=== PATIENT | female | born 1955 | race Caucasian/White ===

== ENCOUNTER → 2019-12-02 15:44 | Outpatient (BNVA) | payer MEDICARE, BC, SELFPAY | PROVIDERS: Family Provider Electrodiagnostic Medicine; PCP Electrodiagnostic Medicine; Visit Provider Urology | DX: Z87.440 Personal history of urinary (tract) infections (principal); N30.80 Other cystitis without hematuria; N20.0 Calculus of kidney | CPT/HCPCS: 81001 ==

== ENCOUNTER 2019-12-31 08:21 | Outpatient (CLI) | payer MEDICARE, BC, SELFPAY ==
--- NOTE | 2019-12-31 08:39 | MM_ITS ---
WS: [id number] BILATERAL DIAGNOSTIC DIGITAL MAMMOGRAM WITH CAD HISTORY: HX malignant NEOPLASM RT BREST COMPARISON: 01/10/2019 and 01/09/2018 Bilateral CC and MLO views submitted. Computer aided detection analyzed. Breast composition: There are scattered areas of fibroglandular density. Postsurgical changes at 12:0 0 RIGHT breast. Dystrophic calcification and RIGHT breast distortion are stable. Additional benign ca lcifications in each breast. Surgical clip in the anterior LEFT breast. MM/[id number] IMPRESSION: BI-RADS: 2-Benign FOLLOW UP: 1 Year Follow-up
== END 2019-12-31 08:22 | disposition home or self-care (01) ==
LOC: ONCMED 08:22
PROVIDERS: Family Provider Electrodiagnostic Medicine; PCP Electrodiagnostic Medicine; Visit Provider Internal Medicine Medical Oncology
DX: Z85.3 Personal history of malignant neoplasm of breast (principal)
CPT/HCPCS: 77066

== ENCOUNTER 2020-03-23 15:17 | Inpatient (IN) | payer MEDICARE, BC, SELFPAY ==
[2020-03-23] VITALS (9 sets, daily range): BP systolic 91–124; BP diastolic 46–73; PULSE 75–106; RESP 14–18; TEMP 36.6–38.2; O2SAT 90–100; BMI 31.6
--- NOTE | 2020-03-23 15:44 | XRR_ITS ---
PROCEDURE INFORMATION: Exam: XR Chest, 2 Views Exam date and time: 03/23/2020 4:01 PM Age: 64 years old Clinical indication: Shortness of breath TECHNIQUE: Imaging protocol: XR of the chest Views: 2 views. COMPARISON: No relevant prior studies available. FINDINGS: Lungs: Unremarkable. No consolidation. Pleural space: Unremarkable. No pleural effusion. No pneumothorax. Heart/Mediastinum: Unremarkable. No cardiomegaly. Bones/joints: Unremarkable. XR/XR chest 2V* [id number] IMPRESSION: No acute findings.
--- NOTE | 2020-03-23 16:41 | W.ED.SOB ---
Documented by User: Ricardo Ferrer DO 03/24/20 06:32 HPI - SOB/Dyspnea General: Chief Complaint: Shortness of Breath/Dyspnea Stated Complaint: weak, duong, fever Time Seen by Provider: 03/23/20 16:35 History of Present Illness: HPI Narrative: 64 yo female comes in complaining of headache and fever for the last 10 days. She was tested at an outside clinic by COVID-19 for COVID-19 and it came back negative today after a week. 2 days ago she began to feel short of breath she has temps intermittently up to 104. She has not noticed any new rashes no mouth sores. She has not had any sick contacts known else at home is been sick she denies nausea vomiting diarrhea denies any GI or symptoms she has not had a productive cough or shortness of breath only been for the last 2 days she denies chest pain. She does complain about a headache and some stiff neck and fever however that is been 1 persistent thing throughout this. She has not been evaluated for meningitis. MD elicited complaint: shortness of breath and cough Onset (ago): week(s) (1) Context: recent illness and occurred during exertion Timing: constant Severity: moderate Exacerbating factors: nothing Relieving factors: nothing Associated symptoms: Reports fever(s), lightheadedness, nausea and other (Headache and stiff neck) Treatment prior to arrival: none Review of Systems Const: Reports: fever(s) ENMT: Denies: throat pain, ear or mastoid pain, nasal discharge or nasal congestion Card: Reports: lightheadedness Resp: Denies: dyspnea, productive cough or non-productive cough GI: Reports: nausea : Denies: flank pain, difficulty voiding, dysuria, urinary frequency or urinary urgency Skin/Breast: Denies: rash or pruritus PFS ED PFSH: Medical History (Updated 03/23/20 @ 22:21 by Juan Luis Story MD) Breast cancer, right Infiltrating ductal carcinoma ER positive SC positive HER-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 Status post right breast lumpectomy and sentinel lymph node biopsy, Status post chemo radiotherapy Chronic cystitis Ciprofloxacin 500 mg twice daily Cystocele with rectocele BOTH REPAIRED Trans-obturator sub-urethral sling in April 2005 Anterior vaginal repair Nocturia Reflex sympathetic dystrophy of right leg Nifedipine Renal calculus, left Surgical History (Updated 03/23/20 @ 22:21 by Juan Luis Story MD) H/O bilateral salpingo-oophorectomy History of hysterectomy Vaginal hysterectomy History of lumpectomy of right breast Family History Mother Dementia Other Diabetes Social History Smoking and tobacco status: former smoker Alcohol intake: current Alcohol intake frequency: holidays/special occasions only Adopted: No Caregiver/support person: No Lives independently: No Household members: spouse Marital status: Current occupational status: retired History of recent travel: No Current gender identity: Male Physical Exam Const: COMMON NORMALS: no acute distress GENERAL APPEARANCE: cooperative and comfortable ORIENTATION/CONSCIOUSNESS: Yes awake, Yes oriented to person, Yes oriented to place and Yes oriented to time HENMT: COMMON NORMALS: normocephalic, atraumatic, hearing grossly normal bilaterally, external ears normal, EAC's normal, TM's normal bilaterally, Normal nasal mucous membranes and turbinates present, moist oral mucous membranes and oropharynx normal HEAD & SCALP: normocephalic and atraumatic NOSE: Normal nasal mucous membranes and turbinates present EXTERNAL EAR: Yes external ears normal EXTERNAL AUDITORY CANAL: EAC's normal TYMPANIC MEMBRANE: TM's normal bilaterally Eye: COMMON NORMALS: Equal, round and reactive pupils present, EOMs intact bilaterally, conjunctivae normal and no scleral icterus CONJUNCTIVA: Yes conjunctivae normal PUPIL: Yes Equal, round and reactive pupils present Neck/C-Spine: COMMON NORMALS: full ROM, no lymphadenopathy, supple and no JVD Lymph: LYMPHATIC: no lymphadenopathy noted and no lymphedema noted Resp: COMMON NORMALS: normal respiratory effort, No retractions, No use of accessory muscles and clear to auscultation bilaterally AUSCULTATION: clear to auscultation bilaterally Cardio: COMMON NORMALS: no JVD, regular rate, regular rhythm and No murmurs present (Cardio) RATE: regular rate RHYTHM: regular rhythm GI: COMMON NORMALS: Soft to palpation and No hepatosplenomegaly present AUSCULTATION: Yes normoactive bowel sounds PALPATION: Yes Soft to palpation, No Tenderness to palpation present (GI), No Guarding due to palpation present (GI) and Yes No hepatosplenomegaly present Extremity: COMMON NORMALS: normal to inspection, capillary refill normal, no clubbing, cyanosis or edema, no calf tenderness and no pedal edema Neuro: SENSORIUM/ORIENTATION: Yes oriented to person, Yes oriented to place and Yes oriented to time Skin: COMMON NORMALS: no rashes or lesions noted GENERAL SKIN EXAM: no rashes or lesions noted Procedures Lumbar Puncture Time Out Performed: Yes Patient Position: right lateral decubitus Skin Prep: Povidone-Iodine 1% and 0.5% Chlorhexidine/Alcohol Local Anesthetic: lidocaine 1% Amount of anesthesia used (mL): 3 Spinal Needle Gauge: 22G Interspace Used: L3-L4 Complications: Need to have other Practitioner Attempt and unable to obtain CSF Additional Comments: Difficult time identifying landmarks was able to get into the intervertebral space but was not able to isolate cerebrospinal fluid hubbed out the needle. After second attempt the LP was abandoned and anesthesia was called to assist. Course Vital Signs: Vital signs: Vital Signs Temperature 98.0 F 03/24/20 04:00 Pulse Rate 81 03/24/20 04:00 Respiratory Rate 18 03/24/20 04:00 Blood Pressure 92/56 03/24/20 04:00 Pulse Oximetry 91 03/24/20 04:00 MDM - SOB/Dyspnea MDM Narrative: Medical decision making narrative: Discussed with Dr. Palencia care turned over at change of shift. Also discussed anesthesia they have kindly at agreed to come in and attempt a lumbar tap. Anticipating admission due to complicated course and the fact that at this point patient still has not had a identified source of infection. We have also added a tick panel. Lab Data: Labs: Lab Results 03/23/20 03/23/20 03/23/20 Range/Units 16:45 16:45 16:45 WBC 7.7 (4.0-10.0) 10^3/ uL RBC 4.01 L (4.1-5.3) 10^6/u L Hgb 11.7 (11.5-15.3) g/dL Hct 34.8 L (37.0-47.0) % MCV 86.8 (81-99) fL MCH 29.2 (28.0-34.0) pg MCHC 33.6 (30.0-36.0) g/dL RDW 14.6 (12.1-15.1) % Plt Count 177 (130-400) 10^3/c mm MPV 10.7 H (7.4-10.4) fL Neut % (Auto) 82.4 % Lymph % (Auto) 5.7 % [place] % (Auto) 7.9 % Eos % (Auto) 0.1 % Baso % (Auto) 0.3 % Neut # (Auto) 6.3 (1.8-7.7) 10^3/u L Lymph # (Auto) 0.4 L (0.8-4.8) 10^3/u L [place] # (Auto) 0.6 (0.2-0.9) 10^3/u L Eos # (Auto) 0.0 (0.0-0.8) 10^3/u L Baso # (Auto) 0.0 (0.0-0.1) 10^3/u L Nucleated RBC % (a uto) 0 % Nucleated RBCs # 0.0 /100WBC PT (10.5-13.3) SECO NDS INR (0.8-1.2) APTT (23.9-36.7) SECO NDS Specimen Type Sample Site ABG pH (7.35-7.45) ABG pCO2 (35-45) mmHg ABG pO2 (80.0-100.0) mmH g ABG HCO3 (22-26) mmol/L ABG O2 Saturation ABG Base Excess (-2.0-2.0) mmol/ L Félix Test A-a O2 Gradient (5-10) mmHg Hematocrit (37-47) % Hgb O2 Saturation (95-100) % Carboxyhemoglobin (0.4-20.1) %THgb Methemoglobin (0.4-1.5) % Total Hemoglobin (12-16) g/dL Ionized Calcium (1.1-1.4) mmol/L O2 Delivery Device O2 Liters/Min % FiO2 % Ecg Technician ID Sodium Cancelled Potassium Cancelled Chloride Cancelled Carbon Dioxide Cancelled Anion Gap Cancelled BUN Cancelled Creatinine Cancelled GFR Calculation Cancelled Glucose Cancelled Calculated Osmolal ity Cancelled Lactate (0.5-2.2) mmol/L Calcium Cancelled Total Bilirubin Cancelled AST Cancelled ALT Cancelled Alkaline Phosphata se Cancelled Troponin T Baselin e 12 H (0-10) ng/L Troponin T 120 Min [place] (0-10) ng/L Delta Troponin T (0-10) ABS# Total Protein Cancelled Albumin Cancelled Globulin Cancelled Urine Color (Yellow) Urine Appearance (CLEAR) Urine pH (5-7) Ur Specific Gravit y (1.005-1.030) Urine Protein (Negative) Urine Glucose (UA) (Normal) Urine Ketones (Negative) Urine Blood (Negative) Urine Nitrate (Negative) Urine Bilirubin (NEGATIVE) Urine Urobilinogen (Negative) mg/dL Ur Leukocyte Consuelo ase (Negative) Urine RBC (0-2) /hpf Urine WBC (0-5) /hpf Ur Squamous Epith Cells (0-5) Amorphous Sediment Urine Bacteria (NONE) CSF Appearance (CLEAR) CSF Color (COLORLESS) CSF WBC (0-5) /uL CSF RBC (0-0) 10^3/uL CSF Mononuclear # Auto (50-90) 10^3/uL CSF Mononuclear WB Cs % (50-90) % CSF Polynuclear WB Cs # (0-10) 10^3/uL CSF Polynuclear WB Cs % (0-10) % CSF Diff Comment CSF Glucose (40-70) mg/dL 03/23/20 03/23/20 03/23/20 Range/Units 16:45 16:48 17:40 WBC (4.0-10.0) 10^3/ uL RBC (4.1-5.3) 10^6/u L Hgb (11.5-15.3) g/dL Hct (37.0-47.0) % MCV (81-99) fL MCH (28.0-34.0) pg MCHC (30.0-36.0) g/dL RDW (12.1-15.1) % Plt Count (130-400) 10^3/c mm MPV (7.4-10.4) fL Neut % (Auto) % Lymph % (Auto) % [place] % (Auto) % Eos % (Auto) % Baso % (Auto) % Neut # (Auto) (1.8-7.7) 10^3/u L Lymph # (Auto) (0.8-4.8) 10^3/u L [place] # (Auto) (0.2-0.9) 10^3/u L Eos # (Auto) (0.0-0.8) 10^3/u L Baso # (Auto) (0.0-0.1) 10^3/u L Nucleated RBC % (a uto) % Nucleated RBCs # /100WBC PT 14.10 H (10.5-13.3) SECO NDS INR 1.06 (0.8-1.2) APTT 37.6 H (23.9-36.7) SECO NDS Specimen Type Sample Site ABG pH (7.35-7.45) ABG pCO2 (35-45) mmHg ABG pO2 (80.0-100.0) mmH g ABG HCO3 (22-26) mmol/L ABG O2 Saturation ABG Base Excess (-2.0-2.0) mmol/ L Félix Test A-a O2 Gradient (5-10) mmHg Hematocrit (37-47) % Hgb O2 Saturation (95-100) % Carboxyhemoglobin (0.4-20.1) %THgb Methemoglobin (0.4-1.5) % Total Hemoglobin (12-16) g/dL Ionized Calcium (1.1-1.4) mmol/L O2 Delivery Device O2 Liters/Min % FiO2 % Ecg Technician ID Sodium Potassium Chloride Carbon Dioxide Anion Gap BUN Creatinine GFR Calculation Glucose Calculated Osmolal ity Lactate 1.9 (0.5-2.2) mmol/L Calcium Total Bilirubin AST ALT Alkaline Phosphata se Troponin T Baselin e (0-10) ng/L Troponin T 120 Min [place] (0-10) ng/L Delta Troponin T (0-10) ABS# Total Protein Albumin Globulin Urine Color Yellow (Yellow) Urine Appearance Clear (CLEAR) Urine pH 5 (5-7) Ur Specific Gravit y 1.010 (1.005-1.030) Urine Protein Neg (Negative) Urine Glucose (UA) Norm (Normal) Urine Ketones Negative (Negative) Urine Blood 3+ H (Negative) Urine Nitrate Negative (Negative) Urine Bilirubin 1+ H (NEGATIVE) Urine Urobilinogen 1 H (Negative) mg/dL Ur Leukocyte Consuelo ase Trace H (Negative) Urine RBC 5-10 H (0-2) /hpf Urine WBC 5-10 H (0-5) /hpf Ur Squamous Epith Cells 0-4 H (0-5) Amorphous Sediment Not Reportable Urine Bacteria 1+ H (NONE) CSF Appearance (CLEAR) CSF Color (COLORLESS) CSF WBC (0-5) /uL CSF RBC (0-0) 10^3/uL CSF Mononuclear # Auto (50-90) 10^3/uL CSF Mononuclear WB Cs % (50-90) % CSF Polynuclear WB Cs # (0-10) 10^3/uL CSF Polynuclear WB Cs % (0-10) % CSF Diff Comment CSF Glucose (40-70) mg/dL 03/23/20 03/23/20 03/23/20 Range/Units 18:24 19:12 19:12 WBC (4.0-10.0) 10^3/ uL RBC (4.1-5.3) 10^6/u L Hgb (11.5-15.3) g/dL Hct (37.0-47.0) % MCV (81-99) fL MCH (28.0-34.0) pg MCHC (30.0-36.0) g/dL RDW (12.1-15.1) % Plt Count (130-400) 10^3/c mm MPV (7.4-10.4) fL Neut % (Auto) % Lymph % (Auto) % [place] % (Auto) % Eos % (Auto) % Baso % (Auto) % Neut # (Auto) (1.8-7.7) 10^3/u L Lymph # (Auto) (0.8-4.8) 10^3/u L [place] # (Auto) (0.2-0.9) 10^3/u L Eos # (Auto) (0.0-0.8) 10^3/u L Baso # (Auto) (0.0-0.1) 10^3/u L Nucleated RBC % (a uto) % Nucleated RBCs # /100WBC PT (10.5-13.3) SECO NDS INR (0.8-1.2) APTT (23.9-36.7) SECO NDS Specimen Type Arterial Sample Site Brachial, left ABG pH 7.46 H (7.35-7.45) ABG pCO2 27.4 L (35-45) mmHg ABG pO2 115.0 H (80.0-100.0) mmH g ABG HCO3 19.5 L (22-26) mmol/L ABG O2 Saturation 98.9 ABG Base Excess -3.2 L (-2.0-2.0) mmol/ L Félix Test N/a A-a O2 Gradient 46.0 H (5-10) mmHg Hematocrit 34.3 L (37-47) % Hgb O2 Saturation 97.5 (95-100) % Carboxyhemoglobin 0.7 (0.4-20.1) %THgb Methemoglobin 0.8 (0.4-1.5) % Total Hemoglobin 11.2 L (12-16) g/dL Ionized Calcium 1.1 (1.1-1.4) mmol/L O2 Delivery Device Nc O2 Liters/Min 2.0 % FiO2 28.0 % Ecg Technician ID amh Sodium 129.0 L Potassium 4.2 Chloride Carbon Dioxide Anion Gap BUN Creatinine GFR Calculation Glucose 121.0 H Calculated Osmolal ity Lactate (0.5-2.2) mmol/L Calcium Total Bilirubin AST ALT Alkaline Phosphata se Troponin T Baselin e (0-10) ng/L Troponin T 120 Min [place] (0-10) ng/L Delta Troponin T (0-10) ABS# Total Protein Albumin Globulin Urine Color (Yellow) Urine Appearance (CLEAR) Urine pH (5-7) Ur Specific Gravit y (1.005-1.030) Urine Protein (Negative) Urine Glucose (UA) (Normal) Urine Ketones (Negative) Urine Blood (Negative) Urine Nitrate (Negative) Urine Bilirubin (NEGATIVE) Urine Urobilinogen (Negative) mg/dL Ur Leukocyte Consuelo ase (Negative) Urine RBC (0-2) /hpf Urine WBC (0-5) /hpf Ur Squamous Epith Cells (0-5) Amorphous Sediment Urine Bacteria (NONE) CSF Appearance Clear (CLEAR) CSF Color Colorless (COLORLESS) CSF WBC 2 (0-5) /uL CSF RBC 0 (0-0) 10^3/uL CSF Mononuclear # Auto 0.000 L (50-90) 10^3/uL CSF Mononuclear WB Cs % 0 L (50-90) % CSF Polynuclear WB Cs # 0.002 (0-10) 10^3/uL CSF Polynuclear WB Cs % 100 H (0-10) % CSF Diff Comment Yes CSF Glucose 69 (40-70) mg/dL 03/23/20 03/23/20 Range/Units 19:25 19:25 WBC (4.0-10.0) 10^3/ uL RBC (4.1-5.3) 10^6/u L Hgb (11.5-15.3) g/dL Hct (37.0-47.0) % MCV (81-99) fL MCH (28.0-34.0) pg MCHC (30.0-36.0) g/dL RDW (12.1-15.1) % Plt Count (130-400) 10^3/c mm MPV (7.4-10.4) fL Neut % (Auto) % Lymph % (Auto) % [place] % (Auto) % Eos % (Auto) % Baso % (Auto) % Neut # (Auto) (1.8-7.7) 10^3/u L Lymph # (Auto) (0.8-4.8) 10^3/u L [place] # (Auto) (0.2-0.9) 10^3/u L Eos # (Auto) (0.0-0.8) 10^3/u L Baso # (Auto) (0.0-0.1) 10^3/u L Nucleated RBC % (a uto) % Nucleated RBCs # /100WBC PT (10.5-13.3) SECO NDS INR (0.8-1.2) APTT (23.9-36.7) SECO NDS Specimen Type Sample Site ABG pH (7.35-7.45) ABG pCO2 (35-45) mmHg ABG pO2 (80.0-100.0) mmH g ABG HCO3 (22-26) mmol/L ABG O2 Saturation ABG Base Excess (-2.0-2.0) mmol/ L Félix Test A-a O2 Gradient (5-10) mmHg Hematocrit (37-47) % Hgb O2 Saturation (95-100) % Carboxyhemoglobin (0.4-20.1) %THgb Methemoglobin (0.4-1.5) % Total Hemoglobin (12-16) g/dL Ionized Calcium (1.1-1.4) mmol/L O2 Delivery Device O2 Liters/Min % FiO2 % Ecg Technician ID Sodium 130 L Potassium 4.3 Chloride 95 L Carbon Dioxide 21 L Anion Gap 18.3 BUN 18 Creatinine 0.9 GFR Calculation 62.8 L Glucose 121 H Calculated Osmolal ity 268 L Lactate (0.5-2.2) mmol/L Calcium 8.4 L Total Bilirubin 1.3 H AST 80 H ALT 74 H Alkaline Phosphata se 215 H Troponin T Baselin e (0-10) ng/L Troponin T 120 Min [place] 11.03 H (0-10) ng/L Delta Troponin T -0.97 L (0-10) ABS# Total Protein 6.4 L Albumin 3.5 Globulin 2.9 Urine Color (Yellow) Urine Appearance (CLEAR) Urine pH (5-7) Ur Specific Gravit y (1.005-1.030) Urine Protein (Negative) Urine Glucose (UA) (Normal) Urine Ketones (Negative) Urine Blood (Negative) Urine Nitrate (Negative) Urine Bilirubin (NEGATIVE) Urine Urobilinogen (Negative) mg/dL Ur Leukocyte Consuelo ase (Negative) Urine RBC (0-2) /hpf Urine WBC (0-5) /hpf Ur Squamous Epith Cells (0-5) Amorphous Sediment Urine Bacteria (NONE) CSF Appearance (CLEAR) CSF Color (COLORLESS) CSF WBC (0-5) /uL CSF RBC (0-0) 10^3/uL CSF Mononuclear # Auto (50-90) 10^3/uL CSF Mononuclear WB Cs % (50-90) % CSF Polynuclear WB Cs # (0-10) 10^3/uL CSF Polynuclear WB Cs % (0-10) % CSF Diff Comment CSF Glucose (40-70) mg/dL Discharge Plan Discharge Patient Disposition: Admitted As Inpatient Admit Provider: Juan Luis Story Clinical Impression: Fever Qualifiers: Fever type: unspecified Qualified Code(s): R50.9 - Fever, unspecified Headache Qualifiers: Headache type: unspecified Condition: Stable Referrals: Melecio Bardales DO [Primary Care Provider] - Discharge Date/Time: 03/23/20 21:54 Coding Level of Care Code ED Bench Boring Machine Operator for Chg Fwd Exam Comprehensive Documented by User: Eliezer Palencia MD 03/23/20 20:50 HPI - SOB/Dyspnea General: Chief Complaint: Shortness of Breath/Dyspnea Stated Complaint: weak, duong, fever Time Seen by Provider: 03/23/20 16:35 PFSH ED PFSH: Medical History (Updated 03/23/20 @ 22:21 by Juan Luis Story MD) Breast cancer, right Infiltrating ductal carcinoma ER positive SC positive HER-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 Status post right breast lumpectomy and sentinel lymph node biopsy, Status post chemo radiotherapy Chronic cystitis Ciprofloxacin 500 mg twice daily Cystocele with rectocele BOTH REPAIRED Trans-obturator sub-urethral sling in April 2005 Anterior vaginal repair Nocturia Reflex sympathetic dystrophy of right leg Nifedipine Renal calculus, left Surgical History (Updated 03/23/20 @ 22:21 by Juan Luis Story MD) H/O bilateral salpingo-oophorectomy History of hysterectomy Vaginal hysterectomy History of lumpectomy of right breast Family History Mother Dementia Other Diabetes Social History Smoking and tobacco status: former smoker Alcohol intake: current Alcohol intake frequency: holidays/special occasions only Adopted: No Caregiver/support person: No Lives independently: No Household members: spouse Marital status: Current occupational status: retired History of recent travel: No Current gender identity: Male Course Vital Signs: Vital signs: Vital Signs Temperature 98.0 F 03/24/20 04:00 Pulse Rate 81 03/24/20 04:00 Respiratory Rate 18 03/24/20 04:00 Blood Pressure 92/56 03/24/20 04:00 Pulse Oximetry 91 03/24/20 04:00 MDM - SOB/Dyspnea MDM Narrative: Medical decision making narrative: Patient presents here with severe headache along with fever. Initial results from LP are normal. Patient started on IV antibiotics and has had high-grade fevers here. I spoke to hospitalist Dr. Story and will admit. Patient's lactate is normal here is no signs of septic shock. Lab Data: Labs: Lab Results 0603/23/20 03/23/20 Range/Units 16:45 16:45 16:45 WBC 7.7 (4.0-10.0) 10^3/ uL RBC 4.01 L (4.1-5.3) 10^6/u L Hgb 11.7 (11.5-15.3) g/dL Hct 34.8 L (37.0-47.0) % MCV 86.8 (81-99) fL MCH 29.2 (28.0-34.0) pg MCHC 33.6 (30.0-36.0) g/dL RDW 14.6 (12.1-15.1) % Plt Count 177 (130-400) 10^3/c mm MPV 10.7 H (7.4-10.4) fL Neut % (Auto) 82.4 % Lymph % (Auto) 5.7 % [place] % (Auto) 7.9 % Eos % (Auto) 0.1 % Baso % (Auto) 0.3 % Neut # (Auto) 6.3 (1.8-7.7) 10^3/u L Lymph # (Auto) 0.4 L (0.8-4.8) 10^3/u L [place] # (Auto) 0.6 (0.2-0.9) 10^3/u L Eos # (Auto) 0.0 (0.0-0.8) 10^3/u L Baso # (Auto) 0.0 (0.0-0.1) 10^3/u L Nucleated RBC % (a uto) 0 % Nucleated RBCs # 0.0 /100WBC PT (10.5-13.3) SECO NDS INR (0.8-1.2) APTT (23.9-36.7) SECO NDS Specimen Type Sample Site ABG pH (7.35-7.45) ABG pCO2 (35-45) mmHg ABG pO2 (80.0-100.0) mmH g ABG HCO3 (22-26) mmol/L ABG O2 Saturation ABG Base Excess (-2.0-2.0) mmol/ L Félix Test A-a O2 Gradient (5-10) mmHg Hematocrit (37-47) % Hgb O2 Saturation (95-100) % Carboxyhemoglobin (0.4-20.1) %THgb Methemoglobin (0.4-1.5) % Total Hemoglobin (12-16) g/dL Ionized Calcium (1.1-1.4) mmol/L O2 Delivery Device O2 Liters/Min % FiO2 % Ecg Technician ID Sodium Cancelled Potassium Cancelled Chloride Cancelled Carbon Dioxide Cancelled Anion Gap Cancelled BUN Cancelled Creatinine Cancelled GFR Calculation Cancelled Glucose Cancelled Calculated Osmolal ity Cancelled Lactate (0.5-2.2) mmol/L Calcium Cancelled Total Bilirubin Cancelled AST Cancelled ALT Cancelled Alkaline Phosphata se Cancelled Troponin T Baselin e 12 H (0-10) ng/L Troponin T 120 Min [place] (0-10) ng/L Delta Troponin T (0-10) ABS# Total Protein Cancelled Albumin Cancelled Globulin Cancelled Urine Color (Yellow) Urine Appearance (CLEAR) Urine pH (5-7) Ur Specific Gravit y (1.005-1.030) Urine Protein (Negative) Urine Glucose (UA) (Normal) Urine Ketones (Negative) Urine Blood (Negative) Urine Nitrate (Negative) Urine Bilirubin (NEGATIVE) Urine Urobilinogen (Negative) mg/dL Ur Leukocyte Consuelo ase (Negative) Urine RBC (0-2) /hpf Urine WBC (0-5) /hpf Ur Squamous Epith Cells (0-5) Amorphous Sediment Urine Bacteria (NONE) CSF Appearance (CLEAR) CSF Color (COLORLESS) CSF WBC (0-5) /uL CSF RBC (0-0) 10^3/uL CSF Mononuclear # Auto (50-90) 10^3/uL CSF Mononuclear WB Cs % (50-90) % CSF Polynuclear WB Cs # (0-10) 10^3/uL CSF Polynuclear WB Cs % (0-10) % CSF Diff Comment CSF Glucose (40-70) mg/dL 03/23/20 03/23/20 03/23/20 Range/Units 16:45 16:48 17:40 WBC (4.0-10.0) 10^3/ uL RBC (4.1-5.3) 10^6/u L Hgb (11.5-15.3) g/dL Hct (37.0-47.0) % MCV (81-99) fL MCH (28.0-34.0) pg MCHC (30.0-36.0) g/dL RDW (12.1-15.1) % Plt Count (130-400) 10^3/c mm MPV (7.4-10.4) fL Neut % (Auto) % Lymph % (Auto) % [place] % (Auto) % Eos % (Auto) % Baso % (Auto) % Neut # (Auto) (1.8-7.7) 10^3/u L Lymph # (Auto) (0.8-4.8) 10^3/u L [place] # (Auto) (0.2-0.9) 10^3/u L Eos # (Auto) (0.0-0.8) 10^3/u L Baso # (Auto) (0.0-0.1) 10^3/u L Nucleated RBC % (a uto) % Nucleated RBCs # /100WBC PT 14.10 H (10.5-13.3) SECO NDS INR 1.06 (0.8-1.2) APTT 37.6 H (23.9-36.7) SECO NDS Specimen Type Sample Site ABG pH (7.35-7.45) ABG pCO2 (35-45) mmHg ABG pO2 (80.0-100.0) mmH g ABG HCO3 (22-26) mmol/L ABG O2 Saturation ABG Base Excess (-2.0-2.0) mmol/ L Félix Test A-a O2 Gradient (5-10) mmHg Hematocrit (37-47) % Hgb O2 Saturation (95-100) % Carboxyhemoglobin (0.4-20.1) %THgb Methemoglobin (0.4-1.5) % Total Hemoglobin (12-16) g/dL Ionized Calcium (1.1-1.4) mmol/L O2 Delivery Device O2 Liters/Min % FiO2 % Ecg Technician ID Sodium Potassium Chloride Carbon Dioxide Anion Gap BUN Creatinine GFR Calculation Glucose Calculated Osmolal ity Lactate 1.9 (0.5-2.2) mmol/L Calcium Total Bilirubin AST ALT Alkaline Phosphata se Troponin T Baselin e (0-10) ng/L Troponin T 120 Min [place] (0-10) ng/L Delta Troponin T (0-10) ABS# Total Protein Albumin Globulin Urine Color Yellow (Yellow) Urine Appearance Clear (CLEAR) Urine pH 5 (5-7) Ur Specific Gravit y 1.010 (1.005-1.030) Urine Protein Neg (Negative) Urine Glucose (UA) Norm (Normal) Urine Ketones Negative (Negative) Urine Blood 3+ H (Negative) Urine Nitrate Negative (Negative) Urine Bilirubin 1+ H (NEGATIVE) Urine Urobilinogen 1 H (Negative) mg/dL Ur Leukocyte Consuelo ase Trace H (Negative) Urine RBC 5-10 H (0-2) /hpf Urine WBC 5-10 H (0-5) /hpf Ur Squamous Epith Cells 0-4 H (0-5) Amorphous Sediment Not Reportable Urine Bacteria 1+ H (NONE) CSF Appearance (CLEAR) CSF Color (COLORLESS) CSF WBC (0-5) /uL CSF RBC (0-0) 10^3/uL CSF Mononuclear # Auto (50-90) 10^3/uL CSF Mononuclear WB Cs % (50-90) % CSF Polynuclear WB Cs # (0-10) 10^3/uL CSF Polynuclear WB Cs % (0-10) % CSF Diff Comment CSF Glucose (40-70) mg/dL 03/23/20 03/23/20 03/23/20 Range/Units 18:24 19:12 19:12 WBC (4.0-10.0) 10^3/ uL RBC (4.1-5.3) 10^6/u L Hgb (11.5-15.3) g/dL Hct (37.0-47.0) % MCV (81-99) fL MCH (28.0-34.0) pg MCHC (30.0-36.0) g/dL RDW (12.1-15.1) % Plt Count (130-400) 10^3/c mm MPV (7.4-10.4) fL Neut % (Auto) % Lymph % (Auto) % [place] % (Auto) % Eos % (Auto) % Baso % (Auto) % Neut # (Auto) (1.8-7.7) 10^3/u L Lymph # (Auto) (0.8-4.8) 10^3/u L [place] # (Auto) (0.2-0.9) 10^3/u L Eos # (Auto) (0.0-0.8) 10^3/u L Baso # (Auto) (0.0-0.1) 10^3/u L Nucleated RBC % (a uto) % Nucleated RBCs # /100WBC PT (10.5-13.3) SECO NDS INR (0.8-1.2) APTT (23.9-36.7) SECO NDS Specimen Type Arterial Sample Site Brachial, left ABG pH 7.46 H (7.35-7.45) ABG pCO2 27.4 L (35-45) mmHg ABG pO2 115.0 H (80.0-100.0) mmH g ABG HCO3 19.5 L (22-26) mmol/L ABG O2 Saturation 98.9 ABG Base Excess -3.2 L (-2.0-2.0) mmol/ L Félix Test N/a A-a O2 Gradient 46.0 H (5-10) mmHg Hematocrit 34.3 L (37-47) % Hgb O2 Saturation 97.5 (95-100) % Carboxyhemoglobin 0.7 (0.4-20.1) %THgb Methemoglobin 0.8 (0.4-1.5) % Total Hemoglobin 11.2 L (12-16) g/dL Ionized Calcium 1.1 (1.1-1.4) mmol/L O2 Delivery Device Nc O2 Liters/Min 2.0 % FiO2 28.0 % Ecg Technician ID amh Sodium 129.0 L Potassium 4.2 Chloride Carbon Dioxide Anion Gap BUN Creatinine GFR Calculation Glucose 121.0 H Calculated Osmolal ity Lactate (0.5-2.2) mmol/L Calcium Total Bilirubin AST ALT Alkaline Phosphata se Troponin T Baselin e (0-10) ng/L Troponin T 120 Min [place] (0-10) ng/L Delta Troponin T (0-10) ABS# Total Protein Albumin Globulin Urine Color (Yellow) Urine Appearance (CLEAR) Urine pH (5-7) Ur Specific Gravit y (1.005-1.030) Urine Protein (Negative) Urine Glucose (UA) (Normal) Urine Ketones (Negative) Urine Blood (Negative) Urine Nitrate (Negative) Urine Bilirubin (NEGATIVE) Urine Urobilinogen (Negative) mg/dL Ur Leukocyte Consuelo ase (Negative) Urine RBC (0-2) /hpf Urine WBC (0-5) /hpf Ur Squamous Epith Cells (0-5) Amorphous Sediment Urine Bacteria (NONE) CSF Appearance Clear (CLEAR) CSF Color Colorless (COLORLESS) CSF WBC 2 (0-5) /uL CSF RBC 0 (0-0) 10^3/uL CSF Mononuclear # Auto 0.000 L (50-90) 10^3/uL CSF Mononuclear WB Cs % 0 L (50-90) % CSF Polynuclear WB Cs # 0.002 (0-10) 10^3/uL CSF Polynuclear WB Cs % 100 H (0-10) % CSF Diff Comment Yes CSF Glucose 69 (40-70) mg/dL 03/23/20 03/23/20 Range/Units 19:25 19:25 WBC (4.0-10.0) 10^3/ uL RBC (4.1-5.3) 10^6/u L Hgb (11.5-15.3) g/dL Hct (37.0-47.0) % MCV (81-99) fL MCH (28.0-34.0) pg MCHC (30.0-36.0) g/dL RDW (12.1-15.1) % Plt Count (130-400) 10^3/c mm MPV (7.4-10.4) fL Neut % (Auto) % Lymph % (Auto) % [place] % (Auto) % Eos % (Auto) % Baso % (Auto) % Neut # (Auto) (1.8-7.7) 10^3/u L Lymph # (Auto) (0.8-4.8) 10^3/u L [place] # (Auto) (0.2-0.9) 10^3/u L Eos # (Auto) (0.0-0.8) 10^3/u L Baso # (Auto) (0.0-0.1) 10^3/u L Nucleated RBC % (a uto) % Nucleated RBCs # /100WBC PT (10.5-13.3) SECO NDS INR (0.8-1.2) APTT (23.9-36.7) SECO NDS Specimen Type Sample Site ABG pH (7.35-7.45) ABG pCO2 (35-45) mmHg ABG pO2 (80.0-100.0) mmH g ABG HCO3 (22-26) mmol/L ABG O2 Saturation ABG Base Excess (-2.0-2.0) mmol/ L Félix Test A-a O2 Gradient (5-10) mmHg Hematocrit (37-47) % Hgb O2 Saturation (95-100) % Carboxyhemoglobin (0.4-20.1) %THgb Methemoglobin (0.4-1.5) % Total Hemoglobin (12-16) g/dL Ionized Calcium (1.1-1.4) mmol/L O2 Delivery Device O2 Liters/Min % FiO2 % Ecg Technician ID Sodium 130 L Potassium 4.3 Chloride 95 L Carbon Dioxide 21 L Anion Gap 18.3 BUN 18 Creatinine 0.9 GFR Calculation 62.8 L Glucose 121 H Calculated Osmolal ity 268 L Lactate (0.5-2.2) mmol/L Calcium 8.4 L Total Bilirubin 1.3 H AST 80 H ALT 74 H Alkaline Phosphata se 215 H Troponin T Baselin e (0-10) ng/L Troponin T 120 Min [place] 11.03 H (0-10) ng/L Delta Troponin T -0.97 L (0-10) ABS# Total Protein 6.4 L Albumin 3.5 Globulin 2.9 Urine Color (Yellow) Urine Appearance (CLEAR) Urine pH (5-7) Ur Specific Gravit y (1.005-1.030) Urine Protein (Negative) Urine Glucose (UA) (Normal) Urine Ketones (Negative) Urine Blood (Negative) Urine Nitrate (Negative) Urine Bilirubin (NEGATIVE) Urine Urobilinogen (Negative) mg/dL Ur Leukocyte Consuelo ase (Negative) Urine RBC (0-2) /hpf Urine WBC (0-5) /hpf Ur Squamous Epith Cells (0-5) Amorphous Sediment Urine Bacteria (NONE) CSF Appearance (CLEAR) CSF Color (COLORLESS) CSF WBC (0-5) /uL CSF RBC (0-0) 10^3/uL CSF Mononuclear # Auto (50-90) 10^3/uL CSF Mononuclear WB Cs % (50-90) % CSF Polynuclear WB Cs # (0-10) 10^3/uL CSF Polynuclear WB Cs % (0-10) % CSF Diff Comment CSF Glucose (40-70) mg/dL Discharge Plan Discharge Patient Disposition: Admitted As Inpatient Admit Provider: Juan Luis Story Clinical Impression: Fever Qualifiers: Fever type: unspecified Qualified Code(s): R50.9 - Fever, unspecified Headache Qualifiers: Headache type: unspecified Condition: Stable Referrals: Melecio Bardales DO [Primary Care Provider] - Discharge Date/Time: 03/23/20 21:54 Coding Level of Care Code ED Bench Boring Machine Operator for Chg Fwd Exam Comprehensive
--- NOTE | 2020-03-23 16:43 | ECG_ITS ---
[facility] Test Date: 2020-03-23 Pat Name: Marybel Rosado Department: Room: Gender: Female Agency Legal Counsel: : 1955 Requested By: Ricardo Rodriguez Order Number: [id number] Mini MD: Juan Luis Christina M.D. Measurements Intervals [place] Rate: 89 P: 26 [place]: 136 QRS: 34 QRSD: 90 T: 22 QT: 341 QTc: 415 Interpretive Statements SINUS RHYTHM No previous ECG available for comparison Electronically Signed On 03-23-2020 19:33:34 CDT by Juan Luis Christina M.D. [id number]
[2020-03-23 16:54] LABS: Basophils % 0.3 %; Eosinophils % 0.1 %; Hematocrit 34.8 % (37.0-47.0); Hemoglobin 11.7 g/dL (11.5-15.3); Lymphocytes # 0.4 10^3/uL (0.8-4.8); Lymphocytes % 5.7 %; Mean Corpuscular HGB Conc 33.6 g/dL (30.0-36.0); Mean Corpuscular Hemoglobin 29.2 pg (28.0-34.0); Mean Corpuscular Volume 86.8 fL (81-99); Mean Platelet Volume 10.7 fL (7.4-10.4); Monocytes # 0.6 10^3/uL (0.2-0.9); Monocytes % 7.9 %; Neutrophils # 6.3 10^3/uL (1.8-7.7); Neutrophils % 82.4 %; Nucleated Red Blood Cells % 0 %; Platelet Count 177 10^3/cmm (130-400); Red Blood Count 4.01 10^6/uL (4.1-5.3); Red Cell Distribution Width 14.6 % (12.1-15.1); White Blood Count 7.7 10^3/uL (4.0-10.0)
[2020-03-23 17:13] LABS: Lactate (Lactic Acid level) 1.9 mmol/L (0.5-2.2)
[2020-03-23 17:14] LABS: Troponin(5th) Baseline 12 ng/L (0-10)
[2020-03-23 18:31] LABS: INR 1.06 (0.8-1.2); Partial Thromboplastin Time 37.6 SECONDS (23.9-36.7)
[2020-03-23 18:36] LABS: ABG PCO2 27.4 mmHg (35-45); ABG PH Result 7.46 (7.35-7.45); Arterial Blood Gas Hematocrit 34.3 % (37-47); Base Excess ABG -3.2 mmol/L (-2.0-2.0); Blood Gas Operator Identificat amh; Blood Gas Sample Site Brachial, left; Blood Gas Sample Type Arterial; Carboxyhemoglobin 0.7 %THgb (0.4-20.1); HCO3 ABG 19.5 mmol/L (22-26); HGB O2 Sat 97.5 % (95-100); Ionized Calcium Level - ABG 1.1 mmol/L (1.1-1.4); Methemoglobin 0.8 % (0.4-1.5); Oxygen Device NC; Oxygen Saturation ABG 98.9; Potassium Level - ABG 4.2 mmol/L (3.5-5.0); Total Hemoglobin 11.2 g/dL (12-16)
--- NOTE | 2020-03-23 18:43 | ECG_ITS ---
[facility] Test Date: 2020-03-23 Pat Name: Marybel Rosado Department: Room: Gender: Female Patient Office Rep: : 1955 Requested By: Ricardo Rodriguez Order Number: [id number] Mini MD: Juan Luis Christina M.D. Measurements Intervals [place] Rate: 85 P: 48 [place]: 143 QRS: 38 QRSD: 94 T: 32 QT: 357 QTc: 427 Interpretive Statements SINUS RHYTHM Compared to ECG 03/23/2020 17:30:25 No significant changes Electronically Signed On 03-23-2020 19:34:26 CDT by Juan Luis Christina M.D. [id number]
[2020-03-23 19:00] LABS: Add Urine Microscopic? YES; Bilirubin Urine 1+ (NEGATIVE); Blood Urine 3+ (Negative); Glucose Urine UA Norm (Normal); Ketones Urine Negative (Negative); Leukocyte Esterase Urine Trace (Negative); Nitrate Urine Negative (Negative); Protein Urine Neg (Negative); Urine Appearance Clear (CLEAR); Urine Color Yellow (Yellow); Urobilinogen Urine 1 mg/dL (Negative); pH Urine 5 (5-7)
[2020-03-23 19:01] LABS: Add Urine Culture? No; Bacteria Urine 1+; Squamous Epithelial Cell Urine 0-4 (0-5)
--- NOTE | 2020-03-23 19:13 | P.ANES_ITS ---
Anesthesia Procedures Procedure/Date: 03/23/20 Lumbar puncture Procedure Narrative: patient was placed in sitting position, L3-4 palpated, 3 mL of 1 % lidocaine local placed, lumbar needle placed, 3 mL of CSF collected in tubes for testing. patient tolerated well. no bleeding or swelling noted post procedure. report to LOCKER ATTENDANT
[2020-03-23] MEDS: acetaminophen 500 mg Tablet 1000 MG PO (19:31)
[2020-03-23] MEDS: sodium chloride 0.9% 1,000 ML 999 ML IV (19:31)
[2020-03-23] MEDS: piperacillin-tazobactam 3.375 GM in sodium chloride 0.9% (plus) 50 ML IV (19:38)
[2020-03-23 20:03] LABS: Mononuclear WBC CSF % 0 % (50-90); Polynuclear Cells ,CSF # 0.002 10^3/uL (0-10); Polynuclear WBC CSF % 100 % (0-10); Red Blood Cell CSF 0 10^3/uL (0-0); White Blood Cell CSF 2 /uL (0-5)
[2020-03-23 20:04] LABS: Troponin 5 2HR 11.03 ng/L (0-10)
[2020-03-23 20:04] LABS: Appearance CSF CLEAR (CLEAR); Color CSF COLORLESS (COLORLESS)
[2020-03-23 20:05] LABS: Pathology Referral Yes
[2020-03-23 20:05] LABS: Alanine Aminotransferase 74 U/L (0-33); Albumin Level 3.5 g/dL (3.5-5.2); Alkaline Phosphatase 215 IU/L (35-105); Anion Gap 18.3 (5-19); Aspartate Amino Transferase 80 U/L (0-32); Blood Urea Nitrogen 18 mg/dL (8-23); Calcium 8.4 mg/dL (8.5-10.5); Carbon Dioxide 21 mmol/L (22-29); Chloride 95 mmol/L (98-107); Globulin 2.9 g/dL (1.3-4.6); Glomerular Filtration Rate 62.8 mL/min (90-130); Glucose 121 mg/dL (65-115); Osmolality Calculated 268 mOsm/kg (285-295); Potassium 4.3 mmol/L (3.5-5.1); Sodium 130 mmol/L (136-145); Total Bilirubin 1.3 mg/dL (0.15-1.2); Total Protein 6.4 g/dL (6.6-8.7)
[2020-03-23] MEDS: vancomycin 1,000 MG in sodium chloride 0.9% 250 ML 250 MG IV (20:06)
[2020-03-23 20:16] LABS: Troponin 5 2HR Delta -0.97 ABS# (0-10)
[2020-03-23] MEDS: morphine 4 mg/mL SDV 1 mL IVP (20:19)
--- NOTE | 2020-03-23 20:24 | CTR_ITS ---
PROCEDURE INFORMATION: Exam: CT Head Without Contrast Exam date and time: 03/23/2020 8:26 PM Age: 64 years old Clinical indication: Pain; Dizziness; Headache; Additional info: [place] TECHNIQUE: Imaging protocol: Computed tomography of the head without contrast. Radiation optimization: All CT scans at this facility use at least one of these dose optimization techniques: automated exposure control; mA and/or kV adjustment per patient size (includes targeted exams where dose is matched to clinical indication); or iterative reconstruction. COMPARISON: No relevant prior studies available. RADIATION DOSE METRICS: Total DLP (mGy-cm): 768.09 FINDINGS: Brain: Mild volume loss and white matter disease are identified. There is no acute infarct or edema. No hemorrhage. Ventricles: Normal. No ventriculomegaly. Bones/joints: Unremarkable. No acute fracture. Sinuses: Visualized sinuses are unremarkable. No fluid levels. Mastoid air cells: Visualized mastoid air cells are well aerated. Soft tissues: Unremarkable. CT/CT head wo con* [id number] IMPRESSION: There are no acute concerning abnormalities. Radiation Dose CTDIVOL = (mGy): DLP = 768.09 (mGy-cm)
--- NOTE | 2020-03-23 20:33 | P.HP_ITS ---
Providers/Chief Complaint Primary Care Provider: Melecio Bardales DO Chief Complaint: weak, duong, fever History of Present Illness Marybel Rosado is a 64 year old female who carries a history of right breast cancer, chronic cystitis came in with chief complaint of headache and fever. Patient is stating that her headache started about 10 to 12 days ago, she did not notice any sinus infection or runny nose, her headache is consistently around her orbital area bilaterally, it gets worse on leaning forward or bending, this headache has woken her up from sleep multiple times, she has been taking Tylenol with codeine, she denies any previous history of cluster headaches or migraines. She is describing this headache as achy, pressure-like sensation behind her eyes which does not radiate towards her occipital area. She has not noticed any association with sneezing or coughing. She has not noticed any numbness tingling of lower extremities. Her has removed some ticks from her about 2 weeks ago, one tick was engorged with blood. She has been experiencing night sweats as well and recently noticed sore throat about 3 to 4 days ago. She is denying recent diarrhea, flulike symptoms, runny nose but is endorsing clear discharge from her eyes with her headache. He was tested for COVID because she traveled to [place] about 2 weeks ago, COVID came back today as negative. She has been feeling more fatigued and lethargic with dyspnea on exertion. She is denying chest pain, orthopnea, PND. She has been on prolonged course of ciprofloxacin for chronic cystitis, urine culture from October did not reveal bacteriuria. Diagnosis in the ER revealed 1 febrile episode 100.7, lumbar puncture is showing 2 white count which are neutrophils, I have requested CSF glucose level At the time of my evaluation she is complaining of headache, she is denying any aggravating factors such as bright lights or noise. No neurological deficit Kernig's and Brudzinski sign negative I have counseled her COVID because it was recently done which was negative. She has received vancomycin and Zosyn in the ER I would treat her empirically for viral meningitis CT head was requested which did not reveal acute pathology, Patient is complaining of dysuria and frequency which she is stating that these changes are chronic which might be getting worse, she has been on ciprofloxacin 500 mg twice daily Review of Systems Const: Reports: fever(s), chills, body aches, change in appetite, fatigue and night sweats Eyes: Reports: change in vision, eye discomfort and eye redness; Denies: blurry vision or photophobia ENMT: Reports: throat pain Card: Reports: dyspnea on exertion; Denies: chest pain, irregular heart rhythm, swelling of feet/ankles or orthopnea Resp: Reports: dyspnea; Denies: productive cough or non-productive cough GI: Denies: abdominal pain, nausea, vomiting, diarrhea or constipation : Reports: dysuria and urinary frequency; Denies: flank pain Musc: Denies: neck pain, extremity pain or joint redness Skin/Breast: Denies: rash or pruritus Neuro: Reports: headache(s); Denies: sensory changes, frequent falls, behavioral changes or Slurred speech present Psych: Reports: anxiety Endo: Denies: polyuria Pawel/Lymph: Denies: easy bruising All/Imm: Denies: urticaria Medications/Allergies Home Medications Medication Instructions Recorded Confirmed Last Taken Type acetaminophen 300 mg-codeine 30 mg 1 tab PO Q8H PRN 12/02/19 03/23/20 03/23/20 History tablet atorvastatin 10 mg tablet 40 mg PO DAILY 12/02/19 03/23/20 03/23/20 History calcium carbonate 600 mg (1,500 1 cap PO DAILY 12/02/19 03/23/20 03/23/20 History mg)-vitamin D3 500 unit capsule ciprofloxacin HCl 500 mg tablet 500 mg PO BID #42 tab 12/02/19 03/23/20 Unknown Rx fluoxetine 20 mg capsule 20 mg PO TID cap 12/02/19 03/23/20 03/23/20 History hydroxyzine HCl 10 mg tablet 10 mg PO TID PRN 12/02/19 03/23/20 03/23/20 History magnesium 250 mg tablet 250 mg PO DAILY 12/02/19 03/23/20 03/23/20 History nifedipine 30 mg tablet,extended 30 mg PO DAILY 12/02/19 03/23/20 03/23/20 History release pantoprazole 40 mg tablet,delayed 40 mg PO DAILY 12/02/19 03/23/20 03/23/20 History release tizanidine 2 mg capsule 2 mg PO Q8H PRN 12/02/19 03/23/20 03/23/20 History trazodone 50 mg tablet 50 mg PO DAILY PRN 12/02/19 03/23/20 03/23/20 History triamcinolone acetonide 0.1 % 1 applic TOPICAL BID PRN 12/02/19 03/23/20 Unknown History topical cream vitamin B complex 1 tab PO DAILY 12/02/19 03/23/20 03/23/20 History Allergies Allergy/AdvReac Type Severity Reaction Status Date / Time No Known Allergies Allergy Verified 03/23/20 16:57 PFSH Acute PFSH: Medical History (Updated 03/23/20 @ 22:21 by Juan Luis Story MD) Breast cancer, right 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 Status post right breast lumpectomy and sentinel lymph node biopsy, Status post chemo radiotherapy Chronic cystitis Ciprofloxacin 500 mg twice daily Cystocele with rectocele BOTH REPAIRED Trans-obturator sub-urethral sling in April 2005 Anterior vaginal repair Nocturia Reflex sympathetic dystrophy of right leg Nifedipine Renal calculus, left Surgical History (Updated 03/23/20 @ 22:21 by Juan Luis Story MD) H/O bilateral salpingo-oophorectomy History of hysterectomy Vaginal hysterectomy History of lumpectomy of right breast Family History Mother Dementia Other Diabetes Social History Smoking and tobacco status: former smoker Alcohol intake: current Alcohol intake frequency: holidays/special occasions only Adopted: No Caregiver/support person: No Lives independently: No Household members: spouse Marital status: Current occupational status: retired History of recent travel: No Current gender identity: Male Vitals/I&O/Wt Last Vital Signs Temp 100.7 F H 03/23/20 15:37 Pulse 94 03/23/20 19:51 Resp 18 03/23/20 20:19 BP 107/57 03/23/20 19:51 Pulse Ox 98 03/23/20 20:19 03/23/20 03/23/20 03/23/20 06:59 14:59 22:59 Intake Total 50 / 50 Balance 50 / 50 Weight last 48 hrs Weight 86.183 kg Physical Exam Narrative: EXAM NARRATIVE: Head to toe examination Patient resting comfortably on room air saturating well No active restaurant distress Complaining of pressure-like sensation behind her eyes Neurologically nonfocal exam Brudzinski and Kernig sign negative S1, S2 no tachycardia Blood pressure ranging between 100-112mmhg Abdomen soft nontender nondistended bowel sound present Lungs are clear to auscultation without adventitious sounds Hyperemic conjunctivo-bilaterally Signs of tick bite around her lower extremities however no erythema migrans noted EOMI, PERRLA Appropriate mood and affect Awake alert oriented x3 GCS 15 Data : 03/23/20 16:45 03/23/20 19:25 Micro: Microbiology 03/23/20 16:45 Blood Culture - Preliminary Blood SPECIMEN COLLECTED 03/23/20 16:48 Blood Culture - Preliminary Blood SPECIMEN COLLECTED A&P Assessment and plan (1) Fever: Status: Acute Qualifiers: Fever type: unspecified Qualified Code(s): R50.9 - Fever, unspecified (2) Headache: Status: Acute Qualifiers: Headache type: unspecified Additional A&P Information Fever associated with headache Lumbar puncture obtained which is showing 2 white count with neutrophils, no lymphocytes, 0 RBCs, I have requested CSF glucose level and CT head Patient was complaining of severe headache which wakes her up from sleep, carries history of breast cancer, would like to rule out intracranial mass which could present with similar symptoms I would cover her empirically for viral meningitis with acyclovir She might benefit from another lumbar puncture if her symptoms are not improving to see if there is a change in her white count , I have requested tick panel and viral PCR on her CSF She does have history of chronic cystitis, I am holding ciprofloxacin as she is adequately covered with antiviral and antibiotics at this point Request urine culture along with blood culture Tick panel sent from the ER Avoid DVT prophylaxis for at least next 24 hours after lumbar puncture COVID was ruled out(test was done at [facility]) Headache Retro-orbital pressure-like sensation without any signs of sepsis Presentation is consistent with sinus inflammation She is also complaining of runny eyes Cluster headache versus migraine would also be my differentials, would give her abortive therapy with sumatriptan 25 mg for now to see the response Abnormal transaminases fever and headache Tick panel sent, currently on doxycycline Would request hepatitis panel as well DVT prophylaxis: Avoid for next any 24 hours after lumbar puncture Cardiac diet Full code Attestations Medical Necessity Statement*: Anticipating stay in the hospital cross more than 2 midnights currently will need to rule out meningeal infection to be the source of her fever Time Spent in Patient Care: (>than 50% of time spent in counselling and/or direct pt care on unit) . 60min Coding Level of Care Code Acute Community Support Specialist for Tahirag Rigod Diagnoses Fever R50.9 Fever type: unspecified Headache R51 Headache type: unspecified
[2020-03-23] MEDS: ondansetron 2 mg/ML SDV 2 mL 4 MG IVP (21:21)
[2020-03-23] MEDS: sodium chloride 0.9% 1,000 ML 100 ML IV (22:01)
[2020-03-23] MEDS: doxycycline 100 MG in sodium chloride 0.9% (plus) 100 ML IV (22:27)
[2020-03-23] MEDS: SUMAtriptan 25 mg Tablet PO (22:33)
[2020-03-23] MEDS: diphenhydrAMINE 25 mg Capsule PO (22:39)
--- NOTE | 2020-03-23 22:43 | ECG_ITS ---
[facility] ED Test Date: 2020-03-24 Pat Name: Marybel Rosado Department: Room: 275 Gender: Female Director Physical: : 1955 Requested By: Ricardo Rodriguez Order Number: [id number] Mini MD: Prudencio Rizzo M.D. Measurements Intervals [place] Rate: 86 P: 62 [place]: 154 QRS: 45 QRSD: 94 T: 43 QT: 382 QTc: 457 Interpretive Statements SINUS RHYTHM Compared to ECG 03/23/2020 19:31:51 No significant changes Electronically Signed On 03-24-2020 17:46:37 CDT by Prudencio Rizzo M.D. [email or web address] [id number]
[2020-03-23 23:01] LABS: Troponin 5 6HR 11.55 ng/L (0-10)
[2020-03-23 23:04] LABS: Troponin 5 6HR Delta -0.45 ng/L (0-12)
[2020-03-23] MEDS: ampicillin 2,000 MG in sodium chloride 0.9% (plus) 50 ML 100 MG IV (23:43)
[2020-03-24] VITALS (8 sets, daily range): BP systolic 92–114; BP diastolic 44–65; PULSE 81–102; RESP 16–22; TEMP 36.4–38.4; O2SAT 90–96
[2020-03-24 00:02] LABS: Glucose CSF 69 mg/dL (40-70)
[2020-03-24] MEDS: acyclovir 1,000 MG in sodium chloride 0.9% (100 ml) 100 ML 120 MG IV ×3 (00:40→16:51)
[2020-03-24 05:16] LABS: Basophils % 0.4 %; Eosinophils % 0.1 %; Hematocrit 31.9 % (37.0-47.0); Hemoglobin 10.5 g/dL (11.5-15.3); Lymphocytes # 0.8 10^3/uL (0.8-4.8); Lymphocytes % 11.5 %; Mean Corpuscular HGB Conc 32.9 g/dL (30.0-36.0); Mean Corpuscular Hemoglobin 28.9 pg (28.0-34.0); Mean Corpuscular Volume 87.9 fL (81-99); Mean Platelet Volume 11.2 fL (7.4-10.4); Monocytes # 0.8 10^3/uL (0.2-0.9); Monocytes % 11.3 %; Neutrophils # 5.2 10^3/uL (1.8-7.7); Neutrophils % 72.8 %; Nucleated Red Blood Cells % 0 %; Platelet Count 149 10^3/cmm (130-400); Red Blood Count 3.63 10^6/uL (4.1-5.3); Red Cell Distribution Width 14.8 % (12.1-15.1); White Blood Count 7.2 10^3/uL (4.0-10.0)
[2020-03-24 05:27] LABS: Alanine Aminotransferase 70 U/L (0-33); Albumin Level 3.4 g/dL (3.5-5.2); Alkaline Phosphatase 196 IU/L (35-105); Anion Gap 15.1 (5-19); Aspartate Amino Transferase 77 U/L (0-32); Blood Urea Nitrogen 14 mg/dL (8-23); Calcium 8.3 mg/dL (8.5-10.5); Carbon Dioxide 23 mmol/L (22-29); Chloride 103 mmol/L (98-107); Globulin 2.6 g/dL (1.3-4.6); Glucose 135 mg/dL (65-115); Osmolality Calculated 282 mOsm/kg (285-295); Potassium 4.1 mmol/L (3.5-5.1); Sodium 137 mmol/L (136-145); Total Bilirubin 1.1 mg/dL (0.15-1.2)
[2020-03-24 06:23] LABS: Slide Review Slide Review Perform
[2020-03-24] MEDS: ampicillin 2,000 MG in sodium chloride 0.9% (plus) 50 ML 100 MG IV ×2 (07:24→15:49)
[2020-03-24] MEDS: atorvastatin 40 mg Tablet PO (07:25)
[2020-03-24] MEDS: fluoxetine 20 mg Capsule PO (07:26)
[2020-03-24] MEDS: pantoprazole DR 40 mg Tablet PO (07:26)
[2020-03-24] MEDS: acetaminophen 325 mg Tablet 650 MG PO ×2 (07:39→16:00)
[2020-03-24] MEDS: sodium chloride 0.9% 1,000 ML 100 ML IV (07:41)
--- NOTE | 2020-03-24 09:50 | PC.CHAP ---
Pastoral Care Encounter/Spiritual Assessment Type of Contact [] Declined wholesale buyer visit [] Patient/Family/Request visit [] Outpatient visit [] Follow-up visit [] Physician referral [] Code/Alert [] Routine visit [] Staff referral [] Actively dying [] Patient sleeping [] Family support [] [] Out of room [] Palliative care [] [x] Receiving care in room [] Pre-surgical visit [] Trauma [] Long length of stay [] ICU visit [] Other: Relational/Emotional Strength [] Patient feels connected with others/family/visitors/staff [] Distress [] Loneliness/isolation [] Abandonment Spirituality of Patient [] Person of Kiesha [] Attends Mosque of their Kiesha [] Believes in Prayer [] Reads Bible or Presybeterian materials [] There are Spiritual issues to be addressed Rotary Drier Interventions [] Prayer [] Active listening [] Non-anxious presence [] Spiritual/emotional support [] Crisis/trauma care [] Spiritual counseling [] Bereavement support [] Provided bereavement packet [] Provided Bible/devotional materials [] Provided toy/stuffed animal, coloring book to patient or family member [] Provided Communion [] Anointing/[place] [] Salvation [x] Completed spiritual assessment [] Other: Impact on Illness or Injury [] Angry [] Fearful [] Anxious [] Often cries [] Exhaustion [] Unable to work [] Unable to attend catholic [] Unable to walk/stand [] Unable to read [] Unable to drive [] Unable to eat/drink [] Unable to sleep [] Unable to be with family [] Patient intubated [] Other: Summary Time spent with patient
[2020-03-24] MEDS: cefTRIAXone 2,000 MG in sodium chloride 0.9% (plus) 50 ML 100 MG IV (10:02)
[2020-03-24] MEDS: morphine 4 mg/mL SDV 1 mL 2 MG IVP (10:13)
[2020-03-24] MEDS: doxycycline 100 MG in sodium chloride 0.9% (plus) 100 ML IV ×2 (10:59→21:06)
[2020-03-24] MEDS: ALPRAZolam 0.25 mg Tablet PO ×2 (15:49→21:07)
[2020-03-24 17:16] LABS: Glucose Point of Care 155 mg/dL (70-110)
--- NOTE | 2020-03-24 17:32 | P.PN_ITS ---
Subjective Subjective: Interval history: Overnight labs and H&P reviewed. Continues to be febrile to 101 today. States that symptom had originally started around 2 weeks prior to onset, really worsened last Sunday. She was COVID tested on March 16. [facility]. Lumbar puncture grossly unremarkable. CT head was negative. Medications: Reviewed: Yes Vitals/I&O/Wt Last Vital Signs Temp 99.8 F H 03/24/20 17:00 Pulse 100 03/24/20 16:00 Resp 22 H 03/24/20 16:00 BP 114/65 03/24/20 16:00 Pulse Ox 93 03/24/20 16:00 03/24/20 03/24/20 03/24/20 06:59 14:59 22:59 Intake Total 270 / 1570 1826.667 / 1826.667 Output Total 1050 / 1050 Balance -780 / 520 1826.667 / 1826.667 Weight last 48 hrs Weight 86.183 kg Physical Exam Narrative: EXAM NARRATIVE: GEN: Awake, alert and oriented, no acute distress , anxious CVS: S1S2 N RS: CTA B/L Abd: Soft, nt/nd , bs+ SEISMOGRAPH SHOOTER: no focal neuro deficits Data : 03/24/20 04:46 03/24/20 04:46 Micro: Microbiology 03/23/20 16:45 Blood Culture - Preliminary Blood NEGATIVE TO DATE 03/23/20 16:48 Blood Culture - Preliminary Blood NEGATIVE TO DATE 03/23/20 19:12 Gram Stain - Final Cerebrospinal Fluid A&P Assessment and plan (1) Fever: Status: Acute Qualifiers: Fever type: unspecified Qualified Code(s): R50.9 - Fever, unspecified (2) Headache: Status: Acute Qualifiers: Headache type: unspecified Additional A&P Information # Fever Fever associated with headache and photophobia, raising concerns for meningoencephalitis initially. Underwent lumbar puncture yesterday which showed 2 white count with neutrophils, no lymphocytes, 0 RBCs, normal CSF glucose 69 ([id number]). Add on serum protein. Not enough specimen left over to add on CSF Lyme antibody. CT head is negative for any cancer recurrence. Does not specifically complain of any urinary symptoms at this present time, however given that patient continues to be persistently febrile in spite of being on levofloxacin as an outpatient, will go ahead and order a CT of the abdomen and pelvis to evaluate for any obstructive causes that may exist within the urinary tract. Note also made of transaminitis, which appears to be more chronic. Patient states she has undergone an evaluation including SELVIN screen and autoimmune disorders in 2019 for chronically elevated LFTs. Hepatitis panel is negative. I am only able to see the SELVIN screen which is negative. Compared to previously her alkaline phosphatase is slowly increasing. The CT abdomen and pelvis given evaluate for any biliary obstruction. Right upper quadrant ultrasound is also been added. Tick panel sent from the ER, remains pending at this time COVID was ruled out by negative PCR testing performed at [facility] on March 16. Headache, Cluster headache versus migraine vs sinusitis, no relief with abortive therapy with sumatriptan 25 mg which she received yesterday. Complaining of severe anxiety related to her symptoms. Xanax as needed has been ordered. DVT prophylaxis: Avoid for next any 24 hours after lumbar puncture Cardiac diet Full code Attestations Medical Necessity Statement*: Undergoing fever evaluation at this present time, source remains unclear. Coding Level of Care Code Acute Vehicle Fuel Systems Converter for Sebastian Delgado Diagnoses Fever R50.9 Fever type: unspecified Headache R51 Headache type: unspecified
--- NOTE | 2020-03-24 17:35 | CTR_ITS ---
PROCEDURE INFORMATION: Exam: CT Abdomen And Pelvis Without Contrast Exam date and time: 03/24/2020 8:19 PM Age: 64 years old Clinical indication: Nausea; Prior surgery; Surgery type: Hyst; Additional info: Evaluate for obstruction and urinary tract. TECHNIQUE: Imaging protocol: Computed tomography of the abdomen and pelvis without contrast. Radiation optimization: All CT scans at this facility use at least one of these dose optimization techniques: automated exposure control; mA and/or kV adjustment per patient size (includes targeted exams where dose is matched to clinical indication); or iterative reconstruction. COMPARISON: CT abdomen pelvis w con* [id number] 07/30/2018 1:55 PM RADIATION DOSE METRICS: Total DLP (mGy-cm): 1457.8 FINDINGS: Lungs: Interval slight haziness and stranding in the posterior lower lungs. Pleural space: Interval appearance of the small bilateral pleural effusions. Liver: No suggestion of interval liver disease. Gallbladder and bile ducts: Interval appearance of a small amount of fluid between the gallbladder and liver and possible gallbladder wall thickening. Still no calcified gallstones or biliary ductal dilatation. Pancreas: Continued slight fatty infiltration of the pancreatic head. Still no pancreatic ductal dilatation. Spleen: Still no splenomegaly. Adrenals: Still no adrenal mass. Kidneys and ureters: Still no hydronephrosis. Stomach and bowel: Interval mild oral contrast mixed with the feces in the middle and distal colon. Still no obstruction. Nondistended stomach. Appendix: Still no appendicitis. Intraperitoneal space: Still no free air. Vasculature: Continued atherosclerosis. Still no aortic aneurysm. Two renal arteries bilaterally more evident previously. Lymph nodes: No suggestion of interval enlarged nodes. Bladder: Apparent interval slight thickening of the left wall of the bladder. No haziness in the fat along the bladder. No stones. Reproductive: Hysterectomy again evident. Bones/joints: Old compression fractures again evident. No acute fracture. Soft tissues: Interval minimal body wall edema. CT/CT abdomen pelvis wo con [id number] IMPRESSION: 1. Interval appearance of the pleural effusions and possible slight pulmonary edema in addition to atelectasis in the lung bases. 2. Interval small amount of fluid along the gallbladder and possible thickening of its wall such that cholecystitis not excluded. Still no calcified gallstones or biliary ductal dilatation. 3. Apparent interval slight left bladder wall thickening, significance unclear. Other findings detailed above. Radiation Dose CTDIVOL = (mGy): DLP = 1457.8 (mGy-cm)
[2020-03-24 18:56] LABS: Total Protein CSF 19 mg/dL (15-45)
[2020-03-24 20:52] LABS: Glucose Point of Care 111 mg/dL (70-110)
[2020-03-24] MEDS: tizanidine 4 mg Tablet 2 MG PO (21:08)
[2020-03-25] VITALS (10 sets, daily range): BP systolic 87–132; BP diastolic 38–79; PULSE 73–101; RESP 16–22; TEMP 36.3–37.1; O2SAT 90–98
[2020-03-25] MEDS: acetaminophen 325 mg Tablet 650 MG PO ×3 (02:29→21:24)
--- NOTE | 2020-03-25 03:15 | XR_ITS ---
WS: [id number] CHEST XRAY TECHNIQUE: Portable chest. CLINICAL INFORMATION: hypoxia COMPARISON: March 23, 2020 FINDINGS: Heart: Cardiomegaly. Lungs: Chronic emphysematous changes. Interstitial infiltrates in the right greater than left lower l obes. Slight patchy infiltrate in the right lower lobe laterally. Small right greater than left pleural eff usions. Bones: Normal visualized bony structures. XR/XR chest 1V portable [id number] IMPRESSION: 1. Interstitial infiltrates in the right greater than left lower lobes with a small amount of patchy infiltrate in right lower lobe laterally. Recommend pk elation for CHF with superimposed right lower lobe pneumonia 2. Small right pleural effusion. 3. Stable cardiomegaly.
[2020-03-25] MEDS: sodium chloride 0.9% 500 ML 999 ML IV (03:55)
[2020-03-25] MEDS: sodium chloride 0.9% 1,000 ML 100 ML IV ×2 (03:56→19:17)
[2020-03-25 06:11] LABS: Basophils % 0.4 %; Hematocrit 33.4 % (37.0-47.0); Hemoglobin 10.6 g/dL (11.5-15.3); Lymphocytes # 0.9 10^3/uL (0.8-4.8); Lymphocytes % 11.3 %; Mean Corpuscular HGB Conc 31.7 g/dL (30.0-36.0); Mean Corpuscular Hemoglobin 29.6 pg (28.0-34.0); Mean Corpuscular Volume 93.3 fL (81-99); Mean Platelet Volume 10.4 fL (7.4-10.4); Monocytes % 12.4 %; Neutrophils # 6.1 10^3/uL (1.8-7.7); Neutrophils % 73.7 %; Nucleated Red Blood Cells % 0 %; Platelet Count 174 10^3/cmm (130-400); Red Blood Count 3.58 10^6/uL (4.1-5.3); Red Cell Distribution Width 15.6 % (12.1-15.1); White Blood Count 8.3 10^3/uL (4.0-10.0)
[2020-03-25 06:36] LABS: NT Pro B Type Natriuretic Pept 7471 pg/mL (0-125)
[2020-03-25 06:38] LABS: Glucose Point of Care 85 mg/dL (70-110)
--- NOTE | 2020-03-25 06:39 | USCV_ITS ---
Marybel Rosado Age: 64 Gender: F : 1955 Exam Date: 03/25/2020 07:23 Ordering Phys: Juan Luis Story MD Technologist: Krissy Andres [place] [facility] [place]: CHF BP: 97 / 59 HR: 79 Rhythm: Sinus Technical Quality: Fair MEASUREMENTS (Male / Female) Normal Values 2D ECHO LV Diastolic Diameter PLAX 4.8 cm 4.2 - 5.9 / 3.9 - 5.3 cm LV Systolic Diameter PLAX 3.1 cm LV Chamber Size 4.7 cm IVS Diastolic Thickness 1.0 cm 0.6 - 1.0 / 0.6 - 0.9 cm IVS Systolic Thickness 1.5 cm LVPW Diastolic Thickness 0.7 cm 0.6 - 1.0 / 0.6 - 0.9 cm LVPW Systolic Thickness 1.3 cm RV Chamber Size 3.1 cm LVOT Diameter 2.0 cm LV Ejection Fraction 2D Teich 64.9 % LA Diameter 4.2 cm LA Width 3.7 cm LA Height 4.4 cm RA Width 4.0 cm RA Height 3.5 cm Aorta at Sinotubular Diameter 2.8 cm M-MODE LV Diastolic Diameter MM 5.5 cm 4.2 - 5.9 / 3.9 - 5.3 cm LV Systolic Diameter MM 3.5 cm LV Ejection Fraction MM Teich 65.7 % IVS Diastolic Thickness MM 0.7 cm 0.6 - 1.0 / 0.6 - 0.9 cm IVS Systolic Thickness MM 1.2 cm LVPW Diastolic Thickness MM 0.7 cm 0.6 - 1.0 / 0.6 - 0.9 cm LVPW Systolic Thickness MM 1.0 cm RV Diastolic Diameter MM 1.4 cm Aortic Annulus Diameter 3.2 cm LA Ao Ratio MM 1.3 MV E Point Septal Separation 0.3 cm DOPPLER AV Peak Velocity 137.0 cm/s LVOT Peak Velocity 83.0 cm/s AV Area Cont Eq vti 2.3 cm squared AV Area Cont Eq pk 1.9 cm squared MV Area PHT 3.0 cm squared Mitral E to A Ratio 2.1 MV E' Velocity 12.0 cm/s Mitral E to MV E' Ratio 13.3 Mitral E to LV E' Lateral Ratio 12.4 Mitral E to LV E' Septal Ratio 14.3 TV Peak E Velocity 50.0 cm/s PV Peak Velocity 78.0 cm/s FINDINGS Left Ventricle Normal left ventricular size and systolic function, EF 65% . No regional wall motion abnormalities. Right Ventricle Normal right ventricular size and systolic function. Right Atrium Normal right atrial size. Left Atrium Upper limit of normal size Mitral Valve Thickened mitral valve. Mild mitral annular calcification. Trace mitral valve regurgitation. Aortic Valve Thickened aortic valve. Tricuspid Valve Leaflet morphology could not be dilated well. No gross abnormalities noted Pulmonic Valve Pulmonic valve not well visualized. Pericardium No pericardial effusion. Aorta Normal aortic annulus size. CONCLUSIONS Normal left ventricular size and systolic function, EF 65% . No gross wall motion normalities Thickened mitral valve. Mild mitral annular calcification. Trace mitral valve regurgitation. Thickened aortic valve. There is no pericardial effusion. There are no intracardiac masses. Compared to the previous study from 12/05/2016, there may not be a significant change Dr Jacek Rincon MD [facility] (Electronically Signed) Final Date: 25 March 2020 18:44 S
[2020-03-25 06:41] LABS: Estmated Average Glucose 131; Hemoglobin A1C 6.2 % (4.0-6.0)
--- NOTE | 2020-03-25 07:00 | US_ITS ---
WS: [id number] ULTRASOUND ABDOMEN LIMITED CLINICAL INFORMATION: Right upper quadrant ultrasound COMPARISON: None. FINDINGS: Liver Size: Normal. Craniocaudal length: 15.1 cm. Echogenicity: Normal. Surface nodularity: None. Mass (size and location): None. Bile ducts Intrahepatic ducts: Normal. Common bile duct diameter: 0.4 cm. Gallbladder Normal. Gallstones: None. Gallbladder sludge: None. Gallbladder wall thickening: None. Pericholecystic fluid: None. Sonographic Mccauley sign: Absent. Pancreas Normal as visualized. Right kidney: Normal. Hydronephrosis: None. Size: 13.5 cm x 6.8 cm x 5.1 cm. Abdominal aorta and IVC Visualized portions are normal. Ascites: None. US/US abdomen limited [id number] IMPRESSION: 1. Normal liver. Normal gallbladder. 2. No hydronephrosis in right kidney. 3. Normal common bile duct. 4. Small right pleural effusion.
[2020-03-25 07:05] LABS: Alanine Aminotransferase 71 U/L (0-33); Albumin Level 2.5 g/dL (3.5-5.2); Alkaline Phosphatase 223 IU/L (35-105); Anion Gap 19.4 (5-19); Aspartate Amino Transferase 88 U/L (0-32); Blood Urea Nitrogen 25 mg/dL (8-23); Calcium 7.6 mg/dL (8.5-10.5); Carbon Dioxide 12 mmol/L (22-29); Chloride 104 mmol/L (98-107); Globulin 2.7 g/dL (1.3-4.6); Glomerular Filtration Rate 15.7 mL/min (90-130); Glucose 86 mg/dL (65-115); Osmolality Calculated 268 mOsm/kg (285-295); Potassium 4.4 mmol/L (3.5-5.1); Sodium 131 mmol/L (136-145); Total Bilirubin 0.6 mg/dL (0.15-1.2); Total Protein 5.2 g/dL (6.6-8.7)
[2020-03-25 07:17] LABS: D Dimer 5.54 ug/mIFEU (0-0.59)
[2020-03-25] MEDS: cefTRIAXone 2,000 MG in sodium chloride 0.9% (plus) 50 ML 100 MG IV (07:47)
[2020-03-25] MEDS: atorvastatin 40 mg Tablet PO (07:47)
[2020-03-25] MEDS: fluoxetine 20 mg Capsule PO (07:48)
[2020-03-25] MEDS: pantoprazole DR 40 mg Tablet PO (07:48)
[2020-03-25] MEDS: ALPRAZolam 0.25 mg Tablet PO ×2 (08:04→16:30)
--- NOTE | 2020-03-25 11:59 | NM_ITS ---
WS: [id number] NUCLEAR MEDICINE LUNG VENTILATION AND PERFUSION CLINICAL INFORMATION: evaluate for PE TECHNIQUE: Ventilation/perfusion lung scan with 32.4 mCi technetium 99m DTPA. 5.3 mCi technetium 99m MAA COMPARISON: None. FINDINGS: Normal bilateral symmetric perfusion. Mild patchy ventilatory uptake consistent with chronic emphysem atous change. Mild deposition along the central bronchi. No mismatched ventilation/perfusion defects or lobar defects to indicate pulmonary embolus. Exam interpreted using the PIOPED II criteria 2008: 1. Normal 2. High probability (> 80%) 3. Intermediate probability (20-79%) 4. Low probability (10-19%) 5. Very low probability (<10%) [facility] 2006 6. Indeterminate NM/NM pul vent and perfus* [id number] IMPRESSION: 1. Low probability for pulmonary embolus.
[2020-03-25 13:02] LABS: Lactate (Lactic Acid level) 0.7 mmol/L (0.5-2.2)
[2020-03-25] MEDS: doxycycline 100 MG in sodium chloride 0.9% (plus) 100 ML IV ×2 (13:04→21:23)
[2020-03-25 13:05] LABS: Troponin(5th) Baseline 24 ng/L (0-10)
[2020-03-25 13:11] LABS: Lyme AB Screen <0.90 index
--- NOTE | 2020-03-25 13:33 | ECG_ITS ---
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 Measurements Intervals [place] Rate: 89 P: 58 WA: 142 QRS: 25 QRSD: 91 T: 19 QT: 373 QTc: 454 Interpretive Statements SINUS RHYTHM Compared to ECG 03/24/2020 05:00:43 No significant changes Electronically Signed On 03-25-2020 20:55:04 CDT by Nati Gallegos M.D. [id number]
[2020-03-25 14:17] LABS: Glucose Point of Care 92 mg/dL (70-110)
[2020-03-25] MEDS: morphine 4 mg/mL SDV 1 mL 2 MG IVP ×2 (14:30→17:20)
[2020-03-25 14:53] LABS: Troponin 5 2HR 23.15 ng/L (0-10)
[2020-03-25 15:17] LABS: Troponin 5 2HR Delta -0.85 ABS# (0-10)
--- NOTE | 2020-03-25 17:11 | PC.NURSE ---
To bedside to assist Dr. Smith with LP. Patient assisted to side of bed. Time out performed at 16:38. Patient tolerated well. Samples obtained. 2mg morphine IV given X1 per instructions from Dr. Smith. Patient now resting in bed. Laying flat.
[2020-03-25 17:17] LABS: Glucose Point of Care 95 mg/dL (70-110)
--- NOTE | 2020-03-25 17:24 | PM.ACPR ---
Procedure/Consent Time out: Time Out Performed: Yes Consent: Consent for Procedure: Consent obtained from patient Procedure Narrative: Name of the procedure: Lumbar puncture Indication: Suspected meningitis Medications: 1% lidocaine 10 mL Intravenous medications: Morphine 2 mg IV Description: The patient was placed in a sitting position. Using the iliac crests as a landmark, space between L3 and L4 vertebrae were identified. The site was marked. The site was cleaned using sterile technique. Sterile technique was followed throughout the procedure. The skin, subcutaneous tissue and deeper tissue were anesthetized with 1% lidocaine. A lumbar puncture needle was advanced in between the spinous processes of L3 and L4 vertebrae. The needle was advanced until a pop and loss of resistance was felt. CSF was noted to be draining through the spinal needle. CSF was clear. A total of 15 mL of CSF was drained. The CSF will be sent for studies as per the primary team. Complications: No immediate complication was noted. The plan is to hold off on subcu heparin for 24 hours post procedure. Acute Procedures Epistaxis Control: Time out performed: Yes
--- NOTE | 2020-03-25 17:33 | ECG_ITS ---
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 Measurements Intervals [place] Rate: 92 P: 58 FL: 133 QRS: 35 QRSD: 94 T: 16 QT: 363 QTc: 450 Interpretive Statements SINUS RHYTHM Compared to ECG 03/25/2020 13:43:10 No significant changes Electronically Signed On 03-25-2020 20:52:40 CDT by Nati Gallegos M.D. [id number]
[2020-03-25 17:48] LABS: CSF Mononuclear # 0.004 10^3/uL (50-90); Mononuclear WBC CSF % 50 % (50-90); Polynuclear Cells ,CSF # 0.004 10^3/uL (0-10); Polynuclear WBC CSF % 50 % (0-10); Red Blood Cell CSF 0 10^3/uL (0-0); White Blood Cell CSF 8 /uL (0-5)
[2020-03-25 17:52] LABS: Appearance CSF CLEAR (CLEAR); Color CSF COLORLESS (COLORLESS); Pathology Referral Yes
[2020-03-25 18:10] LABS: Glucose CSF 54 mg/dL (40-70); Total Protein CSF 32 mg/dL (15-45)
--- NOTE | 2020-03-25 18:21 | PM.PN ---
Subjective Subjective: Interval history: Last fever at 4 PM yesterday. Since then she has been afebrile. However continues to have intense headache and photophobia. States she does not feel much improved over yesterday. Overnight she had a significant event where she was noted to be tachypneic. D-dimer was elevated. As was noted to be elevated BNP. Creatinine in addition went up to 3 from 0.8. 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 Data : 03/25/20 05:45 03/25/20 05:45 Micro: Microbiology 03/25/20 16:45 Cryptococcal Antigen - Final Cerebrospinal Fluid 03/23/20 19:12 Gram Stain - Final Cerebrospinal Fluid CSF Culture - Preliminary 03/23/20 17:40 Urine Culture - Preliminary Urine,Clean Catch 03/25/20 08:05 Legionella Urinary Antigen - Final Urine,Clean Catch Bacterial Antigens - Final 03/25/20 05:45 Blood Culture - Preliminary Blood SPECIMEN COLLECTED 03/25/20 05:45 Blood Culture - Preliminary Blood SPECIMEN COLLECTED 03/23/20 16:45 Blood Culture - Preliminary Blood NEGATIVE TO DATE 03/23/20 16:48 Blood Culture - Preliminary Blood NEGATIVE TO DATE A&P Assessment and plan (1) Fever: Status: Acute Qualifiers: Fever type: unspecified Qualified Code(s): R50.9 - Fever, unspecified (2) Headache: Status: Acute Qualifiers: Headache type: unspecified Additional A&P Information # Fever Fever associated with headache and photophobia, raising concerns for meningoencephalitis initially. Underwent lumbar puncture on admission which showed 2 white count with neutrophils, no lymphocytes, 0 RBCs, normal CSF glucose 69 ([id number]). normal serum protein. Not enough specimen left over to add on CSF Lyme antibody. Today patient noted to have acute renal failure. Urine antigen bacterial panel was added due to concerns for developing pneumonia however this ended up showing a positive antigen for and meningitis/E. coli K1 antigen. Significance of this positive test is unclear in the setting. Her urine culture does show some E. coli so I wonder if the positive antigen may just represent E. coli antigen. However given that she does have clinical signs and symptoms of meningitis, would prefer to repeat an LP to look for repeat CSF analysis Gram stain and culture and also bacterial antigen panel directly from the CSF to see if this meningitis antigen is seen even there. We will also add on CSF Lyme antibodies serum Leptospira panel. Of note patient was taking Bactrim prior to admission, wonder if CSF Gram stain may be clouded by that. CT head is negative for any cancer recurrence. CT abdomen pelvis and right upper quadrant ultrasound not indicative of any acute processes within the gallbladder or biliary system. Tick panel sent from the ER, remains pending at this time for Ehrlichia and RMSF. COVID was ruled out by negative PCR testing performed at [facility] on March 16. Continue CTX and doxycycline. ACV, ampicillin, vancomycin discontinued Headache, Cluster headache versus migraine vs sinusitis, no relief with abortive therapy with sumatriptan 25 mg which she received yesterday. Specifically concerning today is development of acute kidney injury with creatinine rising up to 3. This may be related to vancomycin and acyclovir. Both of these antibiotics have been discontinued as CSF culture remains negative for MRSA and CSF analysis not concerning for HSV encephalitis. Last night patient also had a brief hypotensive episode with blood pressure down to 87 systolic. Wondering if ATN has resolved as a result of that. Renal artery doppler ordered to r/o thrombosis Episode of tachypnea and respiratory discomfort overnight for which patient received Lasix 20 mg IV push. Troponin series has been added this morning and the baseline troponin is only mildly elevated with 2-hour nonsignificant delta. Echocardiogram has been ordered and awaited. D-dimer was also noted to be elevated and a VQ scan has been ordered to evaluate for PE. LE doppler for elevated D quin. DVT prophylaxis: Avoid for next any 24 hours after lumbar puncture Cardiac diet Full code Attestations Medical Necessity Statement*: Development of KRAIG, further evaluation of ongoing symptoms concerning for meningitis. Coding Level of Care Code Acute Cash Control Specialist for Chg Fwd Diagnoses Fever R50.9 Fever type: unspecified Headache R51 Headache type: unspecified
[2020-03-25] MEDS: lidocaine 1% INJ 20 mL SUBCUT (19:17)
--- NOTE | 2020-03-25 19:31 | PC.NURSE ---
during LP pt received lidocaine and after dr ordered morphine that SARAH Monteiro gave,
[2020-03-25 20:24] LABS: Alanine Aminotransferase 69 U/L (0-33); Alkaline Phosphatase 251 IU/L (35-105); Anion Gap 19.7 (5-19); Aspartate Amino Transferase 78 U/L (0-32); Blood Urea Nitrogen 31 mg/dL (8-23); Calcium 7.6 mg/dL (8.5-10.5); Carbon Dioxide 15 mmol/L (22-29); Chloride 102 mmol/L (98-107); Glomerular Filtration Rate 10.3 mL/min (90-130); Glucose 93 mg/dL (65-115); Osmolality Calculated 271 mOsm/kg (285-295); Potassium 4.7 mmol/L (3.5-5.1); Sodium 132 mmol/L (136-145); Total Bilirubin 0.7 mg/dL (0.15-1.2)
[2020-03-25 20:26] LABS: Troponin 5 6HR 22.76 ng/L (0-10)
[2020-03-25 20:35] LABS: Troponin 5 6HR Delta -1.24 ng/L (0-12)
[2020-03-25] MEDS: tizanidine 4 mg Tablet 2 MG PO (21:24)
[2020-03-25 21:52] LABS: Glucose Point of Care 92 mg/dL (70-110)
[2020-03-26 00:19] LABS: Glucose Point of Care 113 mg/dL (70-110)
[2020-03-26 01:20] VITALS: BP 116/69; PULSE 88; RESP 20; TEMP 36.7; O2SAT 97
--- NOTE | 2020-03-26 05:30 | PC.NURSE ---
Bladder Scanned >900mls
--- NOTE | 2020-03-26 06:00 | USCV_ITS ---
Alonzo Marybel Age: 64 Gender: F : 1955 Exam Date: 03/26/2020 07:12 Ordering Phys: Ashley Strong MD Technologist: Santana Amos Exam Location: [facility] [place] Indication: CHECK RENAL FLOW Aortic Velocity @ SMA (cm/s) 98 RIGHT KIDNEY LEFT KIDNEY Velocity (cm/s) Velocity (cm/s) Sys/Barron Sys/Barron Resistive Index Resistive Index 101.0 / 19.3 0.81 Proximal Renal Artery 51.2 / 9.6 0.81 94.5 / 22.6 0.76 Mid Renal Artery 67.9 / 13.4 0.80 99.9 / 16.1 0.84 Distal Renal Artery 64.7 / 12.8 0.80 77.3 / 15.0 0.81 Hilar 52.5 / 32.6 0.41 80.5 / 17.8 0.78 Upper Pole 28.1 / 6.6 0.77 73.0 / 73.0 0.00 Mid Pole 28.1 / 6.3 0.78 84.9 / 18.3 0.78 Lower Pole 35.0 / 7.8 0.78 1.00 Renal Aortic Ratio 0.69 Accleration Index (cm/sec2) 951.00 Hilar 1033.0 0 1515.0 Upper Pole 855.00 0 1113.0 Mid Pole 461.00 0 1405.0 Lower Pole 545.00 0 143.9 Kidney Length (mm) 146.9 FINDINGS Normal Doppler flow velocities and velocity ratios Normal acceleration indicis Slightly elevated resistive indicis Normal kidney dimensions bilaterally Normal aortic Doppler velocity CONCLUSIONS Features may suggest medical renal disease with no evidence of any significant renal artery stenosis Dr Jacek Rincon MD [facility] (Electronically Signed) Final Date: 26 March 2020 12:08 S
--- NOTE | 2020-03-26 06:00 | USCV_ITS ---
Marybel Rosado Age: 64 Gender: F : 1955 Exam Date: 03/26/2020 07:32 Ordering Phys: Ashley Strong MD Technologist: Santana Amos Exam Location: [facility] [place] Indication: BILAT EDEMA HISTORY: Lower extremity swelling. PROCEDURES: The venous duplex Doppler examination of both lower extremities was performed in the standard fashion. The following venous structures were evaluated: common femoral vein, profunda vein, proximal portion of the greater saphenous vein, superficial femoral vein, and the popliteal vein. Bilaterally, the common femoral, superficial femoral, profunda femoral, popliteal, posterior tibial, greater saphenous veins, and the peroneal trunk were identified and interrogated in the standard fashion. These veins were found to be easily compressible with spontaneous blood flow. No evidence of insufficiency or thrombus noted. FINDINGS: Normal 2-D Doppler and augmentation and compressibility throughout the lower extremity venous structures. Additional imaging through the proximal calf veins also reveals no thrombus. Limited evaluation of the greater saphenous vein is patent with no thrombus.. The veins were found to be easily compressible with spontaneous blood flow. Non pulsatile flow pattern. CONCLUSIONS No evidence of DVT in the above-mentioned identifiable veins. Dr Jacek Rincon MD [facility] (Electronically Signed) Final Date: 26 March 2020 12:05 S
[2020-03-26 06:10] LABS: Basophils % 0.3 %; Eosinophils % 0.1 %; Hematocrit 36.9 % (37.0-47.0); Hemoglobin 12.2 g/dL (11.5-15.3); Lymphocytes % 8.7 %; Mean Corpuscular HGB Conc 33.1 g/dL (30.0-36.0); Mean Corpuscular Hemoglobin 28.6 pg (28.0-34.0); Mean Corpuscular Volume 86.4 fL (81-99); Mean Platelet Volume 10.7 fL (7.4-10.4); Monocytes % 8.2 %; Neutrophils # 9.7 10^3/uL (1.8-7.7); Neutrophils % 81.5 %; Nucleated Red Blood Cells % 0 %; Platelet Count 156 10^3/cmm (130-400); Red Blood Count 4.27 10^6/uL (4.1-5.3); Red Cell Distribution Width 15.5 % (12.1-15.1); White Blood Count 11.9 10^3/uL (4.0-10.0)
[2020-03-26 06:13] LABS: Alanine Aminotransferase 60 U/L (0-33); Albumin Level 2.8 g/dL (3.5-5.2); Alkaline Phosphatase 229 IU/L (35-105); Anion Gap 19.9 (5-19); Aspartate Amino Transferase 66 U/L (0-32); Blood Urea Nitrogen 34 mg/dL (8-23); Calcium 7.4 mg/dL (8.5-10.5); Carbon Dioxide 16 mmol/L (22-29); Chloride 103 mmol/L (98-107); Globulin 2.1 g/dL (1.3-4.6); Glomerular Filtration Rate 9.1 mL/min (90-130); Glucose 109 mg/dL (65-115); Osmolality Calculated 276 mOsm/kg (285-295); Potassium 4.9 mmol/L (3.5-5.1); Sodium 134 mmol/L (136-145); Total Bilirubin 0.6 mg/dL (0.15-1.2); Total Protein 4.9 g/dL (6.6-8.7)
[2020-03-26 06:36] LABS: Add Urine Culture? No; Bacteria Urine TRACE; Bilirubin Urine Neg (NEGATIVE); Blood Urine Neg (Negative); Glucose Urine UA Norm (Normal); Ketones Urine Negative (Negative); Leukocyte Esterase Urine Negative (Negative); Nitrate Urine Negative (Negative); Protein Urine Trace (Negative); Urine Appearance Clear (CLEAR); Urine Color Yellow (Yellow); Urobilinogen Urine Norm (Negative); WBC Urine 0-4 /hpf (0-5); pH Urine 5 (5-7)
[2020-03-26 06:44] LABS: Potassium, Radom Urine 8 mmol/L; Urine Creatinine 31 mg/dL (28-217); Urine Random Chloride 35 mmol/L; Urine Random Sodium 51 mmol/L
[2020-03-26 07:23] LABS: Glucose Point of Care 91 mg/dL (70-110)
[2020-03-26] MEDS: sodium chloride 0.9% 1,000 ML 100 ML IV ×2 (07:52→18:15)
[2020-03-26] MEDS: cefTRIAXone 2,000 MG in sodium chloride 0.9% (plus) 50 ML 100 MG IV (07:53)
[2020-03-26] MEDS: pantoprazole DR 40 mg Tablet PO (07:53)
[2020-03-26] MEDS: atorvastatin 40 mg Tablet PO (07:53)
[2020-03-26] MEDS: fluoxetine 20 mg Capsule PO (07:53)
[2020-03-26 08:00] VITALS: BP 127/77; PULSE 86; RESP 16; TEMP 536.5; TEMP 997.7; O2SAT 97
[2020-03-26 09:05] VITALS: RESP 16
[2020-03-26] MEDS: ondansetron 2 mg/ML SDV 2 mL 4 MG IVP ×2 (09:05→14:00)
[2020-03-26] MEDS: morphine 4 mg/mL SDV 1 mL 2 MG IVP (09:05)
--- NOTE | 2020-03-26 10:29 | PM.CONSULT ---
Providers/Reason For Consult Consulting Physican/Specialty*: Nephrology Reason for Consult*: KRAIG Attending Physician: Ashley Strong MD Primary Care Provider: Melecio Bardales DO History of Present Illness History of Present Illness Thank you for consultation. Today I reviewed this pleasant 64-year-old female who presented with 10 days of headache, and periorbital pain worse on bending forward. She denied any other specific symptoms, however, she does have recurrent episodes of cystitis. She has recently completed a long course of ciprofloxacin for chronic cystitis, and it is noted that a urine culture from October did not reveal bacteria. She has now completed 2 lumbar punctures, which were relatively unremarkable, however, urine antigen for Neisseria was positive (although this does cross-react with E. coli). She has an extensive history with Dr. Graves as her primary urologist. Historically she had a rectocele and a cystocele. She previously underwent sling placement which was subsequently removed. Early this morning she did have retention of urine of 900 mL which required straight catheterization and she has now had a Gibbons catheter placed. She is received antibiotics including acyclovir, vancomycin and is now on ceftriaxone. Today she had a leukocytosis although previously she did not. Since admission she has had pyuria although it seems to be improving. She also had some hematuria. On March 24 serum creatinine was 0.8, yesterday it increased to 3 and today is up to 4.8. No known history of acute or chronic kidney disease and she has never seen a kidney specialist. A CT scan performed on March 24 demonstrates no evidence of hydronephrosis, and interval thickening of the left wall of the bladder. Fractional excretion of sodium has been completed at 5.9% She denies uremic symptoms, denies extremity edema and has no other volume associated symptoms as well. Her recently had a tick, she is now being worked up for tickborne diseases. It is noted that she has chronic mild transaminitis. Review of Systems General: Reports: 10 or more systems reviewed and unremarkable except in HPI and below and Other Narrative: ROS - 12 point review of systems completed per HPI and subjective assessment, this includes Constitutional: Weakness, fatigue Respiratory: No SOB on exertion, comfortable at rest CardioVasc: No chest pain, palpitations Gastrointestinal: No nausea, no vomiting Neurological: No seizures, no AMS Derm: No new rashes, lesions or wounds Immunological: No seasonal and no food allergies Meds/Allergies Home Medications and Allergies Home Medications Medication Instructions Recorded Confirmed Last Taken Type acetaminophen 300 mg-codeine 30 mg 1 tab PO Q8H PRN 12/02/19 03/23/20 03/23/20 History tablet atorvastatin 10 mg tablet 40 mg PO DAILY 12/02/19 03/23/20 03/23/20 History calcium carbonate 600 mg (1,500 1 cap PO DAILY 12/02/19 03/23/20 03/23/20 History mg)-vitamin D3 500 unit capsule ciprofloxacin HCl 500 mg tablet 500 mg PO BID #42 tab 12/02/19 03/23/20 Unknown Rx fluoxetine 20 mg capsule 20 mg PO TID cap 12/02/19 03/23/20 03/23/20 History hydroxyzine HCl 10 mg tablet 10 mg PO TID PRN 12/02/19 03/23/20 03/23/20 History magnesium 250 mg tablet 250 mg PO DAILY 12/02/19 03/23/20 03/23/20 History nifedipine 30 mg tablet,extended 30 mg PO DAILY 12/02/19 03/23/20 03/23/20 History release pantoprazole 40 mg tablet,delayed 40 mg PO DAILY 12/02/19 03/23/20 03/23/20 History release tizanidine 2 mg capsule 2 mg PO Q8H PRN 12/02/19 03/23/20 03/23/20 History trazodone 50 mg tablet 50 mg PO DAILY PRN 12/02/19 03/23/20 03/23/20 History triamcinolone acetonide 0.1 % 1 applic TOPICAL BID PRN 12/02/19 03/23/20 Unknown History topical cream vitamin B complex 1 tab PO DAILY 12/02/19 03/23/20 03/23/20 History Allergies Allergy/AdvReac Type Severity Reaction Status Date / Time No Known Allergies Allergy Verified 03/23/20 16:57 Current Medications Current Medications Generic Name Dose Route Start Last Admin Trade Name Freq PRN Reason Stop Dose Admin Acetaminophen 650 mg 03/24/20 22:00 03/25/20 21:24 Tylenol PO 650 mg Q6H PRN Administration Fever Alprazolam 0.25 mg 03/24/20 14:34 03/25/20 16:30 Xanax PO 0.25 mg TID PRN Administration ANXIETY Atorvastatin Calcium 40 mg 03/24/20 09:00 03/26/20 07:53 Lipitor PO 40 mg DAILY HUMBERTO Administration Fluoxetine HCl 20 mg 03/24/20 09:00 03/26/20 07:53 Prozac PO 20 mg DAILY HUMBERTO Administration Sodium Chloride 1,000 mls @ 100 mls/hr 03/23/20 21:48 03/26/20 07:52 Sodium Chloride 0.9% IV 100 mls/hr .Q10H HUMBERTO Administration Ceftriaxone Sodium 2,000 mg/ 50 mls @ 100 mls/hr 03/24/20 09:00 03/26/20 07:53 Sodium Chloride IV 100 mls/hr DAILY HUMBERTO Administration Protocol Doxycycline Hyclate 100 mg/ 100 mls @ 100 mls/hr 03/23/20 22:00 03/25/20 21:23 Sodium Chloride IV 100 mls/hr Q12H HUMBERTO Administration Protocol Insulin Aspart 0 unit 03/24/20 18:00 03/26/20 07:50 Novolog SUBCUT Not Given TIDWM [facility] Protocol Morphine Sulfate 2 mg 03/24/20 09:57 03/26/20 09:05 Morphine IVP 2 mg Q6H PRN Administration SEVERE PAIN Nifedipine 30 mg 03/25/20 09:00 03/25/20 08:48 Procardia Xl PO Not Given DAILY [facility] Ondansetron HCl 4 mg 03/26/20 08:45 03/26/20 09:05 Zofran IVP 4 mg Q8H PRN Administration NAUSEA AND VOMITING Pantoprazole Sodium 40 mg 03/24/20 09:00 03/26/20 07:53 Protonix PO 40 mg DAILY HUMBERTO Administration Tizanidine HCl 2 mg 03/24/20 18:15 03/25/20 21:24 Zanaflex PO 2 mg Q8H PRN Administration Pain PFSH Acute PFSH: Medical History (Updated 03/23/20 @ 22:21 by Juan Luis Story MD) Breast cancer, right Infiltrating ductal carcinoma ER positive [place] positive HER-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 Status post right breast lumpectomy and sentinel lymph node biopsy, Status post chemo radiotherapy Chronic cystitis Ciprofloxacin 500 mg twice daily Cystocele with rectocele BOTH REPAIRED Trans-obturator sub-urethral sling in April 2005 Anterior vaginal repair Nocturia Reflex sympathetic dystrophy of right leg Nifedipine Renal calculus, left Surgical History (Updated 03/23/20 @ 22:21 by Juan Luis Story MD) H/O bilateral salpingo-oophorectomy History of hysterectomy Vaginal hysterectomy History of lumpectomy of right breast Family History Mother Dementia Other Diabetes Social History Smoking and tobacco status: former smoker Alcohol intake: current Alcohol intake frequency: holidays/special occasions only Adopted: No Caregiver/support person: No Lives independently: No Household members: spouse Marital status: Current occupational status: retired History of recent travel: No Current gender identity: Male Vitals/I&O/Wt Last Vital Signs Temp 997.7 F H 03/26/20 08:00 Pulse 86 03/26/20 08:00 Resp 16 03/26/20 09:05 BP 127/77 03/26/20 08:00 Pulse Ox 97 03/26/20 08:00 03/25/20 03/26/20 03/26/20 22:59 06:59 14:59 Intake Total 480 / 1630 1480 / 3110 Output Total 350 / 450 Balance 130 / 1180 1480 / 2660 Physical Exam Narrative: EXAM NARRATIVE: Constitutional: Awake, a little sleepy after pain meds HEENT: Wet mucosa, no jvp, non icteric Lungs: Bilaterally clear without discernible wheeze, rales in all lung zones CVS: S1 S2, no murmurs Abdo: Soft, BS ok Ext 4: Minimal edema, peripheral perfusion with no cyanosis Neurological: Grossly non-focal Data Micro: Micro: Microbiology 03/23/20 17:40 Urine Culture - Fi nal Urine,Clean Catch 03/25/20 05:45 Blood Culture - Pr eliminary Blood NEGATIVE TO MARCELINO E 03/25/20 05:45 Blood Culture - Pr eliminary Blood NEGATIVE TO MARCELINO E 03/25/20 16:45 Gram Stain - Final Cerebrospinal Flu id Bacterial Antigens - Final 03/25/20 16:45 Cryptococcal Antig en - Final Cerebrospinal Flu id 03/23/20 19:12 Gram Stain - Final Cerebrospinal Flu id CSF Culture - Prel iminary 03/25/20 08:05 Legionella Urinary Antigen - Final Urine,Clean Catch Bacterial Antigens - Final A&P Additional A&P Information 1. KRAIG -The high fractional excretion of sodium of 5.9%, low BUN/creatinine ratio is consistent with intrarenal/post renal obstruction, which is the likely culprits include the urinary retention she had this morning and possibly antibiotics. Given the relatively short timeframe this would have to be vancomycin associated acute tubular injury as opposed to acute interstitial nephritis. -Gibbons catheter has now been placed to relieve any potential obstruction, vancomycin and acyclovir has now been stopped. -She is receiving supplemental intravenous fluid at 100 mL/hour -Work-up largely complete, will send CPK, uric acid -No indication for renal replacement therapy and hopefully this can be avoided. -Avoid usual nephrotoxic agents. -Dose medications for GFR less than 15. 2. Headache, nausea. -Being worked up by Dr. Strong, and receiving analgesics. 3. Recurrent cystitis -This is a dominant main recurrent outpatient problem, under close follow-up by Dr. Graves. Currently on Rocephin. Urine cultures are noted. Long-term, she may need to do daily intermittent straight catheterization. 4. Electrolytes. He has developed an anion gap metabolic acidosis likely secondary to renal failure, lactic acid is noted to be normal, and no ketones were seen on the urinalysis. 5. Transaminitis. Would consider holding statin therapy. Hepatitis panel is negative. Other work-up with Dr. Strong As always it is a pleasure for myself and [facility] renal services to follow these patients with you. Interview and examination was performed via telemedicine, with the assistance of the bedside nursing staff. Bret Lay MD [facility] renal services, telemedicine [phone] Consult Attestations Medical Necessity Statement: eval for KRAIG Coding Level of Care Code Acute Main Line Station Engineer for Sebastian Delgado
[2020-03-26] MEDS: doxycycline 100 MG in sodium chloride 0.9% (plus) 100 ML IV ×2 (10:36→22:04)
[2020-03-26 11:06] LABS: Glucose Point of Care 111 mg/dL (70-110)
[2020-03-26 11:23] LABS: Creatine Phosphokinase 194 U/L (26-192); Uric Acid 4.9 mg/dL (2.4-5.7)
--- NOTE | 2020-03-26 11:42 | PC.NURSE ---
pt is having confusion today she said she is having trouble remembering anything. she also stated she is seeing things when she closes her eyes automobile and property underwriter asked if she thought they were dreams she said she is not sure, she cant tell a difference any more.
--- NOTE | 2020-03-26 11:49 | DCPLANNER ---
Pg 2 of IM updated and reviewed with pt. No questions or comments. Copy provided.
[2020-03-26 12:00] VITALS: BP 126/68; PULSE 93; RESP 16; TEMP 36.6; O2SAT 94
[2020-03-26] MEDS: ALPRAZolam 0.25 mg Tablet PO (13:53)
[2020-03-26] MEDS: acetaminophen 325 mg Tablet 650 MG PO (13:55)
[2020-03-26 16:00] VITALS: BP 140/70; PULSE 96; RESP 16; TEMP 36.9; O2SAT 99
[2020-03-26 17:46] LABS: Glucose Point of Care 120 mg/dL (70-110)
--- NOTE | 2020-03-26 18:30 | CTR_ITS ---
PROCEDURE INFORMATION: Exam: CT Maxillofacial Without Contrast Exam date and time: 03/26/2020 6:57 PM Age: 64 years old Clinical indication: Eye pain and face pain and maxilla pain; Bilateral; Patient HX: Positional frontal [place]; Additional info: Evaluate for sinus abscess TECHNIQUE: Imaging protocol: Computed tomography images of the face without contrast. Radiation optimization: All CT scans at this facility use at least one of these dose optimization techniques: automated exposure control; mA and/or kV adjustment per patient size (includes targeted exams where dose is matched to clinical indication); or iterative reconstruction. COMPARISON: No relevant prior studies available. RADIATION DOSE METRICS: Total DLP (mGy-cm): 763.45 FINDINGS: Orbits: Orbits are normal. Globes are unremarkable. Bones/joints: No acute fracture. Sinuses: Mild bilateral anterior ethmoid sinus disease. Dental: Examination is limited secondary to metallic artifact from dental fillings and/or dental hardware. Soft tissues: Unremarkable. CT/CT facial bones wo con* [id number] IMPRESSION: Mild bilateral anterior ethmoid sinus disease. Radiation Dose CTDIVOL = (mGy): DLP = 763.45 (mGy-cm)
--- NOTE | 2020-03-26 18:33 | P.PN_ITS ---
Subjective Subjective: Interval history: Afebrile today. Overnight was noted to have urinary retention, Gibbons catheter placed after which 900 cc of urine output was noted. Patient states her headache is better today, however it is still persisting. She is off of oxygen and maintaining 99% O2 sats on room air. Creatinine today has worsened to 4.8. Renal consult was placed, appreciate recommendations. Thought to be related to intrinsic renal versus post renal causes. Urine output today currently is up to 1.5 L. Neisseria meningitidis antigen negative from the CSF. Medications: Reviewed: Yes Vitals/I&O/Wt Last Vital Signs Temp 98.4 F 03/26/20 16:00 Pulse 96 03/26/20 16:00 Resp 16 03/26/20 16:00 BP 140/70 03/26/20 16:00 Pulse Ox 99 03/26/20 16:00 03/26/20 03/26/20 03/26/20 06:59 14:59 22:59 Intake Total 1480 / 3210 200 / 200 1000 / 1200 Balance 1480 / 2760 200 / 200 1000 / 1200 Physical Exam Narrative: EXAM NARRATIVE: GEN: Awake, alert and oriented, no acute distress , anxious CVS: S1S2 N RS: CTA B/L Abd: Soft, nt/nd , bs+ DOUGH MIXER HELPER: no focal neuro deficits Urinary Catheter Management^: Gibbons: Cath Placed During This Visit: yes Reason for Continuing Indwelling Catheter: Acute Urinary Retention or Obstruction Urinary Catheter Date of Insertion: 03/26/20 Urinary Catheter Time of Insertion: 10:38 Data : 03/26/20 04:30 03/26/20 04:30 Micro: Microbiology 03/23/20 19:12 Gram Stain - Final Cerebrospinal Fluid CSF Culture - Preliminary 03/23/20 17:40 Urine Culture - Final Urine,Clean Catch 03/25/20 05:45 Blood Culture - Preliminary Blood NEGATIVE TO DATE 03/25/20 05:45 Blood Culture - Preliminary Blood NEGATIVE TO DATE 03/25/20 16:45 Gram Stain - Final Cerebrospinal Fluid Bacterial Antigens - Final 03/25/20 16:45 Cryptococcal Antigen - Final Cerebrospinal Fluid A&P Assessment and plan (1) Fever: Status: Acute Qualifiers: Fever type: unspecified Qualified Code(s): R50.9 - Fever, unspecified (2) Headache: Status: Acute Qualifiers: Headache type: unspecified Additional A&P Information # Fever Fever associated with headache and photophobia, raising concerns for meningoencephalitis initially. Underwent lumbar puncture on admission which showed 2 white count with neutrophils, no lymphocytes, 0 RBCs, normal CSF glucose 69 ([id number]). normal serum protein. Second lumbar puncture on 2. Mildly elevated white blood cell count up to 8 now however may be related to prior LP. CSF glucose and CSF protein along with Gram stain thus far negative. Neisseria antigen negative Pending CSF Lyme antibodies serum Leptospira panel. Of note patient was taking Bactrim prior to admission, wonder if CSF Gram stain may be clouded by that. CT head is negative for any cancer recurrence. CT abdomen pelvis and right upper quadrant ultrasound not indicative of any acute processes within the gallbladder or biliary system. Tick panel sent from the ER, remains pending at this time for Ehrlichia and RMSF. COVID was ruled out by negative PCR testing performed at [facility] on March 16. Continue CTX and doxycycline. ACV, ampicillin, vancomycin discontinued Headache, continues though somehwat improved KRAIG cr 4.8 now, making urine ~1.5L. This may be related to vancomycin and acyclovir. Both of these antibiotics have been discontinued as CSF culture remains negative for MRSA and CSF analysis not concerning for HSV encephalitis. Last night patient also had a brief hypotensive episode with blood pressure down to 87 systolic. Wondering if ATN has resulted Renal artery doppler normal. Continue IIVF 100cc/hr. Avoid nephrotoxins Respiratory distress resolved. Troponin series has been added this morning and the baseline troponin is only mildly elevated with 2-hour nonsignificant delta. Echocardiogram ANL. D-dimer was also noted to be elevated VQ scan low probability PE, LE doppler negative DVT prophylaxis: start with heparin Cardiac diet Full code Attestations Medical Necessity Statement*: worsening kidney function Coding Level of Care Code Acute Building Code Administrator for [facility] Diagnoses Fever R50.9 Fever type: unspecified Headache R51 Headache type: unspecified
[2020-03-26 20:00] VITALS: BP 142/74; PULSE 65; RESP 18; TEMP 36.9; O2SAT 98
[2020-03-26] MEDS: heparin 5,000 unit/mL INJ 1 mL 5000 UNIT SUBCUT (20:04)
[2020-03-26] MEDS: metoclopramide 5 mg/mL SDV 2 mL IVP (20:06)
[2020-03-26 20:50] LABS: Glucose Point of Care 113 mg/dL (70-110)
[2020-03-26] MEDS: trazodone 50 mg Tablet PO (22:02)
[2020-03-27] VITALS: BP 138/74; PULSE 62; RESP 17; TEMP 36.8; O2SAT 97
[2020-03-27 04:00] VITALS: BP 140/70; PULSE 97; RESP 17; TEMP 36.4; O2SAT 99
[2020-03-27] MEDS: sodium chloride 0.9% 1,000 ML 100 ML IV ×2 (04:38→19:40)
[2020-03-27] MEDS: ondansetron 2 mg/ML SDV 2 mL 4 MG IVP (05:20)
[2020-03-27 06:14] LABS: Lactate (Lactic Acid level) 0.8 mmol/L (0.5-2.2)
[2020-03-27 06:46] LABS: Basophils % 0.4 %; Eosinophils % 0.3 %; Hematocrit 32.7 % (37.0-47.0); Hemoglobin 10.8 g/dL (11.5-15.3); Lymphocytes % 8.8 %; Mean Corpuscular Hemoglobin 29.5 pg (28.0-34.0); Mean Corpuscular Volume 89.3 fL (81-99); Mean Platelet Volume 10.4 fL (7.4-10.4); Monocytes # 0.8 10^3/uL (0.2-0.9); Neutrophils # 9.3 10^3/uL (1.8-7.7); Neutrophils % 83.1 %; Nucleated Red Blood Cells % 0 %; Platelet Count 235 10^3/cmm (130-400); Red Blood Count 3.66 10^6/uL (4.1-5.3); Red Cell Distribution Width 15.9 % (12.1-15.1); White Blood Count 11.2 10^3/uL (4.0-10.0)
[2020-03-27 07:01] LABS: Alanine Aminotransferase 52 U/L (0-33); Albumin Level 2.8 g/dL (3.5-5.2); Alkaline Phosphatase 253 IU/L (35-105); Anion Gap 20.4 (5-19); Blood Urea Nitrogen 37 mg/dL (8-23); Calcium 7.9 mg/dL (8.5-10.5); Carbon Dioxide 16 mmol/L (22-29); Chloride 106 mmol/L (98-107); Glomerular Filtration Rate 9.3 mL/min (90-130); Glucose 73 mg/dL (65-115); Osmolality Calculated 282 mOsm/kg (285-295); Potassium 4.4 mmol/L (3.5-5.1); Sodium 138 mmol/L (136-145); Total Bilirubin 0.6 mg/dL (0.15-1.2); Total Protein 5.8 g/dL (6.6-8.7)
[2020-03-27 07:35] LABS: Glucose Point of Care 93 mg/dL (70-110)
[2020-03-27 08:00] VITALS: BP 171/68; PULSE 99; RESP 18; TEMP 36.9; O2SAT 97
[2020-03-27 08:17] LABS: Aspartate Amino Transferase 53 U/L (0-32)
[2020-03-27] MEDS: cefTRIAXone 1,000 MG in sodium chloride 0.9% (plus) 50 ML 100 MG IV (08:42)
[2020-03-27] MEDS: metoclopramide 5 mg/mL SDV 2 mL IVP (08:42)
[2020-03-27] MEDS: pantoprazole DR 40 mg Tablet PO (08:42)
[2020-03-27] MEDS: fluoxetine 20 mg Capsule PO (08:42)
[2020-03-27] MEDS: heparin 5,000 unit/mL INJ 1 mL 5000 UNIT SUBCUT ×2 (08:43→19:07)
[2020-03-27] MEDS: doxycycline 100 MG in sodium chloride 0.9% (plus) 100 ML IV (10:06)
--- NOTE | 2020-03-27 10:38 | P.PN_ITS ---
Subjective Subjective: Interval history: Slight headache is improving. Some nausea this morning, vomiting, remain on ivf. Good urine output. No edema and no other symptoms of high volume. Bps good yesterday although high this morning Medications: Reviewed: Yes Vitals/I&O/Wt Last Vital Signs Temp 98.5 F 03/27/20 08:00 Pulse 99 03/27/20 08:00 Resp 18 03/27/20 08:00 BP 171/68 03/27/20 08:00 Pulse Ox 97 03/27/20 08:00 03/26/20 03/27/20 03/27/20 22:59 06:59 14:59 Intake Total 1480 / 1780 2060 / 3840 200 / 200 Output Total 1200 / 1200 800 / 2000 1050 / 1050 Balance 280 / 580 1260 / 1840 -850 / -850 Physical Exam Narrative: EXAM NARRATIVE: Constitutional: Awake, a little sleepy after pain meds HEENT: Wet mucosa, no jvp, non icteric Lungs: Bilaterally clear without discernible wheeze, rales in all lung zones CVS: S1 S2, no murmurs Abdo: Soft, BS ok Ext 4: Minimal edema, peripheral perfusion with no cyanosis Neurological: Grossly non-focal Urinary Catheter Management^: Wright: Cath Placed During This Visit: yes Reason for Continuing Indwelling Catheter: Acute Urinary Retention or Obstruction Urinary Catheter Date of Insertion: 03/26/20 Urinary Catheter Time of Insertion: 10:38 Data : 03/27/20 04:40 03/27/20 04:40 Micro: Microbiology 03/23/20 19:12 Gram Stain - Final Cerebrospinal Fluid CSF Culture - Preliminary 03/23/20 17:40 Urine Culture - Final Urine,Clean Catch 03/25/20 05:45 Blood Culture - Preliminary Blood NEGATIVE TO DATE 03/25/20 05:45 Blood Culture - Preliminary Blood NEGATIVE TO DATE A&P Additional A&P Information 1. KRAIG - Creatinine has stabilized and UO excellent; no dialysis needed -The high fractional excretion of sodium of 5.9%, low BUN/creatinine ratio is consistent with intrarenal/post renal obstruction, which is the likely culprits include the urinary retention she had this morning and possibly antibiotics. Given the relatively short timeframe this would have to be vancomycin associated acute tubular injury as opposed to acute interstitial nephritis. -Wright catheter has now been placed to relieve any potential obstruction, vancomycin and acyclovir has now been stopped. -She is receiving supplemental intravenous fluid at 100 mL/hour -Avoid usual nephrotoxic agents. -Dose medications for GFR less than 15. 2. Headache, nausea. -Being worked up by Dr. Strong, and receiving analgesics. 3. Recurrent cystitis -This is a dominant main recurrent outpatient problem, under close follow-up by Dr. Graves. Currently on Rocephin. Urine cultures are noted. Long-term, she may need to do daily intermittent straight catheterization. - DC wright tomorrow and Q12 straight cath 4. Electrolytes. She has developed an anion gap metabolic acidosis likely secondary to renal failure, lactic acid is noted to be normal, and no ketones were seen on the urinalysis. Non critical; monitor for now, as renal function recovers so will this, no need for alkalinization 5. Transaminitis. Would consider holding statin therapy. Hepatitis panel is negative. Other work-up with Dr. Strong As always it is a pleasure for myself and [facility] renal services to follow these patients with you. Interview and examination was performed via telemedicine, with the assistance of the bedside nursing staff. Bret Lay MD [facility] renal services, telemedicine [phone] Attestations Medical Necessity Statement*: Eval for KRAIG Coding Level of Care Code Acute Carbide Die Maker for Sebastian Delgado
--- NOTE | 2020-03-27 11:46 | XRR_ITS ---
PROCEDURE INFORMATION: Exam: XR Chest, 1 View Exam date and time: 03/27/2020 3:04 PM Age: 64 years old Clinical indication: Other: Follow up infiltrates TECHNIQUE: Imaging protocol: XR of the chest Views: 1 view. COMPARISON: CR XR chest 1V portable [id number] 03/25/2020 4:25 AM FINDINGS: Lungs: There is improving airspace opacities/infiltrates in the lower lobes. The previously visualized infiltrates have a essentially resolved. There is still some diffuse reticular density compatible probable underlying fibrosis. Pleural space: Unremarkable. No pleural effusion. No pneumothorax. Heart/Mediastinum: Unremarkable. No cardiomegaly. Bones/joints: No acute abnormality. Other findings: The vascularity is within normal limits. XR/XR chest 1V portable [id number] IMPRESSION: Marked interval improvement in the airspace infiltrates compared to the prior exam.
[2020-03-27 11:53] LABS: Glucose Point of Care 86 mg/dL (70-110)
[2020-03-27 12:00] VITALS: BP 147/76; PULSE 92; RESP 18; TEMP 36.9; O2SAT 98
[2020-03-27 16:00] VITALS: BP 148/73; PULSE 91; RESP 18; TEMP 37.3; O2SAT 97
[2020-03-27 18:01] LABS: Glucose Point of Care 105 mg/dL (70-110)
[2020-03-27 20:00] VITALS: BP 136/72; PULSE 89; RESP 20; TEMP 37.2; O2SAT 98
[2020-03-27 20:40] LABS: Glucose Point of Care 86 mg/dL (70-110)
--- NOTE | 2020-03-27 22:37 | P.PN_ITS ---
Subjective Subjective: Interval history: headache improved today, nausea resolving, overall feels she is improving , good urine output Medications: Reviewed: Yes Vitals/I&O/Wt Last Vital Signs Temp 99.0 F 03/27/20 20:00 Pulse 89 03/27/20 20:00 Resp 20 H 03/27/20 20:00 BP 136/72 03/27/20 20:00 Pulse Ox 98 03/27/20 20:00 03/27/20 03/27/20 03/27/20 06:59 14:59 22:59 Intake Total 2060 / 3840 1860 / 1860 1100 / 2960 Output Total 800 / 2000 1650 / 1650 1100 / 2750 Balance 1260 / 1840 210 / 210 0 / 210 Physical Exam Narrative: EXAM NARRATIVE: GEN: Awake, alert and oriented, no acute distress CVS: S1S2 N RS: CTA B/L Abd: Soft, nt/nd , bs+ 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: no focal neuro deficits Urinary Catheter Management^: Gibbons: Cath Placed During This Visit: yes Reason for Continuing Indwelling Catheter: Acute Urinary Retention or Obstruction Urinary Catheter Date of Insertion: 03/26/20 Urinary Catheter Time of Insertion: 10:38 Data : 03/27/20 04:40 03/27/20 04:40 Micro: Microbiology 03/25/20 16:45 Gram Stain - Final Cerebrospinal Fluid CSF Culture - Preliminary Bacterial Antigens - Final 03/23/20 19:12 Gram Stain - Final Cerebrospinal Fluid CSF Culture - Final A&P Assessment and plan (1) Fever: Status: Acute Qualifiers: Fever type: unspecified Qualified Code(s): R50.9 - Fever, unspecified (2) Headache: Status: Acute Qualifiers: Headache type: unspecified Additional A&P Information # Fever Fever associated with headache and photophobia, raising concerns for meningoencephalitis initially. Underwent lumbar puncture on admission which showed 2 white count with neutrophils, no lymphocytes, 0 RBCs, normal CSF glucose 69 ([id number]). normal serum protein. Second lumbar puncture on 7 2. Mildly elevated white blood cell count up to 8 now however may be related to prior LP. CSF glucose and CSF protein along with Gram stain thus far negative. Neisseria antigen negative Pending CSF Lyme antibodies serum Leptospira panel. Of note patient was taking Bactrim prior to admission, wonder if CSF Gram stain may be clouded by that. CT head is negative for any cancer recurrence. CT abdomen pelvis and right upper quadrant ultrasound not indicative of any acute processes within the gallbladder or biliary system. Tick panel sent from the ER, remains pending at this time for Ehrlichia and RMSF. COVID was ruled out by negative PCR testing performed at [facility] on March 16. Continue CTX and doxycycline. ACV, ampicillin, vancomycin discontinued Headache, continues though somehwat improved KRAIG cr 4.8 now, making urine ~1.5L. This may be related to vancomycin and acyclovir. Both of these antibiotics have been discontinued as CSF culture remains negative for MRSA and CSF analysis not concerning for HSV encephalitis. Last night patient also had a brief hypotensive episode with blood pressure down to 87 systolic. Wondering if ATN has resulted Renal artery doppler normal. Continue IIVF 100cc/hr. Avoid nephrotoxins Respiratory distress resolved. Troponin series has been added this morning and the baseline troponin is only mildly elevated with 2-hour nonsignificant delta. Echocardiogram ANL. D-dimer was also noted to be elevated VQ scan low probability PE, LE doppler negative DVT prophylaxis: start with heparin Cardiac diet Full code Attestations Medical Necessity Statement*: monitor renal function Coding Level of Care Code Acute Warning Coordination Meteorologist for [facility] Diagnoses Fever R50.9 Fever type: unspecified Headache R51 Headache type: unspecified
[2020-03-27] MEDS: doxycycline 100 mg Tablet PO (22:39)
[2020-03-28] VITALS: BP 127/69; PULSE 89; RESP 18; TEMP 37.2; O2SAT 95
[2020-03-28] MEDS: trazodone 50 mg Tablet PO ×2 (01:20→21:24)
--- NOTE | 2020-03-28 03:55 | PC.NURSE ---
THE PATIENT HAS HAD AN IMPROVEMENT FROM PREVIOUS DAY. SHE HAS LESS COMPLAINTS OF NAUSEA AND VOMITING. URINE OUTPUT HAS BEEN VERY GOOD. THE PATIENT IS HAVING LOOSE STOOLS. ORAL INTAKE IS WNL WELL. NO COMPLAINTS OF ABDOMINAL PAIN.
[2020-03-28 04:00] VITALS: BP 129/70; PULSE 85; RESP 18; TEMP 36.3; O2SAT 97
[2020-03-28 05:20] LABS: Basophils % 0.1 %; Eosinophils % 0.2 %; Hematocrit 29.3 % (37.0-47.0); Hemoglobin 9.8 g/dL (11.5-15.3); Lymphocytes # 0.9 10^3/uL (0.8-4.8); Lymphocytes % 8.4 %; Mean Corpuscular HGB Conc 33.4 g/dL (30.0-36.0); Mean Corpuscular Hemoglobin 28.5 pg (28.0-34.0); Mean Corpuscular Volume 85.2 fL (81-99); Mean Platelet Volume 10.1 fL (7.4-10.4); Monocytes # 0.9 10^3/uL (0.2-0.9); Monocytes % 8.2 %; Neutrophils # 9.3 10^3/uL (1.8-7.7); Neutrophils % 82.6 %; Nucleated Red Blood Cells % 0 %; Platelet Count 272 10^3/cmm (130-400); Red Blood Count 3.44 10^6/uL (4.1-5.3); Red Cell Distribution Width 15.6 % (12.1-15.1); White Blood Count 11.2 10^3/uL (4.0-10.0)
[2020-03-28] MEDS: sodium chloride 0.9% 1,000 ML 100 ML IV ×2 (05:23→18:13)
[2020-03-28 06:08] LABS: Alanine Aminotransferase 48 U/L (0-33); Albumin Level 2.9 g/dL (3.5-5.2); Alkaline Phosphatase 323 IU/L (35-105); Anion Gap 19.6 (5-19); Aspartate Amino Transferase 49 U/L (0-32); Blood Urea Nitrogen 28 mg/dL (8-23); Carbon Dioxide 17 mmol/L (22-29); Chloride 106 mmol/L (98-107); Globulin 2.7 g/dL (1.3-4.6); Glomerular Filtration Rate 15.1 mL/min (90-130); Glucose 86 mg/dL (65-115); Osmolality Calculated 284 mOsm/kg (285-295); Potassium 3.6 mmol/L (3.5-5.1); Sodium 139 mmol/L (136-145); Total Bilirubin 0.6 mg/dL (0.15-1.2); Total Protein 5.6 g/dL (6.6-8.7)
[2020-03-28 06:26] LABS: Glucose Point of Care 82 mg/dL (70-110)
[2020-03-28] MEDS: acetaminophen 325 mg Tablet 650 MG PO (07:39)
[2020-03-28] MEDS: heparin 5,000 unit/mL INJ 1 mL 5000 UNIT SUBCUT ×2 (07:39→21:24)
[2020-03-28 07:47] VITALS: BP 137/75; PULSE 89; RESP 20; TEMP 37; O2SAT 97
[2020-03-28 08:39] LABS: HIV 1 & 2 Antigen Non-Reactive (Non-Reactiv)
[2020-03-28 08:40] LABS: HIV 1 & 2 Antibody Non-Reactive (Non-Reactiv)
[2020-03-28] MEDS: cefTRIAXone 1,000 MG in sodium chloride 0.9% (plus) 50 ML 100 MG IV (09:40)
[2020-03-28] MEDS: NIFEdipine ER (24 hr) 30 mg Tablet PO (09:41)
[2020-03-28] MEDS: fluoxetine 20 mg Capsule PO (09:41)
[2020-03-28] MEDS: pantoprazole DR 40 mg Tablet PO (09:41)
--- NOTE | 2020-03-28 10:24 | P.PN_ITS ---
Subjective Subjective: Interval history: Headache intermittent, now severe again when I discussed with her at bedside. Developing diarrhea also. Good urine output, no uremic Sx No edema and no other volume related Sx. Medications: Reviewed: Yes Vitals/I&O/Wt Last Vital Signs Temp 98.6 F 03/28/20 07:47 Pulse 89 03/28/20 07:47 Resp 20 H 03/28/20 07:47 BP 137/75 03/28/20 07:47 Pulse Ox 97 03/28/20 07:47 03/27/20 03/28/20 03/28/20 22:59 06:59 14:59 Intake Total 1100 / 2960 1891.667 / 4851.667 480 / 480 Output Total 1100 / 2750 1300 / 4050 Balance 0 / 210 591.667 / 801.667 480 / 480 Physical Exam Narrative: EXAM NARRATIVE: Constitutional: Awake, a little sleepy after pain meds HEENT: Wet mucosa, no jvp, non icteric Lungs: Bilaterally clear without discernible wheeze, rales in all lung zones CVS: S1 S2, no murmurs Abdo: Soft, BS ok Ext 4: Minimal edema, peripheral perfusion with no cyanosis Neurological: Grossly non-focal Urinary Catheter Management^: Wright: Cath Placed During This Visit: yes Reason for Continuing Indwelling Catheter: Acute Urinary Retention or Obstruction Urinary Catheter Date of Insertion: 03/26/20 Urinary Catheter Time of Insertion: 10:38 Data : 03/28/20 04:15 03/28/20 04:15 Micro: Microbiology 03/25/20 16:45 Gram Stain - Final Cerebrospinal Fluid CSF Culture - Preliminary Bacterial Antigens - Final 03/23/20 19:12 Gram Stain - Final Cerebrospinal Fluid CSF Culture - Final A&P Additional A&P Information 1. 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 Historically she did straight cath for ~ 6 weeks and did not have cystitis at that time - no need for ivf - Avoid usual nephrotoxic agents. - Dose medications for GFR less than 15. 2. Headache, nausea. - Being worked up by Dr. Strong, and receiving analgesics. - will take liberty of giving some Sumatriptan 100mg po once today 3. Recurrent cystitis -This is a dominant main recurrent outpatient problem, under close follow-up by Dr. Graves. Currently on Rocephin. Urine cultures are noted. Long-term, she will need to do twice daily intermittent straight catheterization. - DC wright today and Q12 straight cath 4. Electrolytes. She has developed an anion gap metabolic acidosis likely secondary to renal failure, lactic acid is noted to be normal, and no ketones were seen on the urinalysis. Non critical; monitor for now, as renal function recovers so will this, no need for alkalinization and this is improving by itself 5. Transaminitis. Would consider holding statin therapy and there is improvement since this was held. Hepatitis panel is negative. As always it is a pleasure for myself and [facility] renal services to follow these patients with you. Interview and examination was performed via telemedicine, with the assistance of the bedside nursing staff. 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
[2020-03-28] MEDS: doxycycline 100 mg Tablet PO ×2 (11:25→21:24)
[2020-03-28 11:35] LABS: HSV 1 DNA NOT DETECTED; HSV 2 DNA NOT DETECTED; HSV Source csf
[2020-03-28 11:37] VITALS: BP 144/77; PULSE 72; RESP 18; TEMP 36.6; O2SAT 97
[2020-03-28 12:10] LABS: Glucose Point of Care 99 mg/dL (70-110)
[2020-03-28] MEDS: SUMAtriptan 25 mg Tablet 100 MG PO (12:51)
--- NOTE | 2020-03-28 12:57 | PC.SOCIAL ---
IMM Updated Updated pt on Pg 2 IMM. No questions voiced. Provided pt a copy & left on pt's bedside table. Signed, dated, & timed copy in chart.
[2020-03-28 15:33] VITALS: BP 124/73; PULSE 80; RESP 18; TEMP 36.4; O2SAT 96
[2020-03-28 16:35] LABS: Glucose Point of Care 96 mg/dL (70-110)
[2020-03-28 20:00] VITALS: BP 137/74; PULSE 83; RESP 18; TEMP 36.4; O2SAT 98
[2020-03-28 21:07] LABS: Glucose Point of Care 138 mg/dL (70-110)
[2020-03-28] MEDS: loperamide 2 mg Capsule PO (21:24)
--- NOTE | 2020-03-28 21:57 | PM.PN ---
Subjective Subjective: Interval history: Seen and examined earlier this morning.Headcahe much improved today. Cr now improving, diuresing well. Developed 3-4 episodes of diarrhea now. Overall feels clinically improved. Medications: Reviewed: Yes Vitals/I&O/Wt Last Vital Signs Temp 97.6 F 03/28/20 20:00 Pulse 83 03/28/20 20:00 Resp 18 03/28/20 20:00 BP 137/74 03/28/20 20:00 Pulse Ox 98 03/28/20 20:00 03/28/20 03/28/20 03/28/20 06:59 14:59 22:59 Intake Total 1891.667 / 4851.667 480 / 480 1000 / 1480 Output Total 1300 / 4050 1150 / 1150 400 / 1550 Balance 591.667 / 801.667 -670 / -670 600 / -70 Physical Exam Narrative: EXAM NARRATIVE: GEN: Awake, alert and oriented, no acute distress CVS: S1S2 N RS: CTA B/L Abd: Soft, nt/nd , bs+ SUPERVISOR LATHING: no focal neuro deficits Urinary Catheter Management^: Wright: Cath Placed During This Visit: yes, but has since been removed by the nurse Reason for Continuing Indwelling Catheter: Decision to DC Catheter Urinary Catheter Date of Insertion: 03/26/20 Urinary Catheter Time of Insertion: 10:38 Date Urinary Catheter Removed: 03/28/20 Time Urinary Catheter Discontinued: 10:00 Data : 03/28/20 04:15 03/28/20 04:15 Micro: Microbiology 03/23/20 16:45 Blood Culture - Final Blood NO GROWTH AFTER 5 DAYS 03/23/20 16:48 Blood Culture - Final Blood NO GROWTH AFTER 5 DAYS 03/28/20 11:15 C.difficile Toxin B Gene (PCR) - Final Stool Routine Collection 03/25/20 16:45 Gram Stain - Final Cerebrospinal Fluid CSF Culture - Preliminary Bacterial Antigens - Final A&P Assessment and plan (1) Fever: Status: Acute Qualifiers: Fever type: unspecified Qualified Code(s): R50.9 - Fever, unspecified (2) Headache: Status: Acute Qualifiers: Headache type: unspecified Additional A&P Information # Fever Fever associated with headache and photophobia, raising concerns for meningoencephalitis initially. Underwent lumbar puncture on admission which showed 2 white count with neutrophils, no lymphocytes, 0 RBCs, normal CSF glucose 69 ([id number]). normal serum protein. Second lumbar puncture on 03 25. Mildly elevated white blood cell count up to 8 now however may be related to prior LP. CSF glucose and CSF protein along with Gram stain thus far negative. Neisseria antigen negative Pending CSF Lyme antibodies serum Leptospira panel. CT head is negative for any cancer recurrence. CT abdomen pelvis and right upper quadrant ultrasound not indicative of any acute processes within the gallbladder or biliary system. Tick panel negtaive for Lyme, ehrlichia and RMSF COVID was ruled out by negative PCR testing performed at [facility] on March 16. CXR improving significantly yesterday, patient remains off supplemental 02. Overall clinically imrpoved today No clear source identified, may have been viral vs tick borne illness- stop CTX today and monitor. Continue doxycycline day 6 today. # Headache, reports that this is much improved today CT head WNL. Ct facial bons with ethmoid sinusitis # KRAIG cr 4.8--> 3.1, improving. Good urine output. D/c Wright and IVF today as patient able to take po intake. This may be related to vancomycin and acyclovir. Both of these antibiotics have been discontinued as CSF culture remains negative for MRSA and CSF analysis not concerning for HSV/VZV encephalitis. Renal artery doppler normal. She was retaining ~900cc urine, perhaps additional component of post renal.has h/o cytocoele. Bladder scan qshift after removing Wright, intermittent self cath upon discharge # Respiratory distress as noted on 03/25 now resolved. Troponin negative. Echocardiogram WNL. D-dimer was also noted to be elevated VQ scan low probability PE, LE doppler negative. CXR with significant improvement, appears to have been related to pulm edema related to KRAIG. # diarrhea: check Cdiff stool PCR DVT prophylaxis: heparin Cardiac diet Full code Attestations Medical Necessity Statement*: renal functiom improving now, monitoring off IVF, d/c wright and d/c ceftriaxone Coding Level of Care Code Acute Metal Fabricating Inspector for Chg Fwd Diagnoses Fever R50.9 Fever type: unspecified Headache R51 Headache type: unspecified
[2020-03-29] VITALS: BP 130/67; PULSE 77; RESP 18; TEMP 37.2; O2SAT 95
[2020-03-29] MEDS: acetaminophen 325 mg Tablet 650 MG PO ×3 (03:54→17:33)
[2020-03-29 04:00] VITALS: BP 125/69; PULSE 74; RESP 18; TEMP 37.2; O2SAT 92
[2020-03-29 05:55] LABS: Basophils % 0.1 %; Eosinophils % 0.4 %; Hemoglobin 9.3 g/dL (11.5-15.3); Lymphocytes % 12.6 %; Mean Corpuscular HGB Conc 33.2 g/dL (30.0-36.0); Mean Corpuscular Hemoglobin 29.1 pg (28.0-34.0); Mean Corpuscular Volume 87.5 fL (81-99); Mean Platelet Volume 9.5 fL (7.4-10.4); Monocytes # 0.9 10^3/uL (0.2-0.9); Monocytes % 10.8 %; Neutrophils % 75.6 %; Nucleated Red Blood Cells % 0 %; Platelet Count 254 10^3/cmm (130-400); Red Cell Distribution Width 15.6 % (12.1-15.1); White Blood Count 7.9 10^3/uL (4.0-10.0)
[2020-03-29 06:07] LABS: Alanine Aminotransferase 42 U/L (0-33); Albumin Level 2.6 g/dL (3.5-5.2); Alkaline Phosphatase 269 IU/L (35-105); Anion Gap 17.4 (5-19); Aspartate Amino Transferase 41 U/L (0-32); Blood Urea Nitrogen 17 mg/dL (8-23); Calcium 7.9 mg/dL (8.5-10.5); Carbon Dioxide 18 mmol/L (22-29); Chloride 104 mmol/L (98-107); Glomerular Filtration Rate 30.2 mL/min (90-130); Glucose 95 mg/dL (65-115); Osmolality Calculated 278 mOsm/kg (285-295); Potassium 3.4 mmol/L (3.5-5.1); Sodium 136 mmol/L (136-145); Total Bilirubin 0.8 mg/dL (0.15-1.2); Total Protein 5.6 g/dL (6.6-8.7)
[2020-03-29] MEDS: potassium chloride ER 10 mEq Tablet 40 MEQ PO (06:32)
[2020-03-29 06:35] LABS: Glucose Point of Care 88 mg/dL (70-110)
--- NOTE | 2020-03-29 06:35 | PM.PN ---
Subjective Subjective: Interval history: diarrhea improved w/ imodium. c/o sinus pain and H/A. urinating on her own w/ PVR <200 Medications: Reviewed: Yes Medication Review Details: Current Medications Acetaminophen (Tylenol) 650 mg PO Q6H PRN PRN Reason: Fever Last Admin: 03/29/20 03:54 Dose: 650 mg Documented by: Alprazolam (Xanax) 0.25 mg PO BID PRN PRN Reason: ANXIETY Dextrose (D50w) 25 ml IVP ONCE PRN; Protocol PRN Reason: hypoglycemia protocol Dextrose (D50w) 50 ml IVP PRN PRN; Protocol PRN Reason: hypoglycemia protocol Doxycycline Monohydrate (Vibramycin) 100 mg PO Q12H [facility] Last Admin: 03/28/20 21:24 Dose: 100 mg Documented by: Fluoxetine HCl (Prozac) 20 mg PO DAILY [facility] Last Admin: 03/28/20 09:41 Dose: 20 mg Documented by: Glucagon (Glucagen) 1 mg IM ONCE PRN; Protocol PRN Reason: Adult Acute Hypoglycemia Prot. Heparin Sodium (Beef Lung) (Heparin) 5,000 unit SUBCUT Q12H [facility] Last Admin: 03/28/20 21:24 Dose: 5,000 unit Documented by: Sodium Chloride (Sodium Chloride 0.9%) 1,000 mls @ 100 mls/hr IV .Q10H [facility] Last Admin: 03/29/20 03:50 Dose: Not Given Documented by: Dextrose (D5w) 500 mls @ 100 mls/hr IV ONCE PRN; Protocol PRN Reason: Adult Acute Hypoglycemia Prot Ceftriaxone Sodium 1,000 mg/ (Sodium Chloride) 50 mls @ 100 mls/hr IV DAILY [facility]; Protocol Last Admin: 03/28/20 09:40 Dose: 100 mls/hr Documented by: Loperamide HCl (Imodium Capsule) 2 mg PO QID PRN PRN Reason: DIARRHEA Last Admin: 03/28/20 21:24 Dose: 2 mg Documented by: Metoclopramide HCl (Reglan) 5 mg IVP Q8H PRN PRN Reason: NAUSEA AND VOMITING Last Admin: 03/27/20 08:42 Dose: 5 mg Documented by: Nifedipine (Procardia Xl) 30 mg PO DAILY [facility] Last Admin: 03/28/20 09:41 Dose: 30 mg Documented by: Ondansetron HCl (Zofran) 4 mg IVP Q8H PRN PRN Reason: NAUSEA AND VOMITING Last Admin: 03/27/20 05:20 Dose: 4 mg Documented by: Pantoprazole Sodium (Protonix) 40 mg PO DAILY [facility] Last Admin: 03/28/20 09:41 Dose: 40 mg Documented by: Potassium Chloride (Klor-Con 10) 40 meq PO ONCE ONE Stop: 03/29/20 06:46 Last Admin: 03/29/20 06:32 Dose: 40 meq Documented by: Tizanidine HCl (Zanaflex) 2 mg PO Q8H PRN PRN Reason: Pain Last Admin: 03/25/20 21:24 Dose: 2 mg Documented by: Trazodone HCl (Desyrel) 50 mg PO BEDTIME PRN PRN Reason: SLEEP Last Admin: 03/28/20 21:24 Dose: 50 mg Documented by: Vitals/I&O/Wt Last Vital Signs Temp 98.9 F 03/29/20 04:00 Pulse 74 03/29/20 04:00 Resp 18 03/29/20 04:00 BP 125/69 03/29/20 04:00 Pulse Ox 92 03/29/20 04:00 03/28/20 03/28/20 03/29/20 14:59 22:59 06:59 Intake Total 480 / 480 1000 / 1480 Output Total 1150 / 1150 400 / 1550 1000 / 2550 Balance -670 / -670 600 / -70 -1000 / -1070 Physical Exam Narrative: EXAM NARRATIVE: comfortable, NARD VSS heent- nc/at, eomi, anicteric neck -supple, no jvp lung cta b/l heart reg, no rub, +JIMMY abd-soft, nt, nd, +BS no wright ext no edema neuro- a,a, o x 3 Urinary Catheter Management^: Wright: Cath Placed During This Visit: yes, but has since been removed by the nurse Reason for Continuing Indwelling Catheter: Decision to DC Catheter Urinary Catheter Date of Insertion: 03/26/20 Urinary Catheter Time of Insertion: 10:38 Date Urinary Catheter Removed: 03/28/20 Time Urinary Catheter Discontinued: 10:00 Data : 03/29/20 05:19 03/29/20 05:19 Micro: Microbiology 03/23/20 16:45 Blood Culture - Final Blood NO GROWTH AFTER 5 DAYS 03/23/20 16:48 Blood Culture - Final Blood NO GROWTH AFTER 5 DAYS 03/28/20 11:15 C.difficile Toxin B Gene (PCR) - Final Stool Routine Collection 03/25/20 16:45 Gram Stain - Final Cerebrospinal Fluid CSF Culture - Preliminary Bacterial Antigens - Final A&P Additional A&P Information 1. KRAIG- most likely obstructive uropathy- h/o rectocele/ cystocele, suspension sling and removal surgery. W/ h/o chronic cystitis. -renal fxn improved -wright out -monitor PVR -no nsaid's 2. replete k- low from diarrhea and from post-obstructive uropathy diuresis monitor mag, replete as neded 3. recurrent cystitis- f/u cx and sensitivity- dose abx per hospitalist 4. BP okay will see PRN. please call if we can help seen w/ RN Attestations Medical Necessity Statement*: KRAIG improving and urinating on own Time Spent in Patient Care: 16 - 35 minutes Coding Level of Care Code Acute Medical Assistant Float for Sebastian Delgado
[2020-03-29 07:30] VITALS: BP 132/75; PULSE 65; RESP 16; TEMP 36.3; O2SAT 99
[2020-03-29] MEDS: heparin 5,000 unit/mL INJ 1 mL 5000 UNIT SUBCUT ×2 (08:45→20:31)
[2020-03-29] MEDS: pantoprazole DR 40 mg Tablet PO (08:46)
[2020-03-29] MEDS: fluoxetine 20 mg Capsule PO (08:46)
[2020-03-29] MEDS: NIFEdipine ER (24 hr) 30 mg Tablet PO (08:46)
[2020-03-29] MEDS: loperamide 2 mg Capsule PO ×2 (09:00→15:06)
[2020-03-29 11:41] LABS: Glucose Point of Care 101 mg/dL (70-110)
[2020-03-29 12:00] VITALS: BP 137/80; PULSE 71; RESP 18; TEMP 36.6; O2SAT 100
[2020-03-29] MEDS: doxycycline 100 mg Tablet PO ×2 (13:15→20:31)
[2020-03-29] MEDS: SUMAtriptan 25 mg Tablet 50 MG PO (13:16)
[2020-03-29 16:00] VITALS: BP 125/66; PULSE 77; RESP 14; TEMP 37; O2SAT 98
[2020-03-29 17:14] LABS: Glucose Point of Care 93 mg/dL (70-110)
--- NOTE | 2020-03-29 17:48 | PC.NURSE ---
CLARIFIED WITH DR. JOHNSON THAT PATIENT DOES NOT HAVE AN IV.
--- NOTE | 2020-03-29 17:52 | PM.PN ---
Subjective Subjective: Interval history: Marybel reports that she still had a headache this morning. She asked for some Imitrex. Overall was doing better prior to this. Still some loose stool. C. difficile was checked yesterday and negative. History and physical reviewed. Medications: Reviewed: Yes Vitals/I&O/Wt Last Vital Signs Temp 98.6 F 03/29/20 16:00 Pulse 77 03/29/20 16:00 Resp 14 03/29/20 16:00 BP 125/66 03/29/20 16:00 Pulse Ox 98 03/29/20 16:00 03/29/20 03/29/20 03/29/20 06:59 14:59 22:59 Intake Total 120 / 120 Output Total 1000 / 2550 1000 / 1000 Balance -1000 / -1070 -1000 / -1000 120 / -880 Physical Exam Narrative: EXAM NARRATIVE: General exam no apparent distress Cardiovascular regular in rhythm without murmur, no S3 or S4 Lungs clear Abdomen is soft with positive bowel sounds Extremities no cyanosis clubbing or edema Urinary Catheter Management^: Gibbons: Cath Placed During This Visit: yes, but has since been removed by the nurse Reason for Continuing Indwelling Catheter: Decision to DC Catheter Urinary Catheter Date of Insertion: 03/26/20 Urinary Catheter Time of Insertion: 10:38 Date Urinary Catheter Removed: 03/28/20 Time Urinary Catheter Discontinued: 10:00 Data : 03/29/20 05:19 03/29/20 05:19 Micro: Microbiology 03/25/20 16:45 Gram Stain - Final Cerebrospinal Fluid CSF Culture - Final Bacterial Antigens - Final 03/23/20 16:45 Blood Culture - Final Blood NO GROWTH AFTER 5 DAYS 03/23/20 16:48 Blood Culture - Final Blood NO GROWTH AFTER 5 DAYS 03/28/20 11:15 C.difficile Toxin B Gene (PCR) - Final Stool Routine Collection A&P Assessment and plan (1) Fever: She has now been afebrile in the hospital. Tick panel pending CSF studies negative for growth currently. Doubt meningitis. COVID negative Status: Acute Qualifiers: Fever type: unspecified Qualified Code(s): R50.9 - Fever, unspecified (2) Headache: Still present. Imitrex will be given. CT head negative for mass Status: Acute Qualifiers: Headache type: unspecified Additional A&P Information Improving significantly. Creatinine 1.7 today. Concern of some urinary retention. Consider self cath if needed. Diarrhea. C. difficile negative. Respiratory distress. Resolved. On room air oxygen. VQ scan low probability. Lower extremity Dopplers negative. Echo normal. Likely related to pulmonary edema associated with acute kidney injury. Mild hypokalemia, supplement Full code Heparin for DVT prophylaxis. Attestations Medical Necessity Statement*: Needs continued hospitalization, for close monitoring following discontinuation of IV antibiotics as well as treatment of severe headache. 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
[2020-03-29] MEDS: ondansetron 4 MG Tablet PO (17:58)
[2020-03-29 20:00] VITALS: BP 111/64; PULSE 73; RESP 18; TEMP 36.8; O2SAT 93
[2020-03-29] MEDS: topiramate 25 mg Tablet PO (20:31)
[2020-03-29] MEDS: cyclobenzaprine 10 mg Tablet PO (20:31)
[2020-03-29 22:18] LABS: Glucose Point of Care 84 mg/dL (70-110)
[2020-03-30] VITALS: BP 114/66; PULSE 72; RESP 18; TEMP 37; O2SAT 94
[2020-03-30 04:00] VITALS: BP 120/71; PULSE 74; RESP 18; TEMP 37.1; O2SAT 97
[2020-03-30 05:05] LABS: Alanine Aminotransferase 44 U/L (0-33); Alkaline Phosphatase 287 IU/L (35-105); Anion Gap 16.9 (5-19); Aspartate Amino Transferase 45 U/L (0-32); Blood Urea Nitrogen 13 mg/dL (8-23); Calcium 8.2 mg/dL (8.5-10.5); Carbon Dioxide 21 mmol/L (22-29); Chloride 108 mmol/L (98-107); Globulin 2.5 g/dL (1.3-4.6); Glomerular Filtration Rate 41.1 mL/min (90-130); Glucose 80 mg/dL (65-115); Osmolality Calculated 289 mOsm/kg (285-295); Phosphorus 4.4 mg/dL (2.5-4.5); Potassium 3.9 mmol/L (3.5-5.1); Sodium 142 mmol/L (136-145); Total Bilirubin 0.7 mg/dL (0.15-1.2); Total Protein 5.5 g/dL (6.6-8.7)
[2020-03-30 05:10] LABS: Magnesium 0.9 mg/dL (1.7-2.3)
[2020-03-30 05:12] LABS: Basophils % 0.4 %; Eosinophils % 0.5 %; Hematocrit 32.3 % (37.0-47.0); Hemoglobin 10.7 g/dL (11.5-15.3); Mean Corpuscular HGB Conc 33.1 g/dL (30.0-36.0); Mean Corpuscular Hemoglobin 28.5 pg (28.0-34.0); Mean Corpuscular Volume 85.9 fL (81-99); Mean Platelet Volume 10.3 fL (7.4-10.4); Monocytes # 0.7 10^3/uL (0.2-0.9); Monocytes % 12.9 %; Neutrophils # 3.9 10^3/uL (1.8-7.7); Neutrophils % 68.8 %; Nucleated Red Blood Cells % 0 %; Platelet Count 291 10^3/cmm (130-400); Red Blood Count 3.76 10^6/uL (4.1-5.3); Red Cell Distribution Width 15.4 % (12.1-15.1); White Blood Count 5.7 10^3/uL (4.0-10.0)
[2020-03-30] MEDS: acetaminophen 325 mg Tablet 650 MG PO (06:21)
[2020-03-30] MEDS: magnesium sulfate premix 2 GM/50 ML PIGGYBACK IV (06:21)
[2020-03-30 06:54] LABS: Glucose Point of Care 83 mg/dL (70-110)
[2020-03-30 07:11] VITALS: BP 111/67; PULSE 85; RESP 16; TEMP 36.8; O2SAT 97
[2020-03-30] MEDS: heparin 5,000 unit/mL INJ 1 mL 5000 UNIT SUBCUT (07:54)
[2020-03-30] MEDS: NIFEdipine ER (24 hr) 30 mg Tablet PO (09:42)
[2020-03-30] MEDS: pantoprazole DR 40 mg Tablet PO (09:42)
[2020-03-30] MEDS: fluoxetine 20 mg Capsule PO (09:42)
[2020-03-30] MEDS: doxycycline 100 mg Tablet PO (09:42)
[2020-03-30] MEDS: magnesium lactate 84 mg Tablet PO (09:42)
--- NOTE | 2020-03-30 10:38 | PC.SOCIAL ---
IM follow up explained dated timed and initialed pt has no questions.
--- NOTE | 2020-03-30 10:38 | PM.DCS ---
Discharge Providers Date of Admission: 03/23/20 20:26 Date of Discharge: March 30, 2020 Attending Provider at Admission: Juan Luis Story MD Attending Provider at Discharge: [place] MD Primary Care Provider: Melecio Bardales DO Diagnoses at Discharge Discharge Diagnosis (1) Fever: Status: Acute Problem details: Resolved Qualifiers: Fever type: unspecified Qualified Code(s): R50.9 - Fever, unspecified (2) Headache: Status: Acute Problem details: Improved Qualifiers: Headache type: unspecified Reason for Visit Reason for Visit: weak, duong, fever Hospital Course Hospital Course: Marybel is a 64-year-old white female who presented to the hospital with headache and fever. She had also had a history of a tick bite. Initial spinal fluid demonstrated 0 red blood cells, 2 white blood cells. However there was still concern for infection, even tickborne illness so she was placed on vancomycin, Zosyn, acyclovir, and doxycycline. Renal failure presented during her hospital stay and there was concern this may's be secondary to urinary retention. Gibbons was placed and 900 cc of urine output was obtained. Fever went away. Renal function improved with placement of Gibbons and patient general improvement. Vancomycin and acyclovir were discontinued as CSF culture remained negative. Doxycycline was continued as tick panel is still pending. Diarrhea did develop in the hospital and C. difficile was negative. Urinary catheter was removed, and she urinated well on her own with postvoid residuals less than 200 cc. She continued to have headaches. I initiated a dose of Imitrex the day prior to discharge which helped, initiated Topamax at night 25 mg along with a muscle relaxer and after sleeping well the next day she was up and around without significant headache. She gave me a history of significant chronic headaches worsening over the last month. Topamax will be continued, with consideration for increase to twice daily in 1 week after seeing her primary care provider. Prescription for Imitrex as needed was also given. She will finish up 7 more days of doxycycline. She will follow-up with urology. Urine and CSF cultures were all pending at discharge. Tick panel was pending. Multiple other studies were done during the hospital stay including a CT head, echocardiogram, CT abdomen and pelvis none of which determined any focus of infection. A VQ scan was also performed which was low probability. This was done secondary to dyspnea attributed to fluid overload ultimately. Physical Exam Narrative: EXAM NARRATIVE: General exam no apparent distress Cardiovascular regular in rhythm without murmur Lungs clear Abdomen is soft with positive bowel sounds Extremities no cyanosis clubbing or edema Neuro no focal deficits Urinary Catheter Management^: Gibbons: Cath Placed During This Visit: yes, but has since been removed by the nurse Reason for Continuing Indwelling Catheter: Decision to DC Catheter Urinary Catheter Date of Insertion: 03/26/20 Urinary Catheter Time of Insertion: 10:38 Date Urinary Catheter Removed: 03/28/20 Time Urinary Catheter Discontinued: 10:00 Discharge Data Data Completed and Pending: Completed Studies During Hospitalization Category Date Time Status CT abdomen pelvis wo con [id number] Rout ine Cat Scan 03/24/20 17:[address] facial bones w o con* [id number] Routi ne Cat Scan 03/26/20 18:[address] head wo con* 7 0450 Urgent Cat Scan 03/23/20 20:24 Completed XR chest 1V vincenzo ble [id number] Routine Exams 03/27/20 11:46 Completed XR chest 1V vincenzo ble [id number] Stat Exams 03/25/20 03:15 Completed XR chest 2V* 7104 6 Stat Exams 03/23/20 15:44 Completed NM pul vent and p erfus* [id number] Stat Nuc Med 03/25/20 11:59 Completed CV echo complete* [id number] Routine Ultrasound 03/25/20 06:39 Completed CV renal doppler [id number] Routine Ultrasound 03/26/20 06:00 [place] [id number] Routin e Ultrasound 03/26/20 06:00 Completed US abdomen limite d [id number] Routine Ultrasound 03/25/20 07:00 Completed Pending at discharge Category Date Time Status SELVIN Profile Rheum atology AM LABS Lab 03/28/20 04:15 Received Clostridioides Di fficile PCR Stat Lab 03/28/20 11:15 Received Comprehensive Met abolic Panel AM LA BS Lab 03/31/20 04:00 Ordered Comprehensive Met abolic Panel AM LA BS Lab 04/01/20 04:00 Ordered Lymes Disease Ant ibodies CSF Routin e Lab 03/25/20 16:45 Received Magnesium AM LABS Lab 03/31/20 04:00 Ordered Magnesium AM LABS Lab 04/01/20 04:00 Ordered Miscellaneous Ana t Routine Lab 03/25/20 12:37 Received Phosphorus AM LAB S Lab 03/31/20 04:00 Ordered Phosphorus AM LAB S Lab 04/01/20 04:00 Ordered Tick Panel Stat Lab 03/23/20 16:45 Results Labs from last 24 hours 03/30/20 03/30/20 03/30/20 06:47 03:26 03:26 WBC 5.7 RBC 3.76 L Hgb 10.7 L Hct 32.3 L MCV 85.9 MCH 28.5 MCHC 33.1 RDW 15.4 H Plt Count 291 MPV 10.3 Neut % (Auto) 68.8 Lymph % (Auto) 17.0 [place] % (Auto) 12.9 Eos % (Auto) 0.5 Baso % (Auto) 0.4 Neut # (Auto) 3.9 Lymph # (Auto) 1.0 [place] # (Auto) 0.7 Eos # (Auto) 0.0 Baso # (Auto) 0.0 Nucleated RBC % (a uto) 0 Nucleated RBCs # 0.0 Sodium 142 Potassium 3.9 Chloride 108 H Carbon Dioxide 21 L Anion Gap 16.9 BUN 13 Creatinine 1.3 H GFR Calculation 41.1 L Glucose 80 POC Glucose 83 Calculated Osmolal ity 289 Calcium 8.2 L Phosphorus 4.4 Magnesium 0.9 L Total Bilirubin 0.7 AST 45 H ALT 44 H Alkaline Phosphata se 287 H Total Protein 5.5 L Albumin 3.0 L Globulin 2.5 03/29/20 03/29/20 03/29/20 21:50 17:10 11:33 WBC RBC Hgb Hct MCV MCH MCHC RDW Plt Count MPV Neut % (Auto) Lymph % (Auto) [place] % (Auto) Eos % (Auto) Baso % (Auto) Neut # (Auto) Lymph # (Auto) [place] # (Auto) Eos # (Auto) Baso # (Auto) Nucleated RBC % (a uto) Nucleated RBCs # Sodium Potassium Chloride Carbon Dioxide Anion Gap BUN Creatinine GFR Calculation Glucose POC Glucose 84 93 101 Calculated Osmolal ity Calcium Phosphorus Magnesium Total Bilirubin AST ALT Alkaline Phosphata se Total Protein Albumin Globulin Vitals: Last Vital Signs Temp 98.2 F 03/30/20 07:11 Pulse 85 03/30/20 07:11 Resp 16 03/30/20 07:11 BP 111/67 03/30/20 07:11 Pulse Ox 97 03/30/20 07:11 Discharge Plan Discharge Patient Disposition: Home, Self-Care Condition: Stable Prescriptions: New doxycycline monohydrate 100 mg Tablet 100 mg PO Q12H Qty: 14 RF: 0 topiramate 25 mg Tablet 25 mg PO BEDTIME Qty: 30 RF: 0 sumatriptan succinate [Imitrex] 50 mg tablet 50 mg PO Q2H PRN (Reason: migraine headache) Qty: 10 RF: 0 Continued nifedipine 30 mg tablet extended release 30 mg PO DAILY RF: 0 fluoxetine 20 mg capsule 20 mg PO TID RF: 0 pantoprazole 40 mg tablet,delayed release (DR/EC) 40 mg PO DAILY RF: 0 triamcinolone acetonide 0.1 % cream 1 applic TOPICAL BID PRN (Reason: unknown) RF: 0 hydroxyzine HCl 10 mg tablet 10 mg PO TID PRN (Reason: Itching) RF: 0 tizanidine 2 mg capsule 2 mg PO Q8H PRN (Reason: Pain) RF: 0 trazodone 50 mg tablet 50 mg PO DAILY PRN (Reason: Sleep) RF: 0 calcium carbonate-vitamin D3 [Calcium 600 with Vitamin D3] 600 mg(1,500mg) -500 unit capsule 1 cap PO DAILY RF: 0 vitamin B complex [B Complex-Vitamin B12] Tablet 1 tab PO DAILY RF: 0 magnesium 250 mg tablet 250 mg PO DAILY RF: 0 atorvastatin 10 mg tablet 40 mg PO DAILY RF: 0 Discontinued acetaminophen-codeine [Tylenol-Codeine #3] 300-30 mg tablet 1 tab PO Q8H PRN (Reason: Pain) RF: 0 ciprofloxacin HCl 500 mg tablet 500 mg PO BID Qty: 42 RF: 3 Discharge Orders: Discharge Order (Routine); Ordered 03/30/20 Ordered By: [place] Referrals: Melecio Bardales DO [Primary Care Provider] - 4-7 days Bakari Graves MD [Physician] - 1 week Discharge Diet: Cardiac Discharge Activity: Increase activity as tolerated Activity Restrictions/Additional Instructions: Take all medicine as prescribed Discharge Attestations Time Spent in Discharge Care*: greater than 30 min Quality Metrics Clinical Quality Measures During this hospital stay, did patient experience: None Coding Level of Care Code Acute Media Aid for Chg Fwd Diagnoses Fever R50.9 Fever type: unspecified Headache R51 Headache type: unspecified
[2020-03-30 11:10] VITALS: BP 96/58; PULSE 71; RESP 16; O2SAT 98
[2020-03-30 11:36] LABS: Glucose Point of Care 137 mg/dL (70-110)
--- NOTE | 2020-03-30 14:40 | PC.NURSE ---
All discharge instruction gone over and questions answered. Taken to personal vehicle where her was waiting to take her home. Pt wore mask from the time she left room until outside by her own car.
[2020-03-30 17:24] LABS: E. Chaffeensis AB IGG <1:64; E. Chaffeensis AB IGM <1:20; RMSF IGG NOT DETECTED; RMSF IGM NOT DETECTED
[2020-03-31 10:00] LABS: COMPLEMENT COMPONENT C3C 139 mg/dL (83-193); COMPLEMENT COMPONENT C4C 23 mg/dL (15-57)
[2020-03-31 13:46] LABS: COMPLEMENT, TOTAL (CH50) 30 U/mL (31-60)
[2020-04-01 16:45] LABS: THYROID PEROXIDASE ANTIBODIES 1 IU/mL (<9)
[2020-04-02 11:45] LABS: ANA SCREEN, IFA POSITIVE (NEGATIVE); ANA TITER 1:40 titer
[2020-04-02 18:46] LABS: CENTROMERE B ANTIBODY <1.0 NEG AI (<1.0 NEG); JO-1 ANTIBODY <1.0 NEG AI (<1.0 NEG); RNP ANTIBODY <1.0 NEG AI (<1.0 NEG); SCL-70 ANTIBODY <1.0 NEG AI (<1.0 NEG); SJOGREN'S ANTIBODY (SS-A) <1.0 NEG AI (<1.0 NEG); SM ANTIBODY <1.0 NEG AI (<1.0 NEG)
[2020-04-03 01:20] LABS: DNA AB (DS) CRITHIDIA,IFA NEGATIVE (NEGATIVE)
== END 2020-03-30 14:44 | disposition home or self-care (01) | DRG 865 ==
LOC: ER 20:47 → MEDSURG 21:04
PROVIDERS: Emergency Medicine; Family Medicine; Internal Medicine Nephrology; Student in an Organized Health Care Education/Training Program; Admitting Provider Internal Medicine; PCP Electrodiagnostic Medicine; Visit Provider Internal Medicine
DX: A93.8 Other specified arthropod-borne viral fevers (principal); G04.90 Encephalitis and encephalomyelitis, unspecified; N30.01 Acute cystitis with hematuria; E87.2 Acidosis; R33.9 Retention of urine, unspecified; Z85.3 Personal history of malignant neoplasm of breast; Z20.828 Contact with and (suspected) exposure to other viral communicable diseases; Z87.891 Personal history of nicotine dependence; B96.20 Unspecified Escherichia coli [E. coli] as the cause of diseases classified elsewhere; R82.81 Pyuria; R51 Headache; I95.9 Hypotension, unspecified; R06.03 Acute respiratory distress; R19.7 Diarrhea, unspecified; N13.9 Obstructive and reflux uropathy, unspecified; E87.6 Hypokalemia; F41.9 Anxiety disorder, unspecified; T36.8X5A Adverse effect of other systemic antibiotics, initial encounter; Y92.230 Patient room in hospital as the place of occurrence of the external cause
CPT/HCPCS: 12345; 36415; 36416; 36600; 51702; 51798; 62270; 70450; 70486; 71045; 71046; 74176; 76705; 78014; 80051; 80053; 80202; 80500; 81001; 82436; 82550; 82570; 82810; 82945; 82962; 83036; 83605; 83735; 83880; 83986; 84100; 84133; 84157; 84300; 84443; 84484; 84550; 85025; 85378; 85610; 85730; 86403; 86617; 86618; 86666; 86757; 87040; 87070; 87075; 87086; 87205; 87327; 87449; 87493; 87530; 87798; 87806; 89050; 93005; 93306; 93970; 93975; 96372; 96375; 97161; 97530; 99284; A9540; A9567; J0133; J0290; J0696; J1644; J2001; J2270; J2405; J2543; J2765; J3370; J3475; J3490; J7030; J7040; J7050; Q0162; Q3014

== ENCOUNTER 2020-04-06 14:56 | Outpatient (CLI) | payer MEDICARE, BC, SELFPAY ==
[2020-04-06 16:45] LABS: Basophils # 0.1 10^3/uL (0.0-0.1); Basophils % 1.1 %; Eosinophils % 0.3 %; Hematocrit 35.7 % (37.0-47.0); Hemoglobin 11.2 g/dL (11.5-15.3); Lymphocytes # 1.7 10^3/uL (0.8-4.8); Lymphocytes % 27.8 %; Mean Corpuscular HGB Conc 31.4 g/dL (30.0-36.0); Mean Corpuscular Hemoglobin 28.2 pg (28.0-34.0); Mean Corpuscular Volume 89.9 fL (81-99); Mean Platelet Volume 9.7 fL (7.4-10.4); Monocytes # 0.6 10^3/uL (0.2-0.9); Monocytes % 9.8 %; Neutrophils # 3.78 10^3/uL (1.8-7.7); Neutrophils % 60.8 %; Nucleated Red Blood Cells % 0 %; Platelet Count 417 10^3/cmm (130-400); Red Blood Count 3.97 10^6/uL (4.1-5.3); Red Cell Distribution Width 15.7 % (12.1-15.1); White Blood Count 6.2 10^3/uL (4.0-10.0)
[2020-04-06 17:06] LABS: Alanine Aminotransferase 58 U/L (0-33); Albumin Level 4.2 g/dL (3.5-5.2); Alkaline Phosphatase 262 IU/L (35-105); Anion Gap 13.6 (5-19); Aspartate Amino Transferase 52 U/L (0-32); Blood Urea Nitrogen 9 mg/dL (8-23); Calcium 9.4 mg/dL (8.5-10.5); Carbon Dioxide 24 mmol/L (22-29); Chloride 104 mmol/L (98-107); Globulin 3.3 g/dL (1.3-4.6); Glucose 130 mg/dL (65-115); Iron 58 ug/dL (37-145); Lactate Dehydrogenase 242 U/L (135-214); Magnesium 1.6 mg/dL (1.7-2.3); Osmolality Calculated 284 mOsm/kg (285-295); Potassium 3.6 mmol/L (3.5-5.1); Sodium 138 mmol/L (136-145); Total Bilirubin 0.6 mg/dL (0.15-1.2); Total Iron Binding Capacity 321 mcg/dl; Total Protein 7.5 g/dL (6.6-8.7); Unsaturated Iron Binding 263 ug/dL (112-347)
[2020-04-06 17:07] LABS: C Reactive Protein 4.2 mg/L (0.0-4.9)
[2020-04-06 17:22] LABS: Vitamin B12 1194 pg/mL (232-1245)
[2020-04-06 17:45] LABS: Erythrocyte Sedimentation Rate 48 mm/hr (0-15)
--- NOTE | 2020-04-06 19:50 | ONC FU_ITS ---
Dr. Story Patient Follow-Up Note Patient: Marybel Rosado Unit #: [id number]: 1955 Dicatated By: Geovani Story M.D.Date of Visit:Apr 06, 2020 Onc Med Follow-up/Prog Note Chief Complaint: Breast cancer. History of Present Illness: This is a 64 year-old woman with grade 3 invasive ductal carcinoma of the right breast, stage IIB (T2, pN1a, M0), ER/[place] positive and HER-2/te nonamplified. In April of 2014 she palpated a new mass in the right breast. Her mammogram on 06/03/2014 revealed concerning right breast 3.4 cm mass at 12:00 position 5 cm from the nipple and a concerning left breast architectural distortion at 3:00 position. On 06/24/2014 the right breast biopsy of mass at 12:00 position revealed microscopic foci of infiltrating ductal carcinoma. The left breast biopsy was benign. On 07/02/2014 she underwent right breast lumpectomy and axillary sentinel lymph node biopsy. Her surgical pathology showed 3.8 cm invasive ductal carcinoma in the background of DCIS, grade 3, negative margins. One out of 2 lymph nodes harvested was positive for metastatic disease with extranodal extension. Prognostic profile showed ER 99%, [place] 14%, HER-2/te 2+ by IHC, FISH 0.9. She was first seen by Dr. Guido on 07/16/2014. She had excellent performance status without clinical concerns for metastatic involvement. MUGA scan showed EF 70%. She received 4 cycles of dose dense AC regimen from 07/27/2014 -09/07/2014, complicated with Aloxi associated headaches and Neulasta induced bone pain, managed with supportive care. 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 She completed radiation to the right breast on 01/20/2015 to a total dose of 6640 cGy. Adjuvant hormonal therapy with anastrozole 1 mg daily began on 11/16/2014. Her baseline bone density study did show evidence of osteopenia, T score -2.2 in the lumbar spine. I had seen her for a follow-up visit on 01/03/2017. At that time she was having some musculoskeletal pain. I had her stop the anastrozole temporarily, but she subsequently restarted it, as there was no significant change in her symptoms. Her repeat DEXA scan on 01/15/2017 again showed evidence of osteopenia with T score -2.5 in the lumbar spine. She continued anastrozole 1 mg daily. As of her follow-up visit on 07/22/2018 the anastrozole was put on hold due to an increase in her liver enzymes. Her CT abdomen/pelvis on 07/30/2018 showed mild diffuse fatty infiltration of the liver. There was no evidence of metastatic disease. At her follow-up visit on 10/31/2018 the liver enzymes had come down, but not completely to normal. She had worsening of a generalized skin eruption. She subsequently was seen by Dr. Tello. A skin biopsy from the left arm on 11/05/2018 was consistent with lichen planus. She was treated with topical steroid. At her follow-up visit in July 2019 her liver enzymes remain just mildly elevated. At that point she began further adjuvant hormonal therapy with exemestane 25 mg daily. Her other medical illnesses include chronic cystitis and anxiety/depression. She has history of smoking 1/2 pack of cigarettes daily for 20 years. She quit smoking in 2014. INTERIM HISTORY: On 03/23/2020 she was admitted to the hospital with a febrile illness. She has been having worsening headache over the preceding month or so. At the time of admission she had developed severe frontal headache, fever up to 104 degrees, and horrible, drenching night sweats. Her alkaline phosphatase had increased significantly along with slightly elevated total bilirubin. The SGOT and SGPT levels were mildly elevated and similar to prior studies. Spinal tap was unrevealing. Head CT showed no acute findings. CT abdomen/pelvis showed interval appearance of pleural effusions and possible slight pulmonary edema. There was a small amount of fluid along the gallbladder and possibly thickening of the gallbladder wall, cholecystitis not excluded. There was slight interval thickening of the urinary bladder wall. The liver appeared unremarkable. Chest x-ray showed no acute findings, and echocardiogram was unremarkable. Blood cultures remain negative. Urine cultures grew probable contaminants. Acute hepatitis profile and tick fever panel were negative. Overall, there was no specific cause determined for the illness. During the hospitalization she was given empiric antibiotic therapy with vancomycin, Zosyn, acyclovir, and doxycycline. She developed acute renal failure and she was then found to have urinary retention, requiring temporary Gibbons catheter. She was discharged home on oral doxycycline, and she also had started topiramate for her headaches. At that point she was mildly anemic. Liver enzymes remained elevated. Her renal function was improving. She is seen for a scheduled visit. She is been a little better since discharge from the hospital, but she still has very limited activity. Her ECOG score is 2. She says her appetite is coming back, but her weight is down 15 pounds. She has not had any more fever or night sweating. Yesterday she broke out in a fairly generalized skin eruption, presumed to be due either to doxycycline or to the topiramate. She has stopped both. She says she has been getting out of breath very easily. She has only a little bit of cough now and then. She has not been having chest pain. She has had some nausea. She had diarrhea in the hospital, but that is getting better. She occasionally has had a little red blood on the toilet tissue when she wipes. Her bladder function is better, though she is having urinary frequency and some urgency. She has a little aching in her joints. She has no other joint or bone pain. She is still having headaches, but not as severe. She occasionally has dizziness. She has some numbness/tingling in her left hand. Medications: Acetaminophen-Codeine #3 1 Tablet (of 300-30 mg) Oral PRN, Atorvastatin Calcium 1 Tablet (of 40 mg) Oral daily, Calcium 2 (600 mg) Tablet Oral daily, Cholecalciferol 2 (400 Units) Tablet Oral daily, Cipro 1 Tablet (of 500 mg) Oral b.i.d. PRN, Exemestane 1 Tablet (of 25 mg) Oral daily, FLUoxetine HCl 1 Tablet (of 20 mg) Capsule Oral daily, Imitrex 1 Tablet (of 50 mg) Oral daily, Natural Senna Laxative 1 Tablet (of 64.8-324 mg) Oral daily, Nifediac CC 1 (30 mg) Tablet SR 24 HR Oral daily, Pantoprazole Sodium 1 (40 mg) Tablet, enteric coated Oral daily, TiZANidine HCl 1 Tablet (of 2 mg) Oral PRN, TraZODone HCl 1 Tablet (of 50 mg) Oral PRN, vitamin b complex 1 Tablet daily Allergies: No Known Allergies. Review of Systems: Constitutional - She was recently hospitalized for one week for a febrile illness. She is still not feeling good, and her energy is very low. Her appetite is improving but still not great, and her weight is down 15 pounds from last visit. She was having fever and horrible, drenching night sweats. ECOG score is 2, ENMT - She has sinus congestion/drainage. Her mouth was sore in the hospital. No sore throat or difficulty swallowing, Hematologic/Lymphatic - No abnormal bruising or bleeding, Respiratory - She gets short of breath with any activity. She has a little bit of cough now and then. No pleuritic pain or hemoptysis, Cardiovascular - No angina pain. No palpitations, Gastrointestinal - She has a little nausea. No heartburn or acid reflux. She was having diarrhea, but it is getting better. She occasionally has a little red blood on her toilet tissue when she wipes, Genitourinary (F) - She had evidence of urinary retention in the hospital, requiring temporary Gibbons catheter. Bladder function now is better, she is having some urinary frequency and urgency, Musculoskeletal - She has a little generalized aching. She has no other joint or bone pain, Integumentary - She has developed a generalized rash, presumed to be due either to doxycycline or to topiramate, Neurologic - She has been having a persistent headaches for over one month. She's had a few episodes of dizziness. She has occasional numbness and tingling in her hands and feet. No other focal neurologic symptoms, Psychiatric - She has anxiety/depression. No insomnia. Vital Signs: Performed on Apr 06, 2020 15:17 Height - 65.00 in Weight - 177.8 lbs (LOW) BSA - 1.88 sq.m BMI - 29.59 Temperature - 97.8 F (LOW) Pulse - 99 /min Respiration - 18 /min BP - 131/87 mm(hg) O2 Sat - 97 % Pain - 2 Physical Examination: Constitutional - She appears somewhat weak generally, Eyes - Sclerae nonicteric. Conjunctivae clear, ENMT - No lesions noted in the oral cavity, Hematologic/Lymphatic - No cervical, clavicular, or axillary adenopathy, Respiratory - Lungs are clear with good air movement bilaterally, Cardiovascular - Heart rhythm is regular. There is no murmur, gallop, or rub noted, Abdomen - Soft. Liver is not enlarged or tender. Spleen is not palable. There is no abdominal mass or ascites noted and there is no inguinal adenopathy, Extremities - No edema. Pedal pulses are palpable bilaterally, Integumentary - She has a fairly diffuse maculopapular skin eruption which appears consistent with hypersensitivity reaction, Neurologic - No focal neurologic deficits noted. Impression: 1. Patient with grade 3 invasive ductal carcinoma of the right breast, stage IIB (T2, pN1a, M0), ER/[place] positive and HER-2/te nonamplified. 2. She underwent right breast lumpectomy with axillary sentinel lymph node biopsy on 07/02/2014. 3. She was given adjuvant chemotherapy with 4 cycles of dose dense Adriamycin/cyclophosphamide, completed in August 2014. 4. She was then given radiation to the right breast, completed in December 2014 to a total dose of 6640 cGy. 5. Adjuvant hormonal therapy with anastrozole 1 mg daily began on 11/16/2014. Her other medical illnesses include: 6. Osteopenia. 7. Anxiety/depression. In December 2016 she had stopped the anastrozole temporarily, as she had developed significant joint pain. The symptoms did not show significant improvement off the medication, and she subsequently restarted it. As of June 2018 the anastrozole was put on hold again due to a significant increase in her liver enzymes. Her CT abdomen/pelvis on 07/30/2018 showed mild diffuse fatty infiltration of the liver. There was no evidence of metastatic disease. I did opt to keep her treatment on hold. At her follow-up visit in October 2018 her liver enzymes had come down, but not to normal. She had developed worsening of his generalized skin eruption. She was then seen by Dr. Tello, and the skin biopsy from the left arm showed lichen planus. She was treated with topical steroid. As of her follow-up visit in July 2019 her liver enzymes remain just mildly elevated. She otherwise appeared stable clinically. She then began further adjuvant hormonal therapy with exemestane 25 mg daily. On 02/25/2020 she was admitted to the hospital with an acute febrile illness. A specific cause was not determined. Tick fever was suspected. She continued oral antibiotic coverage with doxycycline following discharge. However, she has now stopped taking it due to development of a generalized skin eruption. Overall, she has had a significant decline in her performance status and overall condition following that illness. Plan: Her adjuvant hormonal therapy was put on hold with the hospitalization, and for now it will remain on hold. She will have additional laboratory studies today to include CBC, comprehensive metabolic profile, sed rate and CRP level, and repeat tick fever panel. She will have further evaluation as indicated. Signed By: Geovani Story M.D. <<Signature on File>>
[2020-04-07 02:05] LABS: Folate Level > 20.0 ng/mL (4.8-37.3)
[2020-04-08 12:30] LABS: Lyme AB Screen <0.90 index
[2020-04-14 22:35] LABS: E. Chaffeensis AB IGM <1:20; Interpretation PAST INFECTION
[2020-04-15 16:35] LABS: RMSF IGG DETECTED; RMSF IGM NOT DETECTED
== END 2020-04-06 14:57 | disposition home or self-care (01) ==
LOC: ONCMED 15:00
PROVIDERS: PCP Electrodiagnostic Medicine; Visit Provider Internal Medicine Medical Oncology
DX: C50.411 Malignant neoplasm of upper-outer quadrant of right female breast (principal); Z17.0 Estrogen receptor positive status [ER+]; N30.20 Other chronic cystitis without hematuria; F41.8 Other specified anxiety disorders; D64.9 Anemia, unspecified; M85.80 Other specified disorders of bone density and structure, unspecified site; Z79.811 Long term (current) use of aromatase inhibitors; Z87.891 Personal history of nicotine dependence; Z92.21 Personal history of antineoplastic chemotherapy; Z92.3 Personal history of irradiation
CPT/HCPCS: 36415; 80053; 81001; 82607; 82746; 83540; 83550; 83615; 83735; 85025; 85651; 86140; 86618; 86666; 86757; 99214

== ENCOUNTER 2020-08-24 10:58 | Outpatient (CLI) | payer MEDICARE, BC, SELFPAY ==
[2020-08-24 11:43] LABS: Basophils # 0.1 10^3/uL (0.0-0.1); Basophils % 0.5 %; Eosinophils # 0.1 10^3/uL (0.0-0.8); Eosinophils % 0.6 %; Hematocrit 44.2 % (37.0-47.0); Hemoglobin 14.6 g/dL (11.5-15.3); Lymphocytes # 1.5 10^3/uL (0.8-4.8); Mean Corpuscular Hemoglobin 30.3 pg (28.0-34.0); Mean Corpuscular Volume 91.7 fL (81-99); Monocytes # 0.6 10^3/uL (0.2-0.9); Monocytes % 6.6 %; Neutrophils # 7.02 10^3/uL (1.8-7.7); Neutrophils % 75.9 %; Nucleated Red Blood Cells % 0 %; Platelet Count 310 10^3/cmm (130-400); Red Blood Count 4.82 10^6/uL (4.1-5.3); White Blood Count 9.3 10^3/uL (4.0-10.0)
[2020-08-24 12:35] LABS: Alanine Aminotransferase 116 U/L (0-33); Albumin Level 4.8 g/dL (3.5-5.2); Alkaline Phosphatase 199 IU/L (35-105); Anion Gap 21.2 (5-19); Aspartate Amino Transferase 62 U/L (0-32); Blood Urea Nitrogen 11 mg/dL (8-23); Carbon Dioxide 24 mmol/L (22-29); Chloride 100 mmol/L (98-107); Ferritin 201 ng/mL (15-150); Globulin 3.2 g/dL (1.3-4.6); Glucose 111 mg/dL (65-115); Iron 141 ug/dL (37-145); Osmolality Calculated 292 mOsm/kg (285-295); Percent Saturation 30.1 % (20-50); Potassium 4.2 mmol/L (3.5-5.1); Sodium 141 mmol/L (136-145); Total Bilirubin 0.6 mg/dL (0.15-1.2); Total Iron Binding Capacity 468 mcg/dl; Unsaturated Iron Binding 327 ug/dL (112-347)
[2020-08-24 13:01] LABS: Erythrocyte Sedimentation Rate 31 mm/hr (0-15)
[2020-08-24 14:53] LABS: Estmated Average Glucose 137; Hemoglobin A1C 6.4 % (4.0-6.0)
--- NOTE | 2020-08-27 14:27 | ONC FU_ITS ---
Dr. Story Patient Follow-Up Note Patient: Marybel Rosado Unit #: [id number]: 1955 Dicatated By: Geovani Story M.D.Date of Visit:Aug 24, 2020 Onc Med Follow-up/Prog Note Chief Complaint: Breast cancer. History of Present Illness: This is a 64 year-old woman with grade 3 invasive ductal carcinoma of the right breast, stage IIB (T2, pN1a, M0), ER/[place] positive and HER-2/te nonamplified. In April of 2014 she palpated a new mass in the right breast. Her mammogram on 06/03/2014 revealed concerning right breast 3.4 cm mass at 12:00 position 5 cm from the nipple and a concerning left breast architectural distortion at 3:00 position. On 06/24/2014 the right breast biopsy of mass at 12:00 position revealed microscopic foci of infiltrating ductal carcinoma. The left breast biopsy was benign. On 07/02/2014 she underwent right breast lumpectomy and axillary sentinel lymph node biopsy. Her surgical pathology showed 3.8 cm invasive ductal carcinoma in the background of DCIS, grade 3, negative margins. One out of 2 lymph nodes harvested was positive for metastatic disease with extranodal extension. Prognostic profile showed ER 99%, [place] 14%, HER-2/te 2+ by IHC, FISH 0.9. She was first seen by Dr. Guido on 07/16/2014. She had excellent performance status without clinical concerns for metastatic involvement. MUGA scan showed EF 70%. She received 4 cycles of dose dense AC regimen from 07/27/2014 -09/07/2014, complicated with Aloxi associated headaches and Neulasta induced bone pain, managed with supportive care. 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 She completed radiation to the right breast on 01/20/2015 to a total dose of 6640 cGy. Adjuvant hormonal therapy with anastrozole 1 mg daily began on 11/16/2014. Her baseline bone density study did show evidence of osteopenia, T score -2.2 in the lumbar spine. I had seen her for a follow-up visit on 01/03/2017. At that time she was having some musculoskeletal pain. I had her stop the anastrozole temporarily, but she subsequently restarted it, as there was no significant change in her symptoms. Her repeat DEXA scan on 01/15/2017 again showed evidence of osteopenia with T score -2.5 in the lumbar spine. She continued anastrozole 1 mg daily. As of her follow-up visit on 07/22/2018 the anastrozole was put on hold due to an increase in her liver enzymes. Her CT abdomen/pelvis on 07/30/2018 showed mild diffuse fatty infiltration of the liver. There was no evidence of metastatic disease. At her follow-up visit on 10/31/2018 the liver enzymes had come down, but not completely to normal. She had worsening of a generalized skin eruption. She subsequently was seen by Dr. Tello. A skin biopsy from the left arm on 11/05/2018 was consistent with lichen planus. She was treated with topical steroid. At her follow-up visit in July 2019 her liver enzymes remain just mildly elevated. At that point she began further adjuvant hormonal therapy with exemestane 25 mg daily. Her other medical illnesses include chronic cystitis and anxiety/depression. She has history of smoking 1/2 pack of cigarettes daily for 20 years. She quit smoking in 2014. INTERIM HISTORY: On 03/23/2020 she was admitted to the hospital with a febrile illness. She has been having worsening headache over the preceding month or so. At the time of admission she had developed severe frontal headache, fever up to 104 degrees, and horrible, drenching night sweats. Her alkaline phosphatase had increased significantly along with slightly elevated total bilirubin. The SGOT and SGPT levels were mildly elevated and similar to prior studies. Spinal tap was unrevealing. Head CT showed no acute findings. CT abdomen/pelvis showed interval appearance of pleural effusions and possible slight pulmonary edema. There was a small amount of fluid along the gallbladder and possibly thickening of the gallbladder wall, cholecystitis not excluded. There was slight interval thickening of the urinary bladder wall. The liver appeared unremarkable. Chest x-ray showed no acute findings, and echocardiogram was unremarkable. Blood cultures remain negative. Urine cultures grew probable contaminants. Acute hepatitis profile and tick fever panel were negative. Overall, there was no specific cause determined for the illness. During the hospitalization she was given empiric antibiotic therapy with vancomycin, Zosyn, acyclovir, and doxycycline. She developed acute renal failure and she was then found to have urinary retention, requiring temporary Gibbons catheter. She was discharged home on oral doxycycline, and she also had started topiramate for her headaches. At that point she was mildly anemic. Liver enzymes remained elevated. Her renal function was improving. During the hospitalization exemestane was put on hold, but it was restarted following discharge. She is seen for a scheduled visit. She has been feeling pretty good generally. Her energy continues to gradually improve following the illness in February. She is able to do light work. ECOG score is 1. She does complain that her hair is been thinning and falling out. She has good appetite. She has no fever, night sweats, or hot flashes. She has no shortness of breath, cough, or chest pain. She does have some nausea and she also has heartburn/acid reflux. She has constipation, but bowel function has been adequate with senna. Bladder function recently has been okay, but she is prone to have urinary tract infection. She complains that her legs have been aching more and she also has been having more aching in her back. For the past 3 to 4 weeks she has been having headaches. She says that promethazine does help with that. She has a little bit of numbness in her hands. She has no other focal neurologic symptoms. Medications: Acetaminophen-Codeine #3 1 Tablet (of 300-30 mg) Oral PRN, Atorvastatin Calcium 1 Tablet (of 40 mg) Oral daily, Calcium 2 (600 mg) Tablet Oral daily, Cholecalciferol 2 (400 Units) Tablet Oral daily, Cipro 1 Tablet (of 500 mg) Oral b.i.d. PRN, Exemestane 1 Tablet (of 25 mg) Oral daily, FLUoxetine HCl 1 Tablet (of 20 mg) Capsule Oral daily, Imitrex 1 Tablet (of 50 mg) Oral daily, Natural Senna Laxative 1 Tablet (of 64.8-324 mg) Oral daily, Nifediac CC 1 (30 mg) Tablet SR 24 HR Oral daily, Pantoprazole Sodium 1 (40 mg) Tablet, enteric coated Oral daily, TiZANidine HCl 1 Tablet (of 2 mg) Oral PRN, TraZODone HCl 1 Tablet (of 50 mg) Oral PRN, vitamin b complex 1 Tablet daily Allergies: No Known Allergies. Review of Systems: Constitutional - She still has some fatigue, but her energy is getting better. She is doing light work. She does complain that her hair is thinning and falling out. Her appetite is good. She has no fever, night sweats, or hot flashes. ECOG score is 1, ENMT - No sinus congestion/drainage. No mouth sores. No sore throat or difficulty swallowing, Hematologic/Lymphatic - She has easy bruising, Respiratory - No shortness of breath. No cough. No pleuritic pain or hemoptysis, Cardiovascular - No angina pain. No palpitations, Gastrointestinal - She has some nausea and she also reports having heartburn. She manages it with Rolaids. She has constipation, but bowel function has been adequate with senna. No blood in the stool or black stools, Genitourinary (F) - She has frequent urinary tract infections, and she does follow with a urologist. No dysuria or hematuria. No urgency or incontinence, Musculoskeletal - She complains that her legs have been aching more and she also is having more aching in her back, Integumentary - No skin rash, Neurologic - She has been having more frequent headaches the past 3 to 4 weeks. No dizziness. She has a little bit of numbness in her hands. No other focal neurologic symptoms, Psychiatric - She has anxiety and depression, and she has insomnia. Vital Signs: Performed on Aug 24, 2020 12:42 Height - 65.00 in Weight - 189.0 lbs (HIGH) BSA - 1.93 sq.m BMI - 31.45 (HIGH) Temperature - 97.9 F (LOW) Pulse - 106 /min (HIGH) Respiration - 18 /min BP - 120/70 mm(hg) O2 Sat - 97 % Pain - 0 Physical Examination: Constitutional - She looks pretty good generally, Eyes - Sclerae nonicteric. Conjunctivae clear, ENMT - No lesions noted in the oral cavity, Hematologic/Lymphatic - No cervical, clavicular, or axillary adenopathy, Respiratory - Lungs are clear with good air movement bilaterally, Cardiovascular - Heart rhythm is regular. There is no murmur, gallop, or rub noted, Abdomen - Soft. Liver is not enlarged or tender. Spleen is not palable. There is no abdominal mass or ascites noted and there is no inguinal adenopathy, Extremities - Trace edema, Integumentary - There is currently no skin eruption, Neurologic - No focal neurologic deficits noted. Lab/Imaging: Test performed on Aug 24, 2020 11:20 Ferritin 201 ng/mL Iron 141 mcg/dL Sodium 141 mmol/L Iron Binding Capacity (TIBC) 468 mcg/dl Potassium 4.2 mmol/L % Iron Saturation 30.1 % Chloride 100 mmol/L Est Avg Glucose (eAG) 137 mg/dL CO2 24 mmol/L UIBC 327 mcg/dL Anion Gap 21.2 BUN 11 mg/dL Creatinine 0.7 mg/dL Cr Clearance (Est) 108.44 mL/min eGFR 84.0 mL/min Glucose 111 mg/dL Osmolality - Calculated 292 mOsm/kg Calcium 10.0 mg/dL Protein, Total 8.0 g/dL Albumin 4.8 g/dL Globulin 3.2 g/dL Bilirubin, Total 0.6 mg/dL ALT (SGPT) 116 U/L AST (SGOT) 62 U/L Alkaline Phosphatase 199 IU/L ESR (Sed Rate) 31 mm/hr Hemoglobin A1C % 6.4 % WBC 9.3 10 3/uL RBC 4.82 10 6/uL HGB 14.6 g/dL HCT 44.2 % MCV 91.7 fL MCH 30.3 pg MCHC 33.0 g/dL RDW 13.0 % Platelet Count 310 10 3/cmm MPV 11.0 fL Neutrophils 7.02 10 3/uL Lymphocytes 1.5 10 3/uL Monocytes 0.6 10 3/uL Eosinophils 0.1 10 3/uL Basophils 0.1 10 3/uL Neutrophil % 75.9 % Lymphocyte % 16.0 % Monocyte % 6.6 % Eosinophil % 0.6 % Basophils % 0.5 % NRBC % 0 % Impression: 1. Patient with grade 3 invasive ductal carcinoma of the right breast, stage IIB (T2, pN1a, M0), ER/[place] positive and HER-2/te nonamplified. 2. She underwent right breast lumpectomy with axillary sentinel lymph node biopsy on 07/02/2014. 3. She was given adjuvant chemotherapy with 4 cycles of dose dense Adriamycin/cyclophosphamide, completed in August 2014. 4. She was then given radiation to the right breast, completed in December 2014 to a total dose of 6640 cGy. 5. Adjuvant hormonal therapy with anastrozole 1 mg daily began on 11/16/2014. Her other medical illnesses include: 6. Osteopenia. 7. Anxiety/depression. In December 2016 she had stopped the anastrozole temporarily, as she had developed significant joint pain. The symptoms did not show significant improvement off the medication, and she subsequently restarted it. As of June 2018 the anastrozole was put on hold again due to a significant increase in her liver enzymes. Her CT abdomen/pelvis on 07/30/2018 showed mild diffuse fatty infiltration of the liver. There was no evidence of metastatic disease. I did opt to keep her treatment on hold. At her follow-up visit in October 2018 her liver enzymes had come down, but not to normal. She had developed worsening of his generalized skin eruption. She was then seen by Dr. Tello, and the skin biopsy from the left arm showed lichen planus. She was treated with topical steroid. As of her follow-up visit in July 2019 her liver enzymes remain just mildly elevated. She otherwise appeared stable clinically. She then began further adjuvant hormonal therapy with exemestane 25 mg daily. On 02/25/2020 she was admitted to the hospital with an acute febrile illness. A specific cause was not determined. Tick fever was suspected. She continued oral antibiotic coverage with doxycycline following discharge. However, she has now stopped taking it due to development of a generalized skin eruption. Overall, she has had a significant decline in her performance status and overall condition following that illness. Her exemestane was temporarily put on hold, but restarted following discharge from the hospital. She has since then shown gradual improvement in her performance status, though she still has some fatigue. She is having some musculoskeletal pain with the exemestane, and she also is having some alopecia. Overall, though, she continues to tolerate it with acceptable toxicity, and thus far there has been no evidence of recurrence of the breast cancer. Plan: She continues adjuvant hormonal therapy with exemestane 25 mg daily. I will see her again in 6 months, or sooner as needed. Signed By: Geovani Story M.D. <<Signature on File>>
== END 2020-08-24 10:59 | disposition home or self-care (01) ==
LOC: ONCMED 11:01
PROVIDERS: PCP Electrodiagnostic Medicine; Visit Provider Internal Medicine Medical Oncology
DX: C50.411 Malignant neoplasm of upper-outer quadrant of right female breast (principal); Z17.0 Estrogen receptor positive status [ER+]; F41.8 Other specified anxiety disorders; M85.80 Other specified disorders of bone density and structure, unspecified site; Z79.811 Long term (current) use of aromatase inhibitors; Z87.891 Personal history of nicotine dependence; Z92.21 Personal history of antineoplastic chemotherapy; Z92.3 Personal history of irradiation; Z79.899 Other long term (current) drug therapy
CPT/HCPCS: 36415; 80053; 82728; 83036; 83540; 83550; 85025; 85651; 99214

== ENCOUNTER 2020-10-07 10:15 | Outpatient (CLI) | payer MEDICARE, BC, SELFPAY ==
--- NOTE | 2020-10-07 11:05 | MM_ITS ---
WS: [id number] BILATERAL DIGITAL DIAGNOSTIC MAMMOGRAM MAMMOGRAPHY WITH CAD CLINICAL INFORMATION: LT NIPPLE DRAINAGE / RT UPPER BREAST PAIN COMPARISON: December 31, 2019 TECHNIQUE: Bilateral CC, MLO, and ML views. FINDINGS: Scattered fibroglandular densities bilaterally. Benign dystrophic and lucent centered calcifications. Prior postoperative changes right lumpectomy with parenchymal fibrosis. Biopsy marker left breast. ULTRASOUND BREAST BILATERAL TECHNIQUE: Ultrasound bilateral breast focused area of concern. CLINICAL INFORMATION: LT NIPPLE DRAINAGE / RT UPPER BREAST PAIN COMPARISON: None. FINDINGS: Ultrasound bilateral breasts. Left nipple was evaluated. Right breast at the 10:00 position 11:00 pos ition area of patient concern. Normal underlying breast tissue. No evidence of pathologic mass or les ion. No suspicious findings. No lesions to target for biopsy MM/[id number] IMPRESSION: BI-RADS: 2-Benign FOLLOW UP: 1 Year Follow-up Recommend return to annual diagnostic mammography.
--- NOTE | 2020-10-07 11:19 | ONC FU_ITS ---
[facility] Patient Note Patient: Marybel Rosado Unit #: [id number]: 1955 Dictated By: Lana LugoDate of Visit: Oct 07, 2020 Onc MED Follow-Up/Prog Note Chief Complaint: Breast cancer. History of Present Illness: Mrs Rosado is a 65 year-old woman with grade 3 invasive ductal carcinoma of the right breast, stage IIB (T2, pN1a, M0), ER/IN positive and HER-2/te nonamplified. In April of 2014 she palpated a new mass in the right breast. Her mammogram on 06/03/2014 revealed concerning right breast 3.4 cm mass at 12:00 position 5 cm from the nipple and a concerning left breast architectural distortion at 3:00 position. On 06/24/2014 the right breast biopsy of mass at 12:00 position revealed microscopic foci of infiltrating ductal carcinoma. The left breast biopsy was benign. On 07/02/2014 she underwent right breast lumpectomy and axillary sentinel lymph node biopsy. Her surgical pathology showed 3.8 cm invasive ductal carcinoma in the background of DCIS, grade 3, negative margins. One out of 2 lymph nodes harvested was positive for metastatic disease with extranodal extension. Prognostic profile showed ER 99%, IN 14%, HER-2/te 2+ by IHC, FISH 0.9. She was first seen by Dr. Guido on 07/16/2014. She had excellent performance status without clinical concerns for metastatic involvement. MUGA scan showed EF 70%. She received 4 cycles of dose dense AC regimen from 07/27/2014 -09/07/2014, complicated with Aloxi associated headaches and Neulasta induced bone pain, managed with supportive care. 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 She completed radiation to the right breast on 01/20/2015 to a total dose of 6640 cGy. Adjuvant hormonal therapy with anastrozole 1 mg daily began on 11/16/2014. Her baseline bone density study did show evidence of osteopenia, T score -2.2 in the lumbar spine. Dr Story had seen her for a follow-up visit on 01/03/2017. At that time she was having some musculoskeletal pain. He had her stop the anastrozole temporarily, but she subsequently restarted it, as there was no significant change in her symptoms. Her repeat DEXA scan on 01/15/2017 again showed evidence of osteopenia with T score -2.5 in the lumbar spine. She continued anastrozole 1 mg daily. As of her follow-up visit on 07/22/2018 the anastrozole was put on hold due to an increase in her liver enzymes. Her CT abdomen/pelvis on 07/30/2018 showed mild diffuse fatty infiltration of the liver. There was no evidence of metastatic disease. At her follow-up visit on 10/31/2018 the liver enzymes had come down, but not completely to normal. She had worsening of a generalized skin eruption. She subsequently was seen by Dr. Tello. A skin biopsy from the left arm on 11/05/2018 was consistent with lichen planus. She was treated with topical steroid. At her follow-up visit in July 2019 her liver enzymes remain just mildly elevated. At that point she began further adjuvant hormonal therapy with exemestane 25 mg daily. Her other medical illnesses include chronic cystitis and anxiety/depression. She has history of smoking 1/2 pack of cigarettes daily for 20 years. She quit smoking in 2014. INTERIM HISTORY: On 03/23/2020 she was admitted to the hospital with a febrile illness. She has been having worsening headache over the preceding month or so. At the time of admission she had developed severe frontal headache, fever up to 104 degrees, and horrible, drenching night sweats. Her alkaline phosphatase had increased significantly along with slightly elevated total bilirubin. The SGOT and SGPT levels were mildly elevated and similar to prior studies. Spinal tap was unrevealing. Head CT showed no acute findings. CT abdomen/pelvis showed interval appearance of pleural effusions and possible slight pulmonary edema. There was a small amount of fluid along the gallbladder and possibly thickening of the gallbladder wall, cholecystitis not excluded. There was slight interval thickening of the urinary bladder wall. The liver appeared unremarkable. Chest x-ray showed no acute findings, and echocardiogram was unremarkable. Blood cultures remain negative. Urine cultures grew probable contaminants. Acute hepatitis profile and tick fever panel were negative. Overall, there was no specific cause determined for the illness. During the hospitalization she was given empiric antibiotic therapy with vancomycin, Zosyn, acyclovir, and doxycycline. She developed acute renal failure and she was then found to have urinary retention, requiring temporary Gibbons catheter. She was discharged home on oral doxycycline, and she also had started topiramate for her headaches. At that point she was mildly anemic. Liver enzymes remained elevated. Her renal function was improving. During the hospitalization exemestane was put on hold, but it was restarted following discharge. She was last seen for a scheduled visit by Dr Story in August 2020. She had no breast concerns or changes reported at that time. She presents today for problem visit. She states yesterday she had drainage from the left breast nipple area. She states the day before had been tender I really did not think much of it but yesterday it felt like there was a little cyst/knot and it drained yellow drainage with some bloody discharge. It is not draining anymore since then . She denies any recent trauma, bug bites, lacerations or any concerns with the breast other than the tenderness experienced 2 days ago. She denies any fever or chills. The breast does not feel warm nor is it red. She has chronic rash from the lichen planus on her upper chest/arms/back and slighlty on the breast but it is stable. She denies any chills or nausea/vomiting. She states she is gaining weight and feels like she is watching her diet closely. She has had some fatigue. She doees have some bone/joint pain from the exemestance but states it is the same as it has been. She denies any shortness of breath orthopnea. She denies any bowel or bladder changes. She denies any other concerns today. Her ECOG is 0. Past Medical History: Anxiety/depression Past Surgical History: Cystocele-Rectocele Repair Exc. Bartholin Cyst Hysterectomy Vaginal mesh removal in 2019 Allergies: No Known Allergies. Medications: Acetaminophen-Codeine #3 1 Tablet (of 300-30 mg) Oral PRN Atorvastatin Calcium 1 Tablet (of 40 mg) Oral daily Calcium 2 (600 mg) Tablet Oral daily Cholecalciferol 2 (400 Units) Tablet Oral daily Cipro 1 Tablet (of 500 mg) Oral b.i.d. PRN Exemestane 1 Tablet (of 25 mg) Oral daily FLUoxetine HCl 1 Tablet (of 20 mg) Capsule Oral daily Imitrex 1 Tablet (of 50 mg) Oral daily Lisinopril Tablet Oral daily Natural Senna Laxative 1 Tablet (of 64.8-324 mg) Oral daily Nifediac CC 1 (30 mg) Tablet SR 24 HR Oral daily Pantoprazole Sodium 1 (40 mg) Tablet, enteric coated Oral daily TiZANidine HCl 1 Tablet (of 2 mg) Oral PRN TraZODone HCl 1 Tablet (of 50 mg) Oral PRN vitamin b complex 1 Tablet daily Family History: Ms. Rosado's mother is alive: medical history includes diabetes. Ms. Kabas father is alive: coronary artery disease. Paternal Aunt Breast Cancer age: 40's. Has indenitifed 3 paternal aunts with breast cancer as of 07-27-14. Social History: Ms. Rosado is and she is an unknown. Ms. Rosado quit smoking 2 years ago but had smoked 0.5 packs/day for 20 years. She drinks occasionally. Ms. Rosado reports contact with hazardous material. Ms. Rosado reports the following support systems: lives with spouse, significant other, family, or friends, lives in own house, supportive family/friends willing to assist with needs, and adequate transportation available for expected visits. Her diet consists of regular meals. She indicates her activity level as: daily activities. pt has no desire to start smoking again. tr. Review Of Symptoms: Constitutional Denies lack of appetite, fever, lethargy, malaise, night sweats, rigors / chills and weight loss. Mild fatigue and mild weight gain. Allergic/Immunologic Denies allergies and adverse reactions. Eyes Denies blurred vision, double vision, lacrimation, night blindness, visual difficulties and photophobia. ENMT Denies dysphagia, ear pain, epistaxis, esophagitis, problems with hearing, mouth dryness, oral bleeding, otitis, sinusitis, sputum production, stomatitis, altered taste and tinnitus. Endocrine Denies diabetes, hot flashes, menstrual irregularities and thyroid disease. Hematologic/Lymphatic Denies easy bruising and tender or enlarged lymph nodes. Breasts see above Respiratory Denies cough, dyspnea, hemoptysis, hiccoughs, pleuritic chest pain and wheezing. Cardiovascular Denies arrhythmias, chest pain, dyspnea, edema, orthopnea and palpitations. Gastrointestinal Denies abdominal pain, change in bowel habits, constipation, diarrhea, heartburn / dyspepsia, hematemesis, hemorrhoids, melena / GI bleeding, nausea, pain / cramping and vomiting. Genitourinary (F) Denies dysuria, frequency, hematuria, incontinence, nocturia, urgency, urine color change, vaginal discharge / bleeding and vaginal spotting. Chronic UTI symptoms but not bothersome at present. Musculoskeletal bone and joint pain. back pain. Chronic and stable. Integumentary Stable lichen planus Neurologic Denies disorientation, dizziness, abnormal gait, insomnia and memory loss. Psychiatric Denies hallucinations and mood swings. Constitutional Denies lack of appetite, fever, lethargy, malaise, night sweats, rigors / chills and weight loss. Mild fatigue and mild weight gain. Allergic/Immunologic Denies allergies and adverse reactions. Hematologic/Lymphatic Denies easy bruising and tender or enlarged lymph nodes. Breasts LEFT BREAST: slight red/pink discoloration surrounding nipple approximately 1 cm around nipple. No current drainage or tenderness. Slight thickening noted under and around the nipple. No masses or lesions palpated. Persistent tenderness in RIGHT BREAST. Ropey, thickening tissue at lumpectomy site. No other masses/abnormal findings noted on exam. No axillary adenopathy either side. Respiratory Denies cough, dyspnea, hemoptysis, hiccoughs, pleuritic chest pain and wheezing. Cardiovascular Denies arrhythmias, chest pain, dyspnea, edema, orthopnea and palpitations. Gastrointestinal Denies abdominal pain, change in bowel habits, constipation, diarrhea, heartburn / dyspepsia, hematemesis, hemorrhoids, melena / GI bleeding, nausea, pain / cramping and vomiting. Genitourinary (F) Denies dysuria, frequency, hematuria, incontinence, nocturia, urgency, urine color change, vaginal discharge / bleeding and vaginal spotting. Chronic UTI symptoms but not bothersome at present. Musculoskeletal bone and joint pain. back pain. Chronic and stable. Integumentary Stable lichen planus Neurologic Denies disorientation, dizziness, abnormal gait, insomnia and memory loss. Psychiatric Denies hallucinations and mood swings. Vital Signs: Performed on Oct 07, 2020 10:30 Height - 65.00 in Weight - 193.8 lbs (HIGH) BSA - 1.95 sq.m BMI - 32.25 (HIGH) Temperature - 96.6 F (LOW) Pulse - 98 /min Respiration - 18 /min BP - 144/82 mm(hg) (HIGH) O2 Sat - 98 % Pain - 0 Fatigue - 0,0 - Fully active, able to carry on all predisease activities without restrictions. (ECOG) Physical Examination: Constitutional Alert, oriented, no acute distress. Skin pink, warm and dry. Head Normocephalic; atraumatic. Eyes Conjunctivae and sclerae are clear and without icterus. Pupils are reactive and equal. Neck Supple without masses or thyromegaly. No jugular venous distension. Hematologic/Lymphatic No petechiae or purpura. No tender or palpable lymph nodes in the cervical, supraclavicular, or axillary area. Respiratory Lungs are clear to auscultation without rhonchi or wheezing. Cardiovascular Regular rate and rhythm of heart without murmurs,clicks, gallops or rubs. Chest Chest is symmetric without chest wall deformities. Left subclavian venous access device insertion site healing well with minimal bruising. Breasts LEFT BREAST: slight red/pink discoloration surrounding nipple approximately 1 cm around nipple. No current drainage or tenderness. Slight thickening noted under and around the nipple. No masses or lesions palpated. Persistent tenderness in RIGHT BREAST. Ropey, thickening tissue at lumpectomy site. No other masses/abnormal findings noted on exam. No axillary adenopathy either side. Back/Spine Non-tender to palpation. Extremities No visible deformities, no cyanosis, clubbing or edema. Musculoskeletal No tenderness or swelling, normal range of motion without obvious weakness. Integumentary Chronic lichen planus-stable. Neurologic No sensory or motor deficits, normal cerebellar function, normal gait, Psychiatric Alert and oriented times three. Coherent speech. Verbalizes understanding of our discussions today. Laboratory:Test performed on Aug 24, 2020 11:20 Ferritin 201 ng/mL Iron 141 mcg/dL Sodium 141 mmol/L Iron Binding Capacity (TIBC) 468 mcg/dl Potassium 4.2 mmol/L % Iron Saturation 30.1 % Chloride 100 mmol/L Est Avg Glucose (eAG) 137 mg/dL CO2 24 mmol/L UIBC 327 mcg/dL Anion Gap 21.2 BUN 11 mg/dL Creatinine 0.7 mg/dL Cr Clearance (Est) 108.44 mL/min eGFR 84.0 mL/min Glucose 111 mg/dL Osmolality - Calculated 292 mOsm/kg Calcium 10.0 mg/dL Protein, Total 8.0 g/dL Albumin 4.8 g/dL Globulin 3.2 g/dL Bilirubin, Total 0.6 mg/dL ALT (SGPT) 116 U/L AST (SGOT) 62 U/L Alkaline Phosphatase 199 IU/L ESR (Sed Rate) 31 mm/hr Hemoglobin A1C % 6.4 % WBC 9.3 10 3/uL RBC 4.82 10 6/uL HGB 14.6 g/dL HCT 44.2 % MCV 91.7 fL MCH 30.3 pg MCHC 33.0 g/dL RDW 13.0 % Platelet Count 310 10 3/cmm MPV 11.0 fL Neutrophils 7.02 10 3/uL Lymphocytes 1.5 10 3/uL Monocytes 0.6 10 3/uL Eosinophils 0.1 10 3/uL Basophils 0.1 10 3/uL Neutrophil % 75.9 % Lymphocyte % 16.0 % Monocyte % 6.6 % Eosinophil % 0.6 % Basophils % 0.5 % NRBC % 0 % Impression: 1. Patient with grade 3 invasive ductal carcinoma of the right breast, stage IIB (T2, pN1a, M0), ER/IN positive and HER-2/te nonamplified. 2. She underwent right breast lumpectomy with axillary sentinel lymph node biopsy on 07/02/2014. 3. She was given adjuvant chemotherapy with 4 cycles of dose dense Adriamycin/cyclophosphamide, completed in August 2014. 4. She was then given radiation to the right breast, completed in December 2014 to a total dose of 6640 cGy. 5. Adjuvant hormonal therapy with anastrozole 1 mg daily began on 11/16/2014. Her other medical illnesses include: 6. Osteopenia. 7. Anxiety/depression. In December 2016 she had stopped the anastrozole temporarily, as she had developed significant joint pain. The symptoms did not show significant improvement off the medication, and she subsequently restarted it. As of June 2018 the anastrozole was put on hold again due to a significant increase in her liver enzymes. Her CT abdomen/pelvis on 07/30/2018 showed mild diffuse fatty infiltration of the liver. There was no evidence of metastatic disease. It was opted to keep her treatment on hold. At her follow-up visit in October 2018 her liver enzymes had come down, but not to normal. She had developed worsening of his generalized skin eruption. She was then seen by Dr. Tello, and the skin biopsy from the left arm showed lichen planus. She was treated with topical steroid. As of her follow-up visit in July 2019 her liver enzymes remain just mildly elevated. She otherwise appeared stable clinically. She then began further adjuvant hormonal therapy with exemestane 25 mg daily. On 02/25/2020 she was admitted to the hospital with an acute febrile illness. A specific cause was not determined. Tick fever was suspected. She continued oral antibiotic coverage with doxycycline following discharge. However, she has now stopped taking it due to development of a generalized skin eruption. Overall, she has had a significant decline in her performance status and overall condition following that illness. Her exemestane was temporarily put on hold, but restarted following discharge from the hospital. She has since then shown gradual improvement in her performance status, though she still has some fatigue. She is having some musculoskeletal pain with the exemestane, and she also is having some alopecia. Overall, though, she continues to tolerate it with acceptable toxicity, and as of her August 2020 followup visit, there has been no evidence of recurrence of the breast cancer. Mrs Rosado presents today with left nipple drainage and right breast tenderness. Plan: PROBLEMS ADDRESSED TODAY 1. Left breast/nipple drainage: A. Mammography with ultrasound/biopsy if indicated B. Bactrim DS 1 twice daily for 7 days (she has this on hand for chronic UTI) C. Tylenol or Tylenol with codeine as needed for pain associated with left breast nipple drainage. D. CBC CMP and TSH requested today. CBC is to evaluate for infection, CMP is follow-up for her elevated LFTs and TSH is evaluation for concerns of fatigue. 2. Right breast tenderness: A. Diagnostic mammography requested when obtain left breast mammography for follow-up. She has a history of right breast cancer. Her discomfort and abnormal exam findings are at the lumpectomy site. B. Continue with exemestane 25 mg daily. She has tolerated it well she does have chronic joint/bone pain but states is not getting any worse. 3. Fatigue/weight gain: A. We will add TSH to blood request for evaluation of fatigue and weight gain. She is really not noted any brittle nails or hair or any other findings at this point. Her last TSH here was October 2019 at which time was normal. 4. follow-up plan: A. we will plan to see her back as indicated based on mammography findings. Her original follow-up is scheduled for February 2021. Her last mammography imaging was December 2020. It was reported as BI-RADS 2???benign with follow-up plan for 1 year. B. Ms. Rosado was urged to contact us in interim should questions or problems arise. Signed By: Lana Lugo-, [facility] Geovani Story MD <<Signature on File>>
[2020-10-07 11:33] LABS: Basophils # 0.1 10^3/uL (0.0-0.1); Basophils % 0.7 %; Eosinophils # 0.1 10^3/uL (0.0-0.8); Eosinophils % 1.1 %; Hematocrit 41.2 % (37.0-47.0); Hemoglobin 13.4 g/dL (11.5-15.3); Lymphocytes # 1.3 10^3/uL (0.8-4.8); Lymphocytes % 15.6 %; Mean Corpuscular HGB Conc 32.5 g/dL (30.0-36.0); Mean Corpuscular Volume 92.2 fL (81-99); Mean Platelet Volume 10.7 fL (7.4-10.4); Monocytes # 0.6 10^3/uL (0.2-0.9); Monocytes % 7.3 %; Neutrophils # 6.23 10^3/uL (1.8-7.7); Neutrophils % 74.8 %; Nucleated Red Blood Cells % 0 %; Platelet Count 304 10^3/cmm (130-400); Red Blood Count 4.47 10^6/uL (4.1-5.3); Red Cell Distribution Width 13.2 % (12.1-15.1); White Blood Count 8.3 10^3/uL (4.0-10.0)
[2020-10-07 12:08] LABS: Alanine Aminotransferase 122 U/L (0-33); Albumin Level 4.5 g/dL (3.5-5.2); Alkaline Phosphatase 202 IU/L (35-105); Anion Gap 15.1 (5-19); Aspartate Amino Transferase 88 U/L (0-32); Blood Urea Nitrogen 9 mg/dL (8-23); Calcium 9.5 mg/dL (8.5-10.5); Carbon Dioxide 28 mmol/L (22-29); Chloride 98 mmol/L (98-107); Globulin 3.1 g/dL (1.3-4.6); Glomerular Filtration Rate 83.7 mL/min (90-130); Glucose 122 mg/dL (65-115); Osmolality Calculated 284 mOsm/kg (285-295); Potassium 4.1 mmol/L (3.5-5.1); Sodium 137 mmol/L (136-145); Thyroid Stimulating Hormone 1.27 uIU/mL (0.27-4.20); Total Bilirubin 0.5 mg/dL (0.15-1.2); Total Protein 7.6 g/dL (6.6-8.7)
== END 2020-10-07 10:16 | disposition home or self-care (01) ==
PROVIDERS: PCP Electrodiagnostic Medicine; Visit Provider Nurse Practitioner
DX: N64.52 Nipple discharge (principal); N64.4 Mastodynia; C50.411 Malignant neoplasm of upper-outer quadrant of right female breast; N39.0 Urinary tract infection, site not specified; R53.83 Other fatigue; R94.6 Abnormal results of thyroid function studies; G89.29 Other chronic pain; M25.50 Pain in unspecified joint; T45.1X5A Adverse effect of antineoplastic and immunosuppressive drugs, initial encounter; Z79.811 Long term (current) use of aromatase inhibitors; Z17.0 Estrogen receptor positive status [ER+]
CPT/HCPCS: 36415; 76642; 77066; 80053; 84443; 85025; 99214

== ENCOUNTER 2020-10-21 05:54 | Outpatient (CLI) | payer MEDICARE, BC, SELFPAY ==
--- NOTE | 2020-10-29 21:01 | ONC FU_ITS ---
[facility] Patient Note Patient: Marybel Rosado Unit #: [id number]: 1955 Dictated By: Lana LugoDate of Visit: Oct 21, 2020 Onc MED Follow-Up/Prog Note Chief Complaint: Breast cancer. History of Present Illness: Mrs Rosado is a 65 year-old woman with grade 3 invasive ductal carcinoma of the right breast, stage IIB (T2, pN1a, M0), ER/MN positive and HER-2/te nonamplified. In April of 2014 she palpated a new mass in the right breast. Her mammogram on 06/03/2014 revealed concerning right breast 3.4 cm mass at 12:00 position 5 cm from the nipple and a concerning left breast architectural distortion at 3:00 position. On 06/24/2014 the right breast biopsy of mass at 12:00 position revealed microscopic foci of infiltrating ductal carcinoma. The left breast biopsy was benign. On 07/02/2014 she underwent right breast lumpectomy and axillary sentinel lymph node biopsy. Her surgical pathology showed 3.8 cm invasive ductal carcinoma in the background of DCIS, grade 3, negative margins. One out of 2 lymph nodes harvested was positive for metastatic disease with extranodal extension. Prognostic profile showed ER 99%, MN 14%, HER-2/te 2+ by IHC, FISH 0.9. She was first seen by Dr. Guido on 07/16/2014. She had excellent performance status without clinical concerns for metastatic involvement. MUGA scan showed EF 70%. She received 4 cycles of dose dense AC regimen from 07/27/2014 -09/07/2014, complicated with Aloxi associated headaches and Neulasta induced bone pain, managed with supportive care. 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 She completed radiation to the right breast on 01/20/2015 to a total dose of 6640 cGy. Adjuvant hormonal therapy with anastrozole 1 mg daily began on 11/16/2014. Her baseline bone density study did show evidence of osteopenia, T score -2.2 in the lumbar spine. Dr Story had seen her for a follow-up visit on 01/03/2017. At that time she was having some musculoskeletal pain. He had her stop the anastrozole temporarily, but she subsequently restarted it, as there was no significant change in her symptoms. Her repeat DEXA scan on 01/15/2017 again showed evidence of osteopenia with T score -2.5 in the lumbar spine. She continued anastrozole 1 mg daily. As of her follow-up visit on 07/22/2018 the anastrozole was put on hold due to an increase in her liver enzymes. Her CT abdomen/pelvis on 07/30/2018 showed mild diffuse fatty infiltration of the liver. There was no evidence of metastatic disease. At her follow-up visit on 10/31/2018 the liver enzymes had come down, but not completely to normal. She had worsening of a generalized skin eruption. She subsequently was seen by Dr. Tello. A skin biopsy from the left arm on 11/05/2018 was consistent with lichen planus. She was treated with topical steroid. At her follow-up visit in July 2019 her liver enzymes remain just mildly elevated. At that point she began further adjuvant hormonal therapy with exemestane 25 mg daily. Her other medical illnesses include chronic cystitis and anxiety/depression. She has history of smoking 1/2 pack of cigarettes daily for 20 years. She quit smoking in 2014. INTERIM HISTORY: On 03/23/2020 she was admitted to the hospital with a febrile illness. She has been having worsening headache over the preceding month or so. At the time of admission she had developed severe frontal headache, fever up to 104 degrees, and horrible, drenching night sweats. Her alkaline phosphatase had increased significantly along with slightly elevated total bilirubin. The SGOT and SGPT levels were mildly elevated and similar to prior studies. Spinal tap was unrevealing. Head CT showed no acute findings. CT abdomen/pelvis showed interval appearance of pleural effusions and possible slight pulmonary edema. There was a small amount of fluid along the gallbladder and possibly thickening of the gallbladder wall, cholecystitis not excluded. There was slight interval thickening of the urinary bladder wall. The liver appeared unremarkable. Chest x-ray showed no acute findings, and echocardiogram was unremarkable. Blood cultures remain negative. Urine cultures grew probable contaminants. Acute hepatitis profile and tick fever panel were negative. Overall, there was no specific cause determined for the illness. During the hospitalization she was given empiric antibiotic therapy with vancomycin, Zosyn, acyclovir, and doxycycline. She developed acute renal failure and she was then found to have urinary retention, requiring temporary Gibbons catheter. She was discharged home on oral doxycycline, and she also had started topiramate for her headaches. At that point she was mildly anemic. Liver enzymes remained elevated. Her renal function was improving. During the hospitalization exemestane was put on hold, but it was restarted following discharge. She was last seen for a scheduled visit by Dr Story in August 2020. She had no breast concerns or changes reported at that time. She presented on 2020 with drainage from the left breast nipple area. She states the day before had been tender I really did not think much of it but yesterday it felt like there was a little cyst/knot and it drained yellow drainage with some bloody discharge. It is not draining anymore since then . She denied any recent trauma, bug bites, lacerations or any concerns with the breast other than the tenderness. She was referred for mammography and ultrasound imaging which was reported as benign. She was given antibiotics and is here today for followup. She states she has had no more drainage although the breast is back tender fourdrinier at times. She denies any fever or chills. She states she does have fatigue but it has not gotten any worse since her last visit. She states since the pandemic, she has had limited activity and the fatigue has gotten worse since she has not been walking or exercising as she has in the past. She denies any new shortness of breath and denies orthopnea. She denies chest pain or palpitations. Her ECOG is 1. She states she is drinking 1 cocktail at bedtime but states it is around 4-6 ounce drink. Past Medical History: Anxiety/depression Past Surgical History: Cystocele-Rectocele Repair Exc. Bartholin Cyst Hysterectomy Vaginal mesh removal in 2019 Allergies: No Known Allergies. Medications: Acetaminophen-Codeine #3 1 Tablet (of 300-30 mg) Oral PRN Atorvastatin Calcium 1 Tablet (of 40 mg) Oral daily Calcium 2 (600 mg) Tablet Oral daily Cholecalciferol 2 (400 Units) Tablet Oral daily Cipro 1 Tablet (of 500 mg) Oral b.i.d. PRN Exemestane 1 Tablet (of 25 mg) Oral daily FLUoxetine HCl 1 Tablet (of 20 mg) Capsule Oral daily Imitrex 1 Tablet (of 50 mg) Oral daily Lisinopril Tablet Oral daily Natural Senna Laxative 1 Tablet (of 64.8-324 mg) Oral daily Nifediac CC 1 (30 mg) Tablet SR 24 HR Oral daily Pantoprazole Sodium 1 (40 mg) Tablet, enteric coated Oral daily TiZANidine HCl 1 Tablet (of 2 mg) Oral PRN TraZODone HCl 1 Tablet (of 50 mg) Oral PRN vitamin b complex 1 Tablet daily Family History: Ms. Kabas mother is alive: medical history includes diabetes. Ms. Kabas father is alive: coronary artery disease. Paternal Aunt Breast Cancer age: 40's. Has indenitifed 3 paternal aunts with breast cancer as of 07-27-14. Social History: Ms. Rosado is and she is an unknown. Ms. Rosado quit smoking 2 years ago but had smoked 0.5 packs/day for 20 years. She drinks occasionally. Ms. Rosado reports contact with hazardous material. Ms. Rosado reports the following support systems: lives with spouse, significant other, family, or friends, lives in own house, supportive family/friends willing to assist with needs, and adequate transportation available for expected visits. Her diet consists of regular meals. She indicates her activity level as: daily activities. pt has no desire to start smoking again. tr. Review Of Symptoms: Constitutional Denies lack of appetite, fever, lethargy, malaise, night sweats, rigors / chills and weight loss. Mild fatigue. Allergic/Immunologic Denies allergies and adverse reactions. Eyes Denies blurred vision, double vision, lacrimation, night blindness, visual difficulties and photophobia. ENMT Denies dysphagia, ear pain, epistaxis, esophagitis, problems with hearing, mouth dryness, oral bleeding, otitis, sinusitis, sputum production, stomatitis, altered taste and tinnitus. Hematologic/Lymphatic Denies easy bruising and tender or enlarged lymph nodes. Breasts no concerns, nipple discharge has resolved. Respiratory Denies cough, dyspnea, hemoptysis, hiccoughs, pleuritic chest pain and wheezing. Cardiovascular Denies arrhythmias, chest pain, dyspnea, edema, orthopnea and palpitations. Gastrointestinal Denies abdominal pain, change in bowel habits, constipation, diarrhea, heartburn / dyspepsia, hematemesis, hemorrhoids, melena / GI bleeding, nausea, pain / cramping and vomiting. Genitourinary (F) Denies dysuria, frequency, hematuria, incontinence, nocturia, urgency, urine color change, vaginal discharge / bleeding and vaginal spotting. Chronic UTI symptoms but not bothersome at present. Musculoskeletal bone and joint pain. back pain. Chronic and stable. Integumentary Stable lichen planus Neurologic Denies disorientation, dizziness, abnormal gait, insomnia and memory loss. Psychiatric Denies hallucinations and mood swings. Vital Signs: Performed on Oct 21, 2020 09:05 Height - 65.00 in Weight - 194.4 lbs (HIGH) BSA - 1.95 sq.m BMI - 32.35 (HIGH) Temperature - 97.5 F (LOW) Pulse - 98 /min Respiration - 15 /min BP - 127/67 mm(hg) O2 Sat - 95 % (LOW) Pain - 0 Fatigue - 6,1 - No physically strenuous activity, but ambulatory and able to carry out light or sedentary work (e.g. office work, light house work). (ECOG) Physical Examination: Constitutional Alert, oriented, no acute distress. Skin pink, warm and dry. Head Normocephalic; atraumatic. Eyes Conjunctivae and sclerae are clear and without icterus. Pupils are reactive and equal. Back/Spine Non-tender to palpation. Extremities No visible deformities, no cyanosis, clubbing or edema. Musculoskeletal No tenderness or swelling, normal range of motion without obvious weakness. Integumentary Chronic lichen planus-stable. Neurologic No sensory or motor deficits, normal cerebellar function, normal gait, Psychiatric Alert and oriented times three. Coherent speech. Verbalizes understanding of our discussions today. Laboratory:Test performed on Aug 24, 2020 11:20 Ferritin 201 ng/mL Iron 141 mcg/dL Sodium 141 mmol/L Iron Binding Capacity (TIBC) 468 mcg/dl Potassium 4.2 mmol/L % Iron Saturation 30.1 % Chloride 100 mmol/L Est Avg Glucose (eAG) 137 mg/dL CO2 24 mmol/L UIBC 327 mcg/dL Anion Gap 21.2 BUN 11 mg/dL Creatinine 0.7 mg/dL Cr Clearance (Est) 108.44 mL/min eGFR 84.0 mL/min Glucose 111 mg/dL Osmolality - Calculated 292 mOsm/kg Calcium 10.0 mg/dL Protein, Total 8.0 g/dL Albumin 4.8 g/dL Globulin 3.2 g/dL Bilirubin, Total 0.6 mg/dL ALT (SGPT) 116 U/L AST (SGOT) 62 U/L Alkaline Phosphatase 199 IU/L ESR (Sed Rate) 31 mm/hr Hemoglobin A1C % 6.4 % WBC 9.3 10 3/uL RBC 4.82 10 6/uL HGB 14.6 g/dL HCT 44.2 % MCV 91.7 fL MCH 30.3 pg MCHC 33.0 g/dL RDW 13.0 % Platelet Count 310 10 3/cmm MPV 11.0 fL Neutrophils 7.02 10 3/uL Lymphocytes 1.5 10 3/uL Monocytes 0.6 10 3/uL Eosinophils 0.1 10 3/uL Basophils 0.1 10 3/uL Neutrophil % 75.9 % Lymphocyte % 16.0 % Monocyte % 6.6 % Eosinophil % 0.6 % Basophils % 0.5 % NRBC % 0 % Impression: 1. Patient with grade 3 invasive ductal carcinoma of the right breast, stage IIB (T2, pN1a, M0), ER/MN positive and HER-2/te nonamplified. 2. She underwent right breast lumpectomy with axillary sentinel lymph node biopsy on 07/02/2014. 3. She was given adjuvant chemotherapy with 4 cycles of dose dense Adriamycin/cyclophosphamide, completed in August 2014. 4. She was then given radiation to the right breast, completed in December 2014 to a total dose of 6640 cGy. 5. Adjuvant hormonal therapy with anastrozole 1 mg daily began on 11/16/2014. Her other medical illnesses include: 6. Osteopenia. 7. Anxiety/depression. In December 2016 she had stopped the anastrozole temporarily, as she had developed significant joint pain. The symptoms did not show significant improvement off the medication, and she subsequently restarted it. As of June 2018 the anastrozole was put on hold again due to a significant increase in her liver enzymes. Her CT abdomen/pelvis on 07/30/2018 showed mild diffuse fatty infiltration of the liver. There was no evidence of metastatic disease. It was opted to keep her treatment on hold. At her follow-up visit in October 2018 her liver enzymes had come down, but not to normal. She had developed worsening of his generalized skin eruption. She was then seen by Dr. Tello, and the skin biopsy from the left arm showed lichen planus. She was treated with topical steroid. As of her follow-up visit in July 2019 her liver enzymes remain just mildly elevated. She otherwise appeared stable clinically. She then began further adjuvant hormonal therapy with exemestane 25 mg daily. On 02/25/2020 she was admitted to the hospital with an acute febrile illness. A specific cause was not determined. Tick fever was suspected. She continued oral antibiotic coverage with doxycycline following discharge. However, she has now stopped taking it due to development of a generalized skin eruption. Overall, she has had a significant decline in her performance status and overall condition following that illness. Her exemestane was temporarily put on hold, but restarted following discharge from the hospital. She has since then shown gradual improvement in her performance status, though she still has some fatigue. She is having some musculoskeletal pain with the exemestane, and she also is having some alopecia. Overall, though, she continues to tolerate it with acceptable toxicity, and as of her August 2020 followup visit, there has been no evidence of recurrence of the breast cancer. Mrs Rosado presents today for followup of left nipple drainage and right breast tenderness. She has had mammogram and ultrasound that was reported as benign. She is noted to have elevated LFTs on her labs from 10/07/2020. Plan: PROBLEMS ADDRESSED TODAY 1. Left breast/nipple drainage: A. Mammography with ultrasound/biopsy obtained on 10/07/2020: BI-RADS: 2-Benign followup in 1 year. B. Nipple drainage has resolved after Bactrim DS. 2. Right breast tenderness: A. Stop exemestane 25 mg for possible cause of breast tenderness and elevated LFTs. 3. Elevated ALT (122)/AST (88)/ALK Phos (202) from 10/07/2020. A. Stop Milk Thistle-she states she has been taking 100 mg daily for about 1 month to help clean my liver . B. On 08/24/2020 was 116 AST was 62 and alk phos was 199. Her LFTs in April 06, 2020 were also slightly elevated with an ALT of 58 AST of 52 and her alk phos at that time was 262. Her LDH was 242. 4. Fatigue/weight gain: A. Her TSH from October 07, 2020 is noted to be 1.27. B. We discussed at length slowly implementing her previous exercise routine of just walking. She has exercise, in the home and states that she would like to walk outside when the weather is good as well. 5. follow-up plan: A. We will recheck her labs to include CMP and CBC in 2 weeks. If her LFTs continue to be abnormal, she may need further work-up. She did have a CT of the abdomen pelvis with contrast on July 30, 2018 which reported mild diffuse fatty infiltration of the liver, normal gallbladder and no acute abdominal findings. She did have ultrasound of the abdomen/right upper quadrant on 03/25/2020 which reported normal liver, normal gallbladder. No hydronephrosis in the right kidney normal common bile duct and small right pleural effusion. She had been admitted to [facility] on March 23, 2020 with weakness and fever. She had had a history of a tick bite at that time as well. She had renal failure that presented during her hospital stay but that was felt due to urinary retention. Gibbons was placed and 900 cc of urine output was obtained. Her fever went away and the renal function improved with placement of the Gibbons and she improved overall. Her CFS culture was negative. However the doxycycline was continued as tick panel was pending. She was also given Imitrex for persistent headaches and Topamax 25 mg at night along with a muscle relaxer and after implementing that regimen she slept well in was up the next day without significant headache. VQ scan was performed which reported low probability. She had the VQ scan done secondary to dyspnea attributed to fluid overload ultimately. Since that hospitalization she has had no further significant health changes. She does follow with Dr. Graves for recurrent UTIs and pelvic floor prolapse nocturia. She states her last visit with him was in July 2020. Her primary care continues to be Dr. Bardales. Carly. Her scheduled follow-up in regards to her breast cancer as far as our clinic is concerned is scheduled for February 2021. However we will call her with the labs in 2 weeks and determine any further follow-up at that time. C. Ms. Rosado was urged to contact us in interim should questions or problems arise. D. We have discussed Covid vaccination. She is advised that we are informing patients of the opportunity to obtain the Covid vaccine via the [facility] Covid hotline. We discussed that for patients on current treatment with chemotherapy immunotherapy or immunosuppressant agents we are unsure of the actual benefit and if they will react any more severely with side effects than the general public. However the general consensus in the medical oncology community has been as long as patients have no known contraindications to the Covid vaccines or are not neutropenic, they are eligible for vaccination. It is discussed that what ever immunity they may obtain it from receiving the Covid vaccines is better than nothing at this point. She was again instructed that we are unaware of whether or not side effects would be worse or not for patients on current chemotherapy, immunotherapy or other immunosuppressant agents. She is currently not on any active chemotherapy. She states that she is uncertain whether she wants to proceed with the Covid vaccine or not. She is encouraged to call us if she has questions. She is also referred to the [facility] website as well as the [facility] Covid phone line. Signed By: Lana Lugo-, AOCNP Geovani Story MD <<Signature on File>>
== END 2020-10-21 05:55 | disposition home or self-care (01) ==
LOC: ONCMED 05:57
PROVIDERS: PCP Electrodiagnostic Medicine; Visit Provider Nurse Practitioner
DX: Z08 Encounter for follow-up examination after completed treatment for malignant neoplasm (principal); Z85.3 Personal history of malignant neoplasm of breast; N64.4 Mastodynia; R53.83 Other fatigue; R63.5 Abnormal weight gain; R94.5 Abnormal results of liver function studies; M85.80 Other specified disorders of bone density and structure, unspecified site; F41.8 Other specified anxiety disorders; Z79.899 Other long term (current) drug therapy; Z17.0 Estrogen receptor positive status [ER+]; Z92.21 Personal history of antineoplastic chemotherapy; Z92.3 Personal history of irradiation; Z92.23 Personal history of estrogen therapy
CPT/HCPCS: 99214

== ENCOUNTER 2020-11-15 09:53 | Outpatient (CLI) | payer MEDICARE, BC, SELFPAY ==
[2020-11-15 10:12] LABS: Basophils % 0.5 %; Eosinophils # 0.1 10^3/uL (0.0-0.8); Hematocrit 42.7 % (37.0-47.0); Hemoglobin 13.9 g/dL (11.5-15.3); Lymphocytes # 1.5 10^3/uL (0.8-4.8); Mean Corpuscular HGB Conc 32.6 g/dL (30.0-36.0); Mean Corpuscular Volume 92.2 fL (81-99); Mean Platelet Volume 10.2 fL (7.4-10.4); Monocytes # 0.5 10^3/uL (0.2-0.9); Monocytes % 6.6 %; Neutrophils # 6.01 10^3/uL (1.8-7.7); Neutrophils % 73.7 %; Nucleated Red Blood Cells % 0 %; Platelet Count 330 10^3/cmm (130-400); Red Blood Count 4.63 10^6/uL (4.1-5.3); Red Cell Distribution Width 12.7 % (12.1-15.1); White Blood Count 8.2 10^3/uL (4.0-10.0)
[2020-11-15 10:30] LABS: Alanine Aminotransferase 73 U/L (0-33); Albumin Level 4.3 g/dL (3.5-5.2); Alkaline Phosphatase 185 IU/L (35-105); Anion Gap 17.2 (5-19); Aspartate Amino Transferase 48 U/L (0-32); Blood Urea Nitrogen 15 mg/dL (8-23); Calcium 9.5 mg/dL (8.5-10.5); Carbon Dioxide 25 mmol/L (22-29); Chloride 100 mmol/L (98-107); Globulin 3.4 g/dL (1.3-4.6); Glomerular Filtration Rate 71.8 mL/min (90-130); Glucose 113 mg/dL (65-115); Osmolality Calculated 288 mOsm/kg (285-295); Potassium 4.2 mmol/L (3.5-5.1); Sodium 138 mmol/L (136-145); Total Bilirubin 0.5 mg/dL (0.15-1.2); Total Protein 7.7 g/dL (6.6-8.7)
== END 2020-11-15 09:54 | disposition home or self-care (01) ==
LOC: ONCMED 09:54
PROVIDERS: PCP Electrodiagnostic Medicine; Visit Provider Nurse Practitioner
DX: C50.411 Malignant neoplasm of upper-outer quadrant of right female breast (principal); Z17.0 Estrogen receptor positive status [ER+]; R94.5 Abnormal results of liver function studies
CPT/HCPCS: 80053; 85025

== ENCOUNTER 2021-01-25 11:47 | Outpatient (CLI) | payer MEDICARE, BC, SELFPAY ==
[2021-01-25 12:43] LABS: Basophils # 0.1 10^3/uL (0.0-0.1); Basophils % 0.7 %; Eosinophils # 0.1 10^3/uL (0.0-0.8); Eosinophils % 0.7 %; Hematocrit 47.6 % (37.0-47.0); Hemoglobin 15.4 g/dL (11.5-15.3); Lymphocytes # 1.6 10^3/uL (0.8-4.8); Lymphocytes % 18.3 %; Mean Corpuscular HGB Conc 32.4 g/dL (30.0-36.0); Mean Corpuscular Hemoglobin 30.4 pg (28.0-34.0); Mean Corpuscular Volume 94.1 fL (81-99); Mean Platelet Volume 10.7 fL (7.4-10.4); Monocytes # 0.7 10^3/uL (0.2-0.9); Monocytes % 7.4 %; Neutrophils # 6.41 10^3/uL (1.8-7.7); Neutrophils % 72.6 %; Nucleated Red Blood Cells % 0 %; Platelet Count 317 10^3/cmm (130-400); Red Blood Count 5.06 10^6/uL (4.1-5.3); Red Cell Distribution Width 13.4 % (12.1-15.1); White Blood Count 8.8 10^3/uL (4.0-10.0)
[2021-01-25 13:05] LABS: Alanine Aminotransferase 91 U/L (0-33); Albumin Level 4.3 g/dL (3.5-5.2); Alkaline Phosphatase 174 IU/L (35-105); Anion Gap 16.4 (5-19); Aspartate Amino Transferase 66 U/L (0-32); Blood Urea Nitrogen 10 mg/dL (8-23); Carbon Dioxide 23 mmol/L (22-29); Chloride 102 mmol/L (98-107); Glucose 109 mg/dL (65-115); Osmolality Calculated 284 mOsm/kg (285-295); Potassium 4.4 mmol/L (3.5-5.1); Sodium 137 mmol/L (136-145); Total Bilirubin 0.6 mg/dL (0.15-1.2); Total Protein 7.3 g/dL (6.6-8.7)
[2021-01-25 14:09] LABS: Estmated Average Glucose 140; Hemoglobin A1C 6.5 % (4.0-6.0)
--- NOTE | 2021-01-29 10:26 | ONC FU_ITS ---
Dr. Story Patient Follow-Up Note Patient: Marybel Rosado Unit #: [id number]: [id number] Dicatated By: Geovani Story M.D.Date of Visit:January 25, 2021 Onc Med Follow-up/Prog Note Chief Complaint: Breast cancer. History of Present Illness: This is a 64 year-old woman with grade 3 invasive ductal carcinoma of the right breast, stage IIB (T2, pN1a, M0), ER/GA positive and HER-2/te nonamplified. In April of 2014 she palpated a new mass in the right breast. Her mammogram on 06/03/2014 revealed concerning right breast 3.4 cm mass at 12:00 position 5 cm from the nipple and a concerning left breast architectural distortion at 3:00 position. On 06/24/2014 the right breast biopsy of mass at 12:00 position revealed microscopic foci of infiltrating ductal carcinoma. The left breast biopsy was benign. On 07/02/2014 she underwent right breast lumpectomy and axillary sentinel lymph node biopsy. Her surgical pathology showed 3.8 cm invasive ductal carcinoma in the background of DCIS, grade 3, negative margins. One out of 2 lymph nodes harvested was positive for metastatic disease with extranodal extension. Prognostic profile showed ER 99%, GA 14%, HER-2/te 2+ by IHC, FISH 0.9. She was first seen by Dr. Guido on 07/16/2014. She had excellent performance status without clinical concerns for metastatic involvement. MUGA scan showed EF 70%. She received 4 cycles of dose dense AC regimen from 07/27/2014 -09/07/2014, complicated with Aloxi associated headaches and Neulasta induced bone pain, managed with supportive care. 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 She completed radiation to the right breast on 01/20/2015 to a total dose of 6640 cGy. Adjuvant hormonal therapy with anastrozole 1 mg daily began on 11/16/2014. Her baseline bone density study did show evidence of osteopenia, T score -2.2 in the lumbar spine. I had seen her for a follow-up visit on 01/03/2017. At that time she was having some musculoskeletal pain. I had her stop the anastrozole temporarily, but she subsequently restarted it, as there was no significant change in her symptoms. Her repeat DEXA scan on 01/15/2017 again showed evidence of osteopenia with T score -2.5 in the lumbar spine. She continued anastrozole 1 mg daily. As of her follow-up visit on 07/22/2018 the anastrozole was put on hold due to an increase in her liver enzymes. Her CT abdomen/pelvis on 07/30/2018 showed mild diffuse fatty infiltration of the liver. There was no evidence of metastatic disease. At her follow-up visit on 10/31/2018 the liver enzymes had come down, but not completely to normal. She had worsening of a generalized skin eruption. She subsequently was seen by Dr. Tello. A skin biopsy from the left arm on 11/05/2018 was consistent with lichen planus. She was treated with topical steroid. At her follow-up visit in July 2019 her liver enzymes remain just mildly elevated. At that point she began further adjuvant hormonal therapy with exemestane 25 mg daily. Her other medical illnesses include chronic cystitis and anxiety/depression. She has history of smoking 1/2 pack of cigarettes daily for 20 years. She quit smoking in 2014. INTERIM HISTORY: On 03/23/2020 she was admitted to the hospital with a febrile illness. She has been having worsening headache over the preceding month or so. At the time of admission she had developed severe frontal headache, fever up to 104 degrees, and horrible, drenching night sweats. Her alkaline phosphatase had increased significantly along with slightly elevated total bilirubin. The SGOT and SGPT levels were mildly elevated and similar to prior studies. Spinal tap was unrevealing. Head CT showed no acute findings. CT abdomen/pelvis showed interval appearance of pleural effusions and possible slight pulmonary edema. There was a small amount of fluid along the gallbladder and possibly thickening of the gallbladder wall, cholecystitis not excluded. There was slight interval thickening of the urinary bladder wall. The liver appeared unremarkable. Chest x-ray showed no acute findings, and echocardiogram was unremarkable. Blood cultures remain negative. Urine cultures grew probable contaminants. Acute hepatitis profile and tick fever panel were negative. Overall, there was no specific cause determined for the illness. During the hospitalization she was given empiric antibiotic therapy with vancomycin, Zosyn, acyclovir, and doxycycline. She developed acute renal failure and she was then found to have urinary retention, requiring temporary Gibbons catheter. She was discharged home on oral doxycycline, and she also had started topiramate for her headaches. At that point she was mildly anemic. Liver enzymes remained elevated. Her renal function was improving. During the hospitalization exemestane was put on hold, but it was restarted following discharge. I had seen her for a follow-up visit on 08/24/2020. At that point she was showing gradual improvement in her performance status. She was still having some musculoskeletal pain, but it was tolerable, and she continued adjuvant hormonal therapy with exemestane. During subsequent follow-up, she had developed bloody discharge from the left breast. Diagnostic mammogram and ultrasound on 10/07/2020 were unrevealing. She did stop the exemestane. She is seen for a follow-up visit. She continues to have some fatigue, but she is able to do light work. ECOG score is 1. She has good appetite. She does not have fever, night sweats, or hot flashes. She sometimes has cough at night. She does not complain of shortness of breath or chest pain. She has had a lot of heartburn, which she manages with pantoprazole and or Rolaids as needed. Bowel function remains adequate with senna. She has no complaints. She has not had as much joint aching since she stopped the exemestane. She does complain that she has headaches all the time, though seem to be getting worse. She has tried taking promethazine for it, but with no benefit. It is causing some sedation, though. She has had some dizziness and she reports having some numbness/tingling in her hands. Medications: Acetaminophen-Codeine #3 1 Tablet (of 300-30 mg) Oral PRN, Atorvastatin Calcium 1 Tablet (of 40 mg) Oral daily, Calcium 2 (600 mg) Tablet Oral daily, Cholecalciferol 2 (400 Units) Tablet Oral daily, Cipro 1 Tablet (of 500 mg) Oral b.i.d. PRN, FLUoxetine HCl 1 Tablet (of 20 mg) Capsule Oral daily, Lisinopril 1 (20 mg) Tablet Oral daily, Natural Senna Laxative 1 Tablet (of 64.8-324 mg) Oral daily, Pantoprazole Sodium 1 (40 mg) Tablet, enteric coated Oral daily, TiZANidine HCl 1 Tablet (of 2 mg) Oral PRN, vitamin b complex 1 Tablet daily Allergies: No Known Allergies. Vital Signs: Performed on January 25, 2021 16:11 Height - 65.00 in Weight - 198 lbs (HIGH) BSA - 1.97 sq.m BMI - 32.95 (HIGH) Temperature - 97.3 F (LOW) Pulse - 102 /min (HIGH) Respiration - 18 /min BP - 103/65 mm(hg) O2 Sat - 97 % Pain - 0 Fatigue - 5 Physical Examination: Constitutional - She looks good generally, Eyes - Sclerae nonicteric. Conjunctivae clear, ENMT - No lesions noted in the oral cavity, Hematologic/Lymphatic - No cervical or clavicular adenopathy, Respiratory - Lungs are clear with good air movement bilaterally, Cardiovascular - Heart rhythm is regular. There is no murmur, gallop, or rub noted, Breasts - There is mild induration in the right breast. There are no breast masses noted. There is no axillary adenopathy, Abdomen - Soft. Liver is not enlarged. Spleen is not palable. There is no abdominal mass or ascites noted and there is no inguinal adenopathy, Extremities - No edema. Dorsalis pedis pulses are palpable bilaterally, Integumentary - No skin eruption, Neurologic - No focal neurologic deficits noted. Lab/Imaging: Test performed on January 25, 2021 12:14 Sodium 137 mmol/L Potassium 4.4 mmol/L Chloride 102 mmol/L Est Avg Glucose (eAG) 140 mg/dL CO2 23 mmol/L Anion Gap 16.4 BUN 10 mg/dL Creatinine 0.6 mg/dL Cr Clearance (Est) 130.77 mL/min eGFR 100.0 mL/min Glucose 109 mg/dL Osmolality - Calculated 284 mOsm/kg Calcium 9.0 mg/dL Protein, Total 7.3 g/dL Albumin 4.3 g/dL Globulin 3.0 g/dL Bilirubin, Total 0.6 mg/dL ALT (SGPT) 91 U/L AST (SGOT) 66 U/L Alkaline Phosphatase 174 IU/L Hemoglobin A1C % 6.5 % WBC 8.8 10 3/uL RBC 5.06 10 6/uL HGB 15.4 g/dL HCT 47.6 % MCV 94.1 fL MCH 30.4 pg MCHC 32.4 g/dL RDW 13.4 % Platelet Count 317 10 3/cmm MPV 10.7 fL Neutrophils 6.41 10 3/uL Lymphocytes 1.6 10 3/uL Monocytes 0.7 10 3/uL Eosinophils 0.1 10 3/uL Basophils 0.1 10 3/uL Neutrophil % 72.6 % Lymphocyte % 18.3 % Monocyte % 7.4 % Eosinophil % 0.7 % Basophils % 0.7 % NRBC % 0 % Problem List: 1. Grade 3 invasive ductal carcinoma of the right breast, stage IIB (T2, pN1a, M0), ER/GA positive and HER-2/te nonamplified. She underwent right breast lumpectomy with axillary sentinel lymph node biopsy on 07/02/2014. 2. She has mildly elevated liver enzymes with CT evidence of diffuse fatty infiltration of the liver. 3. Osteopenia. 4. Anxiety/depression. 5. On 02/25/2020 she was admitted to the hospital with an acute febrile illness. A specific cause was not determined, but tick fever was suspected. Problems Addressed with this Encounter and Plan: 1. Patient with grade 3 invasive ductal carcinoma of the right breast, stage IIB (T2, pN1a, M0), ER/GA positive and HER-2/te nonamplified. She underwent right breast lumpectomy with axillary sentinel lymph node biopsy on 07/02/2014 She was given adjuvant chemotherapy with 4 cycles of dose dense Adriamycin/cyclophosphamide, completed in August 2014. She was then given radiation to the right breast, completed in December 2014 to a total dose of 6640 cGy. Adjuvant hormonal therapy with anastrozole 1 mg daily began on 11/16/2014. In December 2016 she had stopped the anastrozole temporarily, as she had developed significant joint pain. The symptoms did not show significant improvement off the medication, and she subsequently restarted it. As of June 2018 the anastrozole was put on hold again due to a significant increase in her liver enzymes. Her CT abdomen/pelvis on 07/30/2018 showed mild fatty infiltration of the liver. There was no evidence of metastatic disease. I did opt to keep her treatment on hold. At her follow-up visit in October 2018 her liver enzymes had come down, but not to normal. She had developed worsening of a generalized skin eruption. She was then seen by Dr. Tello, and the skin biopsy from the left arm showed lichen planus. She was treated with topical steroid. As of her follow-up visit in July 2019 her liver enzymes remain just mildly elevated. She otherwise appeared stable clinically. She then began further adjuvant hormonal therapy with exemestane 25 mg daily. The exemestane was stopped in September 2020 after she developed bloody discharge from the left nipple. Her diagnostic mammogram/ultrasound were unrevealing. She has now being followed on observation/expectant management. Overall, she appears to be doing well clinically. Thus far there has been no evidence of recurrence of the breast cancer. She continues expectant management. I will see her again in 6 months. 2. She has been having frequent headaches. She has had significant sedation on trial of therapy with promethazine, but without significant improvement in the headache. As such, she will be given a prescription now for Topamax 25 mg twice daily. She will continue follow-up with Dr. Bardales. Signed By: Geovani Story M.D. <<Signature on File>>
== END 2021-01-25 11:48 | disposition home or self-care (01) ==
PROVIDERS: PCP Electrodiagnostic Medicine; Visit Provider Internal Medicine Medical Oncology
DX: C50.811 Malignant neoplasm of overlapping sites of right female breast (principal); Z17.0 Estrogen receptor positive status [ER+]; R74.8 Abnormal levels of other serum enzymes; K76.0 Fatty (change of) liver, not elsewhere classified; M85.80 Other specified disorders of bone density and structure, unspecified site; F41.9 Anxiety disorder, unspecified; F32.9 Major depressive disorder, single episode, unspecified; A93.8 Other specified arthropod-borne viral fevers; Z79.811 Long term (current) use of aromatase inhibitors; Z79.899 Other long term (current) drug therapy
CPT/HCPCS: 36415; 80053; 83036; 85025; 99214

== ENCOUNTER → 2021-08-16 13:14 | Outpatient (BNVA) | payer MEDICARE, BC, SELFPAY | PROVIDERS: PCP Electrodiagnostic Medicine; Visit Provider Nurse Practitioner Family | DX: N30.20 Other chronic cystitis without hematuria (principal); R33.9 Retention of urine, unspecified | CPT/HCPCS: 81003 ==

== ENCOUNTER 2021-09-30 09:36 | Outpatient (CLI) | payer MEDICARE, BC, SELFPAY ==
--- NOTE | 2021-09-30 09:48 | MM_ITS ---
WS: [id number] BILATERAL DIGITAL DIAGNOSTIC MAMMOGRAM MAMMOGRAPHY WITH CAD CLINICAL INFORMATION: HX OF BREAST CA COMPARISON: October 07, 2020 TECHNIQUE: Bilateral CC, MLO, and ML views. FINDINGS: Scattered fibroglandular densities bilaterally. Punctate and lucent centered calcifications. Dystroph ic calcification right breast. Biopsy marker left breast. Stable parenchymal scarring upper outer rig ht breast from prior lumpectomy. No suspicious focal mass, asymmetry, calcifications, or architectural distortion. No evidence of amanda gnancy. MM/[id number] IMPRESSION: BI-RADS: 2-Benign FOLLOW UP: 1 Year Follow-up Recommend return to annual diagnostic mammography.
== END 2021-09-30 09:37 | disposition home or self-care (01) ==
PROVIDERS: PCP Electrodiagnostic Medicine; Visit Provider Internal Medicine Medical Oncology
DX: Z85.3 Personal history of malignant neoplasm of breast (principal)
CPT/HCPCS: 77066

== ENCOUNTER 2021-10-04 13:57 | Outpatient (CLI) | payer MEDICARE, BC, SELFPAY ==
--- NOTE | 2021-10-08 10:50 | ONC FU_ITS ---
Dr. Story Patient Follow-Up Note Patient: Marybel Rosado Unit #: [id number]: [id number] Dicatated By: Geovani Story M.D.Date of Visit:Oct 04, 2021 Onc Med Follow-up/Prog Note Chief Complaint: Breast cancer. History of Present Illness: This is a 66 year-old woman with grade 3 invasive ductal carcinoma of the right breast, stage IIB (T2, pN1a, M0), ER/RI positive and HER-2/te nonamplified. In April of 2014 she palpated a new mass in the right breast. Her mammogram on 06/03/2014 revealed concerning right breast 3.4 cm mass at 12:00 position 5 cm from the nipple and a concerning left breast architectural distortion at 3:00 position. On 06/24/2014 the right breast biopsy of mass at 12:00 position revealed microscopic foci of infiltrating ductal carcinoma. The left breast biopsy was benign. On 07/02/2014 she underwent right breast lumpectomy and axillary sentinel lymph node biopsy. Her surgical pathology showed 3.8 cm invasive ductal carcinoma in the background of DCIS, grade 3, negative margins. One out of 2 lymph nodes harvested was positive for metastatic disease with extranodal extension. Prognostic profile showed ER 99%, RI 14%, HER-2/te 2+ by IHC, FISH 0.9. She was first seen by Dr. Guido on 07/16/2014. She had excellent performance status without clinical concerns for metastatic involvement. MUGA scan showed EF 70%. She received 4 cycles of dose dense AC regimen from 07/27/2014 -09/07/2014, complicated with Aloxi associated headaches and Neulasta induced bone pain, managed with supportive care. 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 She completed radiation to the right breast on 01/20/2015 to a total dose of 6640 cGy. Adjuvant hormonal therapy with anastrozole 1 mg daily began on 11/16/2014. Her baseline bone density study did show evidence of osteopenia, T score -2.2 in the lumbar spine. I had seen her for a follow-up visit on 01/03/2017. At that time she was having some musculoskeletal pain. I had her stop the anastrozole temporarily, but she subsequently restarted it, as there was no significant change in her symptoms. Her repeat DEXA scan on 01/15/2017 again showed evidence of osteopenia with T score -2.5 in the lumbar spine. She continued anastrozole 1 mg daily. As of her follow-up visit on 07/22/2018 the anastrozole was put on hold due to an increase in her liver enzymes. Her CT abdomen/pelvis on 07/30/2018 showed mild diffuse fatty infiltration of the liver. There was no evidence of metastatic disease. At her follow-up visit on 10/31/2018 the liver enzymes had come down, but not completely to normal. She had worsening of a generalized skin eruption. She subsequently was seen by Dr. Tello. A skin biopsy from the left arm on 11/05/2018 was consistent with lichen planus. She was treated with topical steroid. At her follow-up visit in July 2019 her liver enzymes remain just mildly elevated. At that point she began further adjuvant hormonal therapy with exemestane 25 mg daily. Her other medical illnesses include chronic cystitis and anxiety/depression. She has history of smoking 1/2 pack of cigarettes daily for 20 years. She quit smoking in 2014. INTERIM HISTORY: On 03/23/2020 she was admitted to the hospital with a febrile illness. She has been having worsening headache over the preceding month or so. At the time of admission she had developed severe frontal headache, fever up to 104 degrees, and horrible, drenching night sweats. Her alkaline phosphatase had increased significantly along with slightly elevated total bilirubin. The SGOT and SGPT levels were mildly elevated and similar to prior studies. Spinal tap was unrevealing. Head CT showed no acute findings. CT abdomen/pelvis showed interval appearance of pleural effusions and possible slight pulmonary edema. There was a small amount of fluid along the gallbladder and possibly thickening of the gallbladder wall, cholecystitis not excluded. There was slight interval thickening of the urinary bladder wall. The liver appeared unremarkable. Chest x-ray showed no acute findings, and echocardiogram was unremarkable. Blood cultures remain negative. Urine cultures grew probable contaminants. Acute hepatitis profile and tick fever panel were negative. Overall, there was no specific cause determined for the illness. During the hospitalization she was given empiric antibiotic therapy with vancomycin, Zosyn, acyclovir, and doxycycline. She developed acute renal failure and she was then found to have urinary retention, requiring temporary Gibbons catheter. She was discharged home on oral doxycycline, and she also had started topiramate for her headaches. At that point she was mildly anemic. Liver enzymes remained elevated. Her renal function was improving. During the hospitalization exemestane was put on hold, but it was restarted following discharge. I had seen her for a follow-up visit on 08/24/2020. At that point she was showing gradual improvement in her performance status. She was still having some musculoskeletal pain, but it was tolerable, and she continued adjuvant hormonal therapy with exemestane. During subsequent follow-up, she had developed bloody discharge from the left breast. Diagnostic mammogram and ultrasound on 10/07/2020 were unrevealing. She stopped the exemestane. As of her follow-up visit on 01/25/2021 she appeared stable clinically. At that point I opted to just follow her expectantly. She is seen for a follow-up visit. She has been feeling pretty good, though in August she had an illness which she feels pretty certain was COVID-19 virus infection. She quarantined herself, but she did not get tested. She is feeling better now. Her activity is still down a little, but her energy is getting better. ECOG score is 1. She has good appetite. She has not had fever. She did have bad night sweating for 1 week. She has sinus drainage and she has been having some dental issues. She was having cough and shortness of breath, but that has improved. She does not complain of chest pain. She has no GI complaints other than heartburn, managed with pantoprazole as needed. Bowel function remains adequate with senna. She has no complaints. She currently does not have any significant joint pain. She was having bad headache with the COVID infection, that is also getting better. She has residual neuropathy in her hands and feet. Since her last visit she has had to increase her antidepressant, but that is helping. Medications: Acetaminophen-Codeine #3 1 Tablet (of 300-30 mg) Oral PRN, Atorvastatin Calcium 1 Tablet (of 40 mg) Oral daily, Calcium 2 (600 mg) Tablet Oral daily, Cholecalciferol 2 (400 Units) Tablet Oral daily, Cipro 1 Tablet (of 500 mg) Oral b.i.d. PRN, FLUoxetine HCl 1 Tablet (of 20 mg) Capsule Oral daily, Lisinopril 1 (20 mg) Tablet Oral daily, Natural Senna Laxative 1 Tablet (of 64.8-324 mg) Oral daily, Pantoprazole Sodium 1 (40 mg) Tablet, enteric coated Oral daily, TiZANidine HCl 1 Tablet (of 2 mg) Oral PRN, vitamin b complex 1 Tablet daily Allergies: No Known Allergies. Vital Signs: Performed on Oct 04, 2021 14:12 Height - 65.00 in Weight - 184.8 lbs (LOW) BSA - 1.91 sq.m BMI - 30.75 (HIGH) Temperature - 97.2 F (LOW) Pulse - 75 /min Respiration - 17 /min BP - 134/81 mm(hg) O2 Sat - 99 % Pain - 0 Fatigue - 0 Physical Examination: Constitutional - She looks good generally, Eyes - Sclerae nonicteric. Conjunctivae clear, ENMT - No lesions noted in the oral cavity, Hematologic/Lymphatic - No cervical, clavicular, or axillary adenopathy, Respiratory - Lungs sound clear with good air movement bilaterally, Cardiovascular - Heart rhythm is regular. There is no murmur, gallop, or rub noted, Abdomen - Soft. Liver is not enlarged. Spleen is not palable. There is no abdominal mass or ascites noted and there is no inguinal adenopathy, Extremities - No edema, Neurologic - No focal neurologic deficits noted. Lab/Imaging: CBC shows hemoglobin 13.4 g, white blood cell count 5800, and platelet count 377,000. Comprehensive metabolic profile shows normal renal function with BUN 12 and creatinine 0.62 mg/dL. Bilirubin is normal at 0.4 mg/dL. She continues to have mild transaminitis with SG OT 63/35 U/L and SGPT 62/29 U/L. The alkaline phosphatase is normal. TSH is normal at 1.16 mIU/L. Hemoglobin A1c is 6.1%. Problem List: 1. Grade 3 invasive ductal carcinoma of the right breast, stage IIB (T2, pN1a, M0), ER/RI positive and HER-2/te nonamplified. She underwent right breast lumpectomy with axillary sentinel lymph node biopsy on 07/02/2014. 2. She has mildly elevated liver enzymes with CT evidence of diffuse fatty infiltration of the liver. 3. Osteopenia. 4. Anxiety/depression. 5. On 02/25/2020 she was admitted to the hospital with an acute febrile illness. A specific cause was not determined, but tick fever was suspected. Problems Addressed with this Encounter and Plan: 1. Patient with grade 3 invasive ductal carcinoma of the right breast, stage IIB (T2, pN1a, M0), ER/RI positive and HER-2/te nonamplified. She underwent right breast lumpectomy with axillary sentinel lymph node biopsy on 07/02/2014 She was given adjuvant chemotherapy with 4 cycles of dose dense Adriamycin/cyclophosphamide, completed in August 2014. She was then given radiation to the right breast, completed in December 2014 to a total dose of 6640 cGy. Adjuvant hormonal therapy with anastrozole 1 mg daily began on 11/16/2014. In December 2016 she had stopped the anastrozole temporarily, as she had developed significant joint pain. The symptoms did not show significant improvement off the medication, and she subsequently restarted it. As of June 2018 the anastrozole was put on hold again due to a significant increase in her liver enzymes. Her CT abdomen/pelvis on 07/30/2018 showed mild fatty infiltration of the liver. There was no evidence of metastatic disease. I did opt to keep her treatment on hold. At her follow-up visit in October 2018 her liver enzymes had come down, but not to normal. She had developed worsening of a generalized skin eruption. She was then seen by Dr. Tello, and the skin biopsy from the left arm showed lichen planus. She was treated with topical steroid. As of her follow-up visit in July 2019 her liver enzymes remain just mildly elevated. She otherwise appeared stable clinically. She then began further adjuvant hormonal therapy with exemestane 25 mg daily. The exemestane was stopped in September 2020 after she developed bloody discharge from the left nipple. Her diagnostic mammogram/ultrasound were unrevealing. She has since then been followed on observation/expectant management. She had suspected COVID-19 virus infection in August 2021. She appears to be recovering uneventfully. She has otherwise been doing well clinically. Thus far there has been no evidence of recurrence of the breast cancer. She remains on observation/expectant management. I will see her again in 1 year. 2. She has had some chronic musculoskeletal pain following the chemotherapy, she also has neuropathy pain in her hands and legs/feet. It has been managed adequately with Tylenol #3, which she just takes occasionally. Signed By: Geovani Story M.D. <<Signature on File>>
== END 2021-10-04 13:58 | disposition home or self-care (01) ==
LOC: ONCMED 14:03
PROVIDERS: PCP Electrodiagnostic Medicine; Visit Provider Internal Medicine Medical Oncology
DX: Z85.3 Personal history of malignant neoplasm of breast (principal); K76.0 Fatty (change of) liver, not elsewhere classified; F41.9 Anxiety disorder, unspecified; F32.A Depression, unspecified; M79.18 Myalgia, other site; Z79.899 Other long term (current) drug therapy; Z86.16 Personal history of COVID-19; Z92.21 Personal history of antineoplastic chemotherapy; Z87.891 Personal history of nicotine dependence
CPT/HCPCS: 99214

== ENCOUNTER → 2022-04-13 09:24 | Outpatient (BNVA) | payer MEDICARE, BC, SELFPAY | PROVIDERS: PCP Electrodiagnostic Medicine; Visit Provider Urology | DX: N30.20 Other chronic cystitis without hematuria (principal); R33.9 Retention of urine, unspecified; N81.10 Cystocele, unspecified | CPT/HCPCS: 51798; 81003; 99213 ==

== ENCOUNTER 2022-10-02 12:53 | Outpatient (CLI) | payer MEDICARE, BC, SELFPAY ==
--- NOTE | 2022-10-02 13:16 | MM_ITS ---
WS: [id number] BILATERAL 3D TOMOSYNTHESIS DIGITAL DIAGNOSTIC MAMMOGRAPHY WITH CAD CLINICAL INFORMATION: breast cancer. Bilateral breast pain and soreness. COMPARISON: September 30, 2021 TECHNIQUE: Bilateral CC, MLO, and ML views. FINDINGS: Scattered fibroglandular densities bilaterally. Punctate calcifications. Dystrophic calcifications. P ost lumpectomy changes upper outer RIGHT breast. Parenchymal scarring unchanged. Treatment-related ch anges RIGHT breast. Biopsy marker LEFT breast. Vascular calcification. No suspicious focal mass, asymmetry, calcifications, or architectural distortion. No evidence of amanda gnancy. MM/[place] [id number] IMPRESSION: BI-RADS: 2-Benign FOLLOW UP: 1 Year Follow-up Recommend return to annual diagnostic mammography.
== END 2022-10-02 12:54 | disposition home or self-care (01) ==
LOC: RAD 12:53
PROVIDERS: PCP Electrodiagnostic Medicine; Visit Provider Internal Medicine Medical Oncology
DX: C50.911 Malignant neoplasm of unspecified site of right female breast (principal)
CPT/HCPCS: 77062; G0279

== ENCOUNTER 2022-11-09 13:48 | Oncology outpatient (recurring) (ONCR) | payer MEDICARE, BC, SELFPAY | END 2022-11-21 23:59 | disposition home or self-care (01) | LOC: ONCMED 13:48 | PROVIDERS: PCP Electrodiagnostic Medicine; Visit Provider Internal Medicine Medical Oncology | DX: C50.111 Malignant neoplasm of central portion of right female breast (principal); Z17.0 Estrogen receptor positive status [ER+]; R53.83 Other fatigue; M54.50 Low back pain, unspecified; M81.0 Age-related osteoporosis without current pathological fracture; K21.9 Gastro-esophageal reflux disease without esophagitis; Z79.899 Other long term (current) drug therapy; Z92.21 Personal history of antineoplastic chemotherapy; Z92.3 Personal history of irradiation | CPT/HCPCS: 99214 ==

== ENCOUNTER 2022-11-15 12:48 | Outpatient (CLI) | payer MEDICARE, BC, SELFPAY ==
--- NOTE | 2022-11-15 14:00 | XR_ITS ---
WS: [id number] DEXA (DUAL ENERGY X-RAY ABSORPTIOMETRY) Bone mineral density was performed using a Beeminder machine. HISTORY: Follow-up COMPARISON: 01/02/2019 Lumbar spine BMD (L1-L4): 0.897 g/cm2 T score: -2.4 Z score: -1.5 Total hip BMD: Left: 0.950 g/cm2. T score: -0.5 Z score: 0.3 Right: 0.983 g/cm2. T score: -0.2 Z score: 0.6 10 year probability of a major osteoporotic fracture is 10.3%. Compared to the prior study from 01/02/2019. Lumbar spine bone mineral density has decreased by 1.0%. Bilateral hips bone mineral density has decreased by 1.1%. XR/XR DEXA axial skeleton* [id number] IMPRESSION: OSTEOPENIA based upon the WHO classification for females. No significant change in bone mineral density within the hips or lumbar spine.
== END 2022-11-15 12:49 | disposition home or self-care (01) ==
PROVIDERS: PCP Electrodiagnostic Medicine; Visit Provider Internal Medicine Medical Oncology
DX: M81.0 Age-related osteoporosis without current pathological fracture (principal)
CPT/HCPCS: 77080

== ENCOUNTER 2023-10-05 08:15 | Outpatient (CLI) | payer MEDICARE, BC, SELFPAY ==
--- NOTE | 2023-10-05 08:30 | MM_ITS ---
WS: [id number] DIAGNOSTIC BILATERAL DIGITAL BREAST TOMOSYNTHESIS MAMMOGRAPHY WITH CAD HISTORY: ANNUAL - HX BR CA COMPARISON: 10/02/2022, 09/30/2021 and 10/07/2020 TECHNIQUE: Bilateral craniocaudad, mediolateral oblique, and mediolateral views are submitted with to mosynthesis and SM. Computer aided detection utilized. Breast composition: There are scattered areas of fibroglandular density. Postoperative lumpectomy grupo nges in the superior RIGHT breast near 12:00. Dystrophic benign calcifications at the surgical lumpec luis site. There are additional benign calcifications in the LEFT breast. No interval guide changer sev eral prior examinations. IMPRESSION: MM/[place] [id number] BI-RADS: 2-Benign FOLLOW UP: 1 Year Follow-up
== END 2023-10-05 08:16 | disposition home or self-care (01) ==
LOC: RAD 08:16
PROVIDERS: PCP Electrodiagnostic Medicine; Visit Provider Internal Medicine Medical Oncology
DX: Z85.3 Personal history of malignant neoplasm of breast (principal)
CPT/HCPCS: 77062; G0279

== ENCOUNTER 2024-10-15 12:09 | Outpatient (CLI) | payer MEDICARE, OTHER, SELFPAY ==
--- NOTE | 2024-10-15 12:32 | MM_ITS ---
WS: [id number] BILATERAL 3D TOMOSYNTHESIS DIGITAL DIAGNOSTIC MAMMOGRAPHY WITH CAD CLINICAL INFORMATION: hx of self breast ca HISTORY: RIGHT breast pain and soreness. Prior RIGHT lumpectomy. COMPARISON: 10/05/2023 TECHNIQUE: Bilateral CC, MLO, and ML views. FINDINGS: Scattered fibroglandular densities bilaterally. Prior postoperative changes of lumpectomy RIGHT breas t with parenchymal scarring similar to previous. Treatment-related changes RIGHT breast with skin thi ckening. Incidental dystrophic benign calcifications. Incidental calcifications LEFT breast. Biopsy c lip LEFT breast No suspicious focal mass, asymmetry, calcifications, or architectural distortion. No evidence of amanda gnancy. MM/MM diag BI tomosynthesis [id number] IMPRESSION: DENSITY: There are scattered areas of fibroglandular density. BI-RADS: 2 - Benign. FOLLOW UP: 1 Year Follow-up Recommend return to annual diagnostic mammography.
== END 2024-10-15 12:10 | disposition home or self-care (01) ==
LOC: RAD 12:11
PROVIDERS: PCP Electrodiagnostic Medicine; Visit Provider Electrodiagnostic Medicine
DX: Z85.3 Personal history of malignant neoplasm of breast (principal); R92.323 Mammographic fibroglandular density, bilateral breasts; Z98.890 Other specified postprocedural states; R92.8 Other abnormal and inconclusive findings on diagnostic imaging of breast; R92.1 Mammographic calcification found on diagnostic imaging of breast
CPT/HCPCS: 77062; 77063; 77067; G0279

== ENCOUNTER 2024-11-04 14:11 | Outpatient (CLI) | payer MEDICARE, OTHER, SELFPAY ==
--- NOTE | 2024-11-04 14:14 | XR_ITS ---
WS: [id number] SCREENING DEXA SCAN Sway CLINICAL INFORMATION: POSTMENOPAUSAL COMPARISON: 11/15/2022 FINDINGS: The L1-L4 bone mineral density measures 0.978 g/cm2. This corresponds to a T score score of -1.7 and Z score of 0.0. Left femoral neck bone mineral density measures 0.895 g/cm2. This corresponds to a T score of -0.9 and Z score of 0.6. Right femoral neck bone mineral density measures 0.918 g/cm2. This corresponds to a T score -0.7of and Z score of 0.8. Mean femoral neck bone mineral density measures 0.907 g/cm2. This corresponds to a T score of -0.8 and Z score of 0.7. XR/XR DEXA axial skeleton* [id number] IMPRESSION: Osteopenia lumbar spine. Normal bone mineralization of femoral necks. Patient's FRAX calculated 10 year probability for major osteoporotic fracture i s 10.4% and osteoporotic hip fracture is 1.8%. Bone marrow density lumbar spine increased 9.0% Bone mineral density femoral necks decreased -6.1%
== END 2024-11-04 14:12 | disposition home or self-care (01) ==
PROVIDERS: PCP Electrodiagnostic Medicine; Visit Provider Family Medicine
DX: Z78.0 Asymptomatic menopausal state (principal); M85.88 Other specified disorders of bone density and structure, other site
CPT/HCPCS: 77080

== ENCOUNTER 2025-04-24 12:20 | Emergency (ER) | payer MEDICARE, OTHER, SELFPAY ==
--- OUTSIDE RECORDS SUMMARY | 2025-04-24 12:25 | XMS_ITS | Clinical Summary ---
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 Active FLUoxetine (PROzac) 20 mg capsule Take 20 mg by mouth daily. Active triamcinolone acetonide (KENALOG) 0.1 % Cream Apply to affected area 2 times daily. Active hydrOXYzine HCl (ATARAX) 10 mg tablet Take 10 mg by mouth 3 times daily as needed for Itching. Active pantoprazole (PROTONIX) 40 mg Tablet, Delayed Release (E.C.) Take 40 mg by mouth 1 time daily as needed. Active tizanidine HCl (TIZANIDINE ORAL) Take by mouth 1 time daily as needed. Active acetaminophen with codeine (TYLENOL-CODEINE #3 ORAL) Take by mouth 1 time daily as needed. Active traZODone (DESYREL) 50 mg tablet Take 50 mg by mouth daily at bedtime PRN . Active vitamin B complex (B COMPLEX 1 ORAL) Take by mouth. Active calcium carbonate/vitami n D3 (CALCIUM WITH VITAMIN D ORAL) Take by mouth. Active sulfamethoxazole -trimethoprim (BACTRIM DS) 800-160 mg tablet Take 1 Tablet by mouth 1 time daily as needed. Active oxyCODONE (ROXICODONE) 5 mg tabletIndication s:Complication of implanted vaginal mesh, unspecified complication, subsequent encounter Take 1 Tablet by mouth every 4 hours as needed for Break-Through Pain. 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 Gender Identity Not on file Sexual Orientation Not on file Last Filed Vital Signs Vital Sign Reading Time Taken Comments Blood Pressure 143/74 07/22/2019 9:50 AM CDT Pulse 87 07/22/2019 9:50 AM CDT Temperature 36.8 C (98.3 F) 04/08/2019 9:00 AM CDT Respiratory Rate 18 04/08/2019 9:00 AM CDT Oxygen Saturation 98% 04/08/2019 9:00 AM CDT Inhaled Oxygen Concentration - - Weight 88.1 kg (194 lb 3.2 oz) 07/22/2019 9:50 A M CDT Height 167.6 cm (5' 6 ) 07/22/2019 9:50 AM CDT Body Mass Index 31.34 07/22/2019 9:50 AM CDT Plan of Treatment Health Maintenance Due Date Last Done Comments DTAP/TDAP/TD VACCINES (1 - Tdap) 1973 BREAST CANCER SCREENING 1994 COLORECTAL SCREENING 1999 Colorectal Cancer Screening 1999 FIT-DNA Q 3 years 1999 FIT/FOBT Q 1 year 1999 Flex Sig/CT Colonography Q 5 years 1999 PNEUMOCOCCAL VACCINE 50+ YEARS (1 of 1 - PCV) 08/29/20 04 ZOSTER VACCINE (1 of 2) 2004 OSTEOPOROSIS SCREENING 2019 INFLUENZA VACCINE (#1) 2025 RSV VACCINE (60+ or ) (1 - 1-dose 75+ series) 2029 Medical Devices Implanted Type Area Electronic Transaction Implementer Device Identifier Shelf Expiration Date Model / Serial / Lot Hemostatic Surgifoam [id number] 1974 - [id number] Implanted:Qty : 1 on 04/07/2019 by Kassy Oliva MD at [facility] Hemostatic N/A: Vagina [employer] [id number] 02/13/2023 1974 / / [id number] Gel-Flow Kit 6ml Implanted:Qty : 1 on 04/07/2019 by Kassy Oliva MD at [facility] N/A: Vagina [id number] 05/24/2020 / / [id number] Explanted Type Area Electronic Transaction Implementer Device Identifier Shelf Expiration Date Model / Serial / Lot Uphold Vaginal Mesh Explanted:Qty: 1 on 04/07/2019 by Kassy Oliva MD at [facility] N/A: Vagina Insurance BCBS BLUE ACCESS/TRUE BLUE PPO RX [employer]ER[employer] Commercial Advance Directives For more information, please contact: [phone] * Full Code (Latest Code Status on File) Date Activated Date Inactivated Comments 04/07/2019 8:25 AM 04/08/2019 3:44 PM * Full Code Date Activated Date Inactivated Comments 04/07/2019 8:14 AM 04/07/2019 8:25 AM Care Teams Ironworker [employer] Relationship Specialty Start Date End Date Melecio Bardales DO PCP - General Family Practice 03/20/19
--- OUTSIDE RECORDS SUMMARY | 2025-04-24 12:25 | XMS_ITS | Clinical Summary ---
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
[2025-04-24 12:29] VITALS: BP 117/69; PULSE 79; RESP 16; TEMP 36.4; O2SAT 99; BMI 20.8
--- NOTE | 2025-04-24 12:49 | W.ED.ABDPA2 ---
HPI - Abdominal Pain General: Chief Complaint: Abdominal Pain Stated Complaint: abd pain Time Seen by Provider: 04/24/25 12:37 History of Present Illness: 69-year-old female presents emergency room complaints of right upper quadrant abdominal pain for the last 2 days. No vomiting but very nauseous feels that she had a bowel movement last space feels very constipated denies any medic easier melena no dysuria urgency or frequency no fever sweats or chills. Associated Symptoms: Reports constipation and nausea; Denies chills, dysuria, fever(s) and vomiting Related Data Home Medications ?Medication ?Instructions ?Recorded ?Confirmed calcium 600 mg (as 1 cap PO DAILY 12/02/19 04/24/25 carbonate)-vitamin D3 12.5 mcg (500 unit) capsule (Calcium with Vit D3) tizanidine 2 mg capsule 2 mg PO Q8H PRN Pain 12/02/19 04/24/25 triamcinolone acetonide 0.1 % 1 applic topical BID PRN unknown 12/02/19 04/24/25 topical cream diltiazem HCl 60 mg 60 mg PO BID 08/16/21 04/24/25 capsule,extended release 12 hr imdppehvdsoe-jjzkswyl-upmsiz tablet 1 tab PO DAILY 11/09/22 04/24/25 atorvastatin 10 mg tablet 10 mg PO DAILY 03/30/25 04/24/25 fluoxetine 40 mg capsule 40 mg PO DAILY 04/24/25 04/24/25 inulin 2 gram chewable tablet 2 g PO DAILY 04/24/25 04/24/25 tirzepatide 2.5 mg/0.5 mL 2.5 mg SUBCUT Q7D 04/24/25 04/24/25 subcutaneous pen injector (Breezy) tramadol 50 mg tablet 50 mg PO Q6H PRN Severe Pain 04/24/25 04/24/25 (Scale Score 7-10) Previous Rx's ?Medication ?Instructions ?Recorded amoxicillin 875 mg-potassium 1 tab PO BID #14 tabs 04/24/25 clavulanate 125 mg tablet hydrocodone 5 mg-acetaminophen 325 1 tab PO Q6H PRN pain #15 tabs 04/24/25 mg tablet promethazine 25 mg tablet 25 mg PO Q6H PRN nausea and 04/24/25 vomiting #20 tabs Allergies Allergy/AdvReac Type Severity Reaction Status Date / Time No Known Allergies Allergy Verified 04/24/25 12:33 Review of Systems Const: Denies: fever(s) or chills Card: Denies: chest pain Resp: Denies: dyspnea GI: Reports: abdominal pain, nausea and constipation; Denies: vomiting : Denies: dysuria, urinary frequency or urinary urgency Musc: Denies: neck pain or back pain Skin/Breast: Denies: rash PFSH ED PFSH: Medical History Transaminitis Osteoporosis Breast cancer, right 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 HER-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 Status post right breast lumpectomy and sentinel lymph node biopsy, Status post chemo radiotherapy Reflex sympathetic dystrophy of right leg Nifedipine Renal calculus, left Cystocele with rectocele BOTH REPAIRED Trans-obturator sub-urethral sling in April 2005 Anterior vaginal repair Nocturia Chronic cystitis Surgical History H/O bilateral salpingo-oophorectomy History of lumpectomy of right breast (07/02/14) Right breast lumpectomy with axillary sentinel lymph node biopsy History of hysterectomy Vaginal hysterectomy Family History Mother Dementia Diabetes Brother Diabetes Sister Diabetes Grandmother Diabetes Denies family history of Colon cancer Breast cancer Social History Smoking and tobacco/nicotine status: former use of tobacco/nicotine Alcohol intake: current Alcohol intake frequency: holidays/special occasions only Substance/Drug Use: unknown Adopted: No Caregiver/support person: No Lives independently: No Household members: spouse Marital status: Current occupational status: retired Current gender identity: Male Physical Exam Const: GENERAL APPEARANCE: cooperative ORIENTATION/CONSCIOUSNESS: Yes awake, Yes oriented to person, Yes oriented to place and Yes oriented to time HENMT: COMMON NORMALS: normocephalic, atraumatic and hearing grossly normal bilaterally HEAD & SCALP: normocephalic and atraumatic Resp: COMMON NORMALS: normal respiratory effort, No retractions, No use of accessory muscles and clear to auscultation bilaterally AUSCULTATION: clear to auscultation bilaterally Cardio: COMMON NORMALS: regular rate, regular rhythm and No murmurs present (Cardio) RATE: regular rate RHYTHM: regular rhythm GI: COMMON NORMALS: Soft to palpation and No hepatosplenomegaly present AUSCULTATION: Yes normoactive bowel sounds PALPATION: Yes Soft to palpation, No Tenderness to palpation present (GI), No Guarding due to palpation present (GI) and Yes No hepatosplenomegaly present Extremity: COMMON NORMALS: normal to inspection, capillary refill normal, no clubbing, cyanosis or edema, no calf tenderness and no pedal edema Neuro: SENSORIUM/ORIENTATION: Yes oriented to person, Yes oriented to place and Yes oriented to time Skin: COMMON NORMALS: no rashes or lesions noted GENERAL SKIN EXAM: no rashes or lesions noted Course Vital Signs: Vital signs: Vital Signs Temperature 97.6 F 04/24/25 12:29 Pulse Rate 80 04/24/25 15:57 Respiratory Rate 18 04/24/25 14:43 Blood Pressure 144/80 04/24/25 15:57 Pulse Oximetry 99 04/24/25 15:57 Oxygen Delivery Me thod Room Air 04/24/25 12:29 MDM - Abdominal Pain Medical Decision Making On exam abdomen is tender in the right upper quadrant ultrasound did not show any acute cholecystitis. CT shows transverse colitis. Will discharge home with Augmentin clear liquid diet for 2 to 3 days then advance as tolerated also give hydrocodone and antiemetics. If not improving follow-up with primary care Medical Records I reviewed the patient's medical records. Lab Data I reviewed the patient's lab results. 04/24/25 12:51 04/24/25 12:51 Labs/Radiology: Radiology Impressions Abdomen/Pelvis CT 04/24/25 13:32 IMPRESSION: 1. Normal liver and gallbladder. 2. Normal appendix. 3. Gastritis and duodenitis with submucosal enhancement 4. Somewhat prominent fluid distention of the RIGHT colon and transverse colon with slight mucosal enhancement can be seen with a mild infectious or inflammatory colitis. No evidence of inflammatory stranding or wall thickening 5. Moderate sigmoid constipation. 6. Normal small bowel. 7. No hydronephrosis in either kidney. 8. Hysterectomy. Gallbladder Ultrasound 04/24/25 13:33 IMPRESSION: 1. Negative gallbladder. 2. No biliary duct dilatation. 3. Mild hepatic steatosis. Laboratory Results WBC 10.82 10^3/uL (3.29-11.43) 04/24/25 12:51 RBC 4.45 10^6/uL (3.85-5.65) 04/24/25 12:51 Hgb 14.10 g/dL (11.27-16.99) 04/24/25 12:51 Hct 42.1 % (36-47) 04/24/25 12:51 MCV 94.6 fl (85-98) 04/24/25 12:51 MCH 31.7 pg (27-33) 04/24/25 12:51 MCHC 33.5 g/dL (30-55) 04/24/25 12:51 RDW 12.5 % (12.1-15.1) 04/24/25 12:51 Plt Count 281 10^3/cmm (157-399) 04/24/25 12:51 MPV 10.0 fL (7.4-10.4) 04/24/25 12:51 Neut % (Auto) 79.1 % 04/24/25 12:51 Lymph % (Auto) 11.9 % 04/24/25 12:51 [place] % (Auto) 7.5 % 04/24/25 12:51 Eos % (Auto) 0.6 % 04/24/25 12:51 Baso % (Auto) 0.4 % 04/24/25 12:51 Neut # (Auto) 8.57 10^3/uL (1.8-7.7) H 04/24/25 12:51 Lymph # (Auto) 1.3 10^3/uL (0.8-4.8) 04/24/25 12:51 [place] # (Auto) 0.8 10^3/uL (0.2-0.9) 04/24/25 12:51 Eos # (Auto) 0.1 10^3/uL (0.0-0.8) 04/24/25 12:51 Baso # (Auto) 0.0 10^3/uL (0.0-0.1) 04/24/25 12:51 Nucleated RBC % (auto) 0 % 04/24/25 12:51 Nucleated RBCs # 0.0 /100WBC 04/24/25 12:51 Sodium 138 mmol/L (136-145) 04/24/25 12:51 Potassium 3.8 mmol/L (3.5-5.1) 04/24/25 12:51 Chloride 96 mmol/L (98-107) L 04/24/25 12:51 Carbon Dioxide 24 mmol/L (22-29) 04/24/25 12:51 Anion Gap 21.8 (5-19) H 04/24/25 12:51 BUN 9 mg/dL (8-23) 04/24/25 12:51 Creatinine 0.6 mg/dL (0.5-0.9) 04/24/25 12:51 GFR Calculation 98.8 mL/min (90-130) 04/24/25 12:51 Glucose 103 mg/dL (65-115) 04/24/25 12:51 Calculated Osmolality 285 mOsm/kg (285-295) 04/24/25 12:51 Calcium 9.9 mg/dL (8.5-10.5) 04/24/25 12:51 Total Bilirubin 0.5 mg/dL (0.15-1.2) 04/24/25 12:51 AST 36 U/L (0-32) H 04/24/25 12:51 ALT 23 U/L (0-33) 04/24/25 12:51 Alkaline Phosphatase 100 U/L (35-105) 04/24/25 12:51 Total Protein 7.5 g/dL (6.6-8.7) 04/24/25 12:51 Albumin 4.4 g/dL (3.5-5.2) 04/24/25 12:51 Globulin 3.1 g/dL (1.3-4.6) 04/24/25 12:51 Lipase 41 U/L (13-60) 04/24/25 12:51 Urine Color Yellow (Yellow) 04/24/25 12:51 Urine Appearance Clear (CLEAR) 04/24/25 12:51 Urine pH 7.5 (5-7) 04/24/25 12:51 Ur Specific [place] 1.005 (1.005-1.030) 04/24/25 12:51 Urine Protein Negative (Negative) 04/24/25 12:51 Urine Glucose (UA) Negative (Normal) 04/24/25 12:51 Urine Ketones Negative (Negative) 04/24/25 12:51 Urine Blood Negative (Negative) 04/24/25 12:51 Urine Nitrate Negative (Negative) 04/24/25 12:51 Urine Bilirubin Negative (Negative) 04/24/25 12:51 Urine Urobilinogen 0.2 mg/dL (Negative) 04/24/25 12:51 Ur Leukocyte Esterase Negative (Negative) 04/24/25 12:51 Urine RBC 0-2 /hpf (0-2) 04/24/25 12:51 Urine WBC 0-5 /hpf (0-5) 04/24/25 12:51 Ur Squamous Epith Cells 0-5 /hpf (0-5) 04/24/25 12:51 Amorphous Sediment Not Reportable 04/24/25 12:51 Urine Bacteria None seen /hpf (NONE) 04/24/25 12:51 Hyaline Casts 0.40 /lpf 04/24/25 12:51 All radiology interpretation(s) finalized by discharge Discharge Plan Discharge Patient Disposition: Home Clinical Impression: Colitis Condition: Stable Prescriptions: New amoxicillin-pot clavulanate 875-125 mg tablet 1 tab PO BID Qty: 14 0RF hydrocodone-acetaminophen 5-325 mg tablet 1 tab PO Q6H PRN (Reason: pain) Qty: 15 0RF promethazine 25 mg tablet 25 mg PO Q6H PRN (Reason: nausea and vomiting) Qty: 20 0RF No Action diltiazem HCl 60 mg capsule,extended release 12 hr 60 mg PO BID triamcinolone acetonide 0.1 % cream 1 applic TOPICAL BID PRN (Reason: unknown) tizanidine 2 mg capsule 2 mg PO Q8H PRN (Reason: Pain) calcium carbonate-vitamin D3 [Calcium 600 with Vitamin D3] 600 mg(1,500mg) -500 unit capsule 1 cap PO DAILY atorvastatin 10 mg tablet 10 mg PO DAILY rjfjuahymuid-jzawuswr-mwppvn Tablet 1 tab PO DAILY fluoxetine 40 mg capsule 40 mg PO DAILY tramadol 50 mg tablet 50 mg PO Q6H PRN (Reason: Severe Pain (Scale Score 7-10)) Fiber Gummies 2 gram Tablet,Chewable 2 g PO DAILY Mounjaro 2.5 mg/0.5 mL pen injector 2.5 mg SUBCUT Q7D Discharge Orders: Discharge ED (Routine); Ordered 04/24/25 Ordered By: Ricardo Ferrer Referrals: Melecio Bardales DO [Primary Care Provider, Family Practice] Discharge Diet: Usual diet Discharge Activity: Increase activity as tolerated Patient Instructions: Colitis (ED), Opioid Safety, Pain Management, Patient Portal & [place] Instructions Activity Restrictions/Additional Instructions: [facility]. It is very important that you follow up as instructed or that you return to the Emergency Department should you have concerns or if your condition changes or worsens in any way. You were seen in the emergency room with complaints of abdominal pain your white count was normal on the CT you were noted to have some inflammation of the colon typically described as colitis. This can be infectious. You are given an antibiotic 1 pill twice a day for 7 days. Also give you pain and nausea medication to use as needed recommend clear liquid diet for 24 to 48 hours and advance as tolerated. Recheck with your primary care doctor if not improving Print Language: Yi Coding Level of Care Code ED Clinical Science Consultant for Sebastian Delgado
[2025-04-24 13:12] LABS: Hematocrit 42.1 % (36-47); Hemoglobin 14.10 g/dL (11.27-16.99); Mean Corpuscular HGB Conc 33.5 g/dL (30-55); Mean Corpuscular Hemoglobin 31.7 pg (27-33); Mean Corpuscular Volume 94.6 fl (85-98); Nucleated Red Blood Cells % 0 %; Platelet Count 281 10^3/cmm (157-399); Red Blood Count 4.45 10^6/uL (3.85-5.65); White Blood Count 10.82 10^3/uL (3.29-11.43)
[2025-04-24 13:26] LABS: Alanine Aminotransferase 23 U/L (0-33); Albumin Level 4.4 g/dL (3.5-5.2); Alkaline Phosphatase 100 U/L (35-105); Anion Gap 21.8 (5-19); Aspartate Amino Transferase 36 U/L (0-32); Blood Urea Nitrogen 9 mg/dL (8-23); Calcium 9.9 mg/dL (8.5-10.5); Carbon Dioxide 24 mmol/L (22-29); Chloride 96 mmol/L (98-107); Creatinine Clr Calc Pharmacy 60.9309; Globulin 3.1 g/dL (1.3-4.6); Glucose 103 mg/dL (65-115); Lipase 41 U/L (13-60); Osmolality Calculated 285 mOsm/kg (285-295); Potassium 3.8 mmol/L (3.5-5.1); Sodium 138 mmol/L (136-145); Total Protein 7.5 g/dL (6.6-8.7)
[2025-04-24 13:29] LABS: Glucose Urine UA Negative (Normal); Nitrate Urine Negative (Negative); Specific Gravity, Urine 1.005 (1.005-1.030)
--- NOTE | 2025-04-24 13:32 | CT_ITS ---
WS: [email or web address] CT ABDOMEN PELVIS TECHNIQUE: Contrast-enhanced CT of the abdomen and pelvis with coronal and sagittal reformatted images. CLINICAL INFORMATION: abd pain COMPARISON: 2019 DLP: 409.[address] scans at [facility] use at least one of these dose optimization techniques: automated exposure control; mA and/or kV adjustment per patient size (includes targeted exams where dose is matched to clinical indication); or iterative reconstruction. FINDINGS: Normal liver. Normal gallbladder. Normal portal vein and splenic vein. Normal spleen. Normal GE junction. Lung bases are well aerated. Mucosal enhancement in the stomach and duodenum compatible with gastroduodenitis. Normal pancreatic parenchymal enhancement. Celiac and SMA are patent. Normal caliber abdominal aorta. Aortic calcification. Adrenal glands are normal. Normal renal parenchymal enhancement. No hydronephrosis. Tiny RIGHT renal cyst. Tiny fat-containing umbilical hernia. Chronic appearing anterior wedging and compression as T12 and L1 worse at T12. This is new since 2020 but has a chronic appearance. Sigmoid constipation. Normal appendix in the RIGHT lower quadrant. Somewhat prominent fluid distention of the RIGHT colon and transverse colon although no evidence of obstruction. Somewhat prominent enhancement involving the cecum and RIGHT colon can be seen with mild infectious or inflammatory colitis. No significant colonic thickening or inflammatory changes Prior hysterectomy. CT/CT abdomen pelvis w con* [id number] IMPRESSION: 1. Normal liver and gallbladder. 2. Normal appendix. 3. Gastritis and duodenitis with submucosal enhancement 4. Somewhat prominent fluid distention of the RIGHT colon and transverse colon with slight mucosal enhancement can be seen with a mild infectious or inflamma tory colitis. No evidence of inflammatory stranding or wall thickening 5. Moderate sigmoid constipation. 6. Normal small bowel. 7. No hydronephrosis in either kidney. 8. Hysterectomy.
--- NOTE | 2025-04-24 13:33 | US_ITS ---
WS: [id number] RIGHT UPPER QUADRANT ULTRASOUND HISTORY: abd pain COMPARISON: 01/28/2024 Liver: 10.3 cm in length. Normal size liver with mild hepatic steatosis. No mass identified. Portal Vein: Normal hepatopetal flow with monophasic waveform. Gallbladder: Normally distended gallbladder with no stones or wall thickening. CBD: 0.5 cm Pancreas: Head and tail of the pancreas are not visualized. The body is normal. Body is echogenic suggesting increased fat deposition within the pancreas. Right kidney: 9.1 cm in length. Normal size and echogenicity. No hydronephrosis or mass. Aorta and IVC: Unremarkable abdominal aorta and IVC. No ascites. US/US gall bladder [id number] IMPRESSION: 1. Negative gallbladder. 2. No biliary duct dilatation. 3. Mild hepatic steatosis.
[2025-04-24 13:35] LABS: Add Urine Microscopic? YES
[2025-04-24 13:39] VITALS: BP 140/65; PULSE 70; RESP 17; O2SAT 100
[2025-04-24] MEDS: ondansetron 2 mg/ML SDV 2 mL 4 MG IVP (13:39)
[2025-04-24] MEDS: morphine 4 mg/mL SDV 1 mL IVP ×2 (13:39→14:43)
[2025-04-24] MEDS: iohexol 350 mg/mL 500 mL Btl (per mL) IV (14:15)
[2025-04-24 14:43] VITALS: RESP 18; O2SAT 100
[2025-04-24 15:42] VITALS: PULSE 77; O2SAT 97
[2025-04-24 15:57] VITALS: BP 144/80; PULSE 80; O2SAT 99
== END 2025-04-24 15:57 | disposition home or self-care (01) ==
PROVIDERS: Emergency Provider Family Medicine; PCP Electrodiagnostic Medicine
DX: K52.9 Noninfective gastroenteritis and colitis, unspecified (principal); Z87.891 Personal history of nicotine dependence; Z85.3 Personal history of malignant neoplasm of breast
CPT/HCPCS: 74177; 76705; 80053; 81001; 83690; 85025; 96374; 96375; 96376; 99285; J2270; J2405

== ENCOUNTER 2025-08-23 03:58 | Emergency (ER) | payer MEDICARE, OTHER, SELFPAY ==
--- OUTSIDE RECORDS SUMMARY | 2025-08-23 04:04 | XMS_ITS | Clinical Summary ---
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
--- OUTSIDE RECORDS SUMMARY | 2025-08-23 04:04 | XMS_ITS | Continuity of Care Document ---
Author Organization [facility] - [facility], [place], [facility] ([facility]) Address [address] [place] [address] [place] [address] Care Team Providers Care House Moving Supervisor Name Role Phone WILDER BARDALES Primary Care Provider Unavailabl e Assessment Encounter Date Assessment Date Assessment LastModified by Organization Details LastModified Time 06/03/2025 06/03/2025 Document scribed by Chao Rangel [employer]. I was present during interview and exam. I have reviewed and agree with above documentation . Dr. Wilder Bardales. [email or web address] Not available 06/03/2025 09:36:27 Plan of Treatment Reminders Order Date Submit Date Provider Last Modified By Organization Details Last Modified Time Details Appointments None recorded. Lab None recorded. Referral None recorded. Procedures diagnostic colonoscopy (PROC) [email or web address] [facility], [address] [place], [address], 08:56:32 Surgeries None recorded. Imaging None recorded. Medication Orders None recorded. Patient TargetsNo targets recorded. Patient InstructionsNo instructions recorded. Reason for Referral None Reported. Results Created Date Observation Date Name Description Value Unit Range Abnormal Flag Note LastModifiedBy Organization Detail LastModifiedTime 05/08/2005/05/2025 XR, kidne y + urete r + bladd er No observ ation record ed. [facility] [address] [place], [address], 05/11/2025 14:53:34 06/23/2006/18/2025 colon oscop y proce dure (PROC ) No observ ation record ed. [email or web address] [facility] [address] , [place], [address], 06/23/2025 12:19:28 06/30/20 25 06/30/2025 elect rocar diogr am No observ ation record ed. [facility] ([facility]) [address] [place], [address], 06/30/2025 18:15:42 06/30/20 25 06/30/2025 elect rocar diogr am No observ ation record ed. [facility] ([facility]) [address] [place] [address], [phone], 07/01/2025 16:52:39 07/02/20 25 06/30/2025 elect rocar diogr am No observ ation record ed. [facility] ([facility]) [address] [place] [address], [phone], 07/03/2025 10:19:16 Result Notes None recorded. Problems Name Problem SNOMED Code Status Onset Date Resolution Date Notes Provider Name and Address Organization Details Recorded Time Insomnia 534216792 Active 2003 Amanda flethcer [facility] 5 11:50:44 Migraine 24959576 Active 2022 Amanda fletcher [facility] 5 11:50:44 Generalized anxiety disorder 60008873 Active 2022 JM RIOS PA-C [address] [place] [address], [phone] , Formerly [facility] 4 14:46:52 Diabetes mellitus 96145556 Active 2022 JM RIOS PA-C [address] [place] [address], [address], [facility] 4 14:46:44 Essential hypertension 67327949 Active 2022 JM RIOS PA-C [address] [place], [address], [facility] 4 14:46:50 Cystocele 038604985 Active 2022 Amanda fletcher [facility] 5 11:50:44 Hyperlipidemia 61661794 Active 2023 JM RIOS PA-C [address] [place], [address], [facility] 4 14:47:11 Steatotic liver disease 558189682 Active 2023 Amanda fletcher [facility] 5 11:50:44 History of malignant neoplasm of breast 113319868 Active 2023 JM RIOS PA-C [address] [place] [address], [address], [facility] 4 14:46:58 Liver enzymes level above reference range 458021279 Active 2023 Amanda fletcher [facility] 5 11:50:44 Low back pain 044275394 Active 2023 Amanda fletcher [facility] 5 11:50:44 Rheumatoid arthritis of multiple joints 551113614 Active 2024 Wilder Bardales DO [address] [place], [address], [facility] 5 18:39:13 Vaginal vault prolapse 620250819 Active 2024 Chao fletcher [facility] 15:10:44 Problem Notes None recorded. Procedures Surgical History Date Name Laterality Status Provider Name and Address Organization Details Recorded Time 07/10/20 25 repair of vagina completed [facility] 08/03/2025 14:44:20 10/30/19 23 screening for osteoporosis completed JM IROS PA-C [address] [place] [address], [phone], [facility] 07/10/2024 14:46:03 10/07/19 23 mammography completed [facility] 07/10/2024 14:03:19 04/07/20 19 dissection procedure completed [facility] 12/17/2024 12:00:34 08/09/20 17 colonoscopy completed [facility] 07/10/2024 08:42:32 07/02/20 14 excision or biopsy of lymph node completed [facility] 12/17/2024 11:58:29 06/24/20 14 core needle biopsy of breast completed [facility] 12/17/2024 11:57:53 06/24/20 14 upright stereotactic plain X-ray guided fine needle aspiration biopsy of left breast completed GILBERTO LOGAN [facility] 04/01/2025 15:05:34 05/24/20 05 hysterectomy completed [facility] 12/17/2024 11:54:45 excision of Bartholin's cyst completed [facility] 12/17/2024 11:53:14 Imaging Results None recorded. Procedure Notes None recorded. Medical Equipment None Reported. Allergies No known drug allergies Medications Name Sig Start Date Stop Date Status Note LastModified by Organization Details LastModified Time fluoxetin e 40 mg capsule TAKE 1 CAPSULE BY MOUTH ONCE DAILY active Not Available Not Available No t Available atorvasta tin 40 mg tablet TAKE 1 TABLET BY MOUTH ONCE DAILY IN THE EVENING active Not Available Not Available No t Available atorvasta tin 20 mg tablet Take 20 mg as needed by oral route. 04/01 completed Not Available Not Available Not Available tizanidin e 2 mg tablet TAKE 1 TABLET BY MOUTH THREE TIMES DAILY NEEDED active Not Available Not Available No t Available atorvasta tin 10 mg tablet TAKE 1 TABLET BY MOUTH ONCE DAILY FOR CHOLESTE ROL 2024 active Not Available Not Available Not Avai lable hydrocodo ne 5 mg-acetam inophen 325 mg tablet TAKE 1 TABLET BY MOUTH EVERY 6 HOURS NEEDED FOR PAIN active Not Available Not Available No t Available prednison e 20 mg tablet TAKE 2 TABLETS BY MOUTH ONCE DAILY FOR 7 DAYS, THEN TAKE 1 TAB ONCE DAILY FOR 7 DAYS, THEN TAKE 1/2 (ONE-LACY F) TAB ONCE DAILY FOR 7 DAYS active Not Available Not Available No t Available fluoroura cil 5 % topical cream APPLY A THIN LAYER ON ARMS TWICE DAILY FOR 3 WEEKS active Not Available Not Available No t Available Accu-Chek Softclix Lancets use to check blood sugar daily 2022 active Not Available Not Available Not Avai lable topiramat e 25 mg tablet 01/29 completed Not Available Not Available Not Available metronida zole 500 mg tablet Take 1 tablet 3 times a day by oral route for 10 days. 05/22 completed Not Available Not Available Not Available acetamino phen 300 mg-codein e 30 mg tablet TAKE 1 TABLET BY MOUTH THREE TIMES DAILY NEEDED FOR SEVERE PAIN. active Not Available Not Available No t Available ciproflox acin 500 mg tablet TAKE 1 TABLET BY MOUTH TWICE A DAY FOR 10 DAYS 06/03 completed Not Available Not Available Not Available tramadol 50 mg tablet TAKE 1 TABLET BY MOUTH EVERY 6 HOURS NEEDED FOR SEVERE PAIN active Not Available Not Available No t Available triamcino lone acetonide 0.1 % topical cream APPLY TO RASH TWICE A DAY NEEDED WHEN ITCHY AND IRRITATE D active Not Available Not Available No t Available ketorolac 30 mg/mL (1 mL) injection solution Inject 60 mg every day by intramus cular route for 1 day. 04/25 completed Not Available Not Available Not Available pantopraz ole 40 mg tablet,de layed release TAKE 1 TABLET BY MOUTH ONCE DAILY 04/01 completed Not Available Not Available Not Available promethaz ine 25 mg tablet TAKE 1 TABLET BY MOUTH EVERY 6 HOURS NEEDED FOR NAUSEA AND VOMITING active Not Available Not Available No t Available metronida zole 0.75 % topical cream APPLY TO THE CENTRAL FACE AND NOSE TWICE DAILY active Not Available Not Available No t Available dapsone 25 mg tablet TAKE 2 TABLETS BY MOUTH ONCE DAILY 09/19 completed Not Available Not Available Not Available docusate sodium 100 mg capsule take 1 capsule BY MOUTH TWICE DAILY begin AFTER surgery active Not Available Not Available No t Available magnesium 250 mg tablet 06/03 completed Not Available Not Available Not Available lisinopri l 5 mg tablet TAKE 1 TABLET BY MOUTH ONCE DAILY FOR RENAL PROTECTI ON active Not Available Not Available No t Available diltiazem ER 60 mg capsule,e xtended release 12 hr 12/17 completed Not Available Not Available Not Available hydroxych loroquine 200 mg tablet TAKE 1 TABLET BY MOUTH TWICE DAILY 01/29 completed Not Available Not Available Not Available diltiazem 60 mg tablet TAKE 1 TABLET BY MOUTH TWICE DAILY active Not Available Not Available No t Available amoxicill in 875 mg-potass ium clavulana te 125 mg tablet TAKE 1 TABLET BY MOUTH TWICE DAILY 06/03 completed Not Available Not Available Not Available amoxicill in 500 mg-potass ium clavulana te 125 mg tablet TAKE 1 TABLET BY MOUTH EVERY TWELVE HOURS begin AFTER surgery active Not Available Not Available No t Available milk thistle 04/01 completed Not Available Not Available Not Available fluoxetin e daily 06/20 completed DM/sd; 15450; Recorded 07/25/20 22 10:47AM by Chao Rangel (Authori mitra through Wilder Bardales DO), Office Visit; Refill Quantity : 90; Capsule; Not Available Not Available Not Available Centrum Silver active Not Available Not Available Not Available Diltiazem HCL ER two times daily 06/20 completed DM/sd; 65315; Recorded 08/08/20 22 9:29AM by Ivon Edwards (i mitra through Wilder Bardales DO), Refill Request; Refill Quantity : 180; Capsule; Not Available Not Available Not Available Senna Laxative active Not Available Not Available Not Available Calcium+D active Not Available Not Barbara ilable Not Available Accu-Chek Active daily 06/20 completed DM/sd; Recorded 11/20/19 23 3:36PM by Ivon Edwards, Historic al Summary; Refill Quantity : 100; Strip; Not Available Not Available Not Available Accu-Chek Rachel Plus test strips USE 1 STRIP TO CHECK GLUCOSE ONCE DAILY (E11.51) active Not Available Not Available No t Available Rybelsus 3 mg tablet daily for diabetes 09/19 completed Recorded 10/30/19 23 1:10PM by Wilder Bardales DO, Office Visit; Refill Quantity : 30; Tablet; Not Available Not Available Not Available Mounjaro 5 mg/0.5 mL subcutane ous pen injector INJECT 0.5mL SUBCUTAN EOUSLY every week DIRECTED active Not Available Not Available No t Available Mounjaro 2.5 mg/0.5 mL subcutane ous pen injector INJECT 2.5MG UNDER THE SKIN ONCE WEEKLY active Not Available Not Available No t Available Vitals Date Recorded Body height Body mass index (BMI) Body weight Oxygen saturation Heart rate Respiratory rate Systolic And Diastolic Provider Name and Address Organization Details Last Updated DateTime 5 165.1 cm 21.7 kg/m2 69605.8 1 g 98 % 97 /min 18 /min 110/70 mm[Hg] [facility] Social History Question Answer Notes LastModified by Organizat ion Details LastModified Time Tobacco Smoking Status Never Smoker JM RIOS PA-C [address] [place] [address], [phone], [facility] 07/10/2024 14:45:06 What Was The Date Of Your Most Recent Tobacco Screening? 04/24/2025 [email or web address] Information not available 04/24/2025 Sex: Unknown Functional Status Question Answer Note LastModified by Organizat ion Details LastModified Time Do you use any illicit or recreational drugs? No Information not available 01/29/2023 Do you or have you ever used any other forms of tobacco or nicotine? No [email or web address] Information not available 01/29/2023 What is your level of alcohol consumption? Moderate Information not available 01/29/2023 Are you able to care for yourself independently? Yes [email or web address] Information not available 07/10/2024 Mental Status None recorded. Family History Relationship Description Onset Age of this Age Resolved Age Notes LastModified by Organization Details LastModified Time Mother Diabetes mellitus [email or web address] Not available 2024 11:51:51 Brother Diabetes mellitus [email or web address] Not available 2024 11:51:51 Brother Diabetes mellitus Not available 2024 11:51:51 Sister Diabetes mellitus [email or web address] Not available 2024 11:51:51 Maternal Grandmother Diabetes mellitus [email or web address] Not available 2024 11:51:51 Maternal Aunt Diabetes mellitus [email or web address] Not available 2024 11:51:51 Maternal Aunt Diabetes mellitus [email or web address] Not available 2024 11:51:51 Maternal Aunt Diabetes mellitus [email or web address] Not available 2024 11:51:51 Maternal Aunt Diabetes mellitus [email or web address] Not available 2024 11:51:51 Father Heart disease [email or web address] Not available 2024 14:51:22 Medical History No medical history recorded. Gynecological HistoryNo gynecological history recorded. Obstetrics History GPAL:G 0 P 0 0 0 0 Immunizations Vaccine Type Date Status Note Provider Nam e and Address Organization Details Recorded Time COVID-19, mRNA, LNP-S, PF, 30 mcg/0.3 mL dose completed Amanda Fernandes [facility] 04/15/2024 15:40:30 COVID-19, mRNA, LNP-S, PF, 30 mcg/0.3 mL dose 1 completed Amanda fletcher, [facility] 04/15/2024 15:40:30 pneumococcal polysaccharide PPV23 0 completed MONIE fletcher, [facility] 07/10/2024 08:43:25 Influenza, adjuvanted, trivalent, PF 4 [facility] 07/10/2024 14:50:38 Pneumococcal conjugate PCV20, polysaccharide WUB336 conjugate, adjuvant, PF 4 [facility] 07/10/2024 14:50:38 Past Encounters Encounter ID Performer Location Encounter Start Date Encounter Closed Date Diagnosis/Indication Diagnosis SNOMED-CT Code Diagnosis ICD10 Code Diagnosis IMO Codes Diagnosis Note [id number] Wilder Bardales DO [facility] ([facility]) [address] [place] [address] 05/05/2025 15:11:26 05/06/2025 09:44:07 Right upper quadrant pain 592827238 R10.11 [id number] 05/05/25: Reviewed ER note. Abd pain continues. XR today to assess constipati on. Counseled change abx to Flagyl TID for 10 days, Cipro BID for 10 days. Start Probiotic after she finishes abx. [id number] Wilder Bardales DO [facility] ([facility]) [address] [place] [address] 06/03/2025 09:03:17 06/16/2025 08:15:12 Abdominal pain 84892548 R10.9 [id number] I have reviewed and discussed need for colonoscop y. Discussed risks vs benefits including risk of infection and bleeding, perforatio n, possible need for surgery, reaction to medication s, and sever injury or . We discussed pt requiring sedation and possible general anesthesia . Pt agrees to proceed with Colonoscop y at [facility]. Preliminar y procedure date will be 06/18/25.Pt to hold Mounjaro for at least 7 days prior to procedure. Health Concerns Section Related Observation LastModified by Organization Detai ls LastModified Time None Recorded Concern Status LastModified by Organization Details LastModified Time None Recorded Payers Encounter Date Sequence Insurance Name Policy Number Policy Sprague Covered Member ID Sprague Member ID Guarantor Name 06/03/2025 1 [place]ICARE [place]: [place] Kristie Rosado [id number] Marybel Rosado 06/03/2025 2 [employer] - PLAN F (MEDICARE SUPPLEMENT) Kristie Rosado [id number] Marybel Rosado Notes Date Note Type Note Provider Name and Address Organization Details Recorded Time 06/03/2025 text/html Colonoscopy ScreeningReported by PatientColonoscopy ScreeningFor gi symptoms, patient reportsstool is smaller in diameterbut reportsno abdominal pain,no diarrhea,no constipation,no recent change in bowel movements,no color change in stool, andno rectal bleeding. For context, patient reportsprior examinationbut reportsno history of colon polypsandno history of ulcerative colitis or crohn's disease. For associated symptoms, patient reportsnormal appetite,no fever,no chills,no nausea, andno vomiting. For family history, patient reportsno polypsandno colon cancer. The patient presents today for recheck, 1 month, abd pain, Colitis. Seen at [facility] ER on 04/24/25 for RUQ pain for 2 days, now ongoing for [address] showed transverse Colitis in ER. GB US 04/24/25: negative gb, no biliary duct dilatation, mild hepatic steatosis. Dc'd home with Augmentin, Phenergan, Hydrocodone. We saw her for f/u on 05/05/25, obtained KUB that showed fecal matter in colon, treated with Cipro and Flagyl.She developed loose stools, now resolved after stopping her Magnesium 250mg 5 days ago. After being treated with Flagyl and Cipro pain improved for 3 days, then she woke again with right sided abd pain that is still present. She is taking daily Probiotic. Lab 03/24/25:AST 51, ALT 36, Alk Phos 76, total bili 0.7. The patient denies any recent persistent diarrhea, persistent constipation, bloody or dark tarry stools, or mucusy stools. Last Colon Cancer screenin-9 yrs , colonoscopy. Problems with anesthesia in the past: NONE Family History of Colon cancers: NONE Blood Thinners: NONE Co-morbidities: DM, HTN, HLD, RA. Using Mounjaro wkly.A1c 4.9 on 03/24/25. Wilder Bardales DO [address] [place] [address], [phone], [facility] 06/15/2025 14:40:30 OBGyn Episode No OBEpisode recorded.
--- OUTSIDE RECORDS SUMMARY | 2025-08-23 04:04 | XMS_ITS | Data Portability ---
Author Organization [facility], L.L.CMarilu, [facility] Address [address] [address] Care Team Providers Care Sky Diver Name Role Phone WILDER MARION Primary Care Provider Unavailabl e Assessment Encounter Date Assessment Date Assessment LastModified by Organization Details LastModified Time 05/05/2025 05/05/2025 Document scribed by Sharon Butleribe. I was present during interview and exam. I have reviewed and agree with above documentation . Dr. Wilder Marion. [email or web address] Not available 05/05/2025 15:40:21 06/03/2025 06/03/2025 Document scribed by Sharon Butleribe. I was present during interview and exam. I have reviewed and agree with above documentation . Dr. Wilder Marion. [email or web address] Not available 06/03/2025 09:36:27 06/24/2025 06/24/2025 Document scribed by Sharon Butler Scribe. I was present during interview and exam. I have reviewed and agree with above documentation . Dr. Wilder Marion. [email or web address] Not available 06/24/2025 16:52:08 06/30/2025 06/30/2025 Document scribed by Sharon Butler. I was present during interview and exam. I have reviewed and agree with above documentation . Dr. Wilder Marion. Pt medically cleared for surgery on 07/10/25 for vaginal wall repair. Pt moderate risk of anesthesia and surgery d/t age. EKG and lab update today. No h/o lung issues, no need for CXR today. [email or web address] Not available 06/30/2025 12:26:39 Plan of Treatment Reminders Order Date Submit Date Provider Last Modified By Organization Details Last Modified Time Details Appointments None recorded. Lab hemoglobin A1C/hemoglo bin total, QN, blood 2024 025 [facility], [address] [facility], [address], [place], [address], 14:06:03 CMP, serum or plasma 2024 025 [facility], [address] [facility], [facility], [place], [address], 14:26:52 CBC 2024 [facility], [address] [facility], [facility], [place], [address], 13:50:34 Referral None recorded. Procedures diagnostic colonoscopy (PROC) 2024 025 [facility], [address] , [place], [address], 08:56:32 Surgeries None recorded. Imaging electrocard iogram 2024 025 [email or web address] [facility] ([facility]), [address] [place], [address], 09:50:41 XR, kidney + ureter + bladder 2024 025 [email or web address] [facility], [address] [place], [address], 09:44:07 Medication Orders prednisone 20 mg tablet [email or web address] [facility], [address], [place], [address], 17:01:05 metronidazo le 500 mg tablet [address] [facility][id number], [address], [facility], [place], [address], 5 05:01:17 Cipro 500 mg tablet [address] [id number], [address] [facility] [address], [facility], [place], [address], 10:08:09 Patient TargetsNo targets recorded. Patient InstructionsNo instructions recorded. Reason for Referral None Reported. Results Created Date Observation Date Name Description Value Unit Range Abnormal Flag Note LastModifiedBy Organization Detail LastModifiedTime 06/30/2006/30/2025 CBC WBC 14.3 x10 4.0-10 .5 high Not Available [facility] [address] [facility] [address], [place], [address], 06/30/2025 13:50:33 06/30/2006/30/2025 CBC RBC 4.37 x10 3.50-5 .50 Not Available [facility] [address] [facility] [address], [place], [address], 06/30/2025 13:50:33 06/30/2006/30/2025 CBC HGB 14.5 g/dL 12.0-1 6.0 Not Available [facility] [address] [facility] [address], [place], [address], 06/30/2025 13:50:33 06/30/2006/30/2025 CBC HCT 43.2 % 37.0-4 7.0 Not Available [facility] [address] [facility], [place], [address], 06/30/2025 13:50:33 10/07/20 25 06/30/2025 CBC MCV 98.8 fL 80.0-9 9.9 Not Available [facility] [address] [facility] [facility], [place], [address], 06/30/2025 13:50:33 06/30/20 25 06/30/2025 CBC MCH 33.2 pg 27.0-3 2.0 high Not Available [facility] [address] [facility], [place], [address], 06/30/2025 13:50:33 06/30/20 25 06/30/2025 CBC MCHC 33.5 g/dL 32.0-3 6.0 Not Available [facility] [address] [facility] [address] [facility], [place], [address], 06/30/2025 13:50:33 06/30/20 25 06/30/2025 CBC RDW 14.2 % 11.5-1 4.5 Not Available [facility] [address] [facility], [place], [address], 06/30/2025 13:50:33 06/30/2006/30/2025 CBC plt 297.4 x10 140.0- 451.0 Not Available [facility] [address] [facility], [place], [address], 06/30/2025 13:50:33 06/30/20 25 06/30/2025 CBC lymphocytes % 4.3 % 20.0-5 0.0 low Not Available [facility] [address] [facility], [place], [address], 06/30/2025 13:50:33 06/30/20 25 06/30/2025 CBC granulcytes % 93.3 % 30.0-7 0.0 high Not Available [facility] [address] [facility] 1, [place], [address], 06/30/2025 13:50:33 06/30/20 25 06/30/2025 CBC monocytes % 1.7 % 2.0-16 .0 low Not Available [facility] [address] [facility] [address] [facility], [place], [address], 06/30/2025 13:50:33 06/30/20 25 06/30/2025 CBC granulcytes# 13.3 x10 Not Barbara ilable [facility] [address] [facility] [address] [facility], [place], [address], 06/30/2025 13:50:33 06/30/20 25 06/30/2025 CBC lymphocytes # 0.6 x10 Not Available [facility] [address] [facility] [address] [address], [place], [address], 06/30/2025 13:50:33 06/30/20 25 06/30/2025 CBC monocytes # 0.3 x10 Not Avai lable [facility] [address] [address], [place], [address], 06/30/2025 13:50:33 06/30/2006/30/2025 HBA1C hemaglobin A1C 5.4 4.2-6. 5 Not Available [facility] [address] [address], [place], [address], 06/30/2025 14:06:03 06/30/2006/30/2025 CMP (FEMA LE) glucose 185.0 mg/dL 60.0-9 9.0 high Not Available [facility] [address] [facility] [address] [address], [place], [address], 06/30/2025 14:26:52 06/30/2006/30/2025 CMP (FEMA LE) BUN (blood urea nitrogen) 16.0 mg/dL 10.0-2 6.0 Not Available [facility] [address] [place], [address], 06/30/2025 14:26:52 06/30/2006/30/2025 CMP (FEMA LE) creatinine (serum) 0.7 mg/dL 0.4-1. 5 Not Available [facility] [address] [facility] [address] [facility], [place], [address], 06/30/2025 14:26:52 06/30/20 25 06/30/2025 CMP (FEMA LE) BUN/creatini ne ratio 22.86 ratio Not Available [facility] [address] [facility] [address] [facility], [place], [address], 06/30/2025 14:26:52 06/30/2006/30/2025 CMP (FEMA LE) eGFR calculated 87.9 Not Available [facility] [address] [facility], [place], [address], 06/30/2025 14:26:52 06/30/20 25 06/30/2025 CMP (FEMA LE) total protein 7.4 g/dL 6.0-8. 5 Not Available [facility] [address] [facility] [address] [facility], [place], [address], 06/30/2025 14:26:52 06/30/20 25 06/30/2025 CMP (FEMA LE) total bilirubin 1.0 mg/dL 0.2-1. 3 Not Available [place] [facility] [address] [facility] [address] [facility], [place], [address], 06/30/2025 14:26:52 06/30/2006/30/2025 CMP (FEMA LE) albumin 4.6 g/dL 3.5-5. 5 Not Available [facility] [address] [facility] [address] [facility], [place], [address], 06/30/2025 14:26:52 06/30/20 25 06/30/2025 CMP (FEMA LE) globulin 2.8 calc Not Available [facility] [address] [facility] 1, [place], [address], 06/30/2025 14:26:52 06/30/20 25 06/30/2025 CMP (FEMA LE) AST (SGOT) 41.0 U/L 0.0-46 .0 Not Available [facility] [address] [facility], [place], [address], 06/30/2025 14:26:52 06/30/20 25 06/30/2025 CMP (FEMA LE) altv (SGPT) 35.0 U/L 13.0-6 9.0 normal Not Available [facility] [address] [facility], [place], [address], 06/30/2025 14:26:52 06/30/20 25 06/30/2025 CMP (FEMA LE) A/G ratio 1.6 ratio Not Available [facility] [address] [facility], [place], [address], 06/30/2025 14:26:52 06/30/20 25 06/30/2025 CMP (FEMA LE) ALP phos 121.0 U/L 30.0-1 40.0 normal Not Available [facility] [address] [facility], [place], [address], 06/30/2025 14:26:52 06/30/20 25 06/30/2025 CMP (FEMA LE) calcium 9.8 mg/dL 8.4-10 .5 Not Available [facility] [address] [facility] 1, [place], [address], 06/30/2025 14:26:52 06/30/20 25 06/30/2025 CMP (FEMA LE) sodium 136.0 mmol/ L 136.0- 145.0 Not Available [facility] [address] [facility] 1, [place], [address], 06/30/2025 14:26:52 06/30/2006/30/2025 CMP (FEMA LE) potassium 5.0 mmol/ L 3.5-5. 1 Not Available [facility] [address] [facility], [place], [address], 06/30/2025 14:26:52 06/30/2006/30/2025 CMP (FEMA LE) chloride 100.0 mmol/ L 98.0-1 10.0 normal Not Available [facility] [address] [facility] [address] [facility], [place], [address], 06/30/2025 14:26:52 06/30/2006/30/2025 CMP (FEMA LE) C02 26.0 mmol/ L 22.0-3 1.0 Not Available [facility] [address] [facility], [place], [address], 06/30/2025 14:26:52 06/30/2006/30/2025 CMP (FEMA LE) anion gap 10.0 calc Not Available [facility] [address] [facility], [place], [address], 06/30/2025 14:26:52 06/30/2006/30/2025 CMP (FEMA LE) osmolality 286.6 calc Not Available [facility] [address] [facility] 1, [place], [address], 06/30/2025 14:26:52 05/08/20 25 05/05/2025 XR, kidne y + urete r + bladd er No observ ation record ed. [facility] [address] [facility] [place], [address], 05/11/2025 14:53:34 06/23/20 25 06/18/2025 colon oscop y proce dure (PROC ) No observ ation record ed. [email or web address] [facility] [address] , [place], [address], 06/23/2025 12:19:28 06/30/20 25 06/30/2025 elect rocar diogr am No observ ation record ed. [facility] ([facility]) [address] [place], [address], 06/30/2025 18:15:42 06/30/2006/30/2025 elect rocar diogr am No observ ation record ed. [facility] ([facility]) [address] [place], [address], 07/01/2025 16:52:39 07/02/2006/30/2025 elect rocar diogr am No observ ation record ed. [facility] ([facility]) [address] [place], [address], 07/03/2025 10:19:16 Result Notes None recorded. Problems Name Problem SNOMED Code Status Onset Date Resolution Date Notes Provider Name and Address Organization Details Recorded Time Insomnia 610419373 Active 2003 Amanda fletcher [facility], L.LMariluCMarilu 5 11:50:44 Migraine 57202544 Active 2022 Amanda fletcher [facility], L.LMariluCMarilu 5 11:50:44 Generalized anxiety disorder 98537237 Active 2022 JM RIOS PA-C [address] [place] [address], [address], [facility], MarkLMariluCMarilu 4 14:46:52 Diabetes mellitus 82278894 Active 2022 JM RIOS PA-C [address] [place], [address], [facility], [facility] 4 14:46:44 Essential hypertension 93208064 Active 2022 JM RIOS PA-C [address] [place], [address], [facility], L.L[facility]C. 4 14:46:50 Cystocele 935514367 Active 2022 Amnada fletcher [facility], [facility]. 5 11:50:44 Hyperlipidemia 48264991 Active 2023 JM RIOS PA-C [address] [place], [address], [facility], L.L[facility]. 4 14:47:11 Steatotic liver disease 102311916 Active 2023 Amanda fletcher [facility], [facility]. 5 11:50:44 History of malignant neoplasm of breast 235717472 Active 2023 JM RIOS PA-C [address] [place], [address], [facility], L.L[facility]C. 4 14:46:58 Liver enzymes level above reference range 973491177 Active 2023 Amanda fletcher, [facility] 5 11:50:44 Low back pain 387885978 Active 2023 Amanda fletcher, [facility], [facility] 5 11:50:44 Rheumatoid arthritis of multiple joints 020598622 Active 2024 Wilder Marion DO [address] [place], [address], [facility], L.L[facility]C. 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 Procedures Surgical History Date Name Laterality Status Provider Name and Address Organization Details Recorded Time 07/10/[address] [facility], [place] 08/03/2025 14:44:20 10/30/19 23 screening for osteoporosis completed JM RIOS PA-C [address] [place], [address], [facility], [place] 07/10/2024 14:46:03 10/07/19 23 mammography completed MONIEGERI CORNELIUSRICARDO [facility], [place] 07/10/2024 14:03:19 04/07/[address] [facility], [place] 12/17/2024 12:00:34 08/09/20 17 colonoscopy completed [facility], [place] 07/10/2024 08:42:32 07/02/20 14 excision or biopsy of lymph node completed [facility], [place] 12/17/2024 11:58:29 06/24/20 14 core needle biopsy of breast completed [facility], LKarolina 12/17/2024 11:57:53 06/24/20 14 upright stereotactic plain X-ray guided fine needle aspiration biopsy of left breast completed GILBERTO LOGAN [facility], [place] 04/01/2025 15:05:34 05/24/[address] [facility], [place] 12/17/2024 11:54:45 [facility] of Bartholin's cyst [facility]/17[facility]2024 11:53:14 Imaging Results None recorded. Procedure [...] Available fluoxetin e daily 06/20 completed DM/sd; 68067; Recorded 07/25/20 22 10:47AM by Chao Rangel (Authori mitra through Wilder Marion DO), Office Visit; Refill Quantity : 90; Capsule; Not Available Not Available Not Available Centrum Silver active Not Available Not Available Not Available Diltiazem HCL ER two times daily 06/20 completed DM/sd; 19964; Recorded 08/08/20 22 9:29AM by Ivon Edwards (Authori mitra through Wilder Marion DO), Refill Request; Refill Quantity : 180; [...] completed Recorded 10/30/19 23 1:10PM by Wilder Marion DO, Office Visit; Refill Quantity : 30; [...] Details Last Updated DateTime 5 165.1 cm 21.8 kg/m2 52771.3 g 99 % 81 /min 18 /min 130/72 mm[Hg] GILBERTO LOGAN [facility], LMarilu 5 15:32:54 Date Recorded Body height Body mass index (BMI) Body weight Oxygen saturation Heart rate Respiratory rate Systolic And Diastolic Provider Name and Address Organization Details Last Updated DateTime 5 165.1 cm 21.7 kg/m2 68068.8 1 g 98 % 97 /min 18 /min 110/70 mm[Hg] Amanda [facility] 5 09:19:34 Date Recorded Body height Body mass index (BMI) Body weight Oxygen saturation Heart rate Respiratory rate Systolic And Diastolic Provider Name and Address Organization Details Last Updated DateTime 5 165.1 cm 22 kg/m2 61758.2 9 g 98 % 116 /min 18 /min 110/60 mm[Hg] [facility] 5 16:34:27 Date Recorded Body height Body mass index (BMI) Body weight Oxygen saturation Heart rate Respiratory rate Systolic And Diastolic Provider Name and Address Organization Details Last Updated DateTime 5 165.1 cm 21.7 kg/m2 74709.8 1 g 99 % 84 /min 18 /min 130/80 mm[Hg] [facility] 5 12:14:50 Date Recorded Body height Body mass index (BMI) Body weight Oxygen saturation Heart rate Respiratory rate Systolic And Diastolic Provider Name and Address Organization Details Last Updated DateTime 5 165.1 cm 22.5 kg/m2 25105.9 7 g 99 % 93 /min 18 /min 130/80 mm[Hg] [facility] 5 14:47:51 Social History Question Answer Notes LastModified by [email or web address] Details LastModified Time Tobacco Smoking Status Never Smoker JM RIOS PA-C [address] [place] [address], [address], [facility], L[facility] 07/10/2024 14:45:06 What Was The Date Of Your Most Recent Tobacco Screening? 04/24/2025 [email or web address] Information not available 04/24/2025 Sex: Unknown Functional Status Question Answer Note LastModified by [email or web address] Details LastModified Time Do you use any illicit or recreational drugs? No [email or web address] Information not available 01/29/2023 Do you or have you ever used any other forms of tobacco or nicotine? No [email or web address] Information not available 01/29/2023 What is your level of alcohol consumption? Moderate Information not available 01/29/2023 Are you able to care for yourself independently? Yes Information not available 07/10/2024 Mental Status None recorded. Family History Relationship Description Onset Age of this Age Resolved Age Notes LastModified by Organization Details LastModified Time Mother Diabetes mellitus Not available 2024 11:51:51 Brother Diabetes mellitus [email or web address] Not available 2024 11:51:51 Brother Diabetes mellitus [email or web address] Not available 2024 11:51:51 Sister Diabetes mellitus Not available 2024 11:51:51 Maternal Grandmother Diabetes mellitus [email or web address] Not available 2024 11:51:51 Maternal Aunt Diabetes mellitus [email or web address] Not available 2024 11:51:51 Maternal Aunt Diabetes mellitus [email or web address] Not available 2024 11:51:51 Maternal Aunt Diabetes mellitus [email or web address] Not available 2024 11:51:51 Maternal Aunt Diabetes mellitus [email or web address] Not available 2024 11:51:51 Father Heart disease [email or web address] Not available 2024 14:51:22 Medical History No medical history recorded. Gynecological HistoryNo gynecological history recorded. Obstetrics History GPAL:G 0 P 0 0 0 0 Immunizations Vaccine Type Date Status Note Provider Nam e and Address Organization Details Recorded Time COVID-19, mRNA, LNP-S, PF, 30 mcg/0.3 mL dose 1 completed Amanda fletcher [facility] 04/15/2024 15:40:30 COVID-19, mRNA, LNP-S, PF, 30 mcg/0.3 mL dose 1 completed Amanda fletcher [facility] 04/15/2024 15:40:30 pneumococcal polysaccharide PPV23 0 completed MONIE fletcher [facility] 07/10/2024 08:43:25 Influenza, adjuvanted, trivalent, PF 4 completed IKEJo-Ann GRUBER chance [facility], MarkL.CMarilu 07/10/2024 14:50:38 Pneumococcal conjugate PCV20, polysaccharide [id number] conjugate, adjuvant, PF 4 completed IKE GRUBER chance [facility], LMariluL.CMarilu 07/10/2024 14:50:38 Past Encounters Encounter ID Performer Location Encounter Start Date Encounter Closed Date Diagnosis/Indication Diagnosis SNOMED-CT Code Diagnosis ICD10 Code Diagnosis IMO Codes Diagnosis Note [id number] Wilder Marion DO [facility]) [address] [place] [phone] 01/29/2023 13:18:14 01/29/2023 19:45:29 Diabetes mellitus 66866523 E11.51 E11.69 A1C below 5, but no lows. pt has stopped rybelsus. monitor glucose.re turn in 3-4 mts with fasting labs prior. Generalize d anxiety disorder 64251488 F41.1 stable. continue prozac Essential hypertension 55387468 I10 pt monitoring at home, running 140/80s. pt to monitor fruther. work on decreasing stress and exericse. [id number] Wilder Marion DO [facility] [address] [place] [phone] 06/21/2023 10:20:17 06/21/2023 15:09:49 Diabetes mellitus 44311506 E11.51 E11.69 A1c has been increasing . She was on Rybelsus and tolerated well. A1c 6.8. Patient desiring Mounjaro. Counseled. We will start Mounjaro low-dose once weekly for 4 weeks and then increase to 5 mg weekly if tolerating . Follow-up 3 months. Essential hypertension 11674617 I10 pt monitoring at home, has been low several times. We will keep medication s the same for now. Continue to monitor. [id number] Wilder Marion DO [facility]) [address] [place] [id number] 09/12/2023 09:02:20 09/12/2023 10:35:24 Diabetes mellitus 46767954 E11.51 E11.69 A1c has been increasing . She was on Rybelsus and tolerated well. A1c 6.8. Patient desiring Mounjaro. Counseled. We will start Mounjaro low-dose once weekly for 4 weeks and then increase to 5 mg weekly if tolerating . Follow-up 3 months. Essential hypertension 06049818 I10 pt monitoring at home, has been low several times. We will keep medication s the same for now. Continue to monitor. [id number] Wilder Marion DO [facility] ([facility]) [address] [place] [phone] 09/19/2023 08:54:25 09/19/2023 13:01:27 Diabetes mellitus 34245522 E11.51 E11.69 5 mg weekly. Counseled A1c much improved with Mounjaro. Tolerating low-dose well. Will increase to on monitoring blood sugar Essential hypertension 96560522 I10 Stable. Continue diltiazem Generalize d anxiety disorder 64618696 F41.1 stable. continue prozac Cystocele 433420227 N81. 10 Symptoms consistent with this. She did see urology nurse practition [facility] but told her it was her urethra. Her symptoms remain mild to moderate. If worsening she wants to follow-up with her prior urological specialist in [place]. Counseled on pelvic floor exercises. [id number] Wilder Marion DO [facility] ([facility]) [address] [place] [phone] 01/15/2024 08:51:39 01/16/2024 10:21:46 Diabetes mellitus 84494211 E11.51 E11.69 5 mg weekly. Counseled A1c much improved with Mounjaro. Tolerating low-dose well. Will increase to on monitoring blood sugar Essential hypertension 99894172 I10 Stable. Continue diltiazem [id number] Wilder Marion DO [facility] ([facility]) [address] [place] [id number] 01/21/2024 14:08:55 01/21/2024 16:01:29 Diabetes mellitus 00486935 E11.51 E11.69 I reviewed most recent labs with pt as per above. We reconciled medication s. We discussed diet, exercise, weight management . We discussed routine eye care and foot care. Pt to monitor glucose regularly. continue current medication s: Mounamanda espinoza labs: Next appointmen t Essential hypertension 68273548 I10 Stable. Continue diltiazem Steatotic liver disease 214884658 K76.0 Per patient positive liver ultrasound done several years ago. Will follow-up with repeat ultrasound liver due to elevation in liver enzymes they continues to increase. Counseled patient on diet, exercise. We will decrease atorvastat in from 40 mg to 20 mg daily. Consider decreasing fluoxetine . Hyperlipidemia 90360350 E78.5 We will decrease atorvastat in from 40 mg to 20 mg due to elevation of liver enzymes that has slowly increased over the last 18 months. Repeat labs on liver enzymes at next appointmen t. Liver enzy mes level above reference range 703579999 R74.01 Slowly creeping up for 18 months. Now more than twice normal range. Will decrease atorvastat in. Consider decreasing fluoxetine . Known history of fatty liver. Repeat ultrasound . Counseled patient extensivel y. Generalize d anxiety disorder 22616105 F41.1 stable. continue prozac [id number] Wilder Marion DO [facility]) [address] [place] [address] [phone] 5 01/28/2024 09:40:33 01/30/2024 07:59:26 [id number] Wilder Marion DO [facility] [address] [place] [address] [phone] 5 04/15/2024 15:21:40 04/15/2024 16:07:01 Low back pain [id number] M54.50 Pain of ri ght hip joint [id number] 23597 M25.910 [id number] Wilder Marion DO [facility] [address] [place] [address] [phone] 5 05/07/2024 14:42:05 06/01/2024 19:53:27 Diabetes mellitus 55301836 E11.51 E11.69 I reviewed most recent labs with pt as per above. We reconciled medication s. We discussed diet, exercise, weight management . We discussed routine eye care and foot care. Pt to monitor glucose regularly. continue current medication s: Mounjarore peat labs: Next appointmen t Essential hypertension [id number] I10 Stable. Continue diltiazem Steatotic liver disease 071158812 K76.0 Per patient positive liver ultrasound done several years ago. Hyperlipidemia 41983575 E78.5 Reviewed and discussed recent lab, continue Atorvastat in 20mg daily. Liver enzy mes level above reference range 292917668 R74.01 Slowly creeping up for 18 months. Now more than twice normal range. Will decrease atorvastat in. Consider decreasing fluoxetine . Known history of fatty liver. Repeat ultrasound . Counseled patient extensivel y. Generalize d anxiety disorder 33037611 F41.1 stable. continue prozac Arthritis 8136421 M19.90 05/07/24- Reviewed and discussed L spine XR's, counseled Arthritis in the spine, if pain not improving in lower back consider MRI. [id number] JM RIOS PA-C [facility] ([facility]) [address] [place] [address] [phone] 5 07/10/2024 13:44:54 07/10/2024 16:45:23 Adult health examination 931076132 Z00.00 Diabetes mellitus 701685 09 E11.51 E11.69 reminded to get eye exam. gets at [facility] Essential hypertension 36019352 I10 Menopausal symptom 15807 002 E89.41 History of malignant neoplasm of breast 164728882 Z85.3 lumpectomy with chemo/radi ation 3B 2013. Administra tion of influenza vaccine 86668616 Z23 Administra tion of pneumococcal vaccine 18531661 Z23 [id number] Wilder Marion DO [facility] ([facility]) [address] [place] [address] [phone] 5 08/14/2024 10:15:18 08/15/2024 10:14:13 Diabetes mellitus 99937282 E11.51 E11.69 I reviewed most recent labs with pt as per above. We reconciled medication s. We discussed diet, exercise, weight management . We discussed routine eye care and foot care. Pt to monitor glucose regularly. continue current medication s: Mounjarore peat labs: Next appointmen t [id number] Wilder Marion DO [facility] ([facility]) [address] [place] [address] [phone] 5 08/19/2024 11:33:28 08/19/2024 12:46:35 Diabetes mellitus 11900640 E11.51 E11.69 A1c lower at 5.0. pt is monitoring for low glucose. she will increase protein.co ntinue current medication s: Mounjarore peat labs: Next appointmen t Essential hypertension 57453527 I10 Stable. Continue diltiazem Steatotic liver disease 248789807 K76.0 Per patient positive liver ultrasound done several years ago. LFTs imrpoving with weight loss. Hyperlipidemia 28030541 E78.5 Reviewed and discussed recent lab, continue Atorvastat in 20mg daily. Liver enzy mes level above reference range 646071230 R74.01 imrpoving with weight loss. Generalize d anxiety disorder 85912173 F41.1 stable. continue prozac Arthritis 1152238 M19.90 08/19/24: ok to start with chiropract or. consider PT. continue tramadol.- Reviewed and discussed L spine XR's, counseled Arthritis in the spine, if pain not improving in lower back consider MRI. Low back pain 335876173 M54.50 [id number] Wilder Marion DO [facility] ([facility]) [address] [place] [address] [phone] 5 12/04/2024 08:49:34 12/04/2024 17:52:44 Diabetes mellitus 88991653 E11.51 E11.69 A1c lower at 5.0. pt is monitoring for low glucose. she will increase protein.co ntinue current medication s: Mounjarore peat labs: Next appointmen t Essential hypertension 03317301 I10 Stable. Continue diltiazem Hyperlipidemia 74181950 E78.5 Reviewed and discussed recent lab, continue Atorvastat in 20mg daily. [id number] Wilder Marion DO [facility] ([facility]) [address] [place] [address] [phone] 5 12/17/2024 11:41:22 12/18/2024 07:49:35 Diabetes mellitus 97197257 E11.51 E11.69 A1c 5.0 on 12/04/24, down from 5.7 on 04/30/24.con tinue current medication s: Mounjaro 5mg, consider backing this down to 2.5 at next visit.repe at labs: 3 months. Essential hypertension 94820818 I10 Stable. Continue diltiazem Generalize d anxiety disorder 64102855 F41.1 stable. continue prozac Hyperlipidemia 20177670 E78.5 Reviewed and discussed recent lab, continue Atorvastat in 20mg daily. Low back pain 377040897 M54.50 Refill Tizanidine . Proteinuria 49012931 R80 .9 Albumin/ Creatinine ratio in urine 12/08/24: 1603. This was wnl at 8 on 01/21/24. We will start Remy and repeat this in 3 months. [id number] Wilder Marion DO [facility] ([facility]) [address] [place] [address] [phone] 5 12/18/2024 13:43:05 12/18/2024 13:49:14 Essential hypertension 01080148 I10 Stable. Continue diltiazem Liver enzy mes level above reference range 815678982 R74.01 imrpoving with weight loss. [id number] Wilder Marion DO [facility] ([facility]) [address] [place] [address] [phone] 5 03/24/2025 09:43:19 03/25/2025 10:21:45 Diabetes mellitus 31368070 E11.51 E11.69 A1c 5.0 on 12/04/24, down from 5.7 on 04/30/24.con tinue current medication s: Mounjaro 5mg, consider backing this down to 2.5 at next visit.repe at labs: 3 months. Essential hypertension 53809748 I10 Stable. Continue diltiazem [id number] Wilder Marion DO [facility] ([facility]) [address] [place] [address] [phone] 5 04/01/2025 14:51:08 04/14/2025 08:05:24 Vaginal wall prolapse 099844059 N81.10 [id number] [employer] has referred to Dr. Oliva in [place] on 03/30/25. Diabetes mellitus 721964 09 E11.51 E11.69 04/01/25: A1c 4.9 on 03/24/25, down from 5.0 on 12/04/24. Decrease Mounjaro to 2.5mg for 4 weeks, then stop. Essential hypertension 96549505 I10 Stable. Continue diltiazem Hyperlipidemia 39627150 E78.5 04/01/25: Decrease Atorvastat in from 20mg to 10mg, pt wanting to stop meds to see if chronic constipati on improves. Lipid panel in 4 months. Low back pain 094198488 M54.50 04/01/25: Counseled ok to take 2 Tramadol ( 100mg) if needed. History of malignant neoplasm of breast 381441363 Z85.3 Stable, h/o. continue yearly mammograms and self breast exams. Rheumatoid arthritis of multiple joints 137252808 M06.9 [id number] continue care with specialist . Generalize d anxiety disorder 31009331 F41.1 stable. continue prozac [id number] [employer] P[employer]ERSON [facility] ([facility]) [address] [place] [address] [phone] 5 04/24/2025 12:33:04 04/28/2025 10:38:27 Upper abdominal pain 83609340 R10.10 [id number] Sent to ER for work up. RUQ pain with radiation to back. [id number] Wilder Marion DO [facility] ([facility]) [address] [place] [address] [phone] 5 05/05/2025 15:11:26 05/06/2025 09:44:07 Right upper quadrant pain 936697011 R10.11 [id number] 05/05/25: Reviewed ER note. Abd pain continues. XR today to assess constipati on. Counseled change abx to Flagyl TID for 10 days, Cipro BID for 10 days. Start Probiotic after she finishes abx. [id number] Wilder Marion DO [facility] ([facility]) [address] [place] [address] [phone] 5 06/03/2025 09:03:17 06/16/2025 08:15:12 Abdominal pain 48351498 R10.9 [id number] I have reviewed and discussed need for colonoscop y. Discussed risks vs benefits including risk of infection and bleeding, perforatio n, possible need for surgery, reaction to medication s, and sever injury or . We discussed pt requiring sedation and possible general anesthesia . Pt agrees to proceed with Colonoscop y at [facility]. Preliminar y procedure date will be 06/18/25.Pt to hold Mounjaro for at least 7 days prior to procedure. [id number] Wilder Marion DO [facility] ([facility]) [address] [place] [address] [phone] 5 06/24/2025 16:24:53 06/30/2025 13:20:54 Colitis 93812416 K52.9 [id number] 06/24/25: Counseled will treat with Prednisone to decrease inflammati on, 40mg for 7 days, 20mg for 7 days, then 10mg for 7 days. Counseled on diagnosis, treatment options including medication s and possible side effects. Keep upcoming appt on 06/30/25 for recheck. [id number] Wilder Marion DO [facility]) [address] [place] [address] [phone] 5 06/30/2025 11:30:42 07/01/2025 09:50:41 Colitis 44899402 K52.9 [id number] 06/30/25: Improved with Prednisone . Counseled some foods may flare this up again, pay close attention to her diet, avoid a lot of preservati ves and really rich foods, will learn what she needs to avoid and what she can tolerate. RTC as needed for flare.06/24: Counseled will treat with Prednisone to decrease inflammati on, 40mg for 7 days, 20mg for 7 days, then 10mg for 7 days. Counseled on diagnosis, treatment options including medication s and possible side effects. Keep upcoming appt on 06/30/25 for recheck. Diabetes mellitus 204102 09 E11.51 E11.69 04/01/25: A1c 4.9 on 03/24/25, down from 5.0 on 12/04/24. Decrease Mounjaro to 2.5mg for 4 weeks, then stop. Essential hypertension 94359686 I10 Stable. Continue diltiazem Health Concerns Section Related Observation LastModified by Organization Miguel A jimenez LastModified Time None Recorded Concern Status LastModified by Organization Details LastModified Time None Recorded Advance Directives Directive None Recorded Payers Insurance Date Sequence Insurance Name Policy Number Policy Sprague Covered Member ID Sprague Member ID Guarantor Name 07/31/2025 2 [employer] - PLAN F (MEDICARE SUPPLEMENT) Kristie Rosado [id number] Marybel Rosado 01/29/2023 2 [place]UE PREFERRED PRIMARY (HMO) Marybel Rosado [id number] Marybel Rosado 07/31/2025 1 [place] Kristie Rosado [id number] Marybel Busch [place] 12/17/2024 2 [id number] Kristie Rosado [id number] Marybel Rosado 07/31/2025 [facility] - [place] - PART A - [facility] (MEDICARE) Kristie Rosado [id number] Marybel Rosado Notes Date Note Type Note Provider Name and Address Organization Details Recorded Time 5 text/html Abdominal PainReported by PatientAbdominal PainFor quality, patient reportssharpandstabbing . For location, patient reportsruq,luq, andflank bilateral. For severity, patient reportsmoderate. For associated symptoms, patient reportsno fever,no chills,no blood in the urine,no nausea,no vomiting,no diarrhea,normal stool, andno changes in stool.ROS as noted in the HPI Pt presents for ER f/u. Seen at [facility] ER on 04/24/25 for RUQ pain for 2 days, now ongoing for [address] showed transverse Colitis in ER. Dc'd home with Augmentin, Phenergan, Hydrocodone. She reports this pain initially started in her back, for which she has been seeing a Chiropractor for, for 6 months. Using Miralax as advised by ER doc since 04/24/25, as she was constipated for one month prior to ER visit, stool is soft, denies diarrhea. She is scheduled 05/14/25 for consult with Urogyenocologist, saving a few Hydrocodone to use then, concerned the car ride will be uncomfortable. Wilder Marion [address] [place], [address], [facility], [place] 05/11/2025 10:27:35 5 text/html Colonoscopy ScreeningReported by PatientColonoscopy ScreeningFor gi [...] 1 month, abd pain, Colitis. Seen at [facility] ER on 04/24/25 for RUQ pain for [...] Using Mounjaro wkly.A1c 4.9 on 03/24/25. Wilder MarionDO [address] [place], [address], [facility], [place]. 06/15/2025 14:40:30 5 text/html ROS as noted in the HPI Pt presents c/o abd pain. She is unable to sleep d/t the pain. Today her pain is at 4/10 since she took a Tylenol 3 earlier She denies any fever/ chills/ n/v/d.She was constipated, took laxative, had loose stools 2 and 3 days ago, afterward. H/o Colitis. We did Colonoscopy on 06/18/25 showing Sigmoiditis.Pathology returned tubular adenoma, no high grade dysplasia. Wilder Jeffy, [address] [place] [address], [phone], [facility], [place]. 06/30/2025 12:19:11 5 text/html ROS as noted in the HPI Pt presents for scope f/u We did Colonoscopy on 06/18/25 showing Sigmoiditis.Pathology returned tubular adenoma, no high grade dysplasia. She admits that she is feeling much better after Prednisone tx and the pain that she was having under right rib has improved. She has surgery for vaginal wall repair scheduled on 07/10/25 she is needing a letter of clearance faxed to Dr. Oliva Lab 03/24/25:A1c 4.9.BUN 8.0, Cr 0.7, AST 51[place], [address], [facility], [place]. 07/01/2025 12:55:13 5 text/html ROS as noted in the HPI 69-year-old female with history of HTN, HLD, DM, and steatotic liver disease presenting for follow-up. Her last labs done on 06/30/25. She had vaginal wall repair on 07/10/25. Has follow-up appt on 08/27/25.Patient reports she has been great since her surgical procedure. Her LINER MACHINE OPERATOR sister came to her home and removed catheter, this went well, she didn't have to return to [place] just for removal. She is voiding well. She does have some mild vaginal d/c.Denies any difficulty urinating. She is 3 weeks post vaginal wall surgery. She admits that her bs has been high but she was also taking steroids so she declined insulin at that time. Her blood sugar has been low 100's the last several times that she has checked it A1c 5.4 on 06/30/25. Having significant lower back pain, since she hasn't been able to see the Chiropractor for several months, now she can't since having surgery.She has been taking 2 tabs of the Tramadol and is not helping her pain at all. She feels that the Tylenol 3 has helped more and would like to have this when she needs refill. Not Available Not Available Not Available OBGyn Episode No OBEpisode recorded.
--- OUTSIDE RECORDS SUMMARY | 2025-08-23 04:04 | XMS_ITS | Clinical Summary ---
Author Organization [facility] Address [address] [place] [address] Phone Care Team Providers Care Boiler Fireman Name Role Phone Melecio Bardales DO Primary Care Provider [phone] Allergies Active Allergy Reactions Criticality Noted Date Comments Alendronate Other (See Comments) 03/20/2019 Loose teeth Anastrozole Other (See Comments) 03/20/2019 Elevated liver counts Medications NIFEdipine (PROCARDIA XL) 30 mg Extended Release 24 hour tablet Take 30 mg by mouth daily. Active FLUoxetine (PROzac) 20 mg capsule Take 40 mg by mouth daily. Active tizanidine HCl (TIZANIDINE ORAL) Take by mouth 1 time daily as needed. Active acetaminophen with codeine (TYLENOL-CODEINE #3 ORAL) Take by mouth 1 time daily as needed. Active vitamin B complex (B COMPLEX 1 ORAL) Take by mouth. Active calcium carbonate/vitami n D3 (CALCIUM WITH VITAMIN D ORAL) Take by mouth. Activ e sulfamethoxazole -trimethoprim (BACTRIM DS) 800-160 mg tablet Take 1 Tablet by mouth 1 time daily as needed. Active oxyCODONE (ROXICODONE) 5 mg tabletIndication s:Complication of implanted vaginal mesh, unspecified complication, subsequent encounter Take 1 Tablet by mouth every 4 hours as needed for Break-Through Pain. Max Daily Amount: 6 tablets 19 Tablet 04/08/2019 9:48 AM CDT 9 Active dilTIAZem (CARDIZEM) 60 mg tablet Take 60 mg by mouth 2 times daily. Active atorvastatin (LIPITOR) 10 mg tablet Take 10 mg by mouth daily. for cholesterol Active lisinopriL (PRINIVIL) 5 mg tablet 5 mg. Active PREDNISONE ORAL Take by mouth. taper Active traMADol (ULTRAM) 50 mg tablet TAKE 1 TABLET BY MOUTH EVERY 6 HOURS NEEDED FOR SEVERE PAIN Active MAGNESIUM CITRATE ORAL Take by mouth. Ac tive multivit-mineral s/folic acid (ONE-A-DAY WOMEN'S 50 PLUS ORAL) Take by mouth. Activ e lactobacillus combination no.4 (Probiotic) 3 billion cell Capsule Take by mouth. Activ e oxyCODONE (ROXICODONE) 5 mg tablet Take 1 Tablet (5 mg) by mouth every 4-6 hours as needed for pain. Max Daily Amount: 30 mg 27 Tablet 07/10/2025 2:06 PM CDT Active Active Problems Problem Noted Date Diagnosed Date Complication of implanted vaginal mesh 9 Encounters Date Type Department Care Team Description 07/15/2025 External Device Data [facility] ABSTRACTION Provider, Abstract 07/15/2025 External Device Data [facility] ABSTRACTION Provider, Abstract 07/14/2025 External Device Data [facility] ABSTRACTION Provider, Abstract 07/10/2025 12:22 PM CDT - 07/10/2025 3:32 PM CDT Surgery [facility] Operating Room [address] [place] [address] Kassy Oliva MD SUTURE SACROSPINOUS LIGAMENT FIXATION 07/10/2025 11:42 AM CDT Anesthesia Event [facility] Operating Room [address] [place] [address] Prudencio Bhatti MD Busscher, Korrine N, AA-C 07/10/2025 9:19 AM CDT - 07/11/2025 1:22 PM CDT Hospital Encounter [facility] [address] [place] [address] Kassy Oliva MD Discharge Disposition: Home or Self Care from Last 3 Months Social History Tobacco Use Types Packs/Day Years Used Date Smoking Tobacco: Former Cigarettes 0.3 30 0 09/24/1982 - 09/24/2012 Tobacco Cessation:Counseling Given: Not Answered Comments:1 pack per week Alcohol Use Standard Drinks/Week Comments Yes 7 (1 standard drink = 0.6 oz pur e alcohol) Feeling Safe Answer Date Recorded Are you in a relationship wi th someone who hurts you emotionally and/or physically? 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 Gender Identity Not on file Sexual Orientation Not on file Last Filed Vital Signs Vital Sign Reading Time Taken Comments Blood Pressure 136/66 07/11/2025 9:21 AM CDT Pulse 71 07/11/2025 9:21 AM CDT Temperature 36.4 C (97.6 F) 07/11/2025 9:21 AM CDT Respiratory Rate 14 07/11/2025 4:36 AM CDT Oxygen Saturation 99% 07/11/2025 9:21 AM CDT Inhaled Oxygen Concentration - - Weight 56.3 kg (124 lb 1.6 oz) 07/10/2025 10:04 AM CDT Height 166.4 cm (5' 5.5 ) 07/10/2025 10:04 AM CD T Body Mass Index 20.34 07/10/2025 10:04 AM CDT Plan of Treatment Health Maintenance Due Date Last Done Comments DIABETES ANNUAL FOOT EXAM 1972 DIABETES ANNUAL RETINAL EXAM 1972 DIABETES MICROALBUMIN ANNUAL SCREEN 1972 LDL CHOLESTEROL ANNUAL 1972 DTAP/TDAP/TD VACCINES (1 - Tdap) 1973 BREAST CANCER SCREENING 1994 FIT-DNA Q 3 years 1999 FIT/FOBT Q 1 year 1999 Flex Sig/CT Colonography Q 5 years 1999 ZOSTER VACCINE (1 of 2) 2004 OSTEOPOROSIS SCREENING 2019 INFLUENZA VACCINE (#1) 2025 07/10/2024 COVID-19 Vaccine (3 - 2024-2 6 season) 2025 11/19/2020, 10/22/2020 DIABETES HBA1C Q 6 MONTHS 12/29/20252024, 03/24/2025, 12/04/2024, Additional history exists COLORECTAL SCREENING 08/09/2027 08/09/2017 Colorectal Cancer Screening 08/09/2027 RSV VACCINE (60+ or ) (1 - 1-dose 75+ series) 2029 PNEUMOCOCCAL VACCINE 50+ YEARS Completed 07/10/2024 , 10/29/2019 Medical Devices Implanted Type Area Sanforizer Device Identifier Shelf Expiration Date Model / Serial / Lot Hemostatic Surgifoam [id number] - [id number] Implanted:Qty : 1 on 04/07/2019 by Kassy Oliva MD at [facility] Hemostatic N/A: Vagina [employer] [id number] 02/13/20231973 / / [id number] Gel-Flow Kit 6ml Implanted:Qty : 1 on 04/07/2019 by Kassy Oliva MD at [facility] N/A: Vagina [id number] 05/24/2020 / / [id number] Explanted Type Area Sanforizer Device Identifier Shelf Expiration Date Model / Serial / Lot Uphold Vaginal Mesh Explanted:Qty: 1 on 04/07/2019 by Kassy Oliva MD at [facility] N/A: Vagina Procedures Procedure Name Priority Date/Time Associated Diagnosis Comments POC GLUCOSE Routine 07/11/2025 12:44 PM CDT POC GLUCOSE Routine 07/11/2025 7:59 AM CDT POC GLUCOSE Routine 07/10/2025 11:17 PM CDT POC GLUCOSE Routine 07/10/2025 9:04 PM CDT POC GLUCOSE Routine 07/10/2025 5:52 PM CDT POC GLUCOSE Routine 07/10/2025 1:44 PM CDT MD COLPOPERINEORRHAPHY SUTURE INJ VAGINA&/PERINEU 07/10/2025 12:22 PM CDT VAGINAL VAULT PROLAPSE Case Notes Primary Insurance: Medicare Per: Online Precert Number: None Needed Reference Number: Date: 06/11/2025 12:31 PM Secondary Insurance: [employer] Per: Ray Precert Number: None Needed Reference Number: Date: 06/11/2025 12:31 PM MD CMBND ANTERPOST COLPORRAPHY W/CYSTO W/NTRCL RPR 07/10/2025 12:22 PM CDT VAGINAL VAULT PROLAPSE Case Notes Primary Insurance: Medicare Per: Online Precert Number: None Needed Reference Number: Date: 06/11/2025 12:31 PM Secondary Insurance: [employer] Per: Ray Precert Number: None Needed Reference Number: Date: 06/11/2025 12:31 PM MD COLPOPEXY VAGINAL EXTRAPERITONEAL APPROACH 07/10/2025 12:22 PM CDT VAGINAL VAULT PROLAPSE Case Notes Primary Insurance: Medicare Per: Online Precert Number: None Needed Reference Number: Date: 06/11/2025 12:31 PM Secondary Insurance: [employer] Per: Ray Precert Number: None Needed Reference Number: Date: 06/11/2025 12:31 PM MD ANES INSERT ENDOTRACHEAL AIRWAY Routine 07/10/2025 11:52 AM CDT BASIC METABOLIC PANEL Stat 07/10/2025 10:50 AM CDT POC GLUCOSE Routine 07/10/2025 10:06 AM CDT from Last 3 Months Results * (ABNORMAL) POC GLUCOSE (07/11/2025 12:44 PM CDT) Only the most recent of7 resultswithin the time period is included. GLUCOSE POC 204(H) 74 - 99 mg/dL 07/11/2025 12:44 PM CDT [facility] SPECIMEN SOURCE, GLUCOSE POC Whole Blood 07/11/2025 12:44 PM CDT [facility] COMMENT, GLU POC Alerted Nurse/PAULETTE/D r 07/11/2025 12:44 PM CDT [facility] Blood, whole 07/11/2025 12:4 4 PM CDT 07/11/2025 12:52 PM CDT Kassy Oliva MD POINT OF CARE TESTING F inal Result [employer] [facility] ASHIA# [id number] [address] [place] [address] * MD ANES INSERT ENDOTRACHEAL AIRWAY (07/10/2025 11:52 AM CDT) Narrative Roxana Garcia AA-C - 07/10/2025 11:52 AM CDT Roxana Garcia AA-C 07/10/2025 11:56 AM Airway Date/Time: 07/10/2025 11:52 AM Location: OR Plan: routine intubation Patient Identity Confirmed by: Verbally with patient and armband Airway: not difficult Staffing Performed: BASKET BOTTOM MACHINE OPERATOR/CAA Authorized by: Prudencio Bhatti MD Performed by: Roxana Garcia AA-C Indications and Patient Condition: Indications for Airway Management: Anesthesia Sedation Level: general anesthesia Preoxygenated: yes Patient Position: Sniffing Mask Difficulty Assessment: 1 - vent by mask Plan to extubate at end of case: Yes Final Airway Details: Final Airway Type: Endotracheal airway ETT Cuffed: Yes Cuff Volume (mL): 4 Technique Used for Successful ETT Placement: Direct laryngoscopy Blade Type: straight blade Blade Size: 2 Insertion Site: Oral ETT Size (mm): 7.0 Measured from: Teeth ETT to Teeth (cm): 21 Tube secured with: Tape Placement Verified by: auscultation, end tidal CO2 and chest rise Cormack-Lehane Classification: Grade I - full view of glottis Number of Attempts at Approach: 1 Additional Procedure Information: atraumatic and dentition unchanged Prudencio Bhatti MD PROCEDURE/MINOR SURGICAL ORD ERABLES Final Result * (ABNORMAL) BASIC METABOLIC PANEL (07/10/2025 10:50 AM CDT) SODIUM 140 136 - 145 mmol/L 07/10/2025 11:49 AM CDT [facility] POTASSIUM 5.1(H) 3.5 - 5.0 mmol/L 07/10/2025 11:49 AM CDT [employer] [facility] Comment:Hemolysis present. R esult may be falsely elevated. CHLORIDE 103 98 - 107 mmol/L 07/10/2025 11:49 AM [facility] CO2 22 22 - 29 mmol/L 07/10/2025 11:49 AM [facility] CALCIUM 9.7 8.6 - 10.2 mg/dL 07/10/2025 11:49 AM [facility] BUN 14 8 - 23 mg/dL 07/10/2025 11:49 AM [facility] CREATININE 0.80 0.51 - 0.95 mg/dL 07/10/2025 11:49 AM [facility] Comment:The GFR result is no t clinically significant on patients <18 or >70 years of age. GLUCOSE 115(H) 74 - 99 mg/dL 07/10/2025 11:49 AM [facility] GFR >60 mL/min/1.7 3 sq meter 07/10/2025 11:49 AM [facility] Comment:eGFR calculated with 2020 CKD-EPI equation. Vegetarian diet, extremely high or low muscle mass, and may affect results. Cystatin C with Glomerular Filtration Rate is a suitable alternative for these patients. ANION GAP 15 8 - 16 mmol/L 07/10/2025 11:49 AM [facility] Blood Venipuncture / Unknown 07/10/2025 10:50 AM CDT 07/10/2025 11:10 AM T us Onofre Wood MD CHEMISTRY ORDERABLES Sejal matos Result [facility] ASHIA# [id number] [address] [place] [address] from Last 3 Months Insurance MEDICARE PART A AND B [facility] RX [employer] RX Member Subscriber Plan / Payer (Ef fective 2024-Present) Name:Marybel Rosado Sadaf Relation to Subscriber:Self Name:Marybel Rosado Sadaf Payer ID:Not on file Group ID:[id number] Type:RX Commercial Address: [place] Advance Directives For more information, please contact: [phone] * Full Code (Latest Code Status on File) Date Activated Date Inactivated Comments 07/10/2025 4:20 PM 07/11/2025 3:28 PM * Full Code Date Activated Date Inactivated Comments 07/10/2025 2:27 PM 07/10/2025 4:20 PM * Full Code Date Activated Date Inactivated Comments 07/10/2025 9:49 AM 07/10/2025 2:27 PM * Full Code Date Activated Date Inactivated Comments 04/07/2019 8:25 AM 04/08/2019 3:44 PM * Full Code Date Activated Date Inactivated Comments 04/07/2019 8:14 AM 04/07/2019 8:25 AM Care Teams Boiler Fireman Relationship Specialty Start Date End Date Melecio Bardales DO PCP - General Family Practice 03/20/19
--- OUTSIDE RECORDS SUMMARY | 2025-08-23 04:04 | XMS_ITS | Continuity of Care Document ---
Author Organization [place] - [facility], [place], [facility] ([facility]) Address [address] [place] [address] Care Team Providers Care Commissary Officer Name Role Phone WILDER BARDALES Primary Care Provider Unavailabl e Assessment Encounter Date Assessment Date Assessment LastModified by Organization Details LastModified Time 06/24/2025 06/24/2025 Document scribed by Chao Rangel Planting Machine Operator. I was present during interview and exam. I have reviewed and agree with above documentation . Dr. Wilder Bardales. [email or web address] Not available 06/24/2025 16:52:08 Plan of Treatment Reminders Order Date Submit Date Provider Last Modified By Organization Details Last Modified Time Details Appointments None recorded. Lab None recorded. Referral None recorded. Procedures None recorded. Surgeries None recorded. Imaging None recorded. Medication Orders prednisone 20 mg tablet [address] [facility], [address], [place], [address], 17:01:05 Patient TargetsNo targets recorded. Patient InstructionsNo instructions recorded. Reason for Referral None Reported. Results Created Date Observation Date Name Description Value Unit Range Abnormal Flag Note LastModifiedBy Organization Detail LastModifiedTime 06/23/2006/18/2025 colon oscop y proce dure (PROC ) No observ ation record ed. [facility] [address] , [place], [address], 06/23/2025 12:19:28 06/30/2006/30/2025 elect rocar diogr am No observ ation record ed. [facility] ([facility]) [address] [place], [address], 06/30/2025 18:15:42 06/30/2006/30/2025 elect rocar diogr am No observ ation record ed. [facility] ([facility]) [address] [place], [address], 07/01/2025 16:52:39 07/02/2006/30/2025 elect rocar diogr am No observ ation record ed. [facility] ([facility]) [address] [place] [address], [phone], 07/03/2025 10:19:16 Result Notes None recorded. Problems Name Problem SNOMED Code Status Onset Date Resolution Date Notes Provider Name and Address Organization Details Recorded Time Insomnia 282243432 Active 2003 Amanda fletcher [facility] 5 11:50:44 Migraine 52082531 Active 2022 Amanda fletcher [facility] 5 11:50:44 Generalized anxiety disorder 25781308 Active 2022 JM RIOS PA-C [address] [place] [address], [phone], [facility] 4 14:46:52 Diabetes mellitus 59821443 Active 2022 JM RIOS PA-C [address] [place] [address], [address], [facility] 4 14:46:44 Essential hypertension 11616559 Active 2022 JM RIOS PA-C [address] [place] [address], [address], [facility] 4 14:46:50 Cystocele 590328450 Active 2022 Amanda fletcher [facility] 5 11:50:44 Hyperlipidemia 09982793 Active 2023 JM RIOS PA-C [address] [place], [address], [facility] 4 14:47:11 Steatotic liver disease 429678879 Active 2023 Amanda fletcher [facility] 5 11:50:44 History of malignant neoplasm of breast 171948115 Active 2023 JM RIOS PA-C [address] [place], [address], [facility] 4 14:46:58 Liver enzymes level above reference range 994636781 Active 2023 Amanda fletcher [facility] 5 11:50:44 Low back pain 780453396 Active 2023 Amanda fletcher [facility] 5 11:50:44 Rheumatoid arthritis of multiple joints 720993963 Active 2024 Wilder Bardales DO [address] [place], [address], [facility] 5 18:39:13 Vaginal vault prolapse 590890103 Active 2024 Chao fletcher [facility] 5 15:10:44 Problem Notes None recorded. Procedures Surgical History Date Name Laterality Status Provider Name and Address Organization Details Recorded Time 07/10/[address] [facility] 08/03/2025 14:44:20 10/30/19 23 screening for osteoporosis completed JM RIOS PA-C [address] [place], [address], [facility] 07/10/2024 14:46:03 10/07/[address] [facility] 07/10/2024 14:03:19 04/07/[address] [facility] 12/17/2024 12:00:34 08/09/[address] [facility] 07/10/2024 08:42:32 07/02/20 14 excision or biopsy of lymph node completed [facility] 12/17/2024 11:58:29 06/24/20 14 core needle biopsy of breast completed [facility] 12/17/2024 11:57:53 06/24/20 14 upright stereotactic plain X-ray guided fine needle aspiration biopsy of left breast completed GILBERTO LOGAN [facility] 04/01/2025 15:05:34 05/24/[address] [facility] 12/17/2024 11:54:45 excision of Bartholin's cyst completed [facility] 12/17/2024 11:53:14 Imaging Results None recorded. [...] Available fluoxetin e daily 06/20 completed DM/sd; 44197; Recorded 07/25/20 22 10:47AM by Chao Rangel (Authori mitra through Wilder Bardales DO), Office Visit; Refill Quantity : 90; Capsule; Not Available Not Available Not Available Centrum Silver active Not Available Not Available Not Available Diltiazem HCL ER two times daily 06/20 completed DM/sd; 83339; Recorded 08/08/20 22 9:29AM by Ivon Edwards (Myla manriquez through Wilder Bardales DO), Refill Request; Refill Quantity : 180; Capsule; Not Available Not Available Not Available Senna Laxative active Not Available Not Available Not Available Calcium+D active Not Available Not Barbara ilable Not Available Accu-Chek Active daily 06/20 completed DM/sd; Recorded 11/20/19 23 3:36PM by Horace Piper al Summary; Refill Quantity : 100; Strip; Not Available Not Available Not Available Accu-Chek Rachel Plus test strips USE 1 STRIP TO CHECK GLUCOSE ONCE DAILY (E11.51) active Not Available Not Available No t Available Rybelsus 3 mg tablet daily for diabetes 09/19 completed Recorded 10/30/19 1:10PM by Wilder Bardales DO, Office Visit; [...] Updated DateTime 5 165.1 cm 22 kg/m2 26761.2 9 g 98 % 116 /min 18 /min 110/60 mm[Hg] [facility] 5 16:34:27 Date Recorded Body height Body mass index (BMI) Body weight Oxygen saturation Heart rate Respiratory rate Systolic And Diastolic Provider Name and Address Organization Details Last Updated DateTime 5 165.1 cm 21.7 kg/m2 37016.8 1 g 99 % 84 /min 18 /min 130/80 mm[Hg] [facility] 5 12:14:50 Social History Question Answer Notes LastModified by Organizat ion Details LastModified Time Tobacco Smoking Status Never Smoker JM RIOS PA-C [address] [place] [address], [address], [facility], [facility] 07/10/2024 14:45:06 What Was The Date Of Your Most Recent Tobacco Screening? 04/24/2025 [email or web address] Information not available 04/24/2025 Sex: Unknown Functional Status Question Answer Note LastModified by Organizat ion Details LastModified Time Do you use any illicit or recreational drugs? No [email or web address] Information not available 01/29/2023 Do you or have you ever used any other forms of tobacco or nicotine? No [email or web address] Information not available 01/29/2023 What is your level of alcohol consumption? Moderate Information not available 01/29/2023 Are you able to care for yourself independently? Yes [email or web address] Information not available 07/10/2024 Mental Status None recorded. Family History Relationship Description Onset Age of this Age Resolved Age Notes LastModified by Organization Details LastModified Time Mother Diabetes mellitus [email or web address] Not available 2024 11:51:51 Brother Diabetes mellitus [email or web address] Not available 2024 11:51:51 Brother Diabetes mellitus [email or web address] Not available 2024 11:51:51 Sister Diabetes mellitus [email or web address] Not available 2024 11:51:51 Maternal Grandmother Diabetes mellitus [email or web address] Not available 2024 11:51:51 Maternal Aunt Diabetes mellitus [email or web address] Not available 2024 11:51:51 Maternal Aunt Diabetes mellitus Not available 2024 11:51:51 Maternal Aunt Diabetes mellitus [email or web address] Not available 2024 11:51:51 Maternal Aunt Diabetes mellitus [email or web address] Not available 2024 11:51:51 Father Heart disease [email or web address] Not available 2024 14:51:22 Medical History No medical history recorded. Gynecological HistoryNo gynecological history recorded. Obstetrics History GPAL:G 0 P 0 0 0 0 Immunizations Vaccine Type Date Status Note Provider Nam e and Address Organization Details Recorded Time COVID-19, mRNA, LNP-S, PF, 30 mcg/0.3 mL dose 01/29/202 1 completed Amanda Fernandes null, [facility] 04/15/2024 15:40:30 COVID-19, mRNA, LNP-S, PF, 30 mcg/0.3 mL dose 1 completed Amanda Dena chance, [facility] 04/15/2024 15:40:30 pneumococcal polysaccharide PPV23 0 completed MONIE JAVED chance, [facility] 07/10/2024 08:43:25 Influenza, adjuvanted, trivalent, PF 4 completed IKE GRUBER chance, [facility] 07/10/2024 14:50:38 Pneumococcal conjugate PCV20, polysaccharide [id number] conjugate, adjuvant, PF 4 completed IKE fletcher [facility] 07/10/2024 14:50:38 Past Encounters Encounter ID Performer Location Encounter Start Date Encounter Closed Date Diagnosis/Indication Diagnosis SNOMED-CT Code Diagnosis ICD10 Code Diagnosis IMO Codes Diagnosis Note [id number] Wilder Bardales DO [facility]) [address] [place] [phone] 06/03/2025 09:03:17 06/16/2025 08:15:12 Abdominal pain 17683972 R10.9 [id number] I have reviewed and discussed need for colonoscop y. Discussed risks vs benefits including risk of infection and bleeding, perforatio n, possible need for surgery, reaction to medication s, and sever injury or . We discussed pt requiring sedation and possible general anesthesia . Pt agrees to proceed with Colonoscop y at [facility]. Preliminar y procedure date will be 06/18/25.Pt to hold Mounjaro for at least 7 days prior to procedure. [id number] Wilder Bardales DO [facility] ([facility]) [address] [place] [phone] 06/24/2025 16:24:53 06/30/2025 13:20:54 Colitis 93429136 K52.9 [id number] 06/24/25: Counseled will treat with Prednisone to decrease inflammati on, 40mg for 7 days, 20mg for 7 days, then 10mg for 7 days. Counseled on diagnosis, treatment options including medication s and possible side effects. Keep upcoming appt on 06/30/25 for recheck. Health Concerns Section Related Observation LastModified by Organization Detai ls LastModified Time None Recorded Concern Status LastModified by Organization Details LastModified Time None Recorded Payers Encounter Date Sequence Insurance Name Policy Number Policy Sprague Covered Member ID Sprague Member ID Guarantor Name 06/24/2025 1 [place]: [place] Kristie Rosado [id number] Marybel A Alonzo 06/24/2025 2 [employer] - PLAN F (MEDICARE SUPPLEMENT) Kristie Rosado [id number] Marybel Busch Alonzo Notes Date Note Type Note Provider Name and Address Organization Details Recorded Time 06/24/2025 text/html ROS as noted in the HPI Pt presents c/o abd pain. She is unable to sleep d/t the pain. Today her pain is at 4/10 since she took a Tylenol 3 earlier She denies any fever/ chills/ n/v/d.She was constipated, took laxative, had loose stools 2 and 3 days ago, afterward. H/o Colitis. 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 Wilder Bardales, DO [address] [place] [address], [phone], 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 She admits that she is feeling much better after Prednisone tx and the pain that she was having under right rib has improved. She has surgery for vaginal wall repair scheduled on 07/10/25 she is needing a letter of clearance faxed to Dr. [facility] 03/24/25:A1c 4.9.BUN 8.0, Cr 0.7, AST 51. Wilder Bardales, DO [address] [place] [address], [phone], [facility] [facility], [place] 07/01/2025 12:55:13 OBGyn Episode No OBEpisode recorded.
--- OUTSIDE RECORDS SUMMARY | 2025-08-23 04:04 | XMS_ITS | Continuity of Care Document ---
Author Organization JACKY Owen [facility] Laz, [place], [facility] ([facility]) Address [address] [place] [address] Care Team Providers Care Health Care Administrator Name Role Phone WILDER MARION Primary Care Provider Unavailabl e Assessment Encounter Date Assessment Date Assessment LastModified by Organization Details LastModified Time 06/30/2025 06/30/2025 Document scribed by Chao Rangel Tobacco Checkout Clerk. I was present during interview and exam. [...] A1C/hemoglo bin total, QN, blood 2024 025 [facility], [address], [address], [place], [address], 14:06:03 CMP, serum or plasma 2024 025 [facility], [address], [address], [place], [address], 14:26:52 CBC 2024 025 [email or web address], [address], [address], [place], [address], 13:50:34 Referral None recorded. Procedures None recorded. Surgeries None recorded. Imaging electrocard iogram 2024 025 [email or web address] [facility] ([facility]), [address] [place], [address], 09:50:41 Medication Orders None recorded. Patient TargetsNo targets recorded. Patient InstructionsNo instructions recorded. Reason for Referral None Reported. Results Created Date Observation Date Name Description Value Unit Range Abnormal Flag Note LastModifiedBy Organization Detail LastModifiedTime 06/30/2006/30/2025 CBC WBC 14.3 x10 4.0-10 .5 high Not Available [facility] [address], [place], [address], 06/30/2025 13:50:33 06/30/2006/30/2025 CBC RBC 4.37 x10 3.50-5 .50 Not Available [facility] [address], [place], [address], 06/30/2025 13:50:33 06/30/20 25 06/30/2025 CBC HGB 14.5 g/dL 12.0-1 6.0 Not Available [facility] [address], [place], [address], 06/30/2025 13:50:33 06/30/2006/30/2025 CBC HCT 43.2 % 37.0-4 7.0 Not Available [facility] [address], [place], [address], 06/30/2025 13:50:33 06/30/20 25 06/30/2025 CBC MCV 98.8 fL 80.0-9 9.9 Not Available [facility] [address], [place], [address], 06/30/2025 13:50:33 06/30/2006/30/2025 CBC MCH 33.2 pg 27.0-3 2.0 high Not Available [facility] [address], [place], [address], 06/30/2025 13:50:33 06/30/20 25 06/30/2025 CBC MCHC 33.5 g/dL 32.0-3 6.0 Not Available [facility] [address], [place], [address], 06/30/2025 13:50:33 06/30/20 25 06/30/2025 CBC RDW 14.2 % 11.5-1 4.5 Not Available [facility] [address], [place], [address], 06/30/2025 13:50:33 06/30/20 25 06/30/2025 CBC plt 297.4 x10 140.0- 451.0 Not Available [facility] [address], [place], [address], 06/30/2025 13:50:33 06/30/20 25 06/30/2025 CBC lymphocytes % 4.3 % 20.0-5 0.0 low Not Available [facility] [address], [place], [address], 06/30/2025 13:50:33 06/30/20 25 06/30/2025 CBC granulcytes % 93.3 % 30.0-7 0.0 high Not Available [facility] [address], [place], [address], 06/30/2025 13:50:33 06/30/20 25 06/30/2025 CBC monocytes % 1.7 % 2.0-16 .0 low Not Available [facility] [address] [facility], [place], [address], 06/30/2025 13:50:33 06/30/20 25 06/30/2025 CBC granulcytes# 13.3 x10 Not Barbara ilable [facility] [address] [facility], [place], [address], 06/30/2025 13:50:33 06/30/20 25 06/30/2025 CBC lymphocytes # 0.6 x10 Not Available [facility] [address] [facility], [place], [address], 06/30/2025 13:50:33 06/30/20 25 06/30/2025 CBC monocytes # 0.3 x10 Not Avai lable [facility] [address] [address], [place], [address], 06/30/2025 13:50:33 06/30/2006/30/2025 HBA1C hemaglobin A1C 5.4 4.2-6. 5 Not Available [facility] [address] [facility] [address] [address], [place], [address], 06/30/2025 14:06:03 06/30/2006/30/2025 CMP (FEMA LE) glucose 185.0 mg/dL 60.0-9 9.0 high Not Available [facility] [address] [facility] [address] [address], [place], [address], 06/30/2025 14:26:52 06/30/2006/30/2025 CMP (FEMA LE) BUN (blood urea nitrogen) 16.0 mg/dL 10.0-2 6.0 Not Available [facility] [address] [facility] [address] [facility], [place], [address], 06/30/2025 14:26:52 06/30/20 25 06/30/2025 CMP (FEMA LE) creatinine (serum) 0.7 mg/dL 0.4-1. 5 Not Available [facility] [address] [facility] [address], [place], [address], 06/30/2025 14:26:52 06/30/20 25 06/30/2025 CMP (FEMA LE) BUN/creatini ne ratio 22.86 ratio Not Available [facility] [address] [facility] [address], [place], [address], 06/30/2025 14:26:52 06/30/2006/30/2025 CMP (FEMA LE) eGFR calculated 87.9 Not Available [facility] [address] [facility] [address], [place], [address], 06/30/2025 14:26:52 06/30/20 25 06/30/2025 CMP (FEMA LE) total protein 7.4 g/dL 6.0-8. 5 Not Available [facility] [address] [address], [place], [address], 06/30/2025 14:26:52 06/30/20 25 06/30/2025 CMP (FEMA LE) total bilirubin 1.0 mg/dL 0.2-1. 3 Not Available [facility] [address] [facility] [address], [place], [address], 06/30/2025 14:26:52 06/30/2006/30/2025 CMP (FEMA LE) albumin 4.6 g/dL 3.5-5. 5 Not Available [facility] [address] [facility] [address], [place], [address], 06/30/2025 14:26:52 06/30/20 25 06/30/2025 CMP (FEMA LE) globulin 2.8 calc Not Available [facility] [address], [place], [address], 06/30/2025 14:26:52 06/30/20 25 06/30/2025 CMP (FEMA LE) AST (SGOT) 41.0 U/L 0.0-46 .0 Not Available [facility] [address], [place], [address], 06/30/2025 14:26:52 06/30/20 25 06/30/2025 CMP (FEMA LE) altv (SGPT) 35.0 U/L 13.0-6 9.0 normal Not Available [facility] [address], [place], [address], 06/30/2025 14:26:52 06/30/20 25 06/30/2025 CMP (FEMA LE) A/G ratio 1.6 ratio Not Available [facility] [address], [place], [address], 06/30/2025 14:26:52 06/30/20 25 06/30/2025 CMP (FEMA LE) ALP phos 121.0 U/L 30.0-1 40.0 normal Not Available [facility] [address] [facility], [place], [address], 06/30/2025 14:26:52 06/30/20 25 06/30/2025 CMP (FEMA LE) calcium 9.8 mg/dL 8.4-10 .5 Not Available [facility] [address] [facility], [place], [address], 06/30/2025 14:26:52 06/30/20 25 06/30/2025 CMP (FEMA LE) sodium 136.0 mmol/ L 136.0- 145.0 Not Available [facility] [address] [facility] [address], [place], [address], 06/30/2025 14:26:52 06/30/2006/30/2025 CMP (FEMA LE) potassium 5.0 mmol/ L 3.5-5. 1 Not Available [facility] [address] [facility], [place], [address], 06/30/2025 14:26:52 06/30/2006/30/2025 CMP (FEMA LE) chloride 100.0 mmol/ L 98.0-1 10.0 normal Not Available [facility] [address] [facility], [place], [address], 06/30/2025 14:26:52 06/30/2006/30/2025 CMP (FEMA LE) C02 26.0 mmol/ L 22.0-3 1.0 Not Available [facility] [address] [facility], [place], [address], 06/30/2025 14:26:52 06/30/2006/30/2025 CMP (FEMA LE) anion gap 10.0 calc Not Available [facility] [address] [facility], [place], [address], 06/30/2025 14:26:52 06/30/2006/30/2025 CMP (FEMA LE) osmolality 286.6 calc Not Available [facility] [address] [facility], [place], [address], 06/30/2025 14:26:52 06/23/2006/18/2025 colon oscop y proce dure (PROC ) No observ ation record ed. [email or web address] [facility] [address] , [place], [address], 06/23/2025 12:19:28 06/30/2006/30/2025 elect rocar diogr am No observ ation record ed. [facility] ([facility]) [address] [place], [address], 06/30/2025 18:15:42 06/30/2006/30/2025 elect rocar diogr am No observ ation record ed. [facility] ([facility]) [address] [place], [address], 07/01/2025 16:52:39 07/02/20 25 06/30/2025 elect rocar diogr am No observ ation record ed. [facility] ([facility]) [address] [place], [address], 07/03/2025 10:19:16 Result Notes None recorded. Problems Name Problem SNOMED Code Status Onset Date Resolution Date Notes Provider Name and Address Organization Details Recorded Time Insomnia 294474775 Active 2003 Amanda fletcher [facility] 5 11:50:44 Migraine 37723503 Active 2022 Amanda fletcher [facility] 5 11:50:44 Generalized anxiety disorder 66062881 Active 2022 JM RIOS PA-C [address] [place] [address], [address], [facility] 4 14:46:52 Diabetes mellitus 69283381 Active 2022 JM RIOS PA-C [address] [place] [address], [address], [facility] 4 14:46:44 Essential hypertension 04835352 Active 2022 JM RIOS PA-C [address] [place] [address], [address], [facility] 4 14:46:50 Cystocele 952687237 Active 2022 Amanda fletcher [facility] 5 11:50:44 Hyperlipidemia 34481805 Active 2023 JM RIOS PA-C [address] [place], [address], [facility], L.L.CMarilu 4 14:47:11 Steatotic liver disease 533841971 Active 2023 Amanda fletcher [facility] 5 11:50:44 History of malignant neoplasm of breast 471630525 Active 2023 JM RIOS PA-C [address] [place], [address], [facility] 4 14:46:58 Liver enzymes level above reference range 151939724 Active 2023 Amanda fletcher [facility] 5 11:50:44 Low back pain 451185150 Active 2023 Amanda fletcher [facility] 5 11:50:44 Rheumatoid arthritis of multiple joints 982598511 Active 2024 Wilder Marion DO [address] [place], [address], [facility] 5 18:39:13 Vaginal vault prolapse 674061799 Active 2024 Chao fletcher [facility] 5 15:10:44 Problem Notes None recorded. Procedures Surgical History Date Name Laterality Status Provider Name and Address Organization Details Recorded Time 07/10/20 repair of vagina completed Amanda [facility] 08/03/2025 14:44:20 10/30/19 23 screening for osteoporosis completed JM RIOS PA-C [address] [place], [address], [facility], Ashish.CMarilu 07/10/2024 14:46:03 10/07/19 23 [facility] MarkLContreras 07/10/2024 14:03:19 04/07/20 19 dissection procedure completed [facility], L.LMariluCMarilu 12/17/2024 12:00:34 08/09/20 17 colonoscopy completed [facility], LMariluLMariluCMarilu 07/10/2024 08:42:32 07/02/20 14 excision or biopsy of lymph node completed [facility], LMariluLMariluCMrailu 12/17/2024 11:58:29 06/24/20 14 core needle biopsy of breast completed [facility], L.LMariluCMarilu 12/17/2024 11:57:53 06/24/20 14 upright stereotactic plain X-ray guided fine needle aspiration biopsy of left breast completed GILBERTO LOGAN [facility], LMariluLMariluCMarilu 04/01/2025 15:05:34 05/24/20 05 hysterectomy completed [facility] L.L.CM[facility]il[facility] 12/17/2024 11:54:45 excision of Bartholin's cyst completed [facility], L.LMariluCMarilu 12/17/2024 11:53:14 Imaging Results None recorded. Procedure [...] Available fluoxetin e daily 06/20 completed DM/sd; 82242; Recorded 07/25/20 22 10:47AM by Chao Rangel (Authori zed through [employer] , DO), Office Visit; Refill Quantity : 90; Capsule; Not Available Not Available Not Available Centrum Silver active Not Available Not Available Not Available Diltiazem HCL ER two times daily 06/20 completed DM/sd; 00070; Recorded 08/08/20 22 9:29AM by Ivon Edwards (Authori mitra through Wilder Marion DO), Refill Request; Refill Quantity : 180; Capsule; Not Available Not Available Not Available Senna Laxative active Not Available Not Available Not Available Calcium+D active Not Available Not Barbara ilable Not Available Accu-Chek Active daily 06/20 completed DM/sd; Recorded 11/20/19 3:36PM by Jonathan Piperic al Summary; Refill Quantity : 100; Strip; Not Available Not Available Not Available Accu-Chek Rachel Plus test strips USE 1 STRIP TO CHECK GLUCOSE ONCE DAILY (E11.51) active Not Available Not Available No t Available Rybelsus 3 mg tablet daily for diabetes 09/19 completed Recorded 10/30/19 1:10PM by Wilder Marion DO, Office Visit; [...] and Address Organization Details Last Updated DateTime 165.1 cm 21.7 kg/m2 27621.8 1 g 99 % 84 /min 18 /min 130/80 mm[Hg] Amanda Fernandes [facility] 12:14:50 Social History Question Answer Notes LastModified by [employer] Details LastModified Time Tobacco Smoking Status Never Smoker JM RIOS PA-C [address] [place] [address], [address], [facility] 07/10/2024 14:45:06 What Was The Date Of Your Most Recent Tobacco Screening? 04/24/2025 [email or web address] Information not available 04/24/2025 Sex: Unknown Functional Status Question Answer Note LastModified by [employer] Details LastModified Time Do you use any illicit or recreational drugs? No Information not available 01/29/2023 Do you or have you ever used any other forms of tobacco or nicotine? No [email or web address] Information not available 01/29/2023 What is your level of alcohol consumption? Moderate Information not available 01/29/2023 Are you able to care for yourself independently? Yes [email or web address] Information not available 07/10/2024 Mental Status None recorded. Family History Relationship Description Onset Age of this Age Resolved Age Notes LastModified by Organization Details LastModified Time Mother Diabetes mellitus Not available 2024 11:51:51 Brother Diabetes mellitus [email or web address] Not available 2024 11:51:51 Brother Diabetes mellitus [email or web address] Not available 2024 11:51:51 Sister Diabetes mellitus [email or web address] Not available 2024 11:51:51 Maternal Grandmother Diabetes mellitus [email or web address] Not available 2024 11:51:51 Maternal Aunt Diabetes mellitus [email or web address] Not available 2024 11:51:51 Maternal Aunt Diabetes mellitus [email or web address] Not available 2024 11:51:51 Maternal Aunt Diabetes mellitus [email or web address] Not available 2024 11:51:51 Maternal Aunt Diabetes mellitus [email or web address] Not available 2024 11:51:51 Father Heart disease [email or web address] Not available 2024 14:51:22 Medical History No medical history recorded. Gynecological HistoryNo gynecological history recorded. Obstetrics History GPAL:G 0 P 0 0 0 0 Immunizations Vaccine Type Date Status Note Provider Nam e and Address Organization Details Recorded Time COVID-19, mRNA, LNP-S, PF, 30 mcg/0.3 mL dose 1 completed Amanda fletcher [facility] 04/15/2024 15:40:30 COVID-19, mRNA, LNP-S, PF, 30 mcg/0.3 mL dose 1 completed Amanda fletcher [facility] 04/15/2024 15:40:30 pneumococcal polysaccharide PPV23 0 completed MONIE JAVED chance, [facility] 07/10/2024 08:43:25 Influenza, adjuvanted, trivalent, PF 4 completed IKE GRUBER chance, [facility] 07/10/2024 14:50:38 Pneumococcal conjugate PCV20, polysaccharide FMP408 conjugate, adjuvant, PF 4 completed IKE fletcher [facility] 07/10/2024 14:50:38 Past Encounters Encounter ID Performer Location Encounter Start Date Encounter Closed Date Diagnosis/Indication Diagnosis SNOMED-CT Code Diagnosis ICD10 Code Diagnosis IMO Codes Diagnosis Note [id number] Wilder Marion DO [facility]) [address] [place] [address] 06/03/2025 09:03:17 06/16/2025 08:15:12 Abdominal pain 85100517 R10.9 [id number] I have reviewed and discussed need for colonoscop y. Discussed risks vs benefits including risk of infection and bleeding, perforatio n, possible need for surgery, reaction to medication s, and sever injury or . We discussed pt requiring sedation and possible general anesthesia . Pt agrees to proceed with Colonoscop y at [facility]. Preliminar y procedure date will be 06/18/25.Pt to hold Mounjaro for at least 7 days prior to procedure. [id number] Wilder Marion DO [facility] ([facility]) [address] [place] [address] 06/24/2025 16:24:53 06/30/2025 13:20:54 Colitis 55803798 K52.9 [id number] 06/24/25: Counseled will treat with Prednisone to decrease inflammati on, 40mg for 7 days, 20mg for 7 days, then 10mg for 7 days. Counseled on diagnosis, treatment options including medication s and possible side effects. Keep upcoming appt on 06/30/25 for recheck. [id number] Wilder Marion DO [facility] ([facility]) [address] [place] [phone] 06/30/2025 11:30:42 07/01/2025 09:50:41 Colitis 26103516 K52.9 [id number] 06/30/25: Improved with Prednisone . Counseled some [...] appt on 06/30/25 for recheck. Diabetes mellitus 258292 09 E11.51 E11.69 04/01/25: A1c 4.9 on 03/24/25, down from 5.0 on 12/04/24. Decrease Mounjaro to 2.5mg for 4 weeks, then stop. Essential hypertension 98556044 I10 Stable. Continue diltiazem Health Concerns Section Related Observation LastModified by Organization Detai ls LastModified Time None Recorded Concern Status LastModified by Organization Details LastModified Time None Recorded Payers Encounter Date Sequence Insurance Name Policy Number Policy Sprague Covered Member ID Sprague Member ID Guarantor Name 06/30/2025 1 [place] Kristie Rosado [id number] Marybel Rosado 06/30/2025 2 [employer] - PLAN F (MEDICARE SUPPLEMENT) Kristie Rosado [id number] Marybel Rosado Notes Date Note Type Note Provider Name and Address Organization Details Recorded Time 06/30/2025 text/html ROS as noted in the [...] 4.9.BUN 8.0, Cr 0.7, AST 51. Wilder Marion, DO [address] [place], [address], [facility], [place] 07/01/2025 12:55:13 OBGyn Episode No OBEpisode recorded.
[2025-08-23 04:18] VITALS: BP 170/88; PULSE 91; RESP 18; TEMP 36.6; O2SAT 100; BMI 21.7
[2025-08-23 04:24] VITALS: BP 170/88; PULSE 82; RESP 17; O2SAT 100
--- NOTE | 2025-08-23 04:26 | CTR_ITS ---
PROCEDURE INFORMATION: Exam: CT Abdomen And Pelvis With Contrast Exam date and time: 08/23/2025 4:38 AM Age: 69 years old Clinical indication: Abdominal pain; Localized; Left upper quadrant (luq); Prior surgery; Surgery date: 6+ months; Surgery type: RT breast lumpectomy. Hysterectomy; C/O luq pain; Additional info: Left upper quadrant abdominal pain TECHNIQUE: Imaging protocol: Computed tomography of the abdomen and pelvis with contrast. Radiation optimization: All CT scans at this facility use at least one of these dose optimization techniques: automated exposure control; mA and/or kV adjustment per patient size (includes targeted exams where dose is matched to clinical indication); or iterative reconstruction. Contrast material: OMNI 350; Contrast volume: 100 ml; Contrast route: INTRAVENOUS (IV); COMPARISON: CT abdomen pelvis w con* [id number] 04/24/2025 2:14 PM RADIATION DOSE METRICS: Total DLP (mGy-cm): 454.22 FINDINGS: Lung bases: Unremarkable. Liver: Normal. No mass. Gallbladder and biliary ducts: Normal. No calcified stones. No ductal dilation. Pancreas: Normal. No ductal dilation. Spleen: Normal. No splenomegaly. Adrenal glands: Interval stability is noted. Mild nodularity associated with the left adrenal gland is unchanged. Kidneys and ureters: There is a cm hypodense cystic lesion in the upper pole of the right kidney. There is no evidence of renal calculus or obstructive uropathy. Stomach and bowel: Mildly distended: With fecal content is present. No focal inflammation is noted. There is no evidence of bowel obstruction. Appendix: No evidence of appendicitis. A normal-appearing appendix is identified. Intraperitoneal space: Unremarkable. No free air. No significant fluid collection. Vasculature: Scattered calcific plaque associated with the infrarenal abdominal aorta is noted. No abdominal aortic aneurysm. Lymph nodes: Unremarkable. No enlarged lymph nodes. Urinary bladder: Unremarkable as visualized. Reproductive: The uterus is absent. Bones/joints: There is a chronic compression deformity associated with the ventral aspect of T12 and mild ventral compression of L1 is also unchanged. No acute fracture. Soft tissues: Unremarkable. CT/CT abdomen pelvis w con* [id number] IMPRESSION: 1. There is a moderate volume of fecal matter throughout the colon which may indicate the presence of constipation. 2. There is a subcentimeter cystic appearing lesion in the upper pole of the right kidney. COMMENTS: Consistent with the [employer]'s Incidental Findings Committee white paper (J Am Hilda Radiol 2018): Any incidental renal lesion less than 1 cm or classified as too small to characterize, or any incidental cystic renal lesion characterized as simple-appearing, is likely benign. No follow-up imaging is recommended for these lesions per consensus recommendations based on imaging criteria.
[2025-08-23] MEDS: iohexol 350 mg/mL 500 mL Btl (per mL) IV (04:40)
[2025-08-23 04:49] LABS: Hematocrit 39.2 % (36-47); Hemoglobin 13.10 g/dL (11.27-16.99); Mean Corpuscular HGB Conc 33.4 g/dL (30-55); Mean Corpuscular Hemoglobin 31.5 pg (27-33); Mean Corpuscular Volume 94.2 fl (85-98); Nucleated Red Blood Cells % 0 %; Platelet Count 218 10^3/cmm (157-399); Red Blood Count 4.16 10^6/uL (3.85-5.65); White Blood Count 7.67 10^3/uL (3.29-11.43)
[2025-08-23 04:55] LABS: Alanine Aminotransferase 15 U/L (0-33); Albumin Level 4.2 g/dL (3.5-5.2); Alkaline Phosphatase 101 U/L (35-105); Anion Gap 18.8 (5-19); Aspartate Amino Transferase 34 U/L (0-32); Blood Urea Nitrogen 10 mg/dL (8-23); Calcium 9.8 mg/dL (8.5-10.5); Carbon Dioxide 24 mmol/L (22-29); Chloride 100 mmol/L (98-107); Creatinine Clr Calc Pharmacy 62.0556; Globulin 2.6 g/dL (1.3-4.6); Glucose 123 mg/dL (65-115); Lactic Sepsis W/Reflex 1.6 mmol/L (0.5-2.2); Lipase 28 U/L (13-60); Osmolality Calculated 288 mOsm/kg (285-295); Potassium 3.8 mmol/L (3.5-5.1); Sodium 139 mmol/L (136-145); Total Protein 6.8 g/dL (6.6-8.7)
[2025-08-23 05:17] VITALS: BP 169/82; PULSE 90; RESP 19; O2SAT 99
--- NOTE | 2025-08-23 05:23 | W.ED.ABDPA2 ---
HPI - Abdominal Pain General: Chief Complaint: Abdominal Pain Stated Complaint: sharp abd pain under left rib cage Time Seen by Provider: 08/23/25 04:37 History of Present Illness: Patient is a 69-year-old female presenting with left flank pain that started Sunday evening (3 days ago). She rates the pain as 6/10 at rest but 10/10 when it flares up. The pain is severe enough to wake her from sleep. She describes the pain as localized under her left rib cage with some tenderness to palpation. Patient notes that she previously had similar pain on the right side. She denies fever, vomiting, diarrhea, or blood in stool. Patient reports having some burning with urination last week, for which she took Ciprofloxacin. She is approximately 5 weeks post-operative from a vaginal repair procedure performed in [place], which required a urinary catheter for approximately 1.5 weeks. Patient mentions that after a similar episode previously, she was treated with two types of antibiotics and steroids by Dr. Bardales. Related Data Home Medications ?Medication ?Instructions ?Recorded ?Confirmed calcium 600 mg (as 1 cap PO DAILY 12/02/19 04/24/25 carbonate)-vitamin D3 12.5 mcg (500 unit) capsule (Calcium with Vit D3) tizanidine 2 mg capsule 2 mg PO Q8H PRN Pain 12/02/19 04/24/25 triamcinolone acetonide 0.1 % 1 applic topical BID PRN unknown 12/02/19 04/24/25 topical cream diltiazem HCl 60 mg 60 mg PO BID 08/16/21 04/24/25 capsule,extended release 12 hr eenxrgdvirdo-jbwnitjm-njvizy tablet 1 tab PO DAILY 11/09/22 04/24/25 atorvastatin 10 mg tablet 10 mg PO DAILY 03/30/25 04/24/25 fluoxetine 40 mg capsule 40 mg PO DAILY 04/24/25 04/24/25 inulin 2 gram chewable tablet 2 g PO DAILY 04/24/25 04/24/25 tirzepatide 2.5 mg/0.5 mL 2.5 mg SUBCUT Q7D 04/24/25 04/24/25 subcutaneous pen injector (Breezy) tramadol 50 mg tablet 50 mg PO Q6H PRN Severe Pain 04/24/25 04/24/25 (Scale Score 7-10) Previous Rx's ?Medication ?Instructions ?Recorded amoxicillin 875 mg-potassium 1 tab PO BID #14 tabs 04/24/25 clavulanate 125 mg tablet hydrocodone 5 mg-acetaminophen 325 1 tab PO Q6H PRN pain #15 tabs 04/24/25 mg tablet promethazine 25 mg tablet 25 mg PO Q6H PRN nausea and 04/24/25 vomiting #20 tabs Allergies Allergy/AdvReac Type Severity Reaction Status Date / Time No Known Allergies Allergy Verified 04/24/25 12:33 PFSH ED PFSH: Medical History Transaminitis Osteoporosis Breast cancer, right 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 Status post right breast lumpectomy and sentinel lymph node biopsy, Status post chemo radiotherapy Reflex sympathetic dystrophy of right leg Nifedipine Renal calculus, left Cystocele with rectocele BOTH REPAIRED Trans-obturator sub-urethral sling in April 2005 Anterior vaginal repair Nocturia Chronic cystitis Surgical History H/O bilateral salpingo-oophorectomy History of lumpectomy of right breast (07/02/14) Right breast lumpectomy with axillary sentinel lymph node biopsy History of hysterectomy Vaginal hysterectomy Family History Mother Dementia Diabetes Brother Diabetes Sister Diabetes Grandmother Diabetes Denies family history of Colon cancer Breast cancer Social History Smoking and tobacco/nicotine status: former use of tobacco/nicotine Alcohol intake: current Alcohol intake frequency: holidays/special occasions only Substance/Drug Use: unknown Adopted: No Caregiver/support person: No Lives independently: No Household members: spouse Marital status: Current occupational status: retired Current gender identity: Male Physical Exam Const: COMMON NORMALS: no acute distress GENERAL APPEARANCE: cooperative; not frail appearing HENMT: COMMON NORMALS: normocephalic, atraumatic and Normal external nose present HEAD & SCALP: normocephalic and atraumatic FACE & SINUS: normal facial exam and face symmetric NOSE: Normal external nose present Eye: COMMON NORMALS: Equal, round and reactive pupils present and EOMs intact bilaterally PUPIL: Yes Equal, round and reactive pupils present Neck/C-Spine: GENERAL: Yes trachea midline Chest: CHEST: Yes Symmetrical chest wall rise Resp: COMMON NORMALS: normal respiratory effort, No retractions, No use of accessory muscles and clear to auscultation bilaterally AUSCULTATION: clear to auscultation bilaterally Cardio: COMMON NORMALS: regular rate and regular rhythm RATE: regular rate RHYTHM: regular rhythm GI: COMMON NORMALS: Normal to inspection, nondistended, normoactive bowel sounds present and Soft to palpation PALPATION: Yes Soft to palpation and Yes Tenderness to palpation present (GI) Details: LUQ : BLADDER/KIDNEY EXAM: Yes CVA tenderness on the left Back/Pelvis: GENERAL BACK: Yes CVA tenderness Extremity: COMMON NORMALS: no pedal edema Neuro: SANJIV COMA SCALE: document GCS findings Hardwick coma scale eye opening: Spontaneous Hardwick coma scale verbal response: Orientated Sanjiv coma scale motor response: Obey commands Hardwick coma scale total score: 15 SENSORY EXAM: Yes extremities (intact) Psych: COMMON NORMALS: speech normal SPEECH: Yes normal speech Skin: COMMON NORMALS: no rashes or lesions noted GENERAL SKIN EXAM: no rashes or lesions noted Course Vital Signs: Vital signs: Vital Signs Temperature 97.8 F 08/23/25 04:18 Pulse Rate 86 08/23/25 06:06 Respiratory Rate 19 H 08/23/25 06:06 Blood Pressure 169/82 08/23/25 06:06 Pulse Oximetry 92 08/23/25 06:06 MDM - Abdominal Pain Medical Decision Making Vitals are stable here. She is mildly hypertensive. Significant left upper quadrant and left flank tenderness. CBC is normal. BMP is normal. Lactic acid is 1.6. Lipase is 28. Liver enzymes are normal. CT is pending. She has been given Toradol morphine and Zofran with some relief. CT scan shows a significant amount of constipation. No other acute findings. Her vitals were stable. With improvement. She is stable for discharge. Constipation is treated with Milk OF Magnesia, mineral oil, and Lactulose. Stool softeners were suggested following this. She can return for any worsening symptoms despite treatment, etc. Outpatient follow up. Lab Data 08/23/25 04:26 08/23/25 04:26 Labs/Radiology: Radiology Impressions Abdomen/Pelvis CT 08/23/25 04:26 IMPRESSION: 1. There is a moderate volume of fecal matter throughout the colon which may indicate the presence of constipation. 2. There is a subcentimeter cystic appearing lesion in the upper pole of the right kidney. COMMENTS: Consistent with the [employer]'s Incidental Findings Committee white paper (J Am Hilda Radiol 2018): Any incidental renal lesion less than 1 cm or classified as too small to characterize, or any incidental cystic renal lesion characterized as simple-appearing, is likely benign. No follow-up imaging is recommended for these lesions per consensus recommendations based on imaging criteria. Laboratory Results WBC 7.67 10^3/uL (3.29-11.43) 08/23/25 04:26 RBC 4.16 10^6/uL (3.85-5.65) 08/23/25 04:26 Hgb 13.10 g/dL (11.27-16.99) 08/23/25 04:26 Hct 39.2 % (36-47) 08/23/25 04:26 MCV 94.2 fl (85-98) 08/23/25 04:26 MCH 31.5 pg (27-33) 08/23/25 04:26 MCHC 33.4 g/dL (30-55) 08/23/25 04:26 RDW 13.2 % (12.1-15.1) 08/23/25 04:26 Plt Count 218 10^3/cmm (157-399) 08/23/25 04:26 MPV 10.3 fL (7.4-10.4) 08/23/25 04:26 Neut % (Auto) 71.9 % 08/23/25 04:26 Lymph % (Auto) 15.5 % 08/23/25 04:26 Deuel % (Auto) 10.2 % 08/23/25 04:26 Eos % (Auto) 1.0 % 08/23/25 04:26 Baso % (Auto) 0.7 % 08/23/25 04:26 Neut # (Auto) 5.52 10^3/uL (1.8-7.7) 08/23/25 04:26 Lymph # (Auto) 1.2 10^3/uL (0.8-4.8) 08/23/25 04:26 Deuel # (Auto) 0.8 10^3/uL (0.2-0.9) 08/23/25 04:26 Eos # (Auto) 0.1 10^3/uL (0.0-0.8) 08/23/25 04:26 Baso # (Auto) 0.1 10^3/uL (0.0-0.1) 08/23/25 04:26 Nucleated RBC % (auto) 0 % 08/23/25 04:26 Nucleated RBCs # 0.0 /100WBC 08/23/25 04:26 Sodium 139 mmol/L (136-145) 08/23/25 04:26 Potassium 3.8 mmol/L (3.5-5.1) 08/23/25 04:26 Chloride 100 mmol/L (98-107) 08/23/25 04:26 Carbon Dioxide 24 mmol/L (22-29) 08/23/25 04:26 Anion Gap 18.8 (5-19) 08/23/25 04:26 BUN 10 mg/dL (8-23) 08/23/25 04:26 Creatinine 0.5 mg/dL (0.5-0.9) 08/23/25 04:26 GFR Calculation 122.0 mL/min (90-130) 08/23/25 04:26 Glucose 123 mg/dL (65-115) H 08/23/25 04:26 Calculated Osmolality 288 mOsm/kg (285-295) 08/23/25 04:26 Lactic Acid 1.6 mmol/L (0.5-2.2) 08/23/25 04:26 Calcium 9.8 mg/dL (8.5-10.5) 08/23/25 04:26 Total Bilirubin 0.6 mg/dL (0.15-1.2) 08/23/25 04:26 AST 34 U/L (0-32) H 08/23/25 04:26 ALT 15 U/L (0-33) 08/23/25 04:26 Alkaline Phosphatase 101 U/L (35-105) 08/23/25 04:26 C-Reactive Protein 17.5 mg/L (0.0-4.9) H 08/23/25 04:26 Total Protein 6.8 g/dL (6.6-8.7) 08/23/25 04:26 Albumin 4.2 g/dL (3.5-5.2) 08/23/25 04:26 Globulin 2.6 g/dL (1.3-4.6) 08/23/25 04:26 Lipase 28 U/L (13-60) 08/23/25 04:26 Urine Color Yellow (Yellow) 08/23/25 05:18 Urine Appearance Cloudy (CLEAR) A 08/23/25 05:18 Urine pH 8.0 (5-7) A 08/23/25 05:18 Ur Specific Coello 1.027 (1.005-1.030) 08/23/25 05:18 Urine Protein Negative (Negative) 08/23/25 05:18 Urine Glucose (UA) Negative (Normal) 08/23/25 05:18 Urine Ketones Negative (Negative) 08/23/25 05:18 Urine Blood Negative (Negative) 08/23/25 05:18 Urine Nitrate Negative (Negative) 08/23/25 05:18 Urine Bilirubin Negative (Negative) 08/23/25 05:18 Urine Urobilinogen 0.2 mg/dL (Negative) 08/23/25 05:18 Ur Leukocyte Esterase Negative (Negative) 08/23/25 05:18 Urine RBC 0-2 /hpf (0-2) 08/23/25 05:18 Urine WBC 0-5 /hpf (0-5) 08/23/25 05:18 Ur Squamous Epith Cells 0-5 /hpf (0-5) 08/23/25 05:18 Amorphous Sediment Not Reportable 08/23/25 05:18 Urine Bacteria None seen /hpf (NONE) 08/23/25 05:18 Hyaline Casts 0-4 /lpf H 08/23/25 05:18 All radiology interpretation(s) finalized by discharge Discharge Plan Discharge Patient Disposition: Home Clinical Impression: Abdominal pain, Constipation Condition: Stable Prescriptions: No Action diltiazem HCl 60 mg capsule,extended release 12 hr 60 mg PO BID triamcinolone acetonide 0.1 % cream 1 applic TOPICAL BID PRN (Reason: unknown) tizanidine 2 mg capsule 2 mg PO Q8H PRN (Reason: Pain) calcium carbonate-vitamin D3 [Calcium 600 with Vitamin D3] 600 mg(1,500mg) -500 unit capsule 1 cap PO DAILY atorvastatin 10 mg tablet 10 mg PO DAILY xrxyyrxxrzhu-hlyheagc-tamfdn Tablet 1 tab PO DAILY fluoxetine 40 mg capsule 40 mg PO DAILY tramadol 50 mg tablet 50 mg PO Q6H PRN (Reason: Severe Pain (Scale Score 7-10)) Fiber Gummies 2 gram Tablet,Chewable 2 g PO DAILY Mounjaro 2.5 mg/0.5 mL pen injector 2.5 mg SUBCUT Q7D amoxicillin-pot clavulanate 875-125 mg tablet 1 tab PO BID Qty: 14 0RF hydrocodone-acetaminophen 5-325 mg tablet 1 tab PO Q6H PRN (Reason: pain) Qty: 15 0RF promethazine 25 mg tablet 25 mg PO Q6H PRN (Reason: nausea and vomiting) Qty: 20 0RF Discharge Orders: Discharge ED (Routine); Ordered 08/23/25 Ordered By: Thomas Graham Referrals: Melecio Bardales DO [Primary Care Provider, Family Practice] - 1-3 days Patient Instructions: Constipation (ED), Abdominal Pain (ED), Opioid Safety, Pain Management, Patient Portal & [place] Instructions Activity Restrictions/Additional Instructions: Return for fever, vomiting, worsening pain despite treatment, blood in the stool, any other concerning symptoms. Follow-up with your doctor next week. Print Language: Romanian Coding Level of Care Code ED Restorer [employer] for Sebastian Delgado
[2025-08-23 05:28] VITALS: RESP 18; O2SAT 97
[2025-08-23] MEDS: morphine 4 mg/mL SDV 1 mL IVP (05:28)
[2025-08-23] MEDS: ondansetron 2 mg/ML SDV 2 mL 4 MG IVP (05:29)
[2025-08-23 05:31] LABS: Glucose Urine UA Negative (Normal); Nitrate Urine Negative (Negative); Specific Gravity, Urine 1.027 (1.005-1.030)
[2025-08-23 05:33] VITALS: BP 169/82; PULSE 82; RESP 15; O2SAT 98
[2025-08-23 05:36] LABS: Add Urine Microscopic? YES
[2025-08-23] MEDS: lactulose oral liq 20 gm/30 mL UDC PO (05:50)
[2025-08-23 06:06] VITALS: BP 169/82; PULSE 86; RESP 19; O2SAT 92
== END 2025-08-23 06:07 | disposition home or self-care (01) ==
PROVIDERS: Emergency Provider Emergency Medicine; PCP Electrodiagnostic Medicine
DX: K59.00 Constipation, unspecified (principal); Z79.4 Long term (current) use of insulin; Z87.891 Personal history of nicotine dependence; Z85.3 Personal history of malignant neoplasm of breast
CPT/HCPCS: 74177; 80053; 81001; 83605; 83690; 85025; 86140; 96374; 96375; 99285; J1885; J2270; J2405; J9999